=== PATIENT | male | born 1945 | race Caucasian/White ===

== ENCOUNTER 2016-11-26 08:48 | Emergency (ER) | payer MEDICARE ==
[2016-11-26 09:03] VITALS: RESP 18; TEMP 97
[2016-11-26] MEDS ORDERED: methylPREDNISolone SOD SUCCI 125 MG/2 ML VIAL IM STA (09:18)
[2016-11-26] MEDS ORDERED: HYDROmorphone 1 MG/ML 1 ML SYRINGE IM STA (09:18)
--- NOTE | 2016-11-26 09:22 | ED ---
Back Pain HPI - General Chief Complaint: Back Pain/Injury Stated Complaint: back pain, kidney pain Time Seen by Provider: 11/26/16 09:14 Source: patient, RN notes reviewed Limitations: no limitations - History of Present Illness Initial Comments: 71-year-old male presents to the emergency department with a chief complaint of back pain. Patient complains of back pain to the right side that radiates into the right leg. Patient states he has a long history of back pain and does suffer from chronic back pain. Patient states he sees Dr. Sandoval for this and is on narcotics. Patient states he was doing yard work over the weekend. Patient states around 3 AM he woke up due to his back pain. Patient states that he did not want it, but it just seems a little worse than normal wondering if maybe we should do a back injection. Patient states he talked to his daughter and he was informed by hospital had pain specialist to continue injections in the back to help with the discomfort. Patient denies any loss of bowel or bladder function. Patient denies any falls or traumas to the back. Patient states this is much like his normal chronic pain just flared up he thought that maybe we could help manage his pain better. Patient denies any recent fever, chills, shortness of breath, chest pain, abdominal pain, nausea vomiting, numbness or tingling, dysuria or hematuria, constipation or diarrhea, headaches or visual changes, or any other current symptoms. - Related Data Home Medications Medication Instructions Recorded Confirmed Aspirin 325 mg PO HS 12/23/13 06/18/15 Fish Oil/Dha/Epa [Fish Oil 1,200 4,800 mg PO DAILY 12/23/13 06/18/15 mg Fish Oil] Simvastatin 20 mg PO HS 12/23/13 06/18/15 metFORMIN HCL [Glucophage] 500 mg PO BID 12/23/13 06/18/15 Atenolol [Tenormin] 50 mg PO DAILY 11/26/16 11/26/16 Glimepiride [Amaryl] 1 mg PO BID 11/26/16 11/26/16 HYDROcodone/APAP 7.5-325MG [[place] 0.5 - 1 tab PO BID PRN 11/26/16 11/26/16 7.5-325] Ibuprofen [Motrin] 800 mg PO BID PRN 11/26/16 11/26/16 Losartan Potassium [Cozaar] 25 mg PO DAILY 11/26/16 11/26/16 Previous Rx's Medication Instructions Recorded predniSONE 50 mg PO DAILY #3 tab 11/26/16 Allergies Allergy/AdvReac Type Severity Reaction Status Date / Time No Known Allergies Allergy Verified 11/26/16 09:33 Review of Systems ROS Statement: Those systems with pertinent positive or pertinent negative responses have been documented in the HPI. ROS Other: All systems not noted in ROS Statement are negative. Past Medical History Past Medical History: Diabetes Mellitus, Hyperlipidemia, Myocardial Infarction ( non Q-wave), Osteoarthritis (OA) Additional Past Medical History / Comment(s): SEE DR FIELD'S H&P, KIDNEY STONES chronic back pain Last Myocardial Infarction Date:: 2006 History of Any Multi-Drug Resistant Organisms: None Reported Past Surgical History: Appendectomy, Cholecystectomy, Heart Catheterization With Stent Additional Past Surgical History / Comment(s): COLONOSCOPY, LEFT CATARACT. PACEMAKER 2006. Past Anesthesia/Blood Transfusion Reactions: No Reported Reaction Date of Last Stent Placement:: 2006 Type of Cardiac Device: AICD Device Placement Date:: 2006 [facility] LEFT CHEST Past Psychological History: No Psychological Hx Reported Smoking Status: Former smoker Past Alcohol Use History: Daily Past Drug Use History: None Reported General Exam Limitations: no limitations General appearance: alert, in no apparent distress Head exam: Present: atraumatic, normocephalic, normal inspection Neck exam: Present: normal inspection. Absent: tenderness, meningismus, lymphadenopathy Respiratory exam: Present: normal lung sounds bilaterally. Absent: respiratory distress, wheezes, rales, rhonchi, stridor Cardiovascular Exam: Present: regular rate, normal rhythm, normal heart sounds. Absent: systolic murmur, diastolic murmur, rubs, gallop, clicks Extremities exam: Present: normal inspection, full ROM, normal capillary refill. Absent: tenderness, pedal edema, joint swelling, calf tenderness Back exam: Present: normal inspection, full ROM, other (Positive straight leg raise to the right). Absent: tenderness, CVA tenderness (R), CVA tenderness (L) , muscle spasm, paraspinal tenderness, vertebral tenderness, rash noted Neurological exam: Present: alert, oriented X3 Psychiatric exam: Present: normal affect, normal mood Skin exam: Present: warm, dry, intact, normal color. Absent: rash Course Vital Signs 11/26/16 09:00 Temperature 97.0 F L Pulse Rate 52 L Respiratory 18 Rate Blood Pressure 135/67 O2 Sat by Pulse 99 Oximetry Medical Decision Making - Medical Decision Making 71-year-old male presents for follow-up of his chronic back pain. This time patient underwent an x-ray that does not show any new acute findings. This time we discussed continued follow-up with his doctor. We did give him a injection and he is feeling better. This time we discussed continuing his at home pain medicine medication. We did give him a short course of steroids for 3 days due to his diabetes who did discuss the importance of watching his glucose however this may help with his acute flare up. We did discuss return for hours and all his questions. He stated he understood a significant plan. This time will be discharged home. - Radiology Data Radiology results: report reviewed, image reviewed Disposition Clinical Impression: Chronic back pain Disposition: HOME SELF-CARE Condition: Stable Instructions: Chronic Back Pain (ED) Additional Instructions: Please use medication as discussed. Please follow up with family doctor if symptoms have not improved over the next two days. Please return to the emergency room if your symptoms increase or worsen or for any other concerns. Prescriptions: predniSONE 50 mg PO DAILY #3 tab Referrals: Keesha Miramontes MD [Primary Care Provider] - 1-2 days Time of Disposition: 10:01
--- NOTE | 2016-11-26 09:46 | XR ---
EXAMINATION TYPE: XR lumbar spine 2 or 3V, 3 VIEWS DATE OF EXAM ORDERED: 11/26/2016 HISTORY: Pain. COMPARISON: None. FINDINGS: There is a mild dextroscoliosis. Vertebral body height and alignment are maintained. There is no spondylolysis or spondylolisthesis. T here is chronic wedging of the T11 vertebral body. No fractures are seen. There is extensive facet ar thropathy. This hypertrophic spondylosis and spondylosis deformans throughout the spine. The pedicles appear intact. There is calcification of the [place] aorta. IMPRESSION: 1. NO ACUTE OSSEOUS LESION. 2. EXTENSIVE DEGENERATIVE CHANGE.
[2016-11-26 10:11] VITALS: BP 104/60; PULSE 61
== END 2016-11-26 10:05 | disposition home or self-care (01) ==
LOC: EC 08:48
DX: G89.29 Other chronic pain (principal); M54.9 Dorsalgia, unspecified; M79.604 Pain in right leg; E78.5 Hyperlipidemia, unspecified; E11.9 Type 2 diabetes mellitus without complications; M19.90 Unspecified osteoarthritis, unspecified site; I25.2 Old myocardial infarction; Z87.891 Personal history of nicotine dependence; Z79.82 Long term (current) use of aspirin; Z79.84 Long term (current) use of oral hypoglycemic drugs; Z79.899 Other long term (current) drug therapy
CPT/HCPCS: 72100; 99283; 96372 ×2; J2930; J1170

== ENCOUNTER 2016-12-08 09:44 | Emergency (ER) | payer MEDICARE ==
--- NOTE | 2016-12-08 10:48 | ED ---
Back Pain [facility] - General Chief Complaint: Back Pain/Injury Stated Complaint: back pain Time Seen by Provider: 12/08/16 10:22 Source: patient Limitations: no limitations - History of Present Illness Initial Comments: Patient is a 71-year-old male with extensive past medical history listed below, most significant for chronic low back pain secondary to arthritis. He presents to emergency department for evaluation of low back pain with radiating burning pain through his right buttock down his right leg. Patient reports he has a history of sciatica in the past, this was treated with steroids and resolved within 24-48 hours. Patient reports that he has been following with his primary care physician and has been seen in the ER in the past month due to his worsening low back pain. He has been treated with steroids and anti- inflammatories and has been referred to pain management, he plans to follow up with the pain management clinic next month. Patient reports that this weekend he was doing some landscaping and is home, this included carrying bags of 50 pound topsoil. He reports that his back pain waxed and waned throughout the day yesterday, however he was woken during the night with this burning pain radiating down his right leg. He reports that this pain is identical in character to previous episodes of sciatica. The patient denies any change in bowel or bladder habits, he denies any urinary retention or dysuria. He denies any bowel incontinence or constipation. He denies any weakness in the legs, numbness, tingling or paresthesias. He is walking with a cane due to the pain in his back. - Related Data Home Medications Medication Instructions Recorded Confirmed Aspirin 325 mg PO HS 12/23/13 11/26/16 Fish Oil/Dha/Epa [Fish Oil 1,200 4,800 mg PO DAILY 12/23/13 11/26/16 mg Fish Oil] Simvastatin 20 mg PO HS 12/23/13 11/26/16 metFORMIN HCL [Glucophage] 500 mg PO BID 12/23/13 11/26/16 Atenolol [Tenormin] 50 mg PO DAILY 11/26/16 11/26/16 Ibuprofen [Motrin] 800 mg PO BID PRN 11/26/16 11/26/16 Losartan Potassium [Cozaar] 25 mg PO DAILY 11/26/16 11/26/16 predniSONE See Taper PO DIRECTED 12/08/16 12/08/16 Previous Rx's Medication Instructions Recorded HYDROcodone/APAP 5-325MG [[place] 1 tab PO Q6HR PRN #12 tab 12/08/16 5-325] predniSONE 10 mg PO DAILY #18 tab 12/08/16 Allergies Allergy/AdvReac Type Severity Reaction Status Date / Time No Known Allergies Allergy Verified 12/08/16 10:37 Review of Systems ROS Statement: Those systems with pertinent positive or pertinent negative responses have been documented in the HPI. ROS Other: All systems not noted in ROS Statement are negative. Constitutional: Denies: fever, chills Respiratory: Denies: cough, dyspnea Cardiovascular: Denies: chest pain Endocrine: Denies: fatigue Gastrointestinal: Denies: nausea, vomiting Genitourinary: Denies: urgency, dysuria Musculoskeletal: Reports: back pain Skin: Denies: rash Neurological: Denies: weakness, numbness, paresthesias Psychiatric: Denies: anxiety, depression Hematological/Lymphatic: Denies: easy bleeding, easy bruising Past Medical History Past Medical History: Diabetes Mellitus, Hyperlipidemia, Myocardial Infarction ( non Q-wave), Osteoarthritis (OA) Additional Past Medical History / Comment(s): SEE DR FIELD'S H&P, KIDNEY STONES chronic back pain Last Myocardial Infarction Date:: 2006 History of Any Multi-Drug Resistant Organisms: None Reported Past Surgical History: Appendectomy, Cholecystectomy, Heart Catheterization With Stent Additional Past Surgical History / Comment(s): COLONOSCOPY, LEFT CATARACT. PACEMAKER 2006. Past Anesthesia/Blood Transfusion Reactions: No Reported Reaction Date of Last Stent Placement:: 2006 Type of Cardiac Device: AICD Device Placement Date:: 2006 [facility] LEFT CHEST Past Psychological History: No Psychological Hx Reported Smoking Status: Former smoker Past Alcohol Use History: Daily Past Drug Use History: None Reported General Exam Limitations: no limitations General appearance: alert, in no apparent distress Head exam: Present: atraumatic, normocephalic, normal inspection Eye exam: Present: normal appearance, PERRL, EOMI. Absent: scleral icterus, conjunctival injection, periorbital swelling ENT exam: Present: mucous membranes moist Neck exam: Present: full ROM Respiratory exam: Present: normal lung sounds bilaterally. Absent: respiratory distress, wheezes, rales, rhonchi, stridor Cardiovascular Exam: Present: regular rate, normal rhythm, normal heart sounds, other (Pacemaker palpable in left chest). Absent: systolic murmur, diastolic murmur, rubs, gallop, clicks GI/Abdominal exam: Present: soft, normal bowel sounds. Absent: distended, tenderness, guarding, rebound, rigid Rectal exam: Present: deferred Extremities exam: Present: normal inspection, full ROM, normal capillary refill. Absent: tenderness, pedal edema, joint swelling, calf tenderness Back exam: Absent: tenderness, CVA tenderness (R), CVA tenderness (L), muscle spasm, paraspinal tenderness, vertebral tenderness Neurological exam: Present: alert, oriented X3, CN II-XII intact, reflexes normal (Normal patellar reflexes, normal strength in bilateral lower extremities , positive straight leg raise) Course Vital Signs 12/08/16 10:11 Temperature 98.1 F Pulse Rate 66 Respiratory 18 Rate Blood Pressure 115/59 O2 Sat by Pulse 97 Oximetry Medical Decision Making - Medical Decision Making Patient was seen and examined, history is obtained from the patient. Physical exam normal strength, normal sensation in bilateral lower extremities. Physical exam with positive straight leg raise, consistent with sciatica There are no neurologic findings on physical exam, no trauma, therefore no indication for further imaging Plan to discharge patient home with by mouth steroids, narcotic analgesics and follow-up with PCP and pain management Plan was discussed with the patient was agreeable. Disposition Clinical Impression: Sciatica, Mechanical back pain Disposition: HOME SELF-CARE Instructions: Chronic Back Pain (ED) Referrals: Keesha Miramontes MD [Primary Care Provider] - 1-2 days
[2016-12-08 11:24] VITALS: BP 119/60; PULSE 65; RESP 16; TEMP 98.2
== END 2016-12-08 11:24 | disposition home or self-care (01) ==
LOC: EC 09:44
DX: M54.41 Lumbago with sciatica, right side (principal); E78.5 Hyperlipidemia, unspecified; E11.9 Type 2 diabetes mellitus without complications; M19.90 Unspecified osteoarthritis, unspecified site; I25.2 Old myocardial infarction; Z87.891 Personal history of nicotine dependence; Z79.52 Long term (current) use of systemic steroids; Z79.82 Long term (current) use of aspirin; Z79.84 Long term (current) use of oral hypoglycemic drugs; Z79.899 Other long term (current) drug therapy; Z95.0 Presence of cardiac pacemaker
CPT/HCPCS: 99283

== ENCOUNTER → 2017-01-27 | Outpatient (CLI) | payer MEDICARE ==
[2017-01-22 12:49] VITALS: BMI 29.1
[2017-01-27 09:18] VITALS: BP 120/61; PULSE 61; RESP 16; TEMP 98.1
--- NOTE | 2017-01-27 09:36 | P.HPIM ---
History of Present Illness H&P Date: 01/27/17 Chief Complaint: right hip pain This is a 72-year-old male patient referred by Dr. Miramontes for chronic pain in right hip and slight pain in right side of low back with numbness radiating to right lateral ankle. Patient has been taking medications from primary care physician including rare [place] medications with some relief. Patient is also being worked up by Dr. Betancourt for hip OA, including a steroid injection performed at the beginning of December that patient is now beginning to get relief from. Patient denies adverse drug effects from medications. Patient also denies new- onset weakness, bowel/bladder incontinence, or any other signs or symptoms of cauda equina syndrome. There are no signs of acute intoxication, and no indications of medication diversion or overuse. Patient notes that pain worsens significantly with standing and walking, and improves with rest and medication. Patient has used several types of medications for pain, including NSAIDS, OPIOIDS, TRAMADOL Patient HAS NOT had surgery. Patient HAS had injections previously (R hip by Dr. Betancourt). Patient is currently undergoing physical therapy. In addition to above, 13-point review of systems is also negative for chest pain , shortness of breath, changes in vision, changes in hearing, new onset weakness , abdominal pain, diarrhea, extreme fatigue, malaise, fever, skin changes, homicidal or suicidal ideation, or bowel or bladder incontinence. Vital Signs: Reviewed in EMR Gen: WDWN, AAOx3, NAD HEENT: NCAT, EOMI, hearing grossly normal Pulm: resp unlabored Abd: soft, NT, ND Neck: supple, trachea midline ROM in flexion lumbar spine: full ROM in extension lumbar spine: full Lumbar paravertebral tenderness: neg Facet loading: + R side SI joint tenderness: neg Jose Elias's test: neg bilateral Straight leg raise: neg bilateral Neuro: CN II-XII grossly intact, muscle strength lower extremities PRESERVED Past Medical History Past Medical History: Diabetes Mellitus, Hyperlipidemia, Myocardial Infarction ( non Q-wave), Osteoarthritis (OA) Additional Past Medical History / Comment(s): SEE DR FIELD'S H&P, KIDNEY STONES chronic back pain Last Myocardial Infarction Date:: 2006 History of Any Multi-Drug Resistant Organisms: None Reported Past Surgical History: AICD, Appendectomy, Cholecystectomy, Heart Catheterization With Stent Additional Past Surgical History / Comment(s): COLONOSCOPY, LEFT CATARACT. AICD 2006. Past Anesthesia/Blood Transfusion Reactions: No Reported Reaction Date of Last Stent Placement:: 2006 Type of Cardiac Device: AICD Device Placement Date:: 2006 [facility] LEFT CHEST Past Psychological History: No Psychological Hx Reported Smoking Status: Former smoker Past Alcohol Use History: Daily Additional Past Alcohol Use History / Comment(s): QUIT IN 2004, SMOKED 40 YRS. Past Drug Use History: None Reported - Past Family History Mother Family Medical History: No Reported History Medications and Allergies Home Medications Medication Instructions Recorded Confirmed Type Aspirin 325 mg PO HS 12/23/13 01/27/17 History Fish Oil/Dha/Epa [Fish Oil 1,200 2 cap PO BID 12/23/13 01/27/17 History mg Fish Oil] Simvastatin 20 mg PO HS 12/23/13 01/27/17 History metFORMIN HCL [Glucophage] 500 mg PO TID 12/23/13 01/27/17 History Baclofen 10 mg PO HS 01/27/17 01/27/17 History Metoprolol Succinate (ER) [Toprol 12.5 mg PO DAILY 01/27/17 01/27/17 History XL] Naproxen Sodium [Aleve] 440 mg PO BID 01/27/17 01/27/17 History Tamsulosin HCl [Flomax] 0.4 mg PO DAILY 01/27/17 01/27/17 History Allergies Allergy/AdvReac Type Severity Reaction Status Date / Time No Known Allergies Allergy Verified 01/27/17 09:00 Physical Exam Vitals: Vital Signs Temp Pulse Resp BP 01/27/17 09:07 98.1 F 61 16 120/61 Results Comments: X-ray lumbar spine dated 11/26/2016 demonstrates extensive facet arthropathy with hypertrophic spondylosis and deformans throughout the spine. X-ray hip is unavailable. Assessment and Plan (1) Hip osteoarthritis Status: Chronic (2) Lumbar spondylosis Status: Chronic Plan: 1. Explanation: Opioid and psychological risk scores were reviewed. Diagnoses , prognoses, and multiple treatment options including but not limited to physical therapy, interventional therapies, adjuvant medical therapies, narcotic medication therapies, and surgery were discussed with the patient and all questions were answered to the patient's satisfaction. 2. Opioid agreement: no opioids prescribed today 3. Counseling: The patient was counseled extensively on BODY MASS INDEX, EXERCISE. Specifically, the patient was instructed regarding the importance of weight control, and exercise in the context of both chronic pain and overall health. 4. Procedures: none for now 5. Consultations: none 6. Investigations: CT lumbar spine to go along with patient's current order for CT R hip per Serafin 7. Medications: none 8. Disposition: f/u for re-eval in 8 weeks if Serafin tells patient that hip pain is arising from lumbar facets PQRS measures: 1-Patient's medications are documented in the chart. 2-Tobacco use is negative 3-Patient has not had a pneumococcal vaccine. 4-Advanced care planning discussed, patient unable to give. 5-Opioid contract NOT signed with the patient. 6-Pain positive, follow-up visit or procedure scheduled 7-Patient's blood pressure measured and documented, and WNL. 8-Patient's weight was measured, and body mass index ABOVE the normal limits, and counseling was done. Patient instructed to follow up with PCP. 9-Patient WAS NOT identified as an unhealthy alcohol user. Time with Patient: Greater than 30
== END | disposition home or self-care (01) ==
LOC: PNWHC3 08:52
PROVIDERS: ATTEND Anesthesiology
DX: M16.11 Unilateral primary osteoarthritis, right hip (principal); M47.816 Spondylosis without myelopathy or radiculopathy, lumbar region; Z79.82 Long term (current) use of aspirin; Z79.1 Long term (current) use of non-steroidal anti-inflammatories (NSAID); Z79.899 Other long term (current) drug therapy
CPT/HCPCS: 99211

== ENCOUNTER → 2017-02-03 | Outpatient (CLI) | payer MEDICARE ==
[2017-02-03 17:21] LABS: Blood Urea Nitrogen 30 mg/dL (9-20); Non-African American GFR(MDRD) 54 (>60 ml/min/1.73 sqM)
--- NOTE | 2017-02-03 23:15 | CT ---
CT right hip with and without contrast HISTORY: Right hip pain Multiplanar multisequence and postcontrast images through the right hip following 80 cc Visipaque [id number] Correlation to lumbar spine MRI same date The degenerative disc changes are documented in the lumbar spine report of same date. Joint space loss present within the hips, subchondral geode formation present bilaterally. Alignment and bone mineralization are maintained. No abnormal enhancement following contrast administration. Ma rginal spurring present. Prostate gland shows associated calcifications. IMPRESSION: Degenerative disc disease, facet arthropathy, foraminal encroachment. Osteoarthritis righ t hip.
== END | disposition home or self-care (01) ==
LOC: RADCTMAIN 16:39
PROVIDERS: ATTEND Orthopaedic Surgery
DX: M16.11 Unilateral primary osteoarthritis, right hip (principal); E11.9 Type 2 diabetes mellitus without complications; M51.16 Intervertebral disc disorders with radiculopathy, lumbar region
CPT/HCPCS: 82565; 84520; 36415; 73702; Q9967

== ENCOUNTER → 2017-02-03 | Outpatient (CLI) | payer MEDICARE ==
--- NOTE | 2017-02-03 23:09 | CT ---
EXAMINATION TYPE: CT lumbar spine wo con DATE OF EXAM: 02/03/2017 COMPARISON: NONE HISTORY: Low back pain and Right hip pain. CT DLP: 1020.5 mGycm Automated exposure control for dose reduction was used. An unenhanced CT of the lumbar spine was performed. Bone and soft tissue window settings are submitt ed as well as coronal and sagittal reconstructions. FINDINGS: Lumbar vertebral bodies show preserved height and alignment. There is multilevel spondylosis. Loss of disc height present at the intervertebral levels. Vacuum phenomenon present at L3-4, L4-5 and L5-S1. Calcification noted incidentally in the left kidney is nonobstructive and measures only approximatel y 5 mm at the lower pole, upper pole calcification seen on coronal images of similar size.. Cystic fo cus also associated with the upper pole left kidney anteriorly measuring 2 cm. May be a spinal curvat ure. L1-L2: Bilateral foraminal encroachment present due to lateral extension of endplate disc complex. Fa cet arthropathy changes are present with hypertrophy of ligamentum flavum encroaching on the lateral recesses. No significant central stenosis. L2-L3: Posterior extension of endplate disc complex causes anterior mass effect on the thecal sac. Mi ld bilateral foraminal encroachment, facet arthropathy changes are also present causing moderate cent ral stenosis. L3-L4: Posterior extension of endplate disc complex causes anterior mass effect on the thecal sac, mi ld central stenosis. Circumferential extension of endplate disc complex results in bilateral foramina l encroachment. Facet arthropathy with hypertrophy ligamentum flavum encroaches on the lateral recess es. L4-L5: Facet arthropathy with hypertrophy ligamentum flavum encroaches on the lateral recesses. Poste rior extension of endplate disc complex results in moderate central canal stenosis. Circumferential e xtension of endplate disc complex causes bilateral foraminal encroachment. Gas attenuation extends to wards the right neural foramen suggesting possible lateral disc herniation. L5-S1: Posterior extension of endplate disc complex likely contacts the anterior thecal sac, possibly proximal S1 nerve roots. Circumferential extension of endplate disc complex encroaches on the neural foramina. No significant central stenosis. IMPRESSION: No paraspinal masses are identified. Lumbar segments are intact. Nonobstructive left-sided nephrolit hiasis. Degenerative disc disease, multilevel facet arthropathy, spinal stenosis or foraminal encroac hment.
== END | disposition home or self-care (01) ==
LOC: RADCTMAIN 16:47
PROVIDERS: ATTEND Anesthesiology
DX: M51.16 Intervertebral disc disorders with radiculopathy, lumbar region (principal); M53.80 Other specified dorsopathies, site unspecified
CPT/HCPCS: 72131

== ENCOUNTER → 2017-02-20 | Outpatient (CLI) | payer MEDICARE ==
[2017-02-20 08:53] LABS: CH 33.5; CHCM 34.3; HCT 35.9 % (39.0-53.0); HDW 3.22; HGB 12.2 gm/dL (13.0-17.5); MCH 33.5 pg (25.0-35.0); MCV 98.4 fL (80.0-100.0); Mean Platelet Volume 7.3; RBC 3.65 m/uL (4.30-5.90); RDW 14.2 % (11.5-15.5); WBC 4.2 k/uL (3.8-10.6)
[2017-02-20 09:05] LABS: ALT 45 U/L (21-72); AST 31 U/L (17-59); Alkaline Phosphatase 73 U/L (38-126); Anion Gap 11 mmol/L; Blood Urea Nitrogen 21 mg/dL (9-20); Calcium 9.2 mg/dL (8.4-10.2); Carbon Dioxide 22 mmol/L (22-30); Chloride 106 mmol/L (98-107); Cholesterol 113 mg/dL (<200); Glucose 150 mg/dL (74-99); HDL Cholesterol 35 mg/dL (40-60); Non-African American GFR(MDRD) 54 (>60 ml/min/1.73 sqM); Potassium 4.6 mmol/L (3.5-5.1); Sodium 139 mmol/L (137-145); Total Bilirubin 1.6 mg/dL (0.2-1.3); Total Protein 6.5 g/dL (6.3-8.2)
[2017-02-20 12:54] LABS: Hemoglobin A1C 6.5 % (4.2-6.1)
== END | disposition home or self-care (01) ==
LOC: LABWHC1 08:07
PROVIDERS: ATTEND Internal Medicine Clinical Cardiac Electrophysiology
DX: I42.9 Cardiomyopathy, unspecified (principal); I50.9 Heart failure, unspecified; E11.9 Type 2 diabetes mellitus without complications; I47.2 Ventricular tachycardia
CPT/HCPCS: 36415; 80053; 80061; 83036; 84443; 85027

== ENCOUNTER 2018-03-11 07:49 | Observation (INO) | payer MEDICARE ==
--- NOTE | 2018-03-11 08:22 | ED ---
General Adult HPI - General Chief complaint: Chest Pain Stated complaint: CHEST PAIN Time Seen by Provider: 03/11/18 07:57 Source: patient, RN notes reviewed, old records reviewed Mode of arrival: ambulatory Limitations: no limitations - History of Present Illness Initial comments: 73-year-old male history of CAD and diabetes presenting with 3 days of left- sided chest pain. Patient describes the pain as dull in nature. He did report some mild left arm pain associated with this however this has resolved. Pain is been intermittent over the past 3 days. He also reports dyspnea which is worse with lying flat. Denies lower extremity swelling. Denies known history of heart failure. He had multiple stents placed 2006. He has a pacemaker defibrillator. He is currently on 12.5 mg of Toprol-XL. He takes aspirin, no other antiplatelet or anticoagulant. - Related Data Home Medications Medication Instructions Recorded Confirmed Aspirin 325 mg PO HS 12/23/13 03/11/18 Simvastatin 20 mg PO HS 12/23/13 03/11/18 metFORMIN HCL [Glucophage] 500 mg PO TID 12/23/13 03/11/18 Metoprolol Succinate (ER) [Toprol 12.5 mg PO DAILY 01/27/17 03/11/18 XL] Allergies Allergy/AdvReac Type Severity Reaction Status Date / Time No Known Allergies Allergy Verified 03/11/18 08:39 Review of Systems ROS Statement: Those systems with pertinent positive or pertinent negative responses have been documented in the HPI. ROS Other: All systems not noted in ROS Statement are negative. Past Medical History Past Medical History: Diabetes Mellitus, Hyperlipidemia, Myocardial Infarction ( non Q-wave), Osteoarthritis (OA) Additional Past Medical History / Comment(s): SEE DR FIELD'S H&P, KIDNEY STONES chronic back pain Last Myocardial Infarction Date:: 2006 History of Any Multi-Drug Resistant Organisms: None Reported Past Surgical History: AICD, Appendectomy, Cholecystectomy, Heart Catheterization With Stent Additional Past Surgical History / Comment(s): COLONOSCOPY, LEFT CATARACT. AICD 2006. Past Anesthesia/Blood Transfusion Reactions: No Reported Reaction Date of Last Stent Placement:: 2006 Type of Cardiac Device: AICD Device Placement Date:: 2006 [facility] LEFT CHEST Past Psychological History: No Psychological Hx Reported Smoking Status: Former smoker Past Alcohol Use History: Daily Past Drug Use History: None Reported - Past Family History Mother Family Medical History: No Reported History General Exam Limitations: no limitations General appearance: alert, in no apparent distress Head exam: Present: atraumatic, normocephalic Eye exam: Present: normal appearance, PERRL, EOMI ENT exam: Present: normal exam Neck exam: Present: normal inspection. Absent: tenderness, meningismus Respiratory exam: Present: rales, decreased breath sounds. Absent: respiratory distress Cardiovascular Exam: Present: bradycardia, irregular rhythm. Absent: normal heart sounds Extremities exam: Present: normal inspection, normal capillary refill. Absent: pedal edema Neurological exam: Present: alert, oriented X3, CN II-XII intact. Absent: motor sensory deficit Skin exam: Present: warm, dry, intact. Absent: cyanosis, diaphoretic Course Vital Signs 03/11/18 07:52 Temperature 97.5 F L Pulse Rate 35 L Respiratory 18 Rate Blood Pressure 121/62 O2 Sat by Pulse 99 Oximetry EKG Findings - EKG Comments: EKG Findings:: EKG: Sinus rhythm with frequent PVC, better no bigeminy, right bundle-branch block, left anterior fascicular block, rate of 63, IA interval 160 , QRS duration 136, QTC 474, no ST segment elevation or depression. Previous EKG reviewed, patient does have history of right bundle-branch block. Medical Decision Making - Medical Decision Making 73-year-old male presenting with 3 days of intermittent chest pain and dyspnea. Patient has history of CAD status post CABG in 2017. Pain is associated with dyspnea and some intermittent left arm pain as well. Laboratory studies reveal normal CBC, negative initial troponin, BNP is mildly elevated at 1680, chest x- ray is showing some atelectasis in the lung bases, patient has had no significant cough, no fever, and has a normal white blood cell count, doubt pneumonia at this time. He does have rails on bilateral bases, is given a dose of Lasix in the emergency department. He will be admitted on IV heparin for cardiology evaluation. - Lab Data Result diagrams: 03/11/18 08:20 03/11/18 08:20 Lab Results 03/11/18 03/11/18 03/11/18 Range/Units 08:20 08:20 08:20 WBC 5.7 (3.8-10.6) k/uL RBC 4.50 (4.30-5.90) m/uL Hgb 14.9 (13.0-17.5) gm/dL Hct 42.4 (39.0-53.0) % MCV 94.4 (80.0-100.0) fL MCH 33.0 (25.0-35.0) pg MCHC 35.0 (31.0-37.0) g/dL RDW 13.4 (11.5-15.5) % Plt Count 172 (150-450) k/uL Neutrophils % 60 % Lymphocytes % 21 % Monocytes % 9 % Eosinophils % 6 % Basophils % 1 % Neutrophils # 3.4 (1.3-7.7) k/uL Lymphocytes # 1.2 (1.0-4.8) k/uL Monocytes # 0.5 (0-1.0) k/uL Eosinophils # 0.3 (0-0.7) k/uL Basophils # 0.0 (0-0.2) k/uL PT (9.0-12.0) sec INR (<1.2) APTT (22.0-30.0) sec Sodium 140 (137-145) mmol/L Potassium 4.8 (3.5-5.1) mmol/L Chloride 107 (98-107) mmol/L Carbon Dioxide 22 (22-30) mmol/L Anion Gap 11 mmol/L BUN 27 H (9-20) mg/dL Creatinine 1.43 H (0.66-1.25) mg/dL Est GFR (CKD-EPI)AfAm 56 (>60 ml/min/1.73 sqM) Est GFR (CKD-EPI)NonAf 49 (>60 ml/min/1.73 sqM) Glucose 212 H (74-99) mg/dL Calcium 9.5 (8.4-10.2) mg/dL Magnesium 1.7 (1.6-2.3) mg/dL Total Bilirubin 1.6 H (0.2-1.3) mg/dL AST 37 (17-59) U/L ALT 36 (21-72) U/L Alkaline Phosphatase 65 (38-126) U/L Total Creatine Kinase 36 L (55-170) U/L CK-MB (CK-2) 0.6 (0.0-2.4) ng/mL CK-MB (CK-2) Rel Index 1.7 Troponin I <0.012 (0.000-0.034) ng/mL NT-Pro-B Natriuret Pep pg/mL Total Protein 6.6 (6.3-8.2) g/dL Albumin 3.8 (3.5-5.0) g/dL 03/11/18 03/11/18 Range/Units 08:20 08:20 WBC (3.8-10.6) k/uL RBC (4.30-5.90) m/uL Hgb (13.0-17.5) gm/dL Hct (39.0-53.0) % MCV (80.0-100.0) fL MCH (25.0-35.0) pg MCHC (31.0-37.0) g/dL RDW (11.5-15.5) % Plt Count (150-450) k/uL Neutrophils % % Lymphocytes % % Monocytes % % Eosinophils % % Basophils % % Neutrophils # (1.3-7.7) k/uL Lymphocytes # (1.0-4.8) k/uL Monocytes # (0-1.0) k/uL Eosinophils # (0-0.7) k/uL Basophils # (0-0.2) k/uL PT 10.5 (9.0-12.0) sec INR 1.1 (<1.2) APTT 23.3 (22.0-30.0) sec Sodium (137-145) mmol/L Potassium (3.5-5.1) mmol/L Chloride (98-107) mmol/L Carbon Dioxide (22-30) mmol/L Anion Gap mmol/L BUN (9-20) mg/dL Creatinine (0.66-1.25) mg/dL Est GFR (CKD-EPI)AfAm (>60 ml/min/1.73 sqM) Est GFR (CKD-EPI)NonAf (>60 ml/min/1.73 sqM) Glucose (74-99) mg/dL Calcium (8.4-10.2) mg/dL Magnesium (1.6-2.3) mg/dL Total Bilirubin (0.2-1.3) mg/dL AST (17-59) U/L ALT (21-72) U/L Alkaline Phosphatase (38-126) U/L Total Creatine Kinase (55-170) U/L CK-MB (CK-2) (0.0-2.4) ng/mL CK-MB (CK-2) Rel Index Troponin I (0.000-0.034) ng/mL NT-Pro-B Natriuret Pep 1680 pg/mL Total Protein (6.3-8.2) g/dL Albumin (3.5-5.0) g/dL Disposition Clinical Impression: Unstable angina pectoris Disposition: ADMITTED IP TO THIS [facility] Condition: Stable Is patient prescribed a controlled substance at d/c from ED?: No Referrals: Keesha Miramontes MD [Primary Care Provider] - 1-2 days Decision to Admit Reason: Admit from EC Decision Date: 03/11/18 Decision Time: 09:26
[2018-03-11 08:27] LABS: Basophils % (A) 1 %; Eosinophils # (A) 0.3 k/uL (0-0.7); Eosinophils % (A) 6 %; HCT 42.4 % (39.0-53.0); HGB 14.9 gm/dL (13.0-17.5); Lymphocytes # (A) 1.2 k/uL (1.0-4.8); Lymphocytes % (A) 21 %; MCV 94.4 fL (80.0-100.0); Mean Platelet Volume 7.7; Monocytes # (A) 0.5 k/uL (0-1.0); Monocytes % (A) 9 %; Neutrophils # (A) 3.4 k/uL (1.3-7.7); Neutrophils % (A) 60 %; Platelet Count 172 k/uL (150-450); RDW 13.4 % (11.5-15.5); WBC 5.7 k/uL (3.8-10.6)
[2018-03-11 08:37] LABS: Albumin 3.8 g/dL (3.5-5.0); Calcium 9.5 mg/dL (8.4-10.2); INR 1.1 (<1.2); Magnesium 1.7 mg/dL (1.6-2.3); Partial Thromboplastin Time 23.3 sec (22.0-30.0); Potassium 4.8 mmol/L (3.5-5.1); Prothrombin Time 10.5 sec (9.0-12.0); Total Bilirubin 1.6 mg/dL (0.2-1.3); Total Protein 6.6 g/dL (6.3-8.2)
[2018-03-11 08:49] LABS: Creatine Kinase 36 U/L (55-170)
--- NOTE | 2018-03-11 08:58 | XR ---
EXAMINATION TYPE: XR chest 1V portable DATE OF EXAM: 03/11/2018 COMPARISON: Chest x-ray March 09, 2014 HISTORY: Chest pain began today. TECHNIQUE: Single AP portable frontal upright view of the chest is obtained. FINDINGS: There is some chronic parenchymal change with new left basilar opacity silhouetting portio n of left hemidiaphragm. There is chronic opacity right lung base adjacent to heart border may reflec t prominent pericardial fat pad. The cardiac silhouette size remains enlarged with stable appearing single lead pacemaker/AICD. The osseous structures are intact. IMPRESSION: Cardiomegaly with developing left basilar atelectasis and/or infiltrate identified.
[2018-03-11 09:01] LABS: Creatine Kinase MB 0.6 ng/mL (0.0-2.4); Troponin I <0.012 ng/mL (0.000-0.034)
[2018-03-11] MEDS ORDERED: ASPIRIN 325 MG TAB PO STA (09:19)
[2018-03-11] MEDS ORDERED: HEPARIN SODIUM,PORCINE 5,000 UNIT/ML 1 ML VIAL IV ONE (09:19)
[2018-03-11] MEDS ORDERED: HEPARIN SODIUM,PORCINE 5,000 UNIT/ML 1 ML VIAL IV PRN (09:19)
[2018-03-11] MEDS ORDERED: NITROGLYCERIN SL TABS 0.4 MG TAB SUBLINGUAL PRN (09:19)
[2018-03-11] MEDS ORDERED: FUROSEMIDE 10 MG/ML 2 ML VIAL IV STA (09:19)
[2018-03-11] MEDS ORDERED: NALOXONE 0.4 MG/ML 1 ML VIAL IV PRN (09:20)
[2018-03-11] MEDS ORDERED: MORPHINE SULFATE 4 MG/ML SYRINGE IV PRN (09:20)
[2018-03-11] MEDS ORDERED: ACETAMINOPHEN TAB 325 MG TAB PO PRN (09:20)
[2018-03-11] MEDS ORDERED: HEPARIN SOD,PORK IN 0.45% NACL 25,000 UNIT in 0.45% NACL 1 500ML.BAG IV SCH (09:30)
[2018-03-11] MEDS: FAMOTIDINE 20 MG/2 ML VIAL IV SCH ×2 (15:32→21:32)
--- NOTE | 2018-03-11 15:51 | P.HPIM ---
History of Present Illness 73-year-old male history of CAD and diabetes presenting with 3 days of left- sided chest pain. Patient describes the pain as dull in nature. He did report some mild left arm pain associated with this however this has resolved. Pain is been intermittent over the past 3 days. He also reports dyspnea which is worse with lying flat. Denies lower extremity swelling. Denies known history of heart failure. He had multiple stents placed 2006. He has a pacemaker defibrillator. He is currently on 12.5 mg of Toprol-XL. He takes aspirin, no other antiplatelet or anticoagulant. Patient's chest pain is a mild nonpleuritic although symptoms are associated with food nonreproducible. From the past [facility] appears like patient has a ischemic myopathy do not have any ejection fraction available no echocardiogram available in the system patient had an AICD in the past and patient's baseline creatinine is 1.3 in the past and his present creatinine is 1.4 Review of Systems REVIEW OF SYSTEMS: CONSTITUTIONAL: No fever, no malaise, no fatigue. HEENT: No recent visual problems or hearing problems. Denied any sore throat. CARDIOVASCULAR: No orthopnea, PND, no palpitations, no syncope. PULMONARY: No shortness of breath, no cough, no hemoptysis. GASTROINTESTINAL: No diarrhea, no nausea, no vomiting, no abdominal pain. Normoactive bowel sounds. NEUROLOGICAL: No headaches, no weakness, no numbness. HEMATOLOGICAL: Denies any bleeding or petechiae. GENITOURINARY: Denies any burning micturition, frequency, or urgency. MUSCULOSKELETAL/RHEUMATOLOGICAL: Denies any joint pain, swelling, or any muscle pain. ENDOCRINE: Denies any polyuria or polydipsia. The rest of the 14-point review of systems is negative. Past Medical History Past Medical History: Diabetes Mellitus, Hyperlipidemia, Hypertension, Myocardial Infarction (non Q-wave), Osteoarthritis (OA) Additional Past Medical History / Comment(s): SEE DR FIELD'S H&P, KIDNEY STONES chronic back pain , concussion 1968, sciatica Last Myocardial Infarction Date:: 2006 History of Any Multi-Drug Resistant Organisms: None Reported Past Surgical History: AICD, Appendectomy, Cholecystectomy, Heart Catheterization With Stent Additional Past Surgical History / Comment(s): COLONOSCOPY, roel CATARACT. AICD [address]. [address] saucedo h&p 2015 Past Anesthesia/Blood Transfusion Reactions: No Reported Reaction Date of Last Stent Placement:: 2006 Type of Cardiac Device: AICD Device Placement Date:: 2006 [facility] LEFT CHEST Smoking Status: Former smoker - Past Family History Mother Family Medical History: Coronary Artery Disease (CAD), Renal Disease Father Additional Family Medical History / Comment(s): during medical testing Medications and Allergies Home Medications Medication Instructions Recorded Confirmed Type Aspirin 325 mg PO HS 12/23/13 03/11/18 History Simvastatin 20 mg PO HS 12/23/13 03/11/18 History metFORMIN HCL [Glucophage] 500 mg PO TID 12/23/13 03/11/18 History Metoprolol Succinate (ER) [Toprol 12.5 mg PO DAILY 01/27/17 03/11/18 History XL] Allergies Allergy/AdvReac Type Severity Reaction Status Date / Time No Known Allergies Allergy Verified 03/11/18 08:39 Physical Exam Vitals: Vital Signs Temp Pulse Pulse Resp BP BP Pulse Ox 03/11/18 14:31 97.6 F 62 18 130/68 98 03/11/18 13:57 59 L 16 127/61 99 03/11/18 12:00 64 16 117/56 95 03/11/18 10:30 62 16 107/81 97 03/11/18 09:15 58 L 16 166/72 95 03/11/18 08:15 60 16 138/63 96 03/11/18 07:52 97.5 F L 35 L 18 121/62 99 Intake and Output 03/11/18 03/11/18 03/11/18 06:59 14:59 22:59 Other: Weight 86.183 kg PHYSICAL EXAMINATION: GENERAL: The patient is alert and oriented x3, not in any acute distress. Well developed, well nourished. HEENT: Pupils are round and equally reacting to light. EOMI. No scleral icterus. No conjunctival pallor. Normocephalic, atraumatic. No pharyngeal erythema. No thyromegaly. CARDIOVASCULAR: S1 and S2 present. No murmurs, rubs, or gallops. PULMONARY: Chest is clear to auscultation, no wheezing or crackles. ABDOMEN: Soft, nontender, nondistended, normoactive bowel sounds. No palpable organomegaly. MUSCULOSKELETAL: No joint swelling or deformity. EXTREMITIES: No cyanosis, clubbing, or pedal edema. NEUROLOGICAL: Gross neurological examination did not reveal any focal deficits. SKIN: No rashes. Results CBC & Chem 7: 03/11/18 08:20 03/11/18 08:20 Labs: Abnormal Lab Results - Last 24 Hours (Table) 03/11/18 03/11/18 Range/Units 08:20 08:20 BUN 27 H (9-20) mg/dL Creatinine 1.43 H (0.66-1.25) mg/dL Glucose 212 H (74-99) mg/dL Total Bilirubin 1.6 H (0.2-1.3) mg/dL Total Creatine Kinase 36 L (55-170) U/L Thrombosis Risk Factor Assmnt - Choose All That Apply Any of the Below Risk Factors Present?: Yes Each Factor Represents 1 point: Obesity (BMI >25) Other Risk Factors: Yes Each Risk Factor Represents 2 Points: Age 61-74 years Thrombosis Risk Factor Assessment Total Risk Factor Score: 3 Thrombosis Risk Factor Assessment Level: Moderate Risk Assessment and Plan Plan: Chest pain:: We'll rule out a concurrent syndromes unstable angina, cardiology will evaluate the patient patient may have peptic ulcer disease at discontinued in his symptoms patient will be started on Pepcid -History of ischemic cardiomyopathy not on any diuretic therapy at this time patient is not in heart failure exacerbation, patient has an AICD. Patient does have some bibasilar atelectasis. -Coronary artery disease with previous stents in the past -Type 2 diabetes mellitus: Metformin is not ideal for him because of his chronic kidney disease -Chronic kidney disease stage III probably diabetic nephropathy -Hypertension
[2018-03-11 16:44] LABS: Creatine Kinase 28 U/L (55-170)
[2018-03-11 16:56] LABS: Creatine Kinase MB 0.5 ng/mL (0.0-2.4); Troponin I <0.012 ng/mL (0.000-0.034)
[2018-03-11 17:14] LABS: Glucose,Whole Blood 126 mg/dL (75-99)
[2018-03-11 20:24] LABS: Glucose,Whole Blood 135 mg/dL (75-99)
[2018-03-11] MEDS ORDERED: ATORVASTATIN 10 MG TAB PO SCH (21:00)
[2018-03-11 21:11] LABS: Creatine Kinase 30 U/L (55-170)
[2018-03-11 21:23] LABS: Creatine Kinase MB 0.6 ng/mL (0.0-2.4); Troponin I <0.012 ng/mL (0.000-0.034)
[2018-03-11] MEDS: INSULIN ASPART 100 UNIT/ML 1 ML 10 ML VIAL SQ SCH (21:33)
[2018-03-12 03:54] LABS: Hemoglobin A1C 7.4 % (4.0-6.0)
[2018-03-12 04:31] LABS: Basophils # (A) 0.1 k/uL (0-0.2); Basophils % (A) 1 %; Eosinophils # (A) 0.4 k/uL (0-0.7); Eosinophils % (A) 6 %; HCT 41.7 % (39.0-53.0); HGB 13.8 gm/dL (13.0-17.5); Lymphocytes # (A) 1.9 k/uL (1.0-4.8); Lymphocytes % (A) 30 %; MCH 31.7 pg (25.0-35.0); MCHC 33.2 g/dL (31.0-37.0); MCV 95.5 fL (80.0-100.0); Mean Platelet Volume 7.6; Monocytes # (A) 0.5 k/uL (0-1.0); Monocytes % (A) 8 %; Neutrophils # (A) 3.1 k/uL (1.3-7.7); Neutrophils % (A) 51 %; Platelet Count 161 k/uL (150-450); RBC 4.37 m/uL (4.30-5.90); RDW 13.4 % (11.5-15.5); WBC 6.1 k/uL (3.8-10.6)
[2018-03-12 06:32] LABS: Glucose,Whole Blood 187 mg/dL (75-99)
[2018-03-12 07:39] VITALS: RESP 18
[2018-03-12] MEDS ORDERED: FUROSEMIDE 10 MG/ML 2 ML VIAL IV STA (08:24)
[2018-03-12] MEDS ORDERED: METOPROLOL SUCCINATE (ER) 25 MG TAB.ER.24H PO SCH (09:00)
[2018-03-12] MEDS ORDERED: FUROSEMIDE 10 MG/ML 4 ML VIAL IV SCH (09:00)
[2018-03-12 09:29] LABS: Calcium 9.2 mg/dL (8.4-10.2); Potassium 4.5 mmol/L (3.5-5.1)
[2018-03-12] MEDS: INSULIN ASPART 100 UNIT/ML 1 ML 10 ML VIAL SQ SCH ×2 (09:30→12:53)
[2018-03-12] MEDS: FAMOTIDINE 20 MG/2 ML VIAL IV SCH (09:30)
[2018-03-12 11:32] VITALS: BP 133/73; PULSE 62; TEMP 98
--- NOTE | 2018-03-12 11:46 | ECHOF ---
Referral Reason:sob MEASUREMENTS -------- HEIGHT: 170.2 cm WEIGHT: 86.2 kg BP: 131/69 RVIDd: 2.9 cm (< 3.3) IVSd: 1.5 cm (0.6 - 1.1) LVIDd: 4.1 cm (3.9 - 5.3) LVPWd: 1.5 cm (0.6 - 1.1) IVSs: 1.5 cm LVIDs: 4.3 cm LVPWs: 1.3 cm LA Diam: 4.2 cm (2.7 - 3.8) LAESV Index (A-L): 33.28 ml/m Ao Diam: 3.1 cm (2.0 - 3.7) AV Cusp: 2.2 cm (1.5 - 2.6) MV EXCURSION: 22.907 mm (> 18.000) MV EF SLOPE: 132 mm/s (70 - 150) EPSS: 1.2 cm RAP: 5.00 mmHg RVSP: 33.83 mmHg FINDINGS -------- A-V paced rhythm. This was a technically adequate study. The left ventricular size is normal. There is moderate concentric left ventricular hypertrophy. O verall left ventricular systolic function is mildly impaired with, an EF between 45 - 50 %. The right ventricle is normal in size. LA is midly dilated 29-33ml/m2. The right atrium is normal in size. There is mild aortic valve sclerosis. Mild mitral annular calcification present. [id number] mitral regurgitation is present. [id number] tricuspid regurgitation present. There is borderline pulmonary hypertension. The right ventricular systolic pressure, as measured by Doppler, is 33.83mmHg. The pulmonic valve was not well visualized. The aortic root size is normal. Normal inferior vena cava with normal inspiratory collapse consistent with estimated right atrial pre ssure of 5 mmHg. There is no pericardial effusion. CONCLUSIONS -------- 1. A-V paced rhythm. 2. This was a technically adequate study. 3. The left ventricular size is normal. 4. There is moderate concentric left ventricular hypertrophy. 5. The right ventricle is normal in size. 6. LA is midly dilated 29-33ml/m2. 7. The right atrium is normal in size. 8. There is mild aortic valve sclerosis. 9. Mild mitral annular calcification present. 10. Wolh-pr-[id number] mitral regurgitation is present. 11. Vmug-yl-ruyjzluo tricuspid regurgitation present. 12. There is borderline pulmonary hypertension. 13. The right ventricular systolic pressure, as measured by Doppler, is 33.83mmHg. 14. The pulmonic valve was not well visualized. 15. The aortic root size is normal. 16. Normal inferior vena cava with normal inspiratory collapse consistent with estimated right atrial pressure of 5 mmHg. 17. There is no pericardial effusion. FORK TRUCK DRIVER: Liz Hammond RDCS
--- NOTE | 2018-03-12 11:52 | P.CRDCN ---
History of Present Illness History of present illness: Mr. Dill is a pleasant 73-year-old male past medical history significant for coronary artery disease s/p stent placement to ostial circumflex 2006 and unsuccessful stent deployment to mid RCA in 2008, single chamber ICD implantation, ischemic cardiomyopathy, diabetes mellitus, hypertension and dyslipidemia. He also has a history of former nicotine dependence quit in 2004. He follows with Dr. Gallego in the office. We have been asked to see him in consultation for chest pain. He states he hasn't had any chest pain but has been feeling increasingly short of breath over the previous 3 days. He notices as well that he cannot lay flat in bed at night and has been sleeping very unsettled with increased shortness of breath at night. He denies chest pain, dizziness or palpitations. EKG sinus mechanism with ventricular bigeminy, right bundle branch block and left anterior fascicular block. Chest x-ray developing left basilar atelectasis and/or infiltrate is identified with cardiomegaly. Laboratory data reviewed, hemoglobin 13.8, platelets 161, sodium 139, potassium 4.5, creatinine 1.43, magnesium 1.7, cardiac enzymes negative 3, NT proBNP 1680. Current cardiac medications include aspirin 325 mg daily, Toprol 12.5 mg daily and simvastatin 20 mg daily. He also takes metformin. Most recent stress test was a Lexiscan performed in the office January 2016 was negative for reversible ischemia. Most recent echo performed in the office 2017 EF 45% with moderate MR. Review of Systems At the time of my exam: CONSTITUTIONAL: Denies fever. Denies chills. EYES: Denies blurred vision. Denies vision changes. Denies eye pain. EARS, NOSE, MOUTH & THROAT: Denies headache. Denies sore throat. Denies ear pain. CARDIOVASCULAR: Denies chest pain. Denies shortness of breath. Complains of orthopnea. Complains of PND. Denies palpitations. RESPIRATORY: Denies cough. GASTROINTESTINAL: Denies abdominal pain. Denies diarrhea. Denies constipation. Denies nausea. Denies vomiting. MUSCULOSKELETAL: Denies myalgias. INTEGUMENTARY: Denies pruitis. Denies rash. NEUROLOGIC: Denies numbness. Denies tingling. Denies weakness. PSYCHIATRIC: Denies anxiety. Denies depression. ENDOCRINE: Denies fatigue. Denies weight change. Denies polydipsia. Denies polyurina. GENITOURINARY: Denies burning, hematuria or urgency with micturation. HEMATOLOGIC: Denies history of anemia. Denies bleeding. Past Medical History Past Medical History: Diabetes Mellitus, Hyperlipidemia, Hypertension, Myocardial Infarction (non Q-wave), Osteoarthritis (OA) Additional Past Medical History / Comment(s): SEE DR GALLEGO'S H&P, KIDNEY STONES chronic back pain , concussion 1969, sciatica Last Myocardial Infarction Date:: 2006 History of Any Multi-Drug Resistant Organisms: None Reported Past Surgical History: AICD, Appendectomy, Cholecystectomy, Heart Catheterization With Stent Additional Past Surgical History / Comment(s): COLONOSCOPY, roel CATARACT. AICD 2006. see [address] saucedo h&p 2016 Past Anesthesia/Blood Transfusion Reactions: No Reported Reaction Date of Last Stent Placement:: 2006 Type of Cardiac Device: AICD Device Placement Date:: 2006 [facility] KODY LEFT CHEST Smoking Status: Former smoker - Past Family History Mother Family Medical History: Coronary Artery Disease (CAD), Renal Disease Father Additional Family Medical History / Comment(s): during medical testing Medications and Allergies Home Medications Medication Instructions Recorded Confirmed Type Aspirin 325 mg PO HS 12/23/13 03/11/18 History Simvastatin 20 mg PO HS 12/23/13 03/11/18 History metFORMIN HCL [Glucophage] 500 mg PO TID 12/23/13 03/11/18 History Metoprolol Succinate (ER) [Toprol 12.5 mg PO DAILY 01/27/17 03/11/18 History XL] Allergies Allergy/AdvReac Type Severity Reaction Status Date / Time No Known Allergies Allergy Verified 03/11/18 08:39 Physical Exam Vitals: Vital Signs Temp Pulse Pulse Resp BP BP Pulse Ox 03/12/18 07:10 97.8 F 56 L 18 131/69 95 03/12/18 04:00 16 03/12/18 03:39 97.7 F 52 L 16 125/72 98 03/12/18 00:00 97.9 F 51 L 16 100/63 96 03/11/18 20:02 97.6 F 52 L 16 107/66 98 03/11/18 20:00 16 03/11/18 14:31 97.6 F 62 18 130/68 98 03/11/18 13:57 59 L 16 127/61 99 10/11/18 12:00 64 16 117/56 95 03/11/18 10:30 62 16 107/81 97 03/11/18 09:15 58 L 16 166/72 95 Intake and Output 03/11/18 03/12/18 03/12/18 22:59 06:59 14:59 Intake Total 446 343.668 Balance 446 343.668 Intake: IV 160 0.9@20 80 Heparin Sod,Pork in 0.45% 80 NaCl 25,000 unit In 0.45 % NaCl 1 500ml.bag @ 11. 604 UNITS/KG/HR 20 mls/hr IV .Q24H RAMANDEEP Rx#: [id number] Intake, IV Titration 206 183.668 Amount Heparin Sod,Pork in 0.45% 206 183.668 NaCl 25,000 unit In 0.45 % NaCl 1 500ml.bag @ 11. 604 UNITS/KG/HR 20 mls/hr IV .Q24H RAMANDEEP Rx#: [id number] Oral 240 Other: Voiding Method Toilet Toilet # Voids 2 Blood pressure 133/73 heart rate 62 afebrile maintaining oxygen saturation on room air GENERAL: This is a 73-year-old male in no apparent distress at the time of my examination. HEENT: Head is atraumatic, normocephalic. Pupils are equal, round. Sclerae anicteric. Conjunctivae are clear. Mucous membranes of the mouth are moist. Neck is supple. There is no jugular venous distention. No carotid bruit is heard. LUNGS: Clear to auscultation no wheezes, rales or rhonchi. No chest wall tenderness is noted on palpation or with deep breathing. HEART: Regular rate and rhythm with systolic ejection murmur at the apex, no rubs or gallops. S1 and S2 heard. ABDOMEN: Soft, nontender. Bowel sounds are heard. No organomegaly noted. EXTREMITIES: No evidence of peripheral edema and no calf tenderness noted. VASCULAR: Radial and dorsalis pedis pulses palpated, no evidence of clubbing. NEUROLOGIC: Patient is awake, alert and oriented x3. Results 03/12/18 03:55 03/12/18 03:55 Cardiac Enzymes 03/11/18 03/11/18 03/11/18 Range/Units 08:20 08:20 15:58 AST 37 (17-59) U/L CK-MB (CK-2) 0.6 0.5 (0.0-2.4) ng/mL Troponin I <0.012 <0.012 (0.000-0.034) ng/mL 03/11/18 Range/Units 20:07 AST (17-59) U/L CK-MB (CK-2) 0.6 (0.0-2.4) ng/mL Troponin I <0.012 (0.000-0.034) ng/mL Coagulation 03/11/18 03/11/18 03/12/18 Range/Units 08:20 17:33 03:55 PT 10.5 (9.0-12.0) sec APTT 23.3 39.2 H 79.7 H (22.0-30.0) sec CBC 03/11/18 03/12/18 Range/Units 08:20 03:55 WBC 5.7 6.1 (3.8-10.6) k/uL RBC 4.50 4.37 (4.30-5.90) m/uL Hgb 14.9 13.8 (13.0-17.5) gm/dL Hct 42.4 41.7 (39.0-53.0) % Plt Count 172 161 (150-450) k/uL Comprehensive Metabolic Panel 03/11/18 Range/Units 08:20 Sodium 140 (137-145) mmol/L Potassium 4.8 (3.5-5.1) mmol/L Chloride 107 (98-107) mmol/L Carbon Dioxide 22 (22-30) mmol/L BUN 27 H (9-20) mg/dL Creatinine 1.43 H (0.66-1.25) mg/dL Glucose 212 H (74-99) mg/dL Calcium 9.5 (8.4-10.2) mg/dL AST 37 (17-59) U/L ALT 36 (21-72) U/L Alkaline Phosphatase 65 (38-126) U/L Total Protein 6.6 (6.3-8.2) g/dL Albumin 3.8 (3.5-5.0) g/dL Current Medications Generic Name Dose Route Start Last Admin Trade Name Freq PRN Reason Stop Dose Admin Acetaminophen 650 mg 03/11/18 09:20 03/11/18 15:32 Tylenol Tab PO 650 mg Q6HR PRN Administration Mild Pain or Fever > 100.5 Atorvastatin Calcium 10 mg 03/11/18 21:00 03/11/18 21:34 Lipitor PO 10 mg HS RAMANDEEP Administration Famotidine 20 mg 03/11/18 13:30 03/11/18 21:32 Pepcid IV 20 mg Q12HR RAMANDEEP Administration Furosemide 20 mg 03/13/18 09:00 Lasix PO BID@0900,1600 [facility] Heparin Sodium (Porcine) 0 unit 03/11/18 09:19 03/11/18 21:29 Heparin IV 4,000 unit PER PROTOCOL PRN Administration Low PTT Protocol Insulin Aspart 0 unit 03/11/18 21:00 03/11/18 21:33 Novolog SQ 1 unit ACHS RAMANDEEP Administration Protocol Metoprolol Succinate 12.5 mg 03/12/18 09:00 Toprol Xl PO DAILY [facility] Morphine Sulfate 4 mg 03/11/18 09:20 Morphine Sulfate (Inj) IV Q4HR PRN Severe Pain Naloxone HCl 0.2 mg 03/11/18 09:20 Narcan IV Q2M PRN Opioid Reversal Nitroglycerin 0.4 mg 03/11/18 09:19 Nitrostat SUBLINGUAL Q5M PRN Chest Pain Spironolactone 25 mg 03/13/18 09:00 Aldactone PO DAILY [facility] Intake and Output 03/11/18 03/12/18 03/12/18 22:59 06:59 14:59 Intake Total 446 343.668 Balance 446 343.668 Intake: IV 160 0.9@20 80 Heparin Sod,Pork in 0.45% 80 NaCl 25,000 unit In 0.45 % NaCl 1 500ml.bag @ 11. 604 UNITS/KG/HR 20 mls/hr IV .Q24H [facility] Rx#: [id number] Intake, IV Titration 206 183.668 Amount Heparin Sod,Pork in 0.45% 206 183.668 NaCl 25,000 unit In 0.45 % NaCl 1 500ml.bag @ 11. 604 UNITS/KG/HR 20 mls/hr IV .Q24H [facility] Rx#: [id number] Oral 240 Other: Voiding Method Toilet Toilet # Voids 2 03/12/18 03:55 03/11/18 08:20 Assessment and Plan Assessment: ASSESSMENT Acute on chronic systolic heart failure History of coronary artery disease Hypertension Ischemic cardiomyopathy s/p ICD placement, [facility] Dyslipidemia Diabetes mellitus PLAN An acute coronary event has been ruled out. Discontinue heparin infusion. Obtain 2D echocardiogram and doppler study to assess cardiac structure and function. He feels better at the time of my exam, however he says his symptoms are usually at night. Continue to observe for another 24 hours. Give dose of lasix 20 mg IV now. Start PO lasix tomorrow 20 mg BID and also a small dose of aldactone 12.5 mg daily starting tomorrow as well. Repeat BMP in the morning. Follow up with Dr. Gallego in 2-3 weeks. Thank you kindly for this consultation. Nurse Practitioner note has been reviewed, I agree with a documented findings and plan of care. Patient was seen and examined.
[2018-03-12 12:05] LABS: Glucose,Whole Blood 246 mg/dL (75-99)
--- NOTE | 2018-03-12 15:25 | P.DS ---
Providers Date of admission: 03/11/18 09:20 Attending physician: Renae Figueroa Consults: 03/11/18 09:23 Consult Physician Routine Consulting Provider: Wilder Menjivar Consult Reason/Comments: Unstable angina Do you want consulting provider notified?: Yes Primary care physician: Fe Duarte [facility] Course: 73-year-old admitted for left-sided chest pain patient was a valid by cardiology. Patient the had ischemic edema with a also has an AICD. Cardiology is recommending Aldactone and a small dose of Lasix and patient will be discharged today. PHYSICAL EXAMINATION: GENERAL: The patient is alert and oriented x3, not in any acute distress. Well developed, well nourished. HEENT: Pupils are round and equally reacting to light. EOMI. No scleral icterus. No conjunctival pallor. Normocephalic, atraumatic. No pharyngeal erythema. No thyromegaly. CARDIOVASCULAR: S1 and S2 present. No murmurs, rubs, or gallops. PULMONARY: Chest is clear to auscultation, no wheezing or crackles. ABDOMEN: Soft, nontender, nondistended, normoactive bowel sounds. No palpable organomegaly. MUSCULOSKELETAL: No joint swelling or deformity. EXTREMITIES: No cyanosis, clubbing, or pedal edema. NEUROLOGICAL: Gross neurological examination did not reveal any focal deficits. SKIN: No rashes. For other chronic medical problems and hostile his edition course please refer to my dictation of HPI Patient Condition at Discharge: Stable Plan - Discharge Summary Discharge Rx Participant: Yes New Discharge Prescriptions: New Furosemide [Lasix] 20 mg PO BID@0900,1600 #30 tab Spironolactone [Aldactone] 12.5 mg PO DAILY #30 tab Continue Aspirin 325 mg PO HS metFORMIN HCL [Glucophage] 500 mg PO TID Simvastatin 20 mg PO HS Metoprolol Succinate (ER) [Toprol XL] 12.5 mg PO DAILY Discharge Medication List Aspirin 325 mg PO HS 12/23/13 [History] Simvastatin 20 mg PO HS 12/23/13 [History] metFORMIN HCL [Glucophage] 500 mg PO TID 12/23/13 [History] Metoprolol Succinate (ER) [Toprol XL] 12.5 mg PO DAILY 01/27/17 [History] Furosemide [Lasix] 20 mg PO BID@0900,1600 #30 tab 03/12/18 [Rx] Spironolactone [Aldactone] 12.5 mg PO DAILY #30 tab 03/12/18 [Rx] Follow up Appointment(s)/Referral(s): Jayson Gallego MD [STAFF PHYSICIAN] - 03/31/18 4:00 pm Keesha Miramontes MD [Primary Care Provider] - 3 Days Patient Instructions/Handouts: Chest Pain (DC) Activity/Diet/Wound Care/Special Instructions: Requesting flu shot at time of discharge. Discharge Disposition: HOME SELF-CARE
[2018-03-13] MEDS ORDERED: SPIRONOLACTONE 25 MG TAB PO SCH ×2 (09:00)
[2018-03-13] MEDS ORDERED: FAMOTIDINE 20 MG TAB PO SCH (09:00)
[2018-03-13] MEDS ORDERED: FUROSEMIDE 20 MG TAB PO SCH (09:00)
== END 2018-03-12 13:40 | disposition home or self-care (01) ==
LOC: EC 07:49 → 3OBS 09:20
PROVIDERS: ADMIT Hospitalist; ATTEND Hospitalist
DX: I25.110 Atherosclerotic heart disease of native coronary artery with unstable angina pectoris (principal); E11.21 Type 2 diabetes mellitus with diabetic nephropathy; E11.22 Type 2 diabetes mellitus with diabetic chronic kidney disease; E78.5 Hyperlipidemia, unspecified; I13.0 Hypertensive heart and chronic kidney disease with heart failure and stage 1 through stage 4 chronic kidney disease, or unspecified chronic kidney disease; N18.3 Chronic kidney disease, stage 3 (moderate); I50.23 Acute on chronic systolic (congestive) heart failure; I25.2 Old myocardial infarction; I25.5 Ischemic cardiomyopathy; I45.2 Bifascicular block; Z79.82 Long term (current) use of aspirin; Z79.899 Other long term (current) drug therapy; Z82.49 Family history of ischemic heart disease and other diseases of the circulatory system; Z87.442 Personal history of urinary calculi; Z87.891 Personal history of nicotine dependence; Z95.1 Presence of aortocoronary bypass graft; Z95.5 Presence of coronary angioplasty implant and graft; Z95.810 Presence of automatic (implantable) cardiac defibrillator; Z79.84 Long term (current) use of oral hypoglycemic drugs
CPT/HCPCS: 96366 ×2; 96375 ×2; 96376 ×3; 96365; 99285; 36415; 93005; 93306; 83880; 80053; 80048; 82550; 82553; 83735; 84484; 85025 ×2; 85610; 85730 ×2; 83036; 71045; G0378 ×2; J1644 ×2; J1940 ×2

== ENCOUNTER → 2018-11-18 | Outpatient (CLI) | payer MEDICARE ==
[2018-11-18 16:02] LABS: African American GFR (CKD) 52.8 (60.0-200.0); Anion Gap 7.5 mmol/L (4.00-12.00); Carbon Dioxide 26.5 mmol/L (21.6-31.8); Potassium 4.9 mmol/L (3.5-5.5)
[2018-11-18 22:16] LABS: Hemoglobin A1C 8.1 % (4.0-6.0)
== END | disposition home or self-care (01) ==
LOC: LABWHC1 08:08
PROVIDERS: ATTEND Internal Medicine
DX: E11.9 Type 2 diabetes mellitus without complications (principal); N28.9 Disorder of kidney and ureter, unspecified
CPT/HCPCS: 36415; 80051; 82565; 83036; 84520; 84550; 85652

== ENCOUNTER → 2019-03-17 | Outpatient (CLI) | payer MEDICARE ==
[2019-03-17 10:27] LABS: Calcium 9.9 mg/dL (8.4-10.2); Potassium 5.1 mmol/L (3.5-5.1)
== END | disposition home or self-care (01) ==
LOC: LABPAT 09:33
PROVIDERS: ATTEND Internal Medicine Clinical Cardiac Electrophysiology
DX: Z01.812 Encounter for preprocedural laboratory examination (principal); I25.10 Atherosclerotic heart disease of native coronary artery without angina pectoris; I25.5 Ischemic cardiomyopathy
CPT/HCPCS: 36415; 80048

== ENCOUNTER 2019-03-31 10:55 | Day surgery (SDC) | payer MEDICARE ==
[2019-03-29 10:13] VITALS: BMI 29.0
[~2019-03-31 10:55] MED LIST: LACTATED RINGERS 1,000 ML IV SCH; SODIUM CHLORIDE 0.9% 1,000 ML IV SCH
[2019-03-31 11:29] LABS: Glucose,Whole Blood 244 mg/dL (75-99)
[2019-03-31 11:35] VITALS: TEMP 97.6
[2019-03-31] MEDS ORDERED: SODIUM CHLORIDE 0.9% 1,000 ML IV ONE (11:40)
[2019-03-31] MEDS ORDERED: INSULIN ASPART (NovoLOG) 100 UNIT/ML VIAL SQ ONE (11:45)
[2019-03-31] MEDS ORDERED: PROPOFOL 10 MG/ML 20 ML VIAL IV ONE (12:24)
--- NOTE | 2019-03-31 13:21 | P.PCN ---
Preoperative Diagnosis: Diagnosis: Ischemic cardiomyopathy, dual coil single-chamber ICD with Riata lead, [facility]. Kody on advisory Procedure: ICD testing under anesthesia The patient was brought to the lab in a fasting state, written informed consent was obtained prior to the procedure Single-chamber ICD was interrogated, pacing threshold 0.75 V at 0.8 ms, sensing 9.3 mV, pacing impedance 550 ohms, shock impedance 95 ohms Under conscious sedation, PA-C fibber shock was used, ventricular fibrillation was induced at It was adequately and appropriately sensed with no dropouts at least sensitivity A 10 J shock was unsuccessful, successful defibrillation with a 15 J shock to sinus rhythm, shock impedance 95 ohms, charge time was 3 seconds No post shock noise The device was reprogrammed according to the MAD[employer] programming with appropriate anti-tachycardia pacing, cardioversion and defibrillation Backup VVI pacing at 40 bpm Sensitivity reprogrammed to 0.5 mV Patient tolerated procedure well without any acute complications Impression Appropriate ICD lead and Riata lead function Next procedure Cine fluoroscopy of the lead Dual coil ICD lead stable in the RV apex, No breaks or fractures noted
[2019-03-31 14:14] VITALS: BP 111/66; PULSE 67; RESP 18
== END 2019-03-31 13:42 | disposition home or self-care (01) ==
LOC: CATHEP 10:55
PROVIDERS: ATTEND Internal Medicine Clinical Cardiac Electrophysiology
DX: I25.5 Ischemic cardiomyopathy (principal); Z45.02 Encounter for adjustment and management of automatic implantable cardiac defibrillator; I25.10 Atherosclerotic heart disease of native coronary artery without angina pectoris; I11.0 Hypertensive heart disease with heart failure; I50.22 Chronic systolic (congestive) heart failure; E78.5 Hyperlipidemia, unspecified; I45.10 Unspecified right bundle-branch block; I47.1 Supraventricular tachycardia; E78.00 Pure hypercholesterolemia, unspecified; E13.9 Other specified diabetes mellitus without complications; K75.9 Inflammatory liver disease, unspecified; K08.409 Partial loss of teeth, unspecified cause, unspecified class; F17.210 Nicotine dependence, cigarettes, uncomplicated; Z95.5 Presence of coronary angioplasty implant and graft; Z79.82 Long term (current) use of aspirin; Z79.899 Other long term (current) drug therapy; Z82.49 Family history of ischemic heart disease and other diseases of the circulatory system
CPT/HCPCS: 93642; 76000; J2704

== ENCOUNTER → 2019-04-05 | Outpatient (CLI) | payer MEDICARE ==
--- NOTE | 2019-04-05 15:30 | US ---
EXAMINATION TYPE: US kidneys/renal and bladder DATE OF EXAM: 04/05/2019 COMPARISON: CT lumbar spine February 03, 2017 CLINICAL HISTORY: N18.3 Chronic kidney disease stage 3. Chronic kidney disease EXAM MEASUREMENTS: Right Kidney: 11.2 x 5.2 x 5.2 cm Left Kidney: 11.6 x 5.2 x 4.2 cm Right Kidney: Appeared wnl Left Kidney: Simple appearing cyst upper pole medially = 2.9 x 2.8 x 2.6 cm Bladder: wnl Bilateral Jets seen: Only right jet visualized There is no evidence for hydronephrosis at this point in time. No nephrolithiasis is seen. No lesley s are identified. The urinary bladder is anechoic. Distal left ureter jet is not seen. Nonobstructing 4 mm calculus left kidney axial image 33 not clearly seen on today's ultrasound IMPRESSION: No hydronephrosis is noted bilaterally.
== END | disposition home or self-care (01) ==
LOC: RADUSWWP 14:44
PROVIDERS: ATTEND Internal Medicine
DX: N18.3 Chronic kidney disease, stage 3 (moderate) (principal)
CPT/HCPCS: 76770

== ENCOUNTER → 2019-10-25 | Outpatient (CLI) | payer MEDICARE ==
[2019-10-25 15:36] LABS: African American GFR (CKD) 52.4 (60.0-200.0); Anion Gap 7.9 mmol/L (4.00-12.00); Calcium 9.9 mg/dL (8.7-10.3); Carbon Dioxide 25.1 mmol/L (21.6-31.8); Chol/HDL Ratio 3.75; LDL Cholesterol,Calculated 68.4 mg/dL (0.0-131.0); Non-African American GFR(CKD) 45.2 (60.0-200.0); Potassium 5.8 mmol/L (3.5-5.5); VLDL Calculation 19.6 mg/dL (5.00-40.00)
== END | disposition home or self-care (01) ==
LOC: LABWHC1 09:01
PROVIDERS: ATTEND Physician Assistant
DX: I25.10 Atherosclerotic heart disease of native coronary artery without angina pectoris (principal); I42.9 Cardiomyopathy, unspecified
CPT/HCPCS: 36415; 80048; 80061

== ENCOUNTER → 2019-10-28 | Outpatient (CLI) | payer MEDICARE ==
[2019-10-28 16:20] LABS: Anion Gap 7.1 mmol/L (4.00-12.00); Calcium 9.4 mg/dL (8.7-10.3); Carbon Dioxide 22.9 mmol/L (21.6-31.8); Non-African American GFR(CKD) 49.1 (60.0-200.0); Potassium 4.7 mmol/L (3.5-5.5)
== END | disposition home or self-care (01) ==
LOC: LABWHC1 08:07
PROVIDERS: ATTEND Internal Medicine
DX: E87.5 Hyperkalemia (principal)
CPT/HCPCS: 36415; 80048

== ENCOUNTER → 2019-12-06 | Outpatient (CLI) | payer MEDICARE ==
[2019-12-06 13:02] LABS: Appearance,Urine Clear (Clear); Bilirubin,Urine Negative (Negative); Blood,Urine Negative (Negative); Color,Urine Yellow; Glucose,Urine (UA) 4+ (Negative); Ketones,Urine Negative (Negative); Leukocyte Esterase,Urine Negative (Negative); Nitrite,Urine Negative (Negative); PH, Urine 5.5 (5.0-8.0); Protein,Urine Negative (Negative); Specific Gravity,Urine 1.012 (1.001-1.035); Urobilinogen,Urine <2.0 mg/dL (<2.0)
[2019-12-06 16:56] LABS: BUN/Creat Ratio 16.43 Ratio (12.00-20.00); Calcium 9.4 mg/dL (8.7-10.3); Non-African American GFR(CKD) 49.1 (60.0-200.0); Potassium 4.8 mmol/L (3.5-5.5)
[2019-12-06 20:06] LABS: Urine Creatinine 66.8 mg/dL
== END | disposition home or self-care (01) ==
LOC: LABWHC1 08:06
PROVIDERS: ATTEND Internal Medicine
DX: N18.3 Chronic kidney disease, stage 3 (moderate) (principal)
CPT/HCPCS: 36415; 80048; 81003; 82043; 82570

== ENCOUNTER → 2020-01-05 | Outpatient (CLI) | payer MEDICARE ==
[2020-01-05 17:39] LABS: Hemoglobin A1C 9.4 % (4.0-6.0)
== END | disposition home or self-care (01) ==
LOC: LABWHC1 09:28
PROVIDERS: ATTEND Internal Medicine
DX: E11.9 Type 2 diabetes mellitus without complications (principal)
CPT/HCPCS: 36415; 83036

== ENCOUNTER → 2020-02-21 | Outpatient (CLI) | payer MEDICARE ==
[2020-02-21 09:15] LABS: HCT 44.3 % (39.0-53.0); HGB 14.6 gm/dL (13.0-17.5); MCH 31.9 pg (25.0-35.0); MCV 96.7 fL (80.0-100.0); Mean Platelet Volume 8.4; Platelet Count 172 k/uL (150-450); RBC 4.58 m/uL (4.30-5.90); RDW 13.4 % (11.5-15.5); WBC 7.7 k/uL (3.8-10.6)
[2020-02-21 13:07] LABS: Appearance,Urine Clear (Clear); Bilirubin,Urine Negative (Negative); Blood,Urine Negative (Negative); Color,Urine Light Yellow; Glucose,Urine (UA) Negative (Negative); Ketones,Urine Negative (Negative); Leukocyte Esterase,Urine Negative (Negative); Nitrite,Urine Negative (Negative); Protein,Urine Negative (Negative); Specific Gravity,Urine 1.011 (1.001-1.035); Urobilinogen,Urine <2.0 mg/dL (<2.0)
[2020-02-21 19:57] LABS: % Iron Saturation 23.81 (15.00-50.00); Albumin 4.3 g/dL (3.80-4.90); Albumin/Globulin Ratio 2.15 (1.60-3.17); Anion Gap 8.5 mmol/L (4.00-12.00); BUN/Creat Ratio 13.33 Ratio (12.00-20.00); Calcium 9.3 mg/dL (8.7-10.3); Carbon Dioxide 25.5 mmol/L (21.6-31.8); Magnesium 1.7 mg/dL (1.5-2.4); Non-African American GFR(CKD) 44.9 (60.0-200.0); Phosphorus 3.2 mg/dL (2.4-5.1); Potassium 4.7 mmol/L (3.5-5.5); Total Bilirubin 1.8 mg/dL (0.2-1.2); Total Protein 6.3 g/dL (6.2-8.2); Uric Acid 10.1 mg/dL (3.7-8.7)
[2020-02-21 20:04] LABS: Ferritin 216.2 ng/mL (22.0-322.0)
[2020-02-21 22:34] LABS: Urine Creatinine 63.8 mg/dL
== END | disposition home or self-care (01) ==
LOC: LABWHC1 08:07
PROVIDERS: ATTEND Internal Medicine
DX: N39.0 Urinary tract infection, site not specified (principal); N18.3 Chronic kidney disease, stage 3 (moderate); D63.1 Anemia in chronic kidney disease; N25.81 Secondary hyperparathyroidism of renal origin; E55.9 Vitamin D deficiency, unspecified; M10.9 Gout, unspecified
CPT/HCPCS: 36415; 80053; 81003; 82043; 82306; 82570; 82728; 83540; 83550; 83735; 83970; 84100; 84550; 85027

== ENCOUNTER → 2020-05-11 | Outpatient (CLI) | payer MEDICARE ==
[2020-05-11 16:05] LABS: Albumin 4.4 g/dL (3.80-4.90); Anion Gap 10.7 mmol/L (4.00-12.00); BUN/Creat Ratio 13.33 Ratio (12.00-20.00); Calcium 9.3 mg/dL (8.7-10.3); Carbon Dioxide 22.3 mmol/L (21.6-31.8); Globulin 2.2 g/dL (1.6-3.3); Magnesium 1.7 mg/dL (1.5-2.4); Non-African American GFR(CKD) 44.9 (60.0-200.0); Potassium 4.3 mmol/L (3.5-5.5); Total Bilirubin 1.6 mg/dL (0.2-1.2); Total Protein 6.6 g/dL (6.2-8.2)
== END | disposition home or self-care (01) ==
LOC: LABWHC1 09:17
PROVIDERS: ATTEND Nurse Practitioner Adult Health
DX: I48.0 Paroxysmal atrial fibrillation (principal)
CPT/HCPCS: 36415; 80053; 83735; 84443; 84481

== ENCOUNTER 2020-05-21 08:52 | Inpatient (IN) | payer MEDICARE ==
[2020-05-21] MEDS ORDERED: SODIUM CHLORIDE 0.9% 1,000 ML IV STA (08:59)
[2020-05-21 09:28] LABS: Basophils # (A) 0.1 k/uL (0-0.2); Basophils % (A) 1 %; Eosinophils # (A) 0.2 k/uL (0-0.7); Eosinophils % (A) 3 %; HCT 40.6 % (39.0-53.0); HGB 13.7 gm/dL (13.0-17.5); Lymphocytes # (A) 1.2 k/uL (1.0-4.8); Lymphocytes % (A) 20 %; MCH 32.7 pg (25.0-35.0); MCHC 33.8 g/dL (31.0-37.0); MCV 96.8 fL (80.0-100.0); Mean Platelet Volume 8.4; Monocytes # (A) 0.4 k/uL (0-1.0); Monocytes % (A) 8 %; Neutrophils # (A) 3.9 k/uL (1.3-7.7); Neutrophils % (A) 67 %; Platelet Count 166 k/uL (150-450); RBC 4.19 m/uL (4.30-5.90); RDW 12.9 % (11.5-15.5); WBC 5.9 k/uL (3.8-10.6)
--- NOTE | 2020-05-21 09:32 | ED ---
General Adult HPI - General Chief complaint: Arrhythmia/Palpitations Stated complaint: SOB,Afib Time Seen by Provider: 05/21/20 08:58 Source: patient Mode of arrival: ambulatory Limitations: no limitations - History of Present Illness Initial comments: Dictation was produced using uStudio dictation software. please excuse any grammatical, word or spelling errors. This patient was cared for during a federal and state declared state of emergency secondary to Covid 19 Chief Complaint: 75-year-old male presents with generalized weakness shortness of breath History of Present Illness: Is a 75-year-old male who was recently started on eliquis. Patient was found to have atrial fibrillation. His diagnosis 1 week ago. He was told that he may have a clot in his heart. Patient was also started on metoprolol. Patient states that over the last week or so he's been having worsening generalized weakness, palpitations and exertional dyspnea. He has no pain complaints. The ROS documented in this emergency department record has been reviewed and confirmed by me. Those systems with pertinent positive or negative responses have been documented in the HPI. All other systems are other negative and/or noncontributory. PHYSICAL EXAM: General Impression: Alert and oriented x3, not in acute distress HEENT: Normocephalic atraumatic, extra-ocular movements intact, pupils equal and reactive to light bilaterally, mucous membranes moist. Cardiovascular: Irregularly irregular Chest: Able to complete full sentences, no retractions, no tachypnea Abdomen: abdomen soft, non-tender, non-distended, no organomegaly Musculoskeletal: Pulses present and equal in all extremities, no peripheral edema Motor: no focal deficits noted Neurological: CN II-XII grossly intact, no focal motor or sensory deficits noted Skin: Intact with no visualized rashes Psych: Normal affect and mood ED course: 75-year-old male presents to the emergency department for exertional dyspnea, generalized weakness. He has recent diagnosis of A. fib and is on anticoagulation and beta flakito. Vital signs upon arrival are within acceptable limits. EKG shows A. fib with RVR Laboratory evaluation obtained. CBC unremarkable. Cardiac panel is negative. Metabolic panel is negative. Troponins normal. Chest x-ray is nonacute. Patient reevaluated bedside found to be persistently tachycardic. Patient started on Cardizem. Patient will be admitted with cardiology consultation. EKG interpretation: Ventricular rate 119, A. fib with RVR, QRS 134, QTC 472. No SD prolongation, no QTC prolongation, no ST or T-wave changes noted. - Related Data Home Medications Medication Instructions Recorded Confirmed Metoprolol Succinate (ER) [Toprol 12.5 mg PO DAILY 01/27/17 03/31/19 XL] Aspirin [Adult Low Dose Aspirin EC] 81 mg PO HS 03/29/19 03/31/19 Atorvastatin [Lipitor] 20 mg PO DAILY 03/29/19 03/31/19 Glimepiride [Amaryl] 1 mg PO BID 03/29/19 03/31/19 Allergies Allergy/AdvReac Type Severity Reaction Status Date / Time No Known Allergies Allergy Verified 05/21/20 08:53 Review of Systems ROS Statement: Those systems with pertinent positive or pertinent negative responses have been documented in the HPI. ROS Other: All systems not noted in ROS Statement are negative. Past Medical History Past Medical History: Atrial Fibrillation, Diabetes Mellitus, Hyperlipidemia, Hypertension, Myocardial Infarction (non Q-wave), Osteoarthritis (OA) Additional Past Medical History / Comment(s): SEE DR FIELD'S H&P, KIDNEY STONES chronic back pain , concussion 1968, sciatica Last Myocardial Infarction Date:: 2006 History of Any Multi-Drug Resistant Organisms: None Reported Past Surgical History: AICD, Appendectomy, Cholecystectomy, Heart Catheterizati on With Stent Additional Past Surgical History / Comment(s): COLONOSCOPY, roel CATARACT. AICD [address]. [address] saucedo h&p 2016 Past Anesthesia/Blood Transfusion Reactions: No Reported Reaction Date of Last Stent Placement:: 2006 Type of Cardiac Device: AICD Device Placement Date:: 2006 [facility] LEFT CHEST Past Psychological History: No Psychological Hx Reported Smoking Status: Former smoker Past Alcohol Use History: Daily Past Drug Use History: None Reported - Past Family History Mother Family Medical History: Coronary Artery Disease (CAD), Renal Disease Father Additional Family Medical History / Comment(s): during medical testing Sister(s) Family Medical History: Cancer Additional Family Medical History / Comment(s): pancreatic cancer General Exam Limitations: no limitations Course Vital Signs 05/21/20 08:53 Temperature 98 F Pulse Rate 99 Respiratory 18 Rate Blood Pressure 107/68 O2 Sat by Pulse 99 Oximetry Medical Decision Making - Lab Data Result diagrams: 05/21/20 09:13 05/21/20 09:13 Lab Results 05/21/20 05/21/20 05/21/20 Range/Units 09:13 09:13 09:13 WBC 5.9 (3.8-10.6) k/uL RBC 4.19 L (4.30-5.90) m/uL Hgb 13.7 (13.0-17.5) gm/dL Hct 40.6 (39.0-53.0) % MCV 96.8 (80.0-100.0) fL MCH 32.7 (25.0-35.0) pg MCHC 33.8 (31.0-37.0) g/dL RDW 12.9 (11.5-15.5) % Plt Count 166 (150-450) k/uL MPV 8.4 Neutrophils % 67 % Lymphocytes % 20 % Monocytes % 8 % Eosinophils % 3 % Basophils % 1 % Neutrophils # 3.9 (1.3-7.7) k/uL Lymphocytes # 1.2 (1.0-4.8) k/uL Monocytes # 0.4 (0-1.0) k/uL Eosinophils # 0.2 (0-0.7) k/uL Basophils # 0.1 (0-0.2) k/uL PT 11.5 (9.0-12.0) sec INR 1.1 (<1.2) APTT 26.7 (22.0-30.0) sec Sodium 139 (137-145) mmol/L Potassium 4.9 (3.5-5.1) mmol/L Chloride 106 (98-107) mmol/L Carbon Dioxide 25 (22-30) mmol/L Anion Gap 8 mmol/L BUN 26 H (9-20) mg/dL Creatinine 1.52 H (0.66-1.25) mg/dL Est GFR (CKD-EPI)AfAm 51 (>60 ml/min/1.73 sqM) Est GFR (CKD-EPI)NonAf 44 (>60 ml/min/1.73 sqM) Glucose 235 H (74-99) mg/dL Calcium 9.1 (8.4-10.2) mg/dL Magnesium 1.6 (1.6-2.3) mg/dL Total Bilirubin 1.7 H (0.2-1.3) mg/dL AST 29 (17-59) U/L ALT 42 (4-49) U/L Alkaline Phosphatase 106 (38-126) U/L Troponin I (0.000-0.034) ng/mL Total Protein 6.8 (6.3-8.2) g/dL Albumin 4.0 (3.5-5.0) g/dL TSH 3.210 (0.465-4.680) mIU/L 05/21/20 Range/Units 09:13 WBC (3.8-10.6) k/uL RBC (4.30-5.90) m/uL Hgb (13.0-17.5) gm/dL Hct (39.0-53.0) % MCV (80.0-100.0) fL MCH (25.0-35.0) pg MCHC (31.0-37.0) g/dL RDW (11.5-15.5) % Plt Count (150-450) k/uL MPV Neutrophils % % Lymphocytes % % Monocytes % % Eosinophils % % Basophils % % Neutrophils # (1.3-7.7) k/uL Lymphocytes # (1.0-4.8) k/uL Monocytes # (0-1.0) k/uL Eosinophils # (0-0.7) k/uL Basophils # (0-0.2) k/uL PT (9.0-12.0) sec INR (<1.2) APTT (22.0-30.0) sec Sodium (137-145) mmol/L Potassium (3.5-5.1) mmol/L Chloride (98-107) mmol/L Carbon Dioxide (22-30) mmol/L Anion Gap mmol/L BUN (9-20) mg/dL Creatinine (0.66-1.25) mg/dL Est GFR (CKD-EPI)AfAm (>60 ml/min/1.73 sqM) Est GFR (CKD-EPI)NonAf (>60 ml/min/1.73 sqM) Glucose (74-99) mg/dL Calcium (8.4-10.2) mg/dL Magnesium (1.6-2.3) mg/dL Total Bilirubin (0.2-1.3) mg/dL AST (17-59) U/L ALT (4-49) U/L Alkaline Phosphatase (38-126) U/L Troponin I <0.012 (0.000-0.034) ng/mL Total Protein (6.3-8.2) g/dL Albumin (3.5-5.0) g/dL TSH (0.465-4.680) mIU/L Disposition Clinical Impression: Atrial fibrillation with RVR Disposition: ADMITTED IP TO THIS HOSP Condition: Fair Referrals: Keesha Miramontes MD [Primary Care Provider] - 1-2 days Decision Time: 10:55
--- NOTE | 2020-05-21 09:45 | XR ---
EXAMINATION TYPE: XR chest 1V portable DATE OF EXAM: 05/21/2020 COMPARISON: Prior chest x-ray 03/11/2018, CT 09/05/2011 HISTORY: Dysrhythmia, shortness of breath TECHNIQUE: Single frontal view of the chest is obtained. FINDINGS: There is a generator in left pectoral region, lead in the right ventricle. No evident pneu mothorax. Retrocardiac density is again seen, there is prominence of interstitium, perihilar vascular indistinctness. The cardiac silhouette size is enlarged and stable. The osseous structures are int act. IMPRESSION: Correlate for possible pulmonary venous hypertension and interstitial edema. Cardiomegal y. Difficult to exclude basilar airspace disease, there are prominent epicardial fat pads
[2020-05-21 09:48] LABS: Calcium 9.1 mg/dL (8.4-10.2); Magnesium 1.6 mg/dL (1.6-2.3); Potassium 4.9 mmol/L (3.5-5.1); Total Bilirubin 1.7 mg/dL (0.2-1.3); Total Protein 6.8 g/dL (6.3-8.2)
[2020-05-21 09:51] LABS: INR 1.1 (<1.2); Partial Thromboplastin Time 26.7 sec (22.0-30.0); Prothrombin Time 11.5 sec (9.0-12.0)
[2020-05-21] MEDS ORDERED: NALOXONE 0.4 MG/ML 1 ML VIAL IV PRN (10:52)
[2020-05-21] MEDS ORDERED: SODIUM CHLORIDE 0.9% 1,000 ML IV SCH ×2 (11:00→12:15)
[2020-05-21] MEDS: DILTIAZEM 125 MG in SODIUM CHLORIDE 0.9% 100 ML IV SCH (11:16)
[2020-05-21] MEDS ORDERED: PSYLLIUM HUSK 100% 6 GM PACKET PO PRN (12:05)
[2020-05-21] MEDS ORDERED: METOPROLOL SUCCINATE (ER) 50 MG TAB.ER.24H PO STA (12:20)
--- NOTE | 2020-05-21 12:22 | P.NPCON ---
History of Present Illness - Reason for Consult chronic renal failure - History of Present Illness Reason for consultation: Chronic kidney disease History of present illness: Patient is a 75-year-old male seen in consultation for chronic kidney disease. Patient has chronic kidney disease stage IIIB with baseline creatinine near 1.5. Patient presented to the hospital due to generalized weakness and shortness of breath. Patient states he was diagnosed with A. fib about a week ago and was started on Lopressor as well as eliquis. He did start the medications but felt weak and also felt palpitations when laying down. In the ER he was noted to be in A. fib with RVR. He did receive 1 L bolus of normal saline and is now maintained on normal saline at 1 80 mL an hour. He is maintained on Cardizem drip. Denies chest pain. No edema. Good urine output. No hematuria or dysuria. No vomiting or diarrhea. He does admit to noticing bloods and blowing his nose. Hemoglobin 13.7. Does admit to taking Motrin once to twice weekly for arthritis. He is a diabetic and is maintained on metformin and glimepiride outpatient. Denies family history of renal disease. Oral intake has been fair. Vital signs are stable. General: The patient appeared well nourished and normally developed. HEENT: Head exam is unremarkable. Neck is without jugular venous distension. LUNGS: Breath sounds decreased. HEART: Irregular rate and rhythm. ABDOMEN: Soft, nontender. EXTREMITITES: No edema. Past Medical History Past Medical History: Atrial Fibrillation, Diabetes Mellitus, Hyperlipidemia, Hypertension, Myocardial Infarction (non Q-wave), Osteoarthritis (OA) Additional Past Medical History / Comment(s): SEE DR FIELD'S H&P, KIDNEY STONES chronic back pain , concussion 1968, sciatica Last Myocardial Infarction Date:: 2006 History of Any Multi-Drug Resistant Organisms: None Reported Past Surgical History: AICD, Appendectomy, Cholecystectomy, Heart Catheterizatio n With Stent Additional Past Surgical History / Comment(s): COLONOSCOPY, roel CATARACT. AICD 2006. see [address] saucedo h&p 2016 Past Anesthesia/Blood Transfusion Reactions: No Reported Reaction Date of Last Stent Placement:: 2006 Type of Cardiac Device: AICD Device Placement Date:: 2006 [facility] LEFT CHEST Past Psychological History: No Psychological Hx Reported Smoking Status: Former smoker Past Alcohol Use History: Daily Past Drug Use History: None Reported - Past Family History Mother Family Medical History: Coronary Artery Disease (CAD), Renal Disease Father Additional Family Medical History / Comment(s): during medical testing Sister(s) Family Medical History: Cancer Additional Family Medical History / Comment(s): pancreatic cancer Medications and Allergies Home Medications Medication Instructions Recorded Confirmed Type Metoprolol Succinate (ER) [Toprol 25 mg PO DAILY 01/27/17 05/21/20 History XL] Aspirin [Adult Low Dose Aspirin EC] 81 mg PO DAILY 03/29/19 05/21/20 History Glimepiride [Amaryl] 1 mg PO BID 03/29/19 05/21/20 History Apixaban [Eliquis] 5 mg PO BID #60 tab 05/21/20 Rx Atorvastatin [Lipitor] 40 mg PO DAILY 05/21/20 05/21/20 History Psyllium Husk/Aspartame [Metamucil 1 scoop PO DAILY PRN 05/21/20 05/21/20 History Sugar-Free Powder] Allergies Allergy/AdvReac Type Severity Reaction Status Date / Time No Known Allergies Allergy Verified 05/21/20 11:02 Physical Exam Vitals: Vital Signs Temp Pulse Resp BP Pulse Ox 05/21/20 11:55 102 H 16 108/91 99 05/21/20 11:28 108 H 18 113/81 99 05/21/20 11:20 120 H 16 113/81 98 05/21/20 08:53 98 F 99 18 107/68 99 Intake and Output 05/20/20 05/21/20 05/21/20 22:59 06:59 14:59 Intake Total 0 Balance 0 Intake: Intake, IV Titration 0 Amount Diltiazem 125 mg In 0 Sodium Chloride 0.9% 100 ml @ 10 MG/HR 10 mls/hr IV .[id number] [facility] Rx#: [id number] Other: Weight 86.183 kg Results - Lab Results Most recent lab results Calcium 9.1 mg/dL (8.4-10.2) 05/21/20 09:13 Magnesium 1.6 mg/dL (1.6-2.3) 05/21/20 09:13 05/21/20 09:13 05/21/20 09:13 Assessment and Plan Plan: Assessment: 1. Chronic kidney disease stage IIIB secondary to nephrosclerosis. Baseline creatinine near 1.5. Ultrasound from April 2019 revealed no evidence of hydronephrosis. UA from January 2029. 2. A. fib with RVR maintained on Cardizem drip. 3. Hypotension due to A. fib. 4. Diabetes mellitus. Plan: Decrease rate of normal saline to 50 mL an hour. Encouraged oral intake. Cardiology recommendations pending. Continue to monitor renal function and urine output. Thank you for the consultation. I will continue to follow the patient with you during his hospital stay.
[2020-05-21] MEDS: APIXABAN 5 MG TAB PO SCH ×2 (12:23→21:07)
--- NOTE | 2020-05-21 12:40 | P.DS ---
Providers Date of admission: 05/21/20 10:52 Attending physician: Blake Dodd Consults: 05/21/20 10:53 Consult Physician Routine Consulting Provider: Jayson Gallego Consult Reason/Comments: afib rvr Do you want consulting provider notified?: Yes 05/21/20 12:33 Consult Physician Routine Consulting Provider: True Post Consult Reason/Comments: cleve Do you want consulting provider notified?: Yes Primary care physician: Fe Thao [facility] Course: Please of dementia for further details patient will be discharged today if cleared by cardiology. Patient Condition at Discharge: Fair Plan - Discharge Summary New Discharge Prescriptions: New Apixaban [Eliquis] 5 mg PO BID #60 tab Metoprolol Tartrate [Lopressor] 50 mg PO BID #60 tab Discontinued Metoprolol Succinate (ER) [Toprol XL] 25 mg PO DAILY No Action Glimepiride [Amaryl] 1 mg PO BID Aspirin [Adult Low Dose Aspirin EC] 81 mg PO DAILY Atorvastatin [Lipitor] 40 mg PO DAILY Psyllium Husk/Aspartame [Metamucil Sugar-Free Powder] 1 scoop PO DAILY PRN PRN Reason: Constipation Discharge Medication List Aspirin [Adult Low Dose Aspirin EC] 81 mg PO DAILY 03/29/19 [History] Glimepiride [Amaryl] 1 mg PO BID 03/29/19 [History] Apixaban [Eliquis] 5 mg PO BID #60 tab 05/21/20 [Rx] Atorvastatin [Lipitor] 40 mg PO DAILY 05/21/20 [History] Metoprolol Tartrate [Lopressor] 50 mg PO BID #60 tab 05/21/20 [Rx] Psyllium Husk/Aspartame [Metamucil Sugar-Free Powder] 1 scoop PO DAILY PRN 05/21/20 [History] Follow up Appointment(s)/Referral(s): Jayson Gallego MD [Family Provider] - 1 Week Keesha Miramontes MD [Primary Care Provider] - 3 Days
--- NOTE | 2020-05-21 12:40 | P.HPIM ---
History of Present Illness Patient is a pleasant 73-year-old male came in with comments of shortness of breath excessive tiredness. Patient is found to be in atrial fibrillation with rapid and regular rate. Patient heart rate has significantly come down now patient was started on 5 mg of Cardizem which will be discontinued and patient the usual uses 25 mg sustained-release of metoprolol patient will be started on 50 mg twice a day of metoprolol was dose will be given now. Patient was recently diagnosed with atrial fibrillation by his engraver machine Dr. Dorado about a week ago. Patient has a in AICD and pacemaker patient had ischemic myopathy with EF of around 40-45% from 2018. Patient denied any short of breath fever chills. Patient is feeling much better patient is not in heart failure patient appears to be euvolemic ration today his serum creatinine is 1.5 patient baseline appears to be around that. Patient is not on any diuretic he either at home. Patient is presently not in heart failure. Patient will be a valid by cardiology if cleared by coronary artery patient will be discharged today and if his heart rate is fairly well controlled he'll be discharged today. Patient was recently started on Eliquis by cardiology which she will continue. Denied any chest pain at this time. Review of Systems REVIEW OF SYSTEMS: CONSTITUTIONAL: No fever. HEENT: No recent visual problems or hearing problems. Denied any sore throat. CARDIOVASCULAR: No orthopnea, PND, no palpitations, no syncope. PULMONARY: no cough, no hemoptysis. GASTROINTESTINAL: No diarrhea, no nausea, no vomiting, no abdominal pain. NEUROLOGICAL: No headaches, no weakness, no numbness. HEMATOLOGICAL: Denies any bleeding or petechiae. GENITOURINARY: Denies any burning micturition, frequency, or urgency. MUSCULOSKELETAL/RHEUMATOLOGICAL: Denies any joint pain, swelling, or any muscle pain. ENDOCRINE: Denies any polyuria or polydipsia. The rest of the 14-point review of systems is negative. Past Medical History Past Medical History: Atrial Fibrillation, Diabetes Mellitus, Hyperlipidemia, Hypertension, Myocardial Infarction (non Q-wave), Osteoarthritis (OA) Additional Past Medical History / Comment(s): SEE DR FIELD'S H&P, KIDNEY STONES chronic back pain , concussion 1968, sciatica Last Myocardial Infarction Date:: 2006 History of Any Multi-Drug Resistant Organisms: None Reported Past Surgical History: AICD, Appendectomy, Cholecystectomy, Heart Catheterization With Stent Additional Past Surgical History / Comment(s): COLONOSCOPY, roel CATARACT. AICD [address]. see [address] saucedo h&p 2015 Past Anesthesia/Blood Transfusion Reactions: No Reported Reaction Date of Last Stent Placement:: 2006 Type of Cardiac Device: AICD Device Placement Date:: 2006 [facility] LEFT CHEST Past Psychological History: No Psychological Hx Reported Smoking Status: Former smoker Past Alcohol Use History: Daily Past Drug Use History: None Reported - Past Family History Mother Family Medical History: Coronary Artery Disease (CAD), Renal Disease Father Additional Family Medical History / Comment(s): during medical testing Sister(s) Family Medical History: Cancer Additional Family Medical History / Comment(s): pancreatic cancer Medications and Allergies Home Medications Medication Instructions Recorded Confirmed Type Aspirin [Adult Low Dose Aspirin EC] 81 mg PO DAILY 03/29/19 05/21/20 History Glimepiride [Amaryl] 1 mg PO BID 03/29/19 05/21/20 History Apixaban [Eliquis] 5 mg PO BID #60 tab 05/21/20 Rx Atorvastatin [Lipitor] 40 mg PO DAILY 05/21/20 05/21/20 History Metoprolol Tartrate [Lopressor] 50 mg PO BID #60 tab 05/21/20 Rx Psyllium Husk/Aspartame [Metamucil 1 scoop PO DAILY PRN 05/21/20 05/21/20 History Sugar-Free Powder] Allergies Allergy/AdvReac Type Severity Reaction Status Date / Time No Known Allergies Allergy Verified 05/21/20 11:02 Physical Exam Vitals: Vital Signs Temp Pulse Resp BP Pulse Ox 05/21/20 11:55 102 H 16 108/91 99 05/21/20 11:28 108 H 18 113/81 99 05/21/20 11:20 120 H 16 113/81 98 05/21/20 08:53 98 F 99 18 107/68 99 Intake and Output 05/20/20 05/21/20 05/21/20 22:59 06:59 14:59 Intake Total 5.5 Balance 5.5 Intake: Intake, IV Titration 5.5 Amount Diltiazem 125 mg In 5.5 Sodium Chloride 0.9% 100 ml @ 10 MG/HR 10 mls/hr IV .[id number] [facility] Rx#: [id number] Other: Weight 86.183 kg PHYSICAL EXAMINATION: GENERAL: The patient is alert and oriented x3, not in any acute distress. Well developed, well nourished. HEENT: Pupils are round and equally reacting to light. EOMI. No scleral icterus. No conjunctival pallor. Normocephalic, atraumatic. No pharyngeal erythema. No thyromegaly. CARDIOVASCULAR: S1 and S2 present. No murmurs, rubs, or gallops. PULMONARY: Chest is clear to auscultation, no wheezing or crackles. ABDOMEN: Soft, nontender, nondistended, normoactive bowel sounds. No palpable organomegaly. MUSCULOSKELETAL: No joint swelling or deformity. EXTREMITIES: No cyanosis, clubbing, or pedal edema. NEUROLOGICAL: Gross neurological examination did not reveal any focal deficits. SKIN: No rashes. Results CBC & Chem 7: 05/21/20 09:13 05/21/20 09:13 Labs: Abnormal Lab Results - Last 24 Hours (Table) 05/21/20 05/21/20 Range/Units 09:13 09:13 RBC 4.19 L (4.30-5.90) m/uL BUN 26 H (9-20) mg/dL Creatinine 1.52 H (0.66-1.25) mg/dL Glucose 235 H (74-99) mg/dL Total Bilirubin 1.7 H (0.2-1.3) mg/dL Assessment and Plan Plan: -Atrial fibrillation with rapid unclear rate his heart rate is already come down we'll increase the dose of beta flakito will monitor him for couple more hours, cardiology will evaluate the patient patient will be resumed on Eliquis possibly of discharge tomorrow if his heart rate comes down and if cleared by cardiology. -Congestive heart failure, chronic systolic dysfunction, ischemic cardiomy opathy: Patient has an AICD patient is not requiring diuretics patient is presently euvolemic may need to repeat echocardiogram this can be done as an outpatient. -Coronary artery disease -hypertension
[2020-05-21] MEDS: FUROSEMIDE 10 MG/ML 4 ML VIAL IV SCH ×2 (14:34→21:06)
[2020-05-21] MEDS: METOPROLOL TARTRATE 50 MG TAB PO SCH (21:06)
[2020-05-21] MEDS: GLIMEPIRIDE 1 MG TAB PO SCH (21:23)
[2020-05-22] MEDS: DILTIAZEM 125 MG in SODIUM CHLORIDE 0.9% 100 ML IV SCH (00:49)
[2020-05-22] MEDS: LACTATED RINGERS 1,000 ML IV SCH (06:01)
[2020-05-22 06:16] LABS: Glucose,Whole Blood 180 mg/dL (75-99)
--- NOTE | 2020-05-22 07:15 | P.CRDCN ---
History of Present Illness History of present illness: HISTORY OF PRESENTING ILLNESS This is a pleasant 75-year-old male past medical history significant for chronic systolic heart failure with recent worsening LV function, new onset atrial fibrillation, coronary artery disease s/p PCI ostial circumflex, diabetes mellitus, hypertension, dyslipidemia and former nicotine dependence. He follows in the office with Dr. Gallego. We have been asked to see in consultation for atrial fibrillation. He was recently diagnosed with afib on 05/04 in the office. He was there with complaints of shortness of breath, weakness and generalized fatigue. He had a pacemaker interrogation revealing he was having paroxysmal atrial fibrillation. Also recent echocardiogram revealed worsening LV function with EF 37%, compared to previously 45%. He was started on eliquis and advised ROSI/cardioversion after 3 weeks. He unfortunately has been getting increasingly short of breath and cannot sleep at night due to shortness of breath. He denies chest pain, dizziness or palpitations. He has been initiated on IV cardizem and beta blockers increased. DIAGNOSTICS EKG reveals atrial fibrillation with rapid ventricular response, heart rate 119 with left anterior fasicular block and right bundle branch block. Telemetry tracings indicate atrial fibrillation with rapid ventricular rate. Chest xray interstitial edema and cardiomegaly. Laboratory reviewed, WBC 5.9, hemoglobin 13.7, platelets 166, sodium 139, potassium 4.9, creatinine 1.52, magnesium 1.6, troponin negative 1, proBNP 3110 and TSH 3.21. Current cardiac medications include toprol 25 mg daily, eliquis 5 mg BID, aspirin 81 mg daily and atorvastatin 40 mg daily. REVIEW OF SYSTEMS At the time of my exam: CONSTITUTIONAL: Denies fever or chills. CARDIOVASCULAR: Complains of shortness of breath, orthpnea and PND. Denies chest pain or palpitations. RESPIRATORY: Denies cough. GASTROINTESTINAL: Denies abdominal pain, diarrhea, constipation, nausea or vomiting. MUSCULOSKELETAL: Denies myalgias. NEUROLOGIC: Denies numbness, tingling or weakness. ENDOCRINE: Denies fatigue, weight change, polydipsia or polyurina. GENITOURINARY: Denies burning, hematuria or urgency with micturation. HEMATOLOGIC: Denies history of anemia or bleeding. PHYSICAL EXAMINATION Blood pressure 95/74 heart rate 110 afebrile and maintaining oxygen saturation on room air. CONSTITUTIONAL: No apparent distress. HEENT: Head is normocephalic. Pupils are equal, round. Sclerae anicteric. Mucous membranes of the mouth are moist. No JVD. No carotid bruit. CHEST EXAMINATION: Bibasilar rales, faint expiratory wheeze, no rhonchi. No chest wall tenderness is noted on palpation or with deep breathing. HEART EXAMINATION: Irregular rate and rhythm. S1, S2 heard. No murmurs, gallops or rub. ABDOMEN: Soft, nontender. Positive bowel sounds. EXTREMITIES: 2+ peripheral pulses, no lower extremity edema and no calf t enderness. NEUROLOGIC EXAMINATION: Patient is awake, alert and oriented x3. ASSESSMENT Acute on chronic systolic heart failure Acute kidney injury Paroxysmal atrial fibrillation with rapid ventricular rate, symptomatic Coronary artery disease s/p PCI ostial circumflex 2006 and disease of RCA 2008 not amendable to PCI Hypertension Dyslipidemia Diabetes mellitus Former nicotine dependence PLAN Initiate IV lasix 40 mg BID. Document accurate intake and output along with daily weights. Follow renal function in the morning. Plan for ROSI/CV tomorrow. Further recommendations to follow based on clinical course. Thank you kindly for this consultation. Nurse Practitioner note has been reviewed, I agree with a documented findings and plan of care. Patient was seen and examined. Past Medical History Past Medical History: Atrial Fibrillation, Diabetes Mellitus, Hyperlipidemia, Hypertension, Myocardial Infarction (non Q-wave), Osteoarthritis (OA) Additional Past Medical History / Comment(s): SEE DR GALLEGO'S H&P, KIDNEY S TONES chronic back pain , concussion 1968, sciatica Last Myocardial Infarction Date:: 2006 History of Any Multi-Drug Resistant Organisms: None Reported Past Surgical History: AICD, Appendectomy, Cholecystectomy, Heart Cathet erization With Stent Additional Past Surgical History / Comment(s): COLONOSCOPY, roel CATARACT. AICD [address]. [address] saucedo h&p 2016 Past Anesthesia/Blood Transfusion Reactions: No Reported Reaction Date of Last Stent Placement:: 2006 Type of Cardiac Device: AICD Device Placement Date:: 2006 [facility] LEFT CHEST Past Psychological History: No Psychological Hx Reported Smoking Status: Former smoker Past Alcohol Use History: Daily Past Drug Use History: None Reported - Past Family History Mother Family Medical History: Coronary Artery Disease (CAD), Renal Disease Father Additional Family Medical History / Comment(s): during medical testing Sister(s) Family Medical History: Cancer Additional Family Medical History / Comment(s): pancreatic cancer Medications and Allergies Home Medications Medication Instructions Recorded Confirmed Type Aspirin [Adult Low Dose Aspirin EC] 81 mg PO DAILY 03/29/19 05/21/20 History Glimepiride [Amaryl] 1 mg PO BID 03/29/19 05/21/20 History Apixaban [Eliquis] 5 mg PO BID #60 tab 05/21/20 Rx Atorvastatin [Lipitor] 40 mg PO DAILY 05/21/20 05/21/20 History Metoprolol Tartrate [Lopressor] 50 mg PO BID #60 tab 05/21/20 Rx Psyllium Husk/Aspartame [Metamucil 1 scoop PO DAILY PRN 05/21/20 05/21/20 History Sugar-Free Powder] Allergies Allergy/AdvReac Type Severity Reaction Status Date / Time No Known Allergies Allergy Verified 05/21/20 11:02 Physical Exam Vitals: Vital Signs Temp Pulse Resp BP Pulse Ox 05/21/20 13:19 98.0 F 110 H 18 95/74 98 05/21/20 12:47 86 18 109/86 97 05/21/20 11:55 102 H 16 108/91 99 05/21/20 11:28 108 H 18 113/81 99 05/21/20 11:20 120 H 16 113/81 98 05/21/20 08:53 98 F 99 18 107/68 99 Intake and Output 05/20/20 05/21/20 05/21/20 22:59 06:59 14:59 Intake Total 5.5 Balance 5.5 Intake: Intake, IV Titration 5.5 Amount Diltiazem 125 mg In 5.5 Sodium Chloride 0.9% 100 ml @ 10 MG/HR 10 mls/hr IV .[id number] [facility] Rx#: [id number] Other: Weight 86.183 kg Results 05/21/20 09:13 05/21/20 09:13 Cardiac Enzymes 05/21/20 05/21/20 Range/Units 09:13 09:13 AST 29 (17-59) U/L Troponin I <0.012 (0.000-0.034) ng/mL Coagulation 05/21/20 Range/Units 09:13 PT 11.5 (9.0-12.0) sec APTT 26.7 (22.0-30.0) sec CBC 05/21/20 Range/Units 09:13 WBC 5.9 (3.8-10.6) k/uL RBC 4.19 L (4.30-5.90) m/uL Hgb 13.7 (13.0-17.5) gm/dL Hct 40.6 (39.0-53.0) % Plt Count 166 (150-450) k/uL Comprehensive Metabolic Panel 05/21/20 Range/Units 09:13 Sodium 139 (137-145) mmol/L Potassium 4.9 (3.5-5.1) mmol/L Chloride 106 (98-107) mmol/L Carbon Dioxide 25 (22-30) mmol/L BUN 26 H (9-20) mg/dL Creatinine 1.52 H (0.66-1.25) mg/dL Glucose 235 H (74-99) mg/dL Calcium 9.1 (8.4-10.2) mg/dL AST 29 (17-59) U/L ALT 42 (4-49) U/L Alkaline Phosphatase 106 (38-126) U/L Total Protein 6.8 (6.3-8.2) g/dL Albumin 4.0 (3.5-5.0) g/dL Current Medications Generic Name Dose Route Start Last Admin Trade Name Freq PRN Reason Stop Dose Admin Apixaban 5 mg 05/21/20 12:15 05/21/20 12:23 Apixaban 5 Mg Tab PO 5 mg BID RAMANDEEP Administration Aspirin 81 mg 05/22/20 09:00 Aspirin 81 Mg PO DAILY [facility] Atorvastatin Calcium 40 mg 05/22/20 09:00 Atorvastatin 40 Mg Tab PO DAILY [facility] Furosemide 40 mg 05/21/20 14:15 Furosemide 10 Mg/Ml 4 Ml Vial IV Q12HR RAMANDEEP Glimepiride 1 mg 05/21/20 21:00 Glimepiride 1 Mg Tab PO BID [facility] Diltiazem HCl 125 mg/ Sodium 125 mls @ 10 mls/hr 05/21/20 11:00 05/21/20 12:22 Chloride IV 0 mg/hr .[id number] RAMANDEEP 0 mls/hr Infusion 10 MG/HR Metoprolol Tartrate 50 mg 05/21/20 21:00 Metoprolol Tartrate 50 Mg Tab PO BID [facility] Naloxone HCl 0.2 mg 05/21/20 10:52 Naloxone 0.4 Mg/Ml 1 Ml Vial IV Q2M PRN Opioid Reversal Psyllium Hydrophilic Mucilloid 6 gm 05/21/20 12:05 Psyllium Husk 100% 6 Gm Packet PO DAILY PRN Constipation Intake and Output 05/20/20 05/21/20 05/21/20 22:59 06:59 14:59 Intake Total 5.5 Balance 5.5 Intake: Intake, IV Titration 5.5 Amount Diltiazem 125 mg In 5.5 Sodium Chloride 0.9% 100 ml @ 10 MG/HR 10 mls/hr IV .[id number] [facility] Rx#: [id number] Other: Weight 86.183 kg Patient Weight 05/22/20 06:59 Weight 86.183 kg 05/21/20 09:13 05/21/20 09:13
[2020-05-22] MEDS: APIXABAN 5 MG TAB PO SCH ×2 (08:28→20:43)
[2020-05-22] MEDS: ATORVASTATIN 40 MG TAB PO SCH (08:28)
[2020-05-22] MEDS: FUROSEMIDE 10 MG/ML 4 ML VIAL IV SCH ×3 (08:28→20:43)
[2020-05-22] MEDS: METOPROLOL TARTRATE 50 MG TAB PO SCH ×3 (08:28→20:43)
[2020-05-22] MEDS: GLIMEPIRIDE 1 MG TAB PO SCH ×2 (08:28→20:43)
[2020-05-22] MEDS: ASPIRIN 81 MG PO SCH (08:28)
[2020-05-22 10:17] LABS: Calcium 9.1 mg/dL (8.4-10.2); Magnesium 1.4 mg/dL (1.6-2.3); Potassium 4.5 mmol/L (3.5-5.1)
--- NOTE | 2020-05-22 10:28 | P.PN ---
Subjective 75-year-old pleasant male is admitted for congestive heart failure chronic systolic dysfunction with acute exacerbation patient is presently on IV Lasix and patient is also being treated for atrial fibrillation with rapid ventricular rate patient will undergo electrical cardioversion today with the ROSI. Patient heart rate still remains in the low 100s. Patient remains on metoprolol Lasix. Constitutional: Denied any fatigue denied any fever. Cardio vascular: denied any chest pain, palpitations Gastrointestinal denied any nausea vomiting Pulmonary: Denied any shortness of breath cough Neurologic denied any new focal deficits All inpatient medications were reviewed and appropriate changes in these medications as dictated in the interval history and assessment and plan. Objective - Vital Signs Vital signs: Vital Signs Temp 97.5 F L 05/22/20 03:00 Pulse 76 05/22/20 03:00 Resp 17 05/22/20 03:00 BP 99/66 05/22/20 03:00 Pulse Ox 95 05/22/20 03:00 Intake & Output 05/21/20 05/22/20 05/22/20 18:59 06:59 18:59 Intake Total 5.5 Output Total 700 100 Balance 5.5 -700 -100 Weight 86 kg 85.8 kg Intake: Intake, IV Titration 5.5 Amount Diltiazem 125 mg In 5.5 Sodium Chloride 0.9% 100 ml @ 10 MG/HR 10 mls/hr IV .[id number] [facility] Rx#: [id number] Output: Urine 700 100 Other: # Voids 1 - Exam PHYSICAL EXAMINATION: GENERAL: The patient is alert and oriented x3, not in any acute distress. Well developed, well nourished. HEENT: Pupils are round and equally reacting to light. EOMI. No scleral icterus. No conjunctival pallor. Normocephalic, atraumatic. No pharyngeal erythema. No thyromegaly. CARDIOVASCULAR: S1 and S2 present. No murmurs, rubs, or gallops. PULMONARY: Chest is clear to auscultation, no wheezing or crackles. ABDOMEN: Soft, nontender, nondistended, normoactive bowel sounds. No palpable organomegaly. MUSCULOSKELETAL: No joint swelling or deformity. EXTREMITIES: No cyanosis, clubbing, or pedal edema. NEUROLOGICAL: Gross neurological examination did not reveal any focal deficits. SKIN: No rashes. - Labs CBC & Chem 7: 05/21/20 09:13 05/22/20 09:22 Labs: Abnormal Lab Results - Last 24 Hours (Table) 05/22/20 05/22/20 Range/Units 06:14 09:22 BUN 25 H (9-20) mg/dL Creatinine 1.36 H (0.66-1.25) mg/dL Glucose 177 H (74-99) mg/dL POC Glucose (mg/dL) 180 H (75-99) mg/dL Magnesium 1.4 L (1.6-2.3) mg/dL Assessment and Plan Plan: -Congestive heart failure chronic systolic dysfunction with acute exacerbation patient has ischemic cardiomyopathy, patient has an AICD patient is presently in acute exacerbation patient is on 40 mg twice a day of Lasix. -Atrial fibrillation with rapid ventricular rate: Patient is on metoprolol patient will undergo ROSI guided cardioversion continue with Eliquis -Congestive heart failure, chronic systolic dysfunction, ischemic cardiomyopathy: Patient has an AICD patient is not requiring diuretics patient is presently euvolemic may need to repeat echocardiogram this can be done as an outpatient. -Coronary artery disease -hypertension
[2020-05-22] MEDS ORDERED: IV FLUID CONTINUATION 1,000 ML IV ONE (10:40)
[2020-05-22] MEDS ORDERED: LIDOCAINE 1% INJ 10MG/ML (20 ML MDV) ONE (11:23)
[2020-05-22] MEDS ORDERED: MIDAZOLAM 2 MG/2 ML VIAL ONE (11:23)
[2020-05-22] MEDS ORDERED: PROPOFOL 10 MG/ML 20 ML VIAL IV ONE (11:23)
--- NOTE | 2020-05-22 12:16 | P.EPPROC ---
- EP Procedure Note Electrophysiology Procedure Note: Procedure Electrical cardioversion Indication for the procedure Persistent symptomatically atrial fibrillation with worsening heart failure Patient underwent a ROSI by Dr. Bowles. No intracardiac thrombus or mass Electrical cardioversion under conscious sedation 360 J shock in AP configuration, successfully converted the patient to sinus rhythm He had a brief burst of atrial tachycardia before he converted to sinus rhythm Plan Start sotalol 40 mg twice daily Stop Cardizem Continue ELIQUIS Continue metoprolol Continue monitoring for now Consideration for A. fib ablation Date [] from the office
--- NOTE | 2020-05-22 12:26 | P.PN ---
Subjective Patient is seen in follow-up for chronic kidney disease. Patient has chronic kidney disease stage III Baseline creatinine near 1.5. GFR at baseline. Currently resting in bed. Feels tired after the procedure. No chest pain or shortness of breath. Vital signs are stable. General: The patient appeared well nourished and normally developed. HEENT: Head exam is unremarkable. Neck is without jugular venous distension. LUNGS: Breath sounds decreased. HEART: Rate and Rhythm are regular. ABDOMEN: Soft, nontender. EXTREMITITES: No edema. Objective - Vital Signs Vital signs: Vital Signs Temp 97.5 F L 05/22/20 03:00 Pulse 76 05/22/20 03:00 Resp 17 05/22/20 03:00 BP 99/66 05/22/20 03:00 Pulse Ox 95 05/22/20 03:00 Intake & Output 05/21/20 05/22/20 05/22/20 18:59 06:59 18:59 Intake Total 5.5 200 Output Total 700 100 Balance 5.5 -700 100 Weight 86 kg 85.8 kg Intake: IV 200 Intake, IV Titration 5.5 Amount Diltiazem 125 mg In 5.5 Sodium Chloride 0.9% 100 ml @ 10 MG/HR 10 mls/hr IV .[id number] RAMANDEEP Rx#: [id number] Output: Urine 700 100 Other: # Voids 1 - Labs CBC & Chem 7: 05/21/20 09:13 05/22/20 09:22 Labs: Abnormal Lab Results - Last 24 Hours (Table) 05/22/20 05/22/20 Range/Units 06:14 09:22 BUN 25 H (9-20) mg/dL Creatinine 1.36 H (0.66-1.25) mg/dL Glucose 177 H (74-99) mg/dL POC Glucose (mg/dL) 180 H (75-99) mg/dL Magnesium 1.4 L (1.6-2.3) mg/dL Assessment and Plan Plan: Assessment: 1. Chronic kidney disease stage IIIA secondary to nephrosclerosis. Baseline creatinine near 1.5. Ultrasound from April 2019 revealed no evidence of hydronephrosis. UA from January 2029. 2. A. fib with RVR status post cardioversion this morning. On Lopressor and sotalol. 3. Hypotension due to A. fib. Stable. 4. Diabetes mellitus. 5. Hypomagnesemia from diuresis. 6. Volume overload. Plan: Maintain IV Lasix. Can likely transition to oral diuretics tomorrow. Magnesium being replaced. Avoid nephrotoxins. Repeat electrolytes in the morning. Follow-up ROSI.
--- NOTE | 2020-05-22 13:55 | ECHOT ---
TRANSESOPHAGEAL ECHOCARDIOGRAM INDICATION: Persistent atrial fibrillation. PROCEDURE NOTE: After obtaining informed consent, transesophageal echocardiogram was performed in left lateral position using an Omni plane probe. Local and IV sedation were obtained by the field supervisor seed production. FINDINGS: 1. There is no intracardiac thrombus within the left atrial appendage, left atrium, right atrium, left ventricle, or right ventricle. 2. There is spontaneous echo contrast noted within the left ventricle. 3. Left ventricle appears dilated shows severe LV dysfunction with an ejection fraction of 35%. 4. Mitral valve shows severe mitral regurgitation secondary to dilated mitral anulus. 5. Tricuspid valve shows moderate tricuspid regurgitation. 6. Aortic valve shows mild aortic regurgitation. 7. Aortic root appears within normal limits. 8. There is no evidence of [id number] shunt by color-flow Doppler or bbufc-wd-[id number] shunt by agitated saline contrast study. CONCLUSIONS: 1. No intracardiac thrombus. 2. Severe mitral regurgitation. 3. Severe left ventricular dysfunction. PLAN: Patient will undergo cardioversion for the atrial fibrillation. MMODL / IJN: [id number] /
[2020-05-22] MEDS: MAGNESIUM SULFATE-D5W PMX 1 GM in DEXTROSE/WATER 1 100ML.BAG IVPB SCH ×4 (15:56→20:22)
[2020-05-22] MEDS: SOTALOL 80 MG TAB PO SCH ×2 (15:57→20:43)
[2020-05-22] MEDS: SPIRONOLACTONE 25 MG TAB PO SCH (16:11)
[2020-05-22 17:17] LABS: Glucose,Whole Blood 277 mg/dL (75-99)
[2020-05-22 20:42] LABS: Glucose,Whole Blood 281 mg/dL (75-99)
[2020-05-22] MEDS: INSULIN ASPART (NovoLOG) 100 UNIT/ML VIAL SQ SCH (22:03)
[2020-05-23] MEDS: LACTATED RINGERS 1,000 ML IV SCH (06:12)
[2020-05-23] MEDS: INSULIN ASPART (NovoLOG) 100 UNIT/ML VIAL SQ SCH ×4 (06:13→22:34)
[2020-05-23 06:14] LABS: Glucose,Whole Blood 255 mg/dL (75-99)
[2020-05-23] MEDS: FUROSEMIDE 10 MG/ML 4 ML VIAL IV SCH (08:13)
[2020-05-23] MEDS: METOPROLOL TARTRATE 50 MG TAB PO SCH ×2 (08:13→22:34)
[2020-05-23] MEDS: SPIRONOLACTONE 25 MG TAB PO SCH (08:13)
[2020-05-23] MEDS: SOTALOL 80 MG TAB PO SCH ×2 (08:14→22:34)
[2020-05-23] MEDS: GLIMEPIRIDE 1 MG TAB PO SCH ×2 (08:14→22:34)
[2020-05-23] MEDS: ASPIRIN 81 MG PO SCH (08:14)
[2020-05-23] MEDS: APIXABAN 5 MG TAB PO SCH ×3 (08:14→23:28)
[2020-05-23] MEDS: ATORVASTATIN 40 MG TAB PO SCH (08:14)
[2020-05-23 08:27] LABS: Calcium 9.1 mg/dL (8.4-10.2); Magnesium 2.4 mg/dL (1.6-2.3); Potassium 5.3 mmol/L (3.5-5.1)
--- NOTE | 2020-05-23 09:13 | P.PN ---
Subjective 75-year-old pleasant male is admitted for congestive heart failure chronic systolic dysfunction with acute exacerbation patient is presently on IV Lasix and patient is also being treated for atrial fibrillation with rapid ventricular rate patient will undergo electrical cardioversion today with the ROSI. Patient heart rate still remains in the low 100s. Patient remains on metoprolol Lasix. 05/23/2020 Patient clinically not he heart failure exacerbation patient underwent cardioversion, ROSI guided presently sinus rhythm. Patient is still complaining of shortness of breath and orthopnea. We will obtain a chest x-ray. Patient the potassium went up a bit patient is to be on low potassium diet patient was also started on a very low dose of Aldactone today. Constitutional: Denied any fatigue denied any fever. Cardio vascular: denied any chest pain, palpitations Gastrointestinal denied any nausea vomiting Pulmonary: Complaining Of shortness of breath Neurologic denied any new focal deficits All inpatient medications were reviewed and appropriate changes in these medications as dictated in the interval history and assessment and plan. Objective - Vital Signs Vital signs: Vital Signs Temp 97.3 F L 05/23/20 04:00 Pulse 68 05/23/20 04:00 Resp 18 05/23/20 04:00 BP 102/61 05/23/20 04:00 Pulse Ox 98 05/23/20 04:00 Intake & Output 05/22/20 05/23/20 05/23/20 18:59 06:59 18:59 Intake Total 200 180 Output Total 100 1600 Balance 100 -1600 180 Weight 85 kg Intake: IV 200 Oral 180 Output: Urine 100 1600 Other: Voiding Method Urinal # Voids 1 1 - Exam PHYSICAL EXAMINATION: GENERAL: The patient is alert and oriented x3, not in any acute distress. Well developed, well nourished. HEENT: Pupils are round and equally reacting to light. EOMI. No scleral icterus. No conjunctival pallor. Normocephalic, atraumatic. No pharyngeal erythema. No thyromegaly. CARDIOVASCULAR: S1 and S2 present. No murmurs, rubs, or gallops. PULMONARY: Chest is clear to auscultation, no wheezing or crackles. ABDOMEN: Soft, nontender, nondistended, normoactive bowel sounds. No palpable organomegaly. MUSCULOSKELETAL: No joint swelling or deformity. EXTREMITIES: No cyanosis, clubbing, or pedal edema. NEUROLOGICAL: Gross neurological examination did not reveal any focal deficits. SKIN: No rashes. - Labs CBC & Chem 7: 05/21/20 09:13 05/23/20 07:29 Labs: Abnormal Lab Results - Last 24 Hours (Table) 05/22/20 05/22/20 05/22/20 Range/Units 09:22 17:10 20:25 Sodium (137-145) mmol/L Potassium (3.5-5.1) mmol/L BUN 25 H (9-20) mg/dL Creatinine 1.36 H (0.66-1.25) mg/dL Glucose 177 H (74-99) mg/dL POC Glucose (mg/dL) 277 H 281 H (75-99) mg/dL Magnesium 1.4 L (1.6-2.3) mg/dL 05/23/20 05/23/20 Range/Units 05:54 07:29 Sodium 135 L (137-145) mmol/L Potassium 5.3 H (3.5-5.1) mmol/L BUN 35 H (9-20) mg/dL Creatinine 1.76 H (0.66-1.25) mg/dL Glucose 234 H (74-99) mg/dL POC Glucose (mg/dL) 255 H (75-99) mg/dL Magnesium 2.4 H (1.6-2.3) mg/dL Assessment and Plan Plan: -Congestive heart failure chronic systolic dysfunction with acute exacerbation patient has ischemic cardiomyopathy, patient has an AICD patient is presently in acute exacerbation patient is on 40 mg twice a day of Lasix. Status post cardioversion and patient is presently sinus rhythm patient appears to be euvolemic clinically will obtain a chest x-ray as mentioned above -Atrial fibrillation with rapid ventricular rate: Patient is presently in the sinus rhythm status post repeat guided cardioversion, continue with Eliquis 10 hyperkalemia probably secondary to renal dysfunction and Aldactone. Nephrology is following the patient. -Acute renal failure most probably secondary to excessive diuresis patient may need to be switched back to oral Lasix which we'll do after the chest x-ray. -Coronary artery disease -hypertension
--- NOTE | 2020-05-23 09:43 | XR ---
EXAMINATION TYPE: XR chest 1V DATE OF EXAM: 05/23/2020 COMPARISON: 05/21/2020 HISTORY: Shortness of breath TECHNIQUE: Single frontal view of the chest is obtained. FINDINGS: Heart is enlarged and there is a coarsened interstitium with basilar consolidation and tin y effusions. No pneumothorax. Cardiac device seen. Arthropathy of the shoulders. IMPRESSION: 1. Stable x-ray correlate for mild venous congestion or interstitial pneumonia. Basilar infiltrate an d tiny effusions noted.
--- NOTE | 2020-05-23 12:54 | P.PN ---
Subjective Patient is seen in follow-up for chronic kidney disease. Patient has chronic kidney disease stage III Baseline creatinine near 1.5. Renal function worse today. Creatinine 1.76. He is having urinary retention. Required straight catheterization last night with near 1.5 L of urine drained. He is also maintained on IV Lasix. States he hasn't voided up until now. Vital signs are stable. General: The patient appeared well nourished and normally developed. HEENT: Head exam is unremarkable. Neck is without jugular venous distension. LUNGS: Breath sounds decreased. HEART: Rate and Rhythm are regular. ABDOMEN: Soft, nontender. EXTREMITITES: No edema. Objective - Vital Signs Vital signs: Vital Signs Temp 97.3 F L 05/23/20 04:00 Pulse 68 05/23/20 08:00 Resp 18 05/23/20 08:00 BP 83/64 05/23/20 08:00 Pulse Ox 97 05/23/20 08:00 Intake & Output 05/22/20 05/23/20 05/23/20 18:59 06:59 18:59 Intake Total 200 180 Output Total 100 1600 Balance 100 -1600 180 Weight 85 kg Intake: IV 200 Oral 180 Output: Urine 100 1600 Other: Voiding Method Urinal # Voids 1 1 - Labs CBC & Chem 7: 05/21/20 09:13 05/23/20 07:29 Labs: Abnormal Lab Results - Last 24 Hours (Table) 05/22/20 05/22/20 05/23/20 Range/Units 17:10 20:25 05:54 Sodium (137-145) mmol/L Potassium (3.5-5.1) mmol/L BUN (9-20) mg/dL Creatinine (0.66-1.25) mg/dL Glucose (74-99) mg/dL POC Glucose (mg/dL) 277 H 281 H 255 H (75-99) mg/dL Magnesium (1.6-2.3) mg/dL 05/23/20 Range/Units 07:29 Sodium 135 L (137-145) mmol/L Potassium 5.3 H (3.5-5.1) mmol/L BUN 35 H (9-20) mg/dL Creatinine 1.76 H (0.66-1.25) mg/dL Glucose 234 H (74-99) mg/dL POC Glucose (mg/dL) (75-99) mg/dL Magnesium 2.4 H (1.6-2.3) mg/dL Assessment and Plan Plan: Assessment: 1. Chronic kidney disease stage IIIA secondary to nephrosclerosis. Baseline creatinine near 1.5. Ultrasound from April 2019 revealed no evidence of hydronephrosis. UA from January 2020 benign. 2. A. fib with RVR status post cardioversion this admission. On Lopressor and sotalol. 3. Hypotension due to A. fib. 4. Diabetes mellitus. 5. Hypomagnesemia from diuresis. Improved post replacement. 6. Volume overload. Improved with diuresis. 7. Urinary retention status post straight catheterization last night. 8. Mild hyperkalemia secondary to urinary retention. Now also on aldactone. Plan: Lasix changed from IV to oral. Check bladder scan now. If has over 300 mL of urine, insert Paredes catheter. Hold spironolactone for systolic blood pressure less than 110. Check morning cortisol level. Continue to monitor renal function and urine output.
[2020-05-23 13:13] LABS: Glucose,Whole Blood 175 mg/dL (75-99)
--- NOTE | 2020-05-23 13:53 | P.PN ---
Subjective Progress Note Date: 05/23/20 HISTORY OF PRESENT ILLNESS: Patient is s/p ROSI and cardioversion. He is maintaining sinus mechanism. He denies chest pain or pressure. Reports mild shortness of breath this morning. Potassium 3.3. Creatinine 1.76. Blood pressure 93/59. Patient is having some issues with urinary retention overnight. PHYSICAL EXAM: VITAL SIGNS: Reviewed. GENERAL: Well-developed in no acute distress. NECK: Supple. No JVD or thyromegaly LUNGS: Respirations even and unlabored. Lungs essentially clear to auscultation bilaterally. HEART: Regular rate and rhythm. S1 and S2 heard. EXTREMITIES: Normal range of motion. No clubbing or cyanosis. Peripheral pulses intact. No lower extremity edema ASSESSMENT: Paroxysmal atrial fibrillation with rapid ventricular rate, symptomatic, s/p ROSI and cardioversion Acute on chronic systolic heart failure Acute kidney injury Coronary artery disease s/p PCI ostial circumflex 2006 and disease of RCA 2008 not amendable to PCI Hypertension Dyslipidemia Diabetes mellitus Former nicotine dependence PLAN: Continue current cardiac medications Lasix transitioned to oral Patient is stable from a cardiac perspective. Patient to follow up with Dr. Gallego. Nurse practitioner note has been reviewed by physician. Signing provider agrees with the documented findings, assessment, and plan of care. Objective - Vital Signs Vital signs: Vital Signs Temp 97.3 F L 05/23/20 04:00 Pulse 67 05/23/20 12:00 Resp 18 05/23/20 12:00 BP 93/59 05/23/20 12:00 Pulse Ox 98 05/23/20 12:00 Intake & Output 05/22/20 05/23/20 05/23/20 18:59 06:59 18:59 Intake Total 200 180 Output Total 100 1600 Balance 100 -1600 180 Weight 85 kg Intake: IV 200 Oral 180 Output: Urine 100 1600 Other: Voiding Method Urinal # Voids 1 1 - Labs CBC & Chem 7: 05/21/20 09:13 05/23/20 07:29 Labs: Abnormal Lab Results - Last 24 Hours (Table) 05/22/20 05/22/20 05/23/20 Range/Units 17:10 20:25 05:54 Sodium (137-145) mmol/L Potassium (3.5-5.1) mmol/L BUN (9-20) mg/dL Creatinine (0.66-1.25) mg/dL Glucose (74-99) mg/dL POC Glucose (mg/dL) 277 H 281 H 255 H (75-99) mg/dL Magnesium (1.6-2.3) mg/dL 05/23/20 05/23/20 Range/Units 07:29 13:12 Sodium 135 L (137-145) mmol/L Potassium 5.3 H (3.5-5.1) mmol/L BUN 35 H (9-20) mg/dL Creatinine 1.76 H (0.66-1.25) mg/dL Glucose 234 H (74-99) mg/dL POC Glucose (mg/dL) 175 H (75-99) mg/dL Magnesium 2.4 H (1.6-2.3) mg/dL
[2020-05-23] MEDS: FUROSEMIDE 40 MG TAB PO SCH (16:46)
[2020-05-23 17:18] LABS: Glucose,Whole Blood 174 mg/dL (75-99)
[2020-05-23 20:11] LABS: Glucose,Whole Blood 277 mg/dL (75-99)
[2020-05-24] MEDS: INSULIN ASPART (NovoLOG) 100 UNIT/ML VIAL SQ SCH (06:34)
[2020-05-24 07:16] LABS: Basophils # (A) 0.1 k/uL (0-0.2); Basophils % (A) 1 %; Eosinophils # (A) 0.1 k/uL (0-0.7); Eosinophils % (A) 1 %; HCT 37.8 % (39.0-53.0); HGB 12.9 gm/dL (13.0-17.5); Lymphocytes % (A) 11 %; MCH 32.9 pg (25.0-35.0); MCHC 34.1 g/dL (31.0-37.0); MCV 96.3 fL (80.0-100.0); Mean Platelet Volume 8.8; Monocytes # (A) 0.6 k/uL (0-1.0); Monocytes % (A) 7 %; Neutrophils # (A) 6.5 k/uL (1.3-7.7); Neutrophils % (A) 77 %; Platelet Count 159 k/uL (150-450); RBC 3.92 m/uL (4.30-5.90); RDW 13.1 % (11.5-15.5); WBC 8.4 k/uL (3.8-10.6)
[2020-05-24 07:27] LABS: Calcium 9.1 mg/dL (8.4-10.2); Magnesium 1.9 mg/dL (1.6-2.3); Potassium 4.2 mmol/L (3.5-5.1)
[2020-05-24] MEDS: LACTATED RINGERS 1,000 ML IV SCH (08:03)
[2020-05-24] MEDS: SPIRONOLACTONE 25 MG TAB PO SCH (08:10)
[2020-05-24] MEDS: ASPIRIN 81 MG PO SCH (08:10)
[2020-05-24] MEDS: SOTALOL 80 MG TAB PO SCH (08:10)
[2020-05-24] MEDS: GLIMEPIRIDE 1 MG TAB PO SCH (08:10)
[2020-05-24] MEDS: ATORVASTATIN 40 MG TAB PO SCH (08:10)
[2020-05-24] MEDS: METOPROLOL TARTRATE 50 MG TAB PO SCH (08:10)
[2020-05-24] MEDS: FUROSEMIDE 40 MG TAB PO SCH (08:11)
[2020-05-24] MEDS: APIXABAN 5 MG TAB PO SCH (08:11)
[2020-05-24 08:19] VITALS: BP 94/84; PULSE 62; RESP 20; TEMP 97
--- NOTE | 2020-05-24 10:18 | P.DS ---
Providers Date of admission: 05/23/20 08:01 Attending physician: Blake Dodd Consults: 05/21/20 10:53 Consult Physician Routine Consulting Provider: Jayson Gallego Consult Reason/Comments: afib rvr Do you want consulting provider notified?: Yes 05/21/20 12:33 Consult Physician Routine Consulting Provider: True Post Consult Reason/Comments: cleve Do you want consulting provider notified?: Yes 05/23/20 23:21 Consult Physician Routine Consulting Provider: Curtis Bey Consult Reason/Comments: hematuria Do you want consulting provider notified?: Yes, Notify in am Primary care physician: Fe Duarte [facility] Course: 75-year-old pleasant male is admitted for congestive heart failure chronic systolic dysfunction with acute exacerbation patient is presently on IV Lasix and patient is also being treated for atrial fibrillation with rapid ventricular rate patient will undergo electrical cardioversion today with the ROSI. Patient heart rate still remains in the low 100s. Patient remains on metoprolol Lasix. 05/23/2020 Patient clinically not he heart failure exacerbation patient underwent cardioversion, ROSI guided presently sinus rhythm. Patient is still complaining of shortness of breath and orthopnea. We will obtain a chest x-ray. Patient the potassium went up a bit patient is to be on low potassium diet patient was also started on a very low dose of Aldactone today. 05/24/2020 Patient had urinary retention which led to hyperkalemia and acute renal failure patient had a Paredes catheter in 2 mild hematuria because of Eliquis. Patient is being evaluated by urology. Depending on the recommendations we'll either discontinue or patient will go home with the Paredes catheter. Patient is presently fairly euvolemic patient will be discharged on 40 mg oral twice a day of Lasix and the patient will be continued on 12.5 Aldactone cannot use TIMOTHY inhibitor at this time because of hyperkalemia and hypotension probably will benefit from starting on TIMOTHY inhibitor/ARB as an outpatient patient is presently sinus rhythm PHYSICAL EXAMINATION: GENERAL: The patient is alert and oriented x3, not in any acute distress. Well developed, well nourished. HEENT: Pupils are round and equally reacting to light. EOMI. No scleral icterus. No conjunctival pallor. Normocephalic, atraumatic. No pharyngeal erythema. No thyromegaly. CARDIOVASCULAR: S1 and S2 present. No murmurs, rubs, or gallops. PULMONARY: Chest is clear to auscultation, no wheezing or crackles. ABDOMEN: Soft, nontender, nondistended, normoactive bowel sounds. No palpable organomegaly. MUSCULOSKELETAL: No joint swelling or deformity. EXTREMITIES: No cyanosis, clubbing, or pedal edema. NEUROLOGICAL: Gross neurological examination did not reveal any focal deficits. SKIN: No rashes. Assessment and Plan Plan: -Congestive heart failure chronic systolic dysfunction with acute exacerbation patient has ischemic cardiomyopathy, patient has an AICD patient is presently in acute exacerbation patient is on 40 mg twice a day of Lasix. Status post cardioversion and patient is presently sinus rhythm patient appears to be euvolemic clinically will obtain a chest x-ray as mentioned above -Atrial fibrillation with rapid ventricular rate: Patient is presently in the sinus rhythm status post repeat guided cardioversion, continue with Eliquis 10 hyperkalemia probably secondary to urinary retention improved now resumed on Aldactone patient has a Paredes catheter presently being evaluated by urology as mentioned above -Urinary retention -Acute renal failure most probably secondary to urinary retention Possible chronic kidney disease stage III -Coronary artery disease -hypertension Patient Condition at Discharge: Fair Plan - Discharge Summary Discharge Rx Participant: Yes New Discharge Prescriptions: New Apixaban [Eliquis] 5 mg PO BID #60 tab Metoprolol Tartrate [Lopressor] 50 mg PO BID #60 tab Spironolactone [Aldactone] 12.5 mg PO DAILY #30 tab Sotalol [Betapace] 40 mg PO BID #60 tab Furosemide [Lasix] 40 mg PO BID@0900,1600 #60 tab Continue Aspirin [Adult Low Dose Aspirin EC] 81 mg PO DAILY Atorvastatin [Lipitor] 40 mg PO DAILY Psyllium Husk/Aspartame [Metamucil Sugar-Free Powder] 1 scoop PO DAILY PRN PRN Reason: Constipation Changed Glimepiride [Amaryl] 1.5 mg PO BID #0 Discontinued Metoprolol Succinate (ER) [Toprol XL] 25 mg PO DAILY Discharge Medication List Aspirin [Adult Low Dose Aspirin EC] 81 mg PO DAILY 03/29/19 [History] Apixaban [Eliquis] 5 mg PO BID #60 tab 05/21/20 [Rx] Atorvastatin [Lipitor] 40 mg PO DAILY 05/21/20 [History] Metoprolol Tartrate [Lopressor] 50 mg PO BID #60 tab 05/21/20 [Rx] Psyllium Husk/Aspartame [Metamucil Sugar-Free Powder] 1 scoop PO DAILY PRN 05/21/20 [History] Furosemide [Lasix] 40 mg PO BID@0900,1600 #60 tab 05/24/20 [Rx] Glimepiride [Amaryl] 1.5 mg PO BID #0 05/24/20 [Rx] Sotalol [Betapace] 40 mg PO BID #60 tab 05/24/20 [Rx] Spironolactone [Aldactone] 12.5 mg PO DAILY #30 tab 05/24/20 [Rx] Follow up Appointment(s)/Referral(s): Jayson Gallego MD [Family Provider] - 1 Week (Office is closed, please call thursday for an appt f/u) Keesha Miramontes MD [Primary Care Provider] - 3 Days (call office thursday to make appointment) True Post DO [STAFF PHYSICIAN] - 1 Week (call office thursday to make appointment) Ambulatory/Diagnostic Orders: Basic Metabolic Panel [LAB.AMB] Time Frame: 3 Days, Location: None Selected Patient Instructions/Handouts: A-fib (Atrial Fibrillation) (DC), Paredes Catheter Placement and Care (DC) Discharge Disposition: HOME WITH HOME HEALTH SERVICES
--- NOTE | 2020-05-24 12:17 | P.GSCN ---
History of Present Illness Consult date: 05/24/20 Reason for Consult: Gross Hematuria, urinary retention History of present illness: Mr Dill is a 75-year-old male with multiple comorbidities. He is admitted to the hospital for worsening shortness of breath. Urology is consulted for gross hematuria and urinary retention. He is on Eliquis for Afib. He was found in urinary retention, fuentes was placed. Denies any voiding issues at baseline. No previous hx of gross hematuria, urine is light pink this morning. No previous surgeries. He had a RBUS done in 04/2019 that showed no hydro or any renal masses Review of Systems - Constitutional Denies fever, Denies weight loss - Respiratory Reports dyspnea - Gastrointestinal Denies abdominal pain, Denies nausea, Denies vomiting - Genitourinary Reports hematuria, Reports urinary retention, Denies dysuria, Denies flank pain, Denies kidney stones Past Medical History Past Medical History: Atrial Fibrillation, Diabetes Mellitus, Hyperlipidemia, Hypertension, Myocardial Infarction (non Q-wave), Osteoarthritis (OA) Additional Past Medical History / Comment(s): SEE DR FIELD'S H&P, KIDNEY STONES chronic back pain , concussion 1969, sciatica Last Myocardial Infarction Date:: 2006 History of Any Multi-Drug Resistant Organisms: None Reported Past Surgical History: AICD, Appendectomy, Cholecystectomy, Heart Catheterization With Stent Additional Past Surgical History / Comment(s): COLONOSCOPY, roel CATARACT. AICD 2006. see dr saucedo h&p 2016 Past Anesthesia/Blood Transfusion Reactions: No Reported Reaction Date of Last Stent Placement:: 2006 Type of Cardiac Device: AICD Device Placement Date:: 2006 [facility] LEFT CHEST Past Psychological History: No Psychological Hx Reported Smoking Status: Former smoker Past Alcohol Use History: Daily Past Drug Use History: None Reported - Past Family History Mother Family Medical History: Coronary Artery Disease (CAD), Renal Disease Father Additional Family Medical History / Comment(s): during medical testing Sister(s) Family Medical History: Cancer Additional Family Medical History / Comment(s): pancreatic cancer Medications and Allergies Home Medications Medication Instructions Recorded Confirmed Type Aspirin [Adult Low Dose Aspirin EC] 81 mg PO DAILY 03/29/19 05/21/20 History Apixaban [Eliquis] 5 mg PO BID #60 tab 05/21/20 Rx Atorvastatin [Lipitor] 40 mg PO DAILY 05/21/20 05/21/20 History Metoprolol Tartrate [Lopressor] 50 mg PO BID #60 tab 05/21/20 Rx Psyllium Husk/Aspartame [Metamucil 1 scoop PO DAILY PRN 05/21/20 05/21/20 History Sugar-Free Powder] Furosemide [Lasix] 40 mg PO BID@0900,1600 #60 tab 05/24/20 Rx Glimepiride [Amaryl] 1.5 mg PO BID #0 05/24/20 05/21/20 Rx Sotalol [Betapace] 40 mg PO BID #60 tab 05/24/20 Rx Spironolactone [Aldactone] 12.5 mg PO DAILY #30 tab 05/24/20 Rx Tamsulosin HCl [Flomax] 0.4 mg PO DAILY #30 capsule 05/24/20 Rx Tamsulosin [Flomax] 0.4 mg PO DAILY #30 cap 05/24/20 Rx Allergies Allergy/AdvReac Type Severity Reaction Status Date / Time No Known Allergies Allergy Verified 05/21/20 11:02 Surgical - Exam Vital Signs Temp Pulse Resp BP Pulse Ox 98 F 99 18 107/68 99 05/21/20 08:53 05/21/20 08:53 05/21/20 08:53 05/21/20 08:53 05/21/20 08:53 - General well developed, well nourished, no distress, no pain - Eyes PERRL, normal ocular movement - ENT normal pinna, normal nares - Respiratory normal expansion, normal respiratory effort - Abdomen Abdomen: soft, non tender - Genitourinary fuentes in place draining clear yellow urine Results - Labs 05/24/20 06:30 05/24/20 06:30 Abnormal Lab Results - Last 24 Hours (Table) 05/23/20 05/23/20 05/23/20 Range/Units 13:12 17:17 20:09 RBC (4.30-5.90) m/uL Hgb (13.0-17.5) gm/dL Hct (39.0-53.0) % Sodium (137-145) mmol/L BUN (9-20) mg/dL Creatinine (0.66-1.25) mg/dL Glucose (74-99) mg/dL POC Glucose (mg/dL) 175 H 174 H 277 H (75-99) mg/dL 05/24/20 05/24/20 Range/Units 06:30 06:30 RBC 3.92 L (4.30-5.90) m/uL Hgb 12.9 L (13.0-17.5) gm/dL Hct 37.8 L (39.0-53.0) % Sodium 135 L (137-145) mmol/L BUN 41 H (9-20) mg/dL Creatinine 1.57 H (0.66-1.25) mg/dL Glucose 185 H (74-99) mg/dL POC Glucose (mg/dL) (75-99) mg/dL Diabetes panel 05/23/20 05/24/20 Range/Units 17:37 06:30 Sodium 135 L (137-145) mmol/L Potassium 4.2 4.2 (3.5-5.1) mmol/L Chloride 103 (98-107) mmol/L Carbon Dioxide 24 (22-30) mmol/L BUN 41 H (9-20) mg/dL Creatinine 1.57 H (0.66-1.25) mg/dL Glucose 185 H (74-99) mg/dL Calcium 9.1 (8.4-10.2) mg/dL Calcium panel 05/24/20 Range/Units 06:30 Calcium 9.1 (8.4-10.2) mg/dL Pituitary panel 05/23/20 05/24/20 Range/Units 17:37 06:30 Sodium 135 L (137-145) mmol/L Potassium 4.2 4.2 (3.5-5.1) mmol/L Chloride 103 (98-107) mmol/L Carbon Dioxide 24 (22-30) mmol/L BUN 41 H (9-20) mg/dL Creatinine 1.57 H (0.66-1.25) mg/dL Glucose 185 H (74-99) mg/dL Calcium 9.1 (8.4-10.2) mg/dL Adrenal panel 05/23/20 05/24/20 Range/Units 17:37 06:30 Sodium 135 L (137-145) mmol/L Potassium 4.2 4.2 (3.5-5.1) mmol/L Chloride 103 (98-107) mmol/L Carbon Dioxide 24 (22-30) mmol/L BUN 41 H (9-20) mg/dL Creatinine 1.57 H (0.66-1.25) mg/dL Glucose 185 H (74-99) mg/dL Calcium 9.1 (8.4-10.2) mg/dL Assessment and Plan Assessment: 75 yo male with urinary retention and gross hematuria, no voiding issues at baseline. No previous hx of gross hematuria. -Can be discharge home with fuentes, F/U in one week with TOV. Will discharge home on flomax -Will need cystoscopy as an outpatient to complete his hematuria workup
--- NOTE | 2020-05-24 12:21 | P.PN ---
Subjective Progress Note Date: 05/24/20 HISTORY OF PRESENT ILLNESS: 05/23/2020 Patient is s/p ROSI and cardioversion. He is maintaining sinus mechanism. He denies chest pain or pressure. Reports mild shortness of breath this morning. Potassium 3.3. Creatinine 1.76. Blood pressure 93/59. Patient is having some issues with urinary retention overnight. 05/24/2020 Patient examined this morning at the bedside. He denies chest pain or pressure. He states his shortness of breath has resolved. He remains on oral Lasix. He is maintaining sinus mechanism. Patient is eager to be discharged home today. PHYSICAL EXAM: VITAL SIGNS: Reviewed. GENERAL: Well-developed in no acute distress. NECK: Supple. No JVD or thyromegaly LUNGS: Respirations even and unlabored. Lungs essentially clear to auscultation bilaterally. HEART: Regular rate and rhythm. S1 and S2 heard. EXTREMITIES: Normal range of motion. No clubbing or cyanosis. Peripheral pulses intact. No lower extremity edema ASSESSMENT: Paroxysmal atrial fibrillation with rapid ventricular rate, symptomatic, s/p ROSI and cardioversion Acute on chronic systolic heart failure Acute kidney injury Coronary artery disease s/p PCI ostial circumflex 2006 and disease of RCA 2008 not amendable to PCI Hypertension Dyslipidemia Diabetes mellitus Former nicotine dependence PLAN: Continue current cardiac medications Patient is stable for discharge from a cardiac perspective. Patient to follow up with Dr. Gallego. Nurse practitioner note has been reviewed by physician. Signing provider agrees with the documented findings, assessment, and plan of care. Objective - Vital Signs Vital signs: Vital Signs Temp 97 F L 05/24/20 08:00 Pulse 62 05/24/20 08:00 Resp 20 05/24/20 08:00 BP 94/84 05/24/20 08:00 Pulse Ox 98 05/24/20 08:00 Intake & Output 05/23/20 05/24/20 05/24/20 18:59 06:59 18:59 Intake Total 820 480 Output Total 650 1075 Balance 170 -1075 480 Weight 85.1 kg Intake: Oral 820 480 Output: Urine 650 1075 Other: Voiding Method Indwelling Catheter Indwelling Catheter - Labs CBC & Chem 7: 05/24/20 06:30 05/24/20 06:30 Labs: Abnormal Lab Results - Last 24 Hours (Table) 05/23/20 05/23/20 05/23/20 Range/Units 13:12 17:17 20:09 RBC (4.30-5.90) m/uL Hgb (13.0-17.5) gm/dL Hct (39.0-53.0) % Sodium (137-145) mmol/L BUN (9-20) mg/dL Creatinine (0.66-1.25) mg/dL Glucose (74-99) mg/dL POC Glucose (mg/dL) 175 H 174 H 277 H (75-99) mg/dL 05/24/20 05/24/20 Range/Units 06:30 06:30 RBC 3.92 L (4.30-5.90) m/uL Hgb 12.9 L (13.0-17.5) gm/dL Hct 37.8 L (39.0-53.0) % Sodium 135 L (137-145) mmol/L BUN 41 H (9-20) mg/dL Creatinine 1.57 H (0.66-1.25) mg/dL Glucose 185 H (74-99) mg/dL POC Glucose (mg/dL) (75-99) mg/dL
[2020-05-27 09:37] LABS: Glucose,Whole Blood 199 mg/dL (75-99)
[2020-05-27 09:37] LABS: Glucose,Whole Blood 193 mg/dL (75-99)
== END 2020-05-24 12:12 | disposition home or self-care (01) | DRG 291 ==
LOC: EC 08:52 → 1SOBS 10:52 → 3SCARD 05-22 00:14 → OBSVTOIN 05-23 08:01
PROVIDERS: ADMIT Internal Medicine; ATTEND Internal Medicine
PROC: 5A2204Z Restoration of Cardiac Rhythm, Single (ICD-10-PCS; principal; 2020-05-22 07:30)
PROC: B24BZZ4 Ultrasonography of Heart with Aorta, Transesophageal (ICD-10-PCS; 2020-05-22 07:30)
DX: I13.0 Hypertensive heart and chronic kidney disease with heart failure and stage 1 through stage 4 chronic kidney disease, or unspecified chronic kidney disease (principal); I50.23 Acute on chronic systolic (congestive) heart failure; N17.9 Acute kidney failure, unspecified; I45.2 Bifascicular block; I95.9 Hypotension, unspecified; N18.32 Chronic kidney disease, stage 3b; E11.22 Type 2 diabetes mellitus with diabetic chronic kidney disease; F03.90 Unspecified dementia, unspecified severity, without behavioral disturbance, psychotic disturbance, mood disturbance, and anxiety; I48.0 Paroxysmal atrial fibrillation; Z20.828 Contact with and (suspected) exposure to other viral communicable diseases; I25.5 Ischemic cardiomyopathy; I34.0 Nonrheumatic mitral (valve) insufficiency; I25.10 Atherosclerotic heart disease of native coronary artery without angina pectoris; E83.42 Hypomagnesemia; E87.5 Hyperkalemia; R33.9 Retention of urine, unspecified; R31.0 Gross hematuria; E78.5 Hyperlipidemia, unspecified; I25.2 Old myocardial infarction; G89.29 Other chronic pain; M54.9 Dorsalgia, unspecified; M54.30 Sciatica, unspecified side; M19.90 Unspecified osteoarthritis, unspecified site; Z79.82 Long term (current) use of aspirin; Z79.84 Long term (current) use of oral hypoglycemic drugs; Z79.899 Other long term (current) drug therapy; Z87.891 Personal history of nicotine dependence; Z95.810 Presence of automatic (implantable) cardiac defibrillator; Z95.5 Presence of coronary angioplasty implant and graft; Z90.49 Acquired absence of other specified parts of digestive tract; Z98.42 Cataract extraction status, left eye; Z87.442 Personal history of urinary calculi; Z98.41 Cataract extraction status, right eye; Z87.19 Personal history of other diseases of the digestive system; Z87.820 Personal history of traumatic brain injury; Z98.890 Other specified postprocedural states; Z82.49 Family history of ischemic heart disease and other diseases of the circulatory system; Z80.0 Family history of malignant neoplasm of digestive organs; Z84.1 Family history of disorders of kidney and ureter
CPT/HCPCS: 36415; 71045; 80048; 80053; 82533; 83735; 83880; 84132; 84443; 84484; 85025; 85610; 85730; 87635; 92960; 93005; 93312; 93320; 93325; 96361; 96365; 96366; 96375; 96376; 99285

== ENCOUNTER 2020-06-08 09:53 | Inpatient (IN) | payer MEDICARE ==
[2020-06-08 10:27] LABS: Basophils # (A) 0.1 k/uL (0-0.2); Basophils % (A) 1 %; Eosinophils % (A) 0 %; HCT 43.7 % (39.0-53.0); HGB 15.8 gm/dL (13.0-17.5); Lymphocytes # (A) 0.6 k/uL (1.0-4.8); Lymphocytes % (A) 9 %; MCH 32.6 pg (25.0-35.0); Mean Platelet Volume 8.8; Monocytes # (A) 0.3 k/uL (0-1.0); Monocytes % (A) 4 %; Neutrophils # (A) 6.4 k/uL (1.3-7.7); Neutrophils % (A) 85 %; Platelet Count 150 k/uL (150-450); RBC 4.84 m/uL (4.30-5.90); RDW 12.1 % (11.5-15.5); WBC 7.5 k/uL (3.8-10.6)
[2020-06-08 10:34] LABS: MCV 90.4 fL (80.0-100.0)
--- NOTE | 2020-06-08 10:35 | XR ---
EXAMINATION TYPE: XR chest 1V portable DATE OF EXAM: 06/08/2020 COMPARISON: Chest x-ray May 23, 2020 HISTORY: Shortness of breath, possible covid 19 pneumonia. TECHNIQUE: Single AP portable frontal upright view of the chest is obtained. FINDINGS: There is persistent cardiomegaly with single lead pacemaker/defibrillator and atherosclero tic thoracic aorta. Persistent chronic parenchymal changes with left greater than right bibasilar o pacities. Upper lungs remain clear. Osseous structures remain intact. IMPRESSION: Cardiomegaly with left greater than right bibasilar opacities remaining present. No sign ificant change from most recent x-ray. Areas of underlying acute infiltrate cannot be excluded.
[2020-06-08 10:42] LABS: Albumin 3.8 g/dL (3.5-5.0); Calcium 8.6 mg/dL (8.4-10.2); Magnesium 1.9 mg/dL (1.6-2.3); Potassium 4.6 mmol/L (3.5-5.1); Total Bilirubin 2.7 mg/dL (0.2-1.3); Total Protein 7.1 g/dL (6.3-8.2)
[2020-06-08 10:44] LABS: D-Dimer 0.22 mg/L FEU (<0.60); Partial Thromboplastin Time 25.4 sec (22.0-30.0)
[2020-06-08 10:49] LABS: C Reactive Protein 63.9 mg/L (<10.0)
[2020-06-08] MEDS ORDERED: DEXAMETHASONE SOD PHOSPHATE 4 MG/ML 1 ML VIAL IV STA (11:31)
[2020-06-08] MEDS ORDERED: NALOXONE 0.4 MG/ML 1 ML VIAL IV PRN (11:33)
--- NOTE | 2020-06-08 11:33 | ED ---
General Adult HPI - General Chief complaint: Shortness of Breath Stated complaint: SOB Time Seen by Provider: 06/08/20 09:57 Source: patient Mode of arrival: EMS Limitations: no limitations - History of Present Illness Initial comments: 75-year-old male with history of CAD, HTN, presenting today for chief complaint of generalized weakness shortness of breath. Patient states that he recently has been feeling weak all over he states is not difficult to ambulate he denies localized weakness. Patient states he feels short of breath especially when ambulating. He denies any chest pressure. Deep inspiration hemoptysis leg swelling. He denies any jaw arm pain new back pain nausea vomiting or diarrhea. Patient states his at home has had fevers. He states he is not sure if she has cold bed but she is being treated for an ear infection. Patient denies black stools or dark tarry stools. Patient states he is compliant with his eliquis. Patient denies any syncopal episodes. Patient states he does have occasional cough denies fevers. He has no additional complaints upon arrival patient. Pt appears nontoxic. No hx of home oxygen - Related Data Home Medications Medication Instructions Recorded Confirmed Aspirin [Adult Low Dose Aspirin EC] 81 mg PO DAILY 03/29/19 06/08/20 Atorvastatin [Lipitor] 40 mg PO DAILY 05/21/20 06/08/20 Psyllium Husk/Aspartame [Metamucil 1 scoop PO DAILY PRN 05/21/20 06/08/20 Sugar-Free Powder] Previous Rx's Medication Instructions Recorded Apixaban [Eliquis] 5 mg PO BID #60 tab 05/21/20 Metoprolol Tartrate [Lopressor] 50 mg PO BID #60 tab 05/21/20 Furosemide [Lasix] 40 mg PO BID@0900,1600 #60 tab 05/24/20 Glimepiride [Amaryl] 1.5 mg PO BID #0 05/24/20 Sotalol [Betapace] 40 mg PO BID #60 tab 05/24/20 Spironolactone [Aldactone] 12.5 mg PO DAILY #30 tab 05/24/20 Tamsulosin HCl [Flomax] 0.4 mg PO DAILY #30 capsule 05/24/20 Allergies Allergy/AdvReac Type Severity Reaction Status Date / Time No Known Allergies Allergy Verified 06/08/20 11:08 Review of Systems ROS Statement: Those systems with pertinent positive or pertinent negative responses have been documented in the HPI. ROS Other: All systems not noted in ROS Statement are negative. Past Medical History Past Medical History: Atrial Fibrillation, Diabetes Mellitus, Hyperlipidemia, Hypertension, Myocardial Infarction (non Q-wave), Osteoarthritis (OA) Additional Past Medical History / Comment(s): SEE DR FIELD'S H&P, KIDNEY STONES chronic back pain , concussion 1969, sciatica Last Myocardial Infarction Date:: 2006 History of Any Multi-Drug Resistant Organisms: None Reported Past Surgical History: AICD, Appendectomy, Cholecystectomy, Heart Catheterization With Stent Additional Past Surgical History / Comment(s): COLONOSCOPY, roel CATARACT. AICD 2006. see dr saucedo h&p 2016 Past Anesthesia/Blood Transfusion Reactions: No Reported Reaction Date of Last Stent Placement:: 2006 Type of Cardiac Device: AICD Device Placement Date:: 2006 [facility] LEFT CHEST Past Psychological History: No Psychological Hx Reported Smoking Status: Former smoker Past Alcohol Use History: Daily Past Drug Use History: None Reported - Past Family History Mother Family Medical History: Coronary Artery Disease (CAD), Renal Disease Father Additional Family Medical History / Comment(s): during medical testing Sister(s) Family Medical History: Cancer Additional Family Medical History / Comment(s): pancreatic cancer General Exam - General Exam Comments Initial Comments: General: The patient is awake and alert, in no distress Eye: +3 mm pupils are equal, round and reactive to light, extra-ocular movements are intact. No nystagmus. There is normal conjunctiva bilaterally. No signs of icterus. Ears, nose, mouth and throat: There are moist mucous membranes and no oral lesions. Neck: The neck is supple, there is no tenderness or JVD. Cardiovascular: There is a regular rate and rhythm. No murmur, rub or gallop is appreciated. Respiratory: Respirations are non-labored, breath sounds are equal. No wheezes, stridor. Some rales at the bases. otherwise clear. Gastrointestinal: Soft, distended, non-tender abdomen without masses or organomegaly noted. There is no rebound or guarding present. Musculoskeletal: Normal ROM, no tenderness. Strength 5/5. Sensation intact. Radial and DP pulses equal bilaterally 2+. Neurological: A&O x 3. CN II-XII intact grossly, There are no obvious motor or sensory deficits. Coordination appears grossly intact. Speech is normal. Skin: Skin is warm and dry and no rashes or lesions are noted. No calf pain no LE edema. Psychiatric: Cooperative, appropriate mood & affect, normal judgment. Limitations: no limitations Course Vital Signs 06/08/20 06/08/20 09:58 11:38 Temperature 97.9 F Pulse Rate 93 99 Respiratory 18 20 Rate Blood Pressure 125/80 125/80 O2 Sat by Pulse 97 96 Oximetry Medical Decision Making - Medical Decision Making Labs reveal mild hyponatremia. As well as patient's redemonstrated renal disease. No signs of acute kidney injury. Patient is covid +. developing infiltrates noted on CXR. Troponin (-). No acute ischemic EKG changes. Patient oxygenating well but nervous to go home due to significant weakness. pt glucose elevated, treated wtih SQ insulin will recheck. pt UA pending. Marisabel davis eable to admission. Dr. Madrigal agreeable to care plan. - Lab Data Result diagrams: 06/08/20 10:10 06/08/20 10:10 Lab Results 06/08/20 06/08/20 06/08/20 Range/Units 10:10 10:10 10:10 WBC 7.5 (3.8-10.6) k/uL RBC 4.84 (4.30-5.90) m/uL Hgb 15.8 (13.0-17.5) gm/dL Hct 43.7 (39.0-53.0) % MCV 90.4 D (80.0-100.0) fL MCH 32.6 (25.0-35.0) pg MCHC 36.0 (31.0-37.0) g/dL RDW 12.1 (11.5-15.5) % Plt Count 150 (150-450) k/uL MPV 8.8 Neutrophils % 85 % Lymphocytes % 9 % Monocytes % 4 % Eosinophils % 0 % Basophils % 1 % Neutrophils # 6.4 (1.3-7.7) k/uL Lymphocytes # 0.6 L (1.0-4.8) k/uL Monocytes # 0.3 (0-1.0) k/uL Eosinophils # 0.0 (0-0.7) k/uL Basophils # 0.1 (0-0.2) k/uL PT 11.0 (9.0-12.0) sec INR 1.0 (<1.2) APTT 25.4 (22.0-30.0) sec D-Dimer 0.22 (<0.60) mg/L FEU Sodium 128 L (137-145) mmol/L Potassium 4.6 (3.5-5.1) mmol/L Chloride 92 L (98-107) mmol/L Carbon Dioxide 23 (22-30) mmol/L Anion Gap 13 mmol/L BUN 51 H (9-20) mg/dL Creatinine 1.64 H (0.66-1.25) mg/dL Est GFR (CKD-EPI)AfAm 47 (>60 ml/min/1.73 sqM) Est GFR (CKD-EPI)NonAf 40 (>60 ml/min/1.73 sqM) Glucose 338 H (74-99) mg/dL Calcium 8.6 (8.4-10.2) mg/dL Magnesium 1.9 (1.6-2.3) mg/dL Total Bilirubin 2.7 H (0.2-1.3) mg/dL AST 38 (17-59) U/L ALT 32 (4-49) U/L Alkaline Phosphatase 116 (38-126) U/L Lactate Dehydrogenase 879 H (313-618) U/L Troponin I (0.000-0.034) ng/mL C-Reactive Protein 63.9 H (<10.0) mg/L Total Protein 7.1 (6.3-8.2) g/dL Albumin 3.8 (3.5-5.0) g/dL Coronavirus (PCR) (Not Detectd) 06/08/20 06/08/20 Range/Units 10:10 10:10 WBC (3.8-10.6) k/uL RBC (4.30-5.90) m/uL Hgb (13.0-17.5) gm/dL Hct (39.0-53.0) % MCV (80.0-100.0) fL MCH (25.0-35.0) pg MCHC (31.0-37.0) g/dL RDW (11.5-15.5) % Plt Count (150-450) k/uL MPV Neutrophils % % Lymphocytes % % Monocytes % % Eosinophils % % Basophils % % Neutrophils # (1.3-7.7) k/uL Lymphocytes # (1.0-4.8) k/uL Monocytes # (0-1.0) k/uL Eosinophils # (0-0.7) k/uL Basophils # (0-0.2) k/uL PT (9.0-12.0) sec INR (<1.2) APTT (22.0-30.0) sec D-Dimer (<0.60) mg/L FEU Sodium (137-145) mmol/L Potassium (3.5-5.1) mmol/L Chloride (98-107) mmol/L Carbon Dioxide (22-30) mmol/L Anion Gap mmol/L BUN (9-20) mg/dL Creatinine (0.66-1.25) mg/dL Est GFR (CKD-EPI)AfAm (>60 ml/min/1.73 sqM) Est GFR (CKD-EPI)NonAf (>60 ml/min/1.73 sqM) Glucose (74-99) mg/dL Calcium (8.4-10.2) mg/dL Magnesium (1.6-2.3) mg/dL Total Bilirubin (0.2-1.3) mg/dL AST (17-59) U/L ALT (4-49) U/L Alkaline Phosphatase (38-126) U/L Lactate Dehydrogenase (313-618) U/L Troponin I 0.013 (0.000-0.034) ng/mL C-Reactive Protein (<10.0) mg/L Total Protein (6.3-8.2) g/dL Albumin (3.5-5.0) g/dL Coronavirus (PCR) Detected A (Not Detectd) Disposition Clinical Impression: Dyspnea, Chronic kidney disease, Weakness, Hyponatremia Disposition: ADMITTED IP TO THIS [facility] Condition: Stable Is patient prescribed a controlled substance at d/c from ED?: No Referrals: Keesha Miramontes MD [Primary Care Provider] - 1-2 days Time of Disposition: 11:32 Decision to Admit Reason: Admit from EC Decision Date: 06/08/20 Decision Time: 11:32
[2020-06-08] MEDS ORDERED: INSULIN REGULAR 100 UNIT/ML VIAL SQ ONE (11:58)
[2020-06-08] MEDS ORDERED: AZITHROMYCIN 500 MG in SODIUM CHLORIDE 0.9% 250 ML IVPB STA (12:01)
[2020-06-08] MEDS ORDERED: PSYLLIUM HUSK 100% 6 GM PACKET PO PRN (13:54)
[2020-06-08] MEDS ORDERED: INSULIN DETEMIR (LEVEMIR) 100 UNIT/ML SYR SQ STA (14:19)
--- NOTE | 2020-06-08 14:47 | CT ---
EXAMINATION TYPE: CT chest wo con DATE OF EXAM: 06/08/2020 COMPARISON: Chest x-ray earlier today HISTORY: Shortness of breath CT DLP: 422.9 mGycm. Automated Exposure Control for Dose Reduction was Utilized. TECHNIQUE: CT scan of the thorax is performed without IV contrast. FINDINGS: LUNGS: Patchy multifocal groundglass opacities seen better on CT versus plain films throughout the mi d to lower lungs. No pleural effusion or pneumothorax. No suspicious nodules or masses noted MEDIASTINUM: Lack of IV contrast is noted to limit evaluation for mediastinal and especially hilar ad enopathy. There are no definitive greater than 1 cm hilar or mediastinal lymph nodes. No pericardia l effusion is seen. Cardiomegaly with single lead pacemaker/defibrillator terminating in right ventri alva redemonstrated. Moderate to severe three-vessel coronary artery calcification is present. OTHER: Fairly severe multilevel spurring in the thoracolumbar spine. Cholecystectomy clips. Exophytic thin-walled 2.9 cm cyst medially left kidney. IMPRESSION: Multifocal areas of groundglass opacity in the bilateral mid to lower lungs seen better o n CT versus x-ray consistent with known covid 19 infection.
--- NOTE | 2020-06-08 14:49 | P.CRDCN ---
History of Present Illness Consult date: 06/08/20 History of present illness: CHIEF COMPLAINT: Covid HISTORY OF PRESENT ILLNESS: This is a 75-year-old male with a past medical history significant for atrial fibrillation, congestive heart failure, coronary artery disease with PCI to circumflex, hypertension, hyperlipidemia, pacemaker insertion, and former nicotine dependence. Patient follows in the office with Dr. Gallego. Patient was recently admitted to the hospital in May 2020 secondary to symptomatic atrial fibrillation with RVR and congestive heart failure. Patient underwent ROSI and cardioversion on 05/22/2020. Patient is currently admitted to the hospital secondary to weakness and Covid 19. Patient is on 2L NC with oxygen saturations greater than 92%. Blood pressure 112/72 Heart rate in the 60-70s. Afebrile. DIAGNOSTICS: EKG pending at time of dictation Chest xray cardiomegaly with left greater than right bibasilar opacities. No significant change from most recent x-ray. Areas of underlying acute infiltrate cannot be excluded. Laboratory data: WBC 7.5. Hemoglobin 15.8. Platelet count 150. D-dimer 0.22. Sodium 128. Potassium 4.6. BUN 51. Creatinine 1.64. Lactic acid 1.8. Troponin negative 1. Current home cardiac medications include Aldactone 12.5 mg daily, sotalol 40 mg twice a day, metoprolol 50 mg twice a day, Lasix 40 mg twice a day, Lipitor 40 mg daily, aspirin 81 mg daily, and Eliquis 5 mg twice a day REVIEW OF SYSTEMS: Thorough review of systems not completed secondary to limited evaluation/examination and due to Covid19 PHYSICAL EXAM: Thorough physical exam not completed secondary to limited evaluation/examination and due to Covid19 ASSESSMENT: Acute covid 19 Paroxysmal atrial fibrillation, status post ROSI and cardioversion, May 2020 Chronic systolic congestive heart failure, EF 35% on recent ROSI History of pacemaker implantation Coronary artery disease with previous PCI to circumflex 2006 and disease of RCA not amenable to PCI, 2008 Hypertension Hyperlipidemia Diabetes mellitus Chronic kidney disease Former nicotine dependence PLAN: Resume home cardiac medications No need to repeat echocardiogram Continue supportive care Pulmonary and infectious disease consulted We will follow on an as needed basis. Please call with questions or concerns. Nurse practitioner note has been reviewed by physician. Signing provider agrees with the documented findings, assessment, and plan of care. Past Medical History Past Medical History: Atrial Fibrillation, Diabetes Mellitus, Hyperlipidemia, Hypertension, Myocardial Infarction (non Q-wave), Osteoarthritis (OA) Additional Past Medical History / Comment(s): SEE DR GALLEGO'S H&P, KIDNEY STONES chronic back pain , concussion 1969, sciatica Last Myocardial Infarction Date:: 2006 History of Any Multi-Drug Resistant Organisms: None Reported Past Surgical History: AICD, Appendectomy, Cholecystectomy, Heart Catheterization With Stent Additional Past Surgical History / Comment(s): COLONOSCOPY, roel CATARACT. AICD [address]. [address] saucedo h&p 2016 Past Anesthesia/Blood Transfusion Reactions: No Reported Reaction Date of Last Stent Placement:: 2006 Type of Cardiac Device: AICD Device Placement Date:: 2006 [facility] LEFT CHEST Past Psychological History: No Psychological Hx Reported Smoking Status: Former smoker Past Alcohol Use History: Daily Past Drug Use History: None Reported - Past Family History Mother Family Medical History: Coronary Artery Disease (CAD), Renal Disease Father Additional Family Medical History / Comment(s): during medical testing Sister(s) Family Medical History: Cancer Additional Family Medical History / Comment(s): pancreatic cancer Medications and Allergies Home Medications Medication Instructions Recorded Confirmed Type Aspirin [Adult Low Dose Aspirin EC] 81 mg PO DAILY 03/29/19 06/08/20 History Apixaban [Eliquis] 5 mg PO BID #60 tab 05/21/20 06/08/20 Rx Atorvastatin [Lipitor] 40 mg PO DAILY 05/21/20 06/08/20 History Metoprolol Tartrate [Lopressor] 50 mg PO BID #60 tab 05/21/20 06/08/20 Rx Psyllium Husk/Aspartame [Metamucil 1 scoop PO DAILY PRN 05/21/20 06/08/20 History Sugar-Free Powder] Furosemide [Lasix] 40 mg PO BID@0900,1600 #60 tab 05/24/20 06/08/20 Rx Glimepiride [Amaryl] 1.5 mg PO BID #0 05/24/20 06/08/20 Rx Sotalol [Betapace] 40 mg PO BID #60 tab 05/24/20 06/08/20 Rx Spironolactone [Aldactone] 12.5 mg PO DAILY #30 tab 05/24/20 06/08/20 Rx Tamsulosin HCl [Flomax] 0.4 mg PO DAILY #30 capsule 12/24/20 01/08/21 Rx Allergies Allergy/AdvReac Type Severity Reaction Status Date / Time No Known Allergies Allergy Verified 06/08/20 11:08 Physical Exam Vitals: Vital Signs Temp Pulse Pulse Resp BP BP Pulse Ox 06/08/20 13:34 98.4 F 60 18 112/72 93 L 06/08/20 13:15 97.9 F 97 20 116/64 98 06/08/20 11:38 99 20 125/80 96 06/08/20 09:58 97.9 F 93 18 125/80 97 Intake and Output 06/07/20 06/08/20 06/08/20 22:59 06:59 14:59 Other: Weight 78.925 kg Results 06/09/20 06:43 06/08/20 10:10 Cardiac Enzymes 06/08/20 06/08/20 Range/Units 10:10 10:10 AST 38 (17-59) U/L Lactate Dehydrogenase 879 H (313-618) U/L Troponin I 0.013 (0.000-0.034) ng/mL Coagulation 06/08/20 Range/Units 10:10 PT 11.0 (9.0-12.0) sec APTT 25.4 (22.0-30.0) sec CBC 06/08/20 Range/Units 10:10 WBC 7.5 (3.8-10.6) k/uL RBC 4.84 (4.30-5.90) m/uL Hgb 15.8 (13.0-17.5) gm/dL Hct 43.7 (39.0-53.0) % Plt Count 150 (150-450) k/uL Comprehensive Metabolic Panel 06/08/20 Range/Units 10:10 Sodium 128 L (137-145) mmol/L Potassium 4.6 (3.5-5.1) mmol/L Chloride 92 L (98-107) mmol/L Carbon Dioxide 23 (22-30) mmol/L BUN 51 H (9-20) mg/dL Creatinine 1.64 H (0.66-1.25) mg/dL Glucose 338 H (74-99) mg/dL Calcium 8.6 (8.4-10.2) mg/dL AST 38 (17-59) U/L ALT 32 (4-49) U/L Alkaline Phosphatase 116 (38-126) U/L Total Protein 7.1 (6.3-8.2) g/dL Albumin 3.8 (3.5-5.0) g/dL Current Medications Generic Name Dose Route Start Last Admin Trade Name Freq PRN Reason Stop Dose Admin Apixaban 5 mg 06/08/20 21:00 Apixaban 5 Mg Tab PO BID [facility] Ascorbic Acid 500 mg 06/08/20 21:00 Ascorbic Acid 500 Mg Tab PO BID [facility] Aspirin 81 mg 06/09/20 09:00 Aspirin 81 Mg PO DAILY [facility] Atorvastatin Calcium 40 mg 06/09/20 09:00 Atorvastatin 40 Mg Tab PO DAILY [facility] Cholecalciferol 1,000 unit 06/08/20 14:00 Cholecalciferol 1,000 Unit Tab PO DAILY [facility] Dexamethasone 6 mg 06/09/20 09:00 Dexamethasone 2 Mg Tab PO DAILY [facility] Furosemide 40 mg 06/08/20 16:00 Furosemide 40 Mg Tab PO BID@0900,1600 [facility] Glimepiride 1.5 mg 06/08/20 21:00 Glimepiride 1 Mg Tab PO BID [facility] Insulin Aspart 0 unit 06/08/20 17:30 Insulin Aspart (Novolog) 100 Unit/Ml Vial SQ ACHS [facility] Protocol Insulin Detemir 30 unit 06/08/20 21:00 Insulin Detemir (Levemir) 100 Unit/Ml Syr SQ HS [facility] Insulin Detemir 25 unit 06/08/20 14:05 Insulin Detemir (Levemir) 100 Unit/Ml Syr SQ 06/08/20 14:06 ONCE STA Metoprolol Tartrate 50 mg 06/08/20 21:00 Metoprolol Tartrate 50 Mg Tab PO BID [facility] Naloxone HCl 0.2 mg 06/08/20 11:33 Naloxone 0.4 Mg/Ml 1 Ml Vial IV Q2M PRN Opioid Reversal Psyllium Hydrophilic Mucilloid 6 gm 06/08/20 13:54 Psyllium Husk 100% 6 Gm Packet PO DAILY PRN Constipation Sotalol HCl 40 mg 06/08/20 21:00 Sotalol 80 Mg Tab PO BID [facility] Spironolactone 12.5 mg 06/09/20 09:00 Spironolactone 25 Mg Tab PO DAILY [facility] Tamsulosin HCl 0.4 mg 06/09/20 09:00 Tamsulosin 0.4 Mg Cap.Er.24h PO DAILY [facility] Zinc Sulfate 220 mg 06/08/20 14:00 Zinc Sulfate 220 Mg Cap PO DAILY [facility] Intake and Output 06/07/20 06/08/20 06/08/20 22:59 06:59 14:59 Other: Weight 78.925 kg Patient Weight 06/09/20 06:59 Weight 78.925 kg 06/08/20 10:10 06/08/20 10:10
--- NOTE | 2020-06-08 15:09 | HP ---
HISTORY AND PHYSICAL CHIEF COMPLAINT: Shortness of breath. HISTORY OF PRESENT ILLNESS: This 75-year-old gentleman with a past medical history of multiple medical problems including atrial fibrillation, diabetes mellitus, hypertension, hyperlipidemia, myocardial infarction being followed by Dr. Miramontes in the outpatient setting not feeling well over the past several days. Patient has increased shortness of breath. The patient is feeling weak and the patient also has some cough and sputum. The patient apparently had contact with COVID-19 and his is also sick with COVID-19 apparently. The patient came to [facility] and was admitted for further evaluation and treatment and COVID-19 is positive. Chest x-ray showed bilateral pneumonia, left more than the right, and the patient also had some mild hypoxia with pulse ox 93% on 2 L. The patient admitted for further evaluation and treatment. There is no history of any rigors, chills, headache, loss of consciousness or seizures at this time. PAST MEDICAL HISTORY: History of atrial fibrillation, diabetes mellitus, hypertension, hyperlipidemia, history of DJD. MEDICATIONS: Medications prior to admission home medications are: 1. Flomax 0.4 mg p.o. daily. 2. Aldactone 12.5 mg p.o. daily. 3. Betapace 40 mg b.i.d. 4. Metamucil. 5. Lopressor. 6. Amaryl. 7. Lasix. 8. Lipitor. 9. Ecotrin. 10.Eliquis. ALLERGIES: None. FAMILY HISTORY: History of CAD, renal disease. SOCIAL HISTORY: Previous history of smoking. Occasional alcohol intake. REVIEW OF SYSTEMS: ENT: Diminished hearing and diminished vision. CARDIOVASCULAR SYSTEM: As mentioned earlier. RESPIRATORY SYSTEM: As mentioned earlier. GI: No nausea. : No dysuria NERVOUS SYSTEM: As mentioned earlier. ALLERGY/IMMUNOLOGY: No asthma or hayfever. MUSCULOSKELETAL: As mentioned earlier. HEMATOLOGY: No history of anemia. ENDOCRINE: Diabetes. CONSTITUTIONAL: As mentioned earlier. DERMATOLOGY: Negative. RHEUMATOLOGY: Negative. PSYCHIATRY: As mentioned earlier. PHYSICAL EXAMINATION: The patient is alert and oriented x3. Pulse is 97, blood pressure 116/64, respiration 20, temperature 97.9, pulse ox 98% on room air. HEENT: Conjunctivae normal. NECK: No jugular venous distention. CARDIOVASCULAR: S1, S2 muffled. RESPIRATORY: Breath sounds diminished at the bases. A few scattered rhonchi and crackles. ABDOMEN: Soft, nontender. LEGS: No edema, no swelling. NERVOUS SYSTEM: Higher functions as mentioned earlier. Moves all 4 limbs. No focal motor or sensory deficits. LYMPHATICS: No lymphadenopathy of the neck, axillae or groin. SKIN: No ulcer, rash or bleeding. JOINTS: No active deforming arthropathy. LABS: CBC within normal limits. Sodium 128, creatinine 1.64. Glucose 338. LDH 879. CRP 63.9. ASSESSMENT: 1. Acute COVID-19 infection and bilateral pneumonia, left more than the right, interstitial viral pneumonia with acute hypoxic respiratory failure, present on admission. 2. Hyponatremia. 3. Increased creatinine with chronic kidney disease stage 3. 4. Diabetes mellitus type 2 with hyperglycemia. 5. Hyperbilirubinemia. 6. Increased LDH, increased CRP with elevated inflammatory markers of COVID-19. 7. History atrial fibrillation, chronic. 8. Diabetes mellitus type 2. 9. Hypertension. 10.Hyperlipidemia. 11.History of myocardial infarction. 12.History of degenerative joint disease. 13.History of nephrolithiasis. 14.History of automated implantable cardioverter-defibrillator. 15.History of coronary artery disease, stent. 16.History of congestive heart failure with chronic systolic dysfunction. 17.History of nicotine dependence. 18.FULL CODE. RECOMMENDATIONS AND DISCUSSION: This 75-year-old gentleman who presented with multiple complex medical issues, we will monitor the patient closely, continue the current medications, continue symptomatic treatment. Will initiate the home medications. D-dimer is negative. I would recommend a CT scan of the chest and obtain Cardiology, Pulmonology, Infectious Disease evaluation. Patient might be a candidate for remdesivir. We will continue to monitor. Otherwise resume the rest of medications. Avoid nephrotoxic medications. Resume the home medications. The patient is currently on Lasix 40 mg p.o. b.i.d. continue fluid electrolyte balance to avoid the possibility of any fluid overload. Otherwise home medications reviewed and reordered. Would also recommend zinc and dexamethasone. Monitor blood sugars closely. Prognosis guarded because of multiple complex medical issues. If the sugars are still elevated, the patient might need insulin drip, but we will initiate Lantus also at night. Continue to monitor. Prognosis guarded. A copy of dictation forwarded to Dr. Miramontes who is the primary physician. See orders for details. MMODL / IJN: [id number] /
[2020-06-08] MEDS: FUROSEMIDE 40 MG TAB PO SCH (15:27)
[2020-06-08] MEDS: ZINC SULFATE 220 MG CAP PO SCH (15:27)
[2020-06-08] MEDS: CHOLECALCIFEROL 1,000 UNIT TAB PO SCH (15:27)
[2020-06-08 15:31] LABS: Glucose,Whole Blood 398 mg/dL (75-99)
--- NOTE | 2020-06-08 15:31 | P.CNPUL ---
History of Present Illness Consult date: 06/08/20 Requesting physician: Renae Figueroa Reason for consult: dyspnea, abnormal CXR/CT Chief complaint: Shortness of breath History of present illness: This is a 75-year-old, white male patient with past medical history of chronic congestive heart failure with systolic dysfunction, status post AICD placement, A. adriana, chronic kidney disease stage III, hypertension, coronary artery disease with stenting of the circumflex, former smoker. Patient had a recent admission to the hospital in May 2020 for A. fib with RVR and acute exacerbation of systolic CHF. Patient underwent transesophageal echocardiogram and cardioversion on 05/22/2020. Patient is on Eliquis for chronic anticoagulation. He was discharged home on 05/24/2020. He states at home he was increasingly short of breath, weak, having difficulty with ambulation, he states he can't catch his breath, but he denied any fever, no significant cough, no body aches, no chest pain, no nausea vomiting or diarrhea. The patient reportedly his at home having fevers. Patient also reports some dark stools, has been compliant with his Eliquis, denied any syncopal episodes. Chest x-ray in emergency department showed cardiomegaly with left greater than right bibasilar opacities not significant change from most recent chest x-ray. Room air pulse ox was 97% on admission, patient was afebrile, blood pressure stable, EKG showed sinus rhythm with frequent PACs. Lab data showed positive COVID 19 test. Lymphopenia with a lymphocytic, 0.6, d-dimer was negative at 0.22, sodium was 128, potassium is 4.6, chloride is 92, BUN is 51, creatinine 1.6, plasma lactic acid was 1.8, LDH was 879, CRP was 63.9. CT chest without contrast showed multifocal areas of groundglass opacity in the bilateral mid to lower lungs. Physical exam reveals a 75-year-old white male, breathing comfortably, does not appear to be in any acute distress, he is currently on room air, and a pulse ox of 96%. No significant coughing, no chest pain, no rhonchi or wheezes. She has been started on oral Decadron, he is out of the window for Remdesivir treatment, he has been started on vitamins. Review of Systems All systems: negative Constitutional: Reports malaise, Denies chills, Denies fever Eyes: denies blurred vision, denies pain Ears, nose, mouth and throat: Denies headache, Denies sore throat Cardiovascular: Denies chest pain, Denies shortness of breath Respiratory: Reports dyspnea, Denies cough Gastrointestinal: Denies abdominal pain, Denies diarrhea, Denies nausea, Denies vomiting Musculoskeletal: Denies myalgias Integumentary: Denies pruritus, Denies rash Neurological: Denies numbness, Denies weakness Psychiatric: Denies anxiety, Denies depression Endocrine: Denies fatigue, Denies weight change Past Medical History Past Medical History: Atrial Fibrillation, Diabetes Mellitus, Hyperlipidemia, Hypertension, Myocardial Infarction (non Q-wave), Osteoarthritis (OA) Additional Past Medical History / Comment(s): SEE DR AVILA H&P, KIDNEY STONES chronic back pain , concussion 1968, sciatica Last Myocardial Infarction Date:: 2006 History of Any Multi-Drug Resistant Organisms: None Reported Past Surgical History: AICD, Appendectomy, Cholecystectomy, Heart Catheterization With Stent Additional Past Surgical History / Comment(s): COLONOSCOPY, roel CATARACT. AICD [address]. [address] saucedo h&p 2016 Past Anesthesia/Blood Transfusion Reactions: No Reported Reaction Date of Last Stent Placement:: 2006 Type of Cardiac Device: AICD Device Placement Date:: 2006 [facility] LEFT CHEST Past Psychological History: No Psychological Hx Reported Smoking Status: Former smoker Past Alcohol Use History: Daily Past Drug Use History: None Reported - Past Family History Mother Family Medical History: Coronary Artery Disease (CAD), Renal Disease Father Additional Family Medical History / Comment(s): during medical testing Sister(s) Family Medical History: Cancer Additional Family Medical History / Comment(s): pancreatic cancer Medications and Allergies Home Medications Medication Instructions Recorded Confirmed Type Aspirin [Adult Low Dose Aspirin EC] 81 mg PO DAILY 03/29/19 06/08/20 History Apixaban [Eliquis] 5 mg PO BID #60 tab 05/21/20 06/08/20 Rx Atorvastatin [Lipitor] 40 mg PO DAILY 05/21/20 06/08/20 History Metoprolol Tartrate [Lopressor] 50 mg PO BID #60 tab 05/21/20 06/08/20 Rx Psyllium Husk/Aspartame [Metamucil 1 scoop PO DAILY PRN 05/21/20 06/08/20 History Sugar-Free Powder] Furosemide [Lasix] 40 mg PO BID@0900,1600 #60 tab 05/24/20 06/08/20 Rx Glimepiride [Amaryl] 1.5 mg PO BID #0 05/24/20 06/08/20 Rx Sotalol [Betapace] 40 mg PO BID #60 tab 05/24/20 06/08/20 Rx Spironolactone [Aldactone] 12.5 mg PO DAILY #30 tab 05/24/20 06/08/20 Rx Tamsulosin HCl [Flomax] 0.4 mg PO DAILY #30 capsule 05/24/20 06/08/20 Rx Allergies Allergy/AdvReac Type Severity Reaction Status Date / Time No Known Allergies Allergy Verified 06/08/20 11:08 Physical Exam Vitals: Vital Signs Temp Pulse Pulse Resp BP BP Pulse Ox 06/08/20 13:34 98.4 F 60 18 112/72 93 L 06/08/20 13:15 97.9 F 97 20 116/64 98 06/08/20 11:38 99 20 125/80 96 06/08/20 09:58 97.9 F 93 18 125/80 97 Intake and Output 06/08/20 06/08/20 06/08/20 06:59 14:59 22:59 Other: Weight 78.925 kg GENERAL EXAM: Alert, very pleasant, 75-year-old white male, resting and then, on room air, pulse ox of 96%, comfortable in no apparent distress. HEAD: Normocephalic/atraumatic. EYES: Normal reaction of pupils, equal size. Conjunctiva pink, sclera white. NOSE: Clear with pink turbinates. THROAT: No erythema or exudates. NECK: No masses, no JVD, no thyroid enlargement, no adenopathy. CHEST: No chest wall deformity. Symmetrical expansion. LUNGS: Equal air entry with no crackles, wheeze, rhonchi or dullness. CVS: Irregular rate and rhythm, normal S1 and S2, no gallops, no murmurs, no rubs ABDOMEN: Soft, nontender. No hepatosplenomegaly, normal bowel sounds, no guarding or rigidity. EXTREMITIES: No clubbing, no edema, no cyanosis, 2+ pulses and upper and lower extremities. MUSCULOSKELETAL: Muscle strength and tone normal. SPINE: No scoliosis or deformity SKIN: No rashes CENTRAL NERVOUS SYSTEM: Alert and oriented -3. No focal deficits, tone is normal in all 4 extremities. PSYCHIATRIC: Alert and oriented -3. Appropriate affect. Intact judgment and insight. Results - Laboratory Findings CBC and BMP: 06/08/20 10:10 06/08/20 10:10 PT/INR, D-dimer PT 11.0 sec (9.0-12.0) 06/08/20 10:10 INR 1.0 (<1.2) 06/08/20 10:10 D-Dimer 0.22 mg/L FEU (<0.60) 06/08/20 10:10 Abnormal lab findings: Abnormal Labs 06/08/20 06/08/20 06/08/20 10:10 10:10 10:10 Lymphocytes # 0.6 L Sodium 128 L Chloride 92 L BUN 51 H Creatinine 1.64 H Glucose 338 H Total Bilirubin 2.7 H Lactate Dehydrogenase 879 H C-Reactive Protein 63.9 H Coronavirus (PCR) Detected A - Diagnostic Findings Chest x-ray: report reviewed, image reviewed CT scan - chest: report reviewed, image reviewed Assessment and Plan Plan: Assessment: #1. Shortness of breath, multifactorial related to chronic systolic CHF, and acute COVID 19 related pneumonitis. Patient reports symptoms since before , he is out of the therapeutic window for Remdesivir, will be treated conservatively #2. Recent admission for A. fib with RVR, he underwent transesophageal echocardiogram and cardioversion on 05/22/2020, discharged home on 05/24/2020 #3. Ischemic cardiomyopathy, with EF of 35%, severely mitral valve regurgitation, status post AICD placement #4. Paroxysmal atrial fibrillation, on Eliquis for chronic anticoagulation, currently in sinus rhythm with frequent PACs #5. History of coronary artery disease with previous stenting of the circumflex #6. Hypertension #7. Hyperlipidemia #8. Diabetes mellitus type 2 #9. Former smoker Plan: Patient is on room air, appears to be in no acute distress, we'll continue conservatively treating the patient, his out of the therapeutic window for Remdesivir, we will continue with Decadron, vitamin C, vitamin D, and zinc supplement, he is on oral anticoagulation with the Eliquis. We'll continue to follow I performed a history & physical examination of the patient and discussed their management with my nurse practitioner, Jackelyn Dodson. I reviewed the nurse practitioner's note and agree with the documented findings and plan of care. Lung sounds are positive for diminished breath sounds.. The findings and the impression was discussed with the patient. I attest to the documentation by the nurse practitioner. Time with Patient: Greater than 30
[2020-06-08 18:03] LABS: Glucose,Whole Blood 418 mg/dL (75-99)
[2020-06-08] MEDS: INSULIN ASPART (NovoLOG) 100 UNIT/ML VIAL SQ SCH ×2 (18:12→22:33)
[2020-06-08 20:49] LABS: Ferritin 2037.2 ng/mL (22.0-322.0)
[2020-06-08 21:34] LABS: Glucose,Whole Blood 431 mg/dL (75-99)
[2020-06-08] MEDS: GLIMEPIRIDE 1 MG TAB PO SCH (21:48)
[2020-06-08] MEDS: METOPROLOL TARTRATE 50 MG TAB PO SCH (21:49)
[2020-06-08] MEDS: SOTALOL 80 MG TAB PO SCH (21:49)
[2020-06-08] MEDS: ASCORBIC ACID 500 MG TAB PO SCH (21:49)
[2020-06-08] MEDS: APIXABAN 5 MG TAB PO SCH (21:49)
--- NOTE | 2020-06-09 00:03 | CONS ---
CONSULTATION DATE OF SERVICE: 06/08/2020 REASON FOR CONSULTATION: Pneumonia. HISTORY OF PRESENT ILLNESS: The patient is a 75 -year-old male with a past medical history significant for congestive heart failure, arrhythmia, status post AICD placement in this patient who was recently admitted to this facility and treated for atrial fibrillation with RVR and was discharged on May 24, 2020. The patient complaining of not feeling well since then, has been complaining of feeling weak and tired. No energy. Has been complaining of shortness of breath on minimal exertion. The patient denies having any chest pain. Very minimal cough. No sputum production. No nausea, no vomiting. No abdominal pain or any diarrhea. With these symptoms, the patient presented back to the hospital. On arrival to the ER, the patient was afebrile and no fever has been recorded since then. The patient did have a normal white count with evidence of lymphopenia. D-dimer was normal. Creatinine was 1.64. Mildly elevated. Liver enzymes are normal. Ferritin, LDH and CRP have been elevated. Covid 19 PCR came back positive. The patient did have a chest x-ray which shows cardiomegaly left greater than right. Bibasilar opacity may be present. No change from a recent x-ray. CT of the chest did show some bilateral multifocal infiltrate. The patient has been diagnosed with acute COVID-19 pneumonia. The patient was started on vitamin C, Dexamethasone, continue on Eliquis and zinc sulfate. Infectious disease was consulted for further management. REVIEW OF SYSTEMS: Positive points have been mentioned in HPI. Rest of the systems are negative. PAST MEDICAL HISTORY: His past medical history atrial fibrillation, diabetes mellitus, hypertension, hyperlipidemia, PA, congestive heart failure. PAST SURGICAL HISTORY: ICD placement, appendectomy, cholecystectomy, PTCA with stent, colonoscopy, bilateral cataract surgery. SOCIAL HISTORY: Former smoker. Rarely drinks. No drug use. FAMILY HISTORY: Mother history of coronary disease. Sister with history of pancreatic cancer. ALLERGIES: No known drug allergies. MEDICATIONS: The patient is currently on Eliquis, ascorbic acid, aspirin, Lipitor, vitamin D3, dexamethasone, Lovenox, Lasix, NovoLog, Lopressor, Narcan, Metamucil, Betapace, Aldactone, Flomax and zinc. PHYSICAL EXAMINATION: Blood pressure 125/73 with a pulse of 73, temperature 98.4. He is 95% on 2 L nasal cannula. General description is an elderly male lying in bed in no distress. No tachypnea or accessory muscle of respiration use. HEENT: Examination shows no pallor or scleral icterus. Oral mucous membranes dry. No pharyngeal erythema or thrush. Neck: Trachea central. No thyromegaly. Lungs unlabored breathing, decreased intense breath sounds. No wheeze or crackles. Heart S1, S2. Regular rate and rhythm. ABDOMEN: Soft. No tenderness. No guarding. No rigidity. Extremities: No edema of the feet. Skin examination: No rash or mass palpable. Neurological: The patient is awake, alert, oriented times three. Mood and affect normal. LABS: Hemoglobin is 15.8, white count 7.5, BUN of 51, creatinine is 1.64. Elevated ferritin and LDH, CRP, procalcitonin Hassan PCR was positive. Chest x-ray and CT report as mentioned above. DIAGNOSTIC IMPRESSION/PLAN: The patient admitted to the hospital with increasing shortness of breath, feeling weak and tired, which is likely multifactorial in this patient who did have a component of COVID-19 infection. Unfortunately, the patient had been presented hospital 2 weeks after his symptoms started and is out of the therapeutic window for the Remdesivir and currently no clinical suspicious for secondary bacterial pneumonia. PLAN: 1. The patient to continue with dexamethasone ascorbic acid, along with Levaquin. 2. Droplet isolation, respiratory support. 3. We will follow his clinical condition and further adjust medication if needed. Thank you for this consultation. Will follow this patient along with you. MMODL / IJN: [id number] /
[2020-06-09 01:02] LABS: Glucose,Whole Blood 376 mg/dL (75-99)
[2020-06-09] MEDS: INSULIN DETEMIR (LEVEMIR) 100 UNIT/ML SYR SQ SCH ×2 (01:02→21:18)
[2020-06-09 01:26] LABS: Appearance,Urine Clear (Clear); Bilirubin,Urine Negative (Negative); Blood,Urine Negative (Negative); Color,Urine Yellow; Glucose,Urine (UA) 1+ (Negative); Ketones,Urine Negative (Negative); Leukocyte Esterase,Urine Negative (Negative); Nitrite,Urine Negative (Negative); PH, Urine 5.5 (5.0-8.0); Protein,Urine Trace (Negative); Specific Gravity,Urine 1.016 (1.001-1.035); Urobilinogen,Urine <2.0 mg/dL (<2.0)
[2020-06-09 07:17] LABS: Basophils % (A) 0 %; Eosinophils % (A) 0 %; HGB 13.9 gm/dL (13.0-17.5); Lymphocytes # (A) 0.6 k/uL (1.0-4.8); Lymphocytes % (A) 8 %; MCH 31.1 pg (25.0-35.0); MCHC 33.1 g/dL (31.0-37.0); MCV 93.8 fL (80.0-100.0); Mean Platelet Volume 8.8; Monocytes # (A) 0.3 k/uL (0-1.0); Monocytes % (A) 4 %; Neutrophils # (A) 6.7 k/uL (1.3-7.7); Neutrophils % (A) 88 %; Platelet Count 151 k/uL (150-450); RBC 4.47 m/uL (4.30-5.90); RDW 12.8 % (11.5-15.5); WBC 7.6 k/uL (3.8-10.6)
[2020-06-09 07:25] LABS: Glucose,Whole Blood 235 mg/dL (75-99)
[2020-06-09] MEDS: INSULIN ASPART (NovoLOG) 100 UNIT/ML VIAL SQ SCH ×6 (08:57→21:17)
[2020-06-09] MEDS: ASPIRIN 81 MG PO SCH (08:58)
[2020-06-09] MEDS: APIXABAN 5 MG TAB PO SCH ×2 (08:58→21:19)
[2020-06-09] MEDS: ASCORBIC ACID 500 MG TAB PO SCH ×2 (08:58→21:19)
[2020-06-09] MEDS: dexAMETHasone 2 MG TAB PO SCH (08:59)
[2020-06-09] MEDS: ATORVASTATIN 40 MG TAB PO SCH (08:59)
[2020-06-09] MEDS: CHOLECALCIFEROL 1,000 UNIT TAB PO SCH (08:59)
[2020-06-09] MEDS: FUROSEMIDE 40 MG TAB PO SCH ×2 (09:00→18:07)
[2020-06-09] MEDS: METOPROLOL TARTRATE 50 MG TAB PO SCH ×2 (09:00→21:36)
[2020-06-09] MEDS: GLIMEPIRIDE 1 MG TAB PO SCH ×2 (09:00→21:19)
[2020-06-09] MEDS: TAMSULOSIN 0.4 MG CAP.ER.24H PO SCH (09:01)
[2020-06-09] MEDS: ZINC SULFATE 220 MG CAP PO SCH (09:01)
[2020-06-09] MEDS: SOTALOL 80 MG TAB PO SCH ×2 (09:01→21:41)
[2020-06-09] MEDS: SPIRONOLACTONE 25 MG TAB PO SCH (09:01)
--- NOTE | 2020-06-09 09:35 | P.PN ---
Subjective Progress Note Date: 06/09/20 This is a 75-year-old male who was recently admitted for increasing shortness of breath and feeling weak along with cough and congestion and apparently had recent exposure to Covid 19 with family members and is being closely monitored. Patient is found to be Covid 19 positive although outside of the window of Remdesivir and currently being managed with dexamethasone along with Lovenox, vitamin C and D, and zinc supplements and will continue at this time. Infectious disease along with pulmonary are following closely. Patient continues to be weak and will be evaluated by PT/OT therapy. Blood sugars continue to be elevated and will continue with long-acting along with sliding scale and will add pre-meal insulin. Review of systems: Constitutional: Reports fatigue Cardiovascular: No reports of chest pain or palpitations Respiratory: Reports intermittent shortness of breath with exertion and c ontinued cough GI: No reports of nausea, vomiting, or diarrhea : No reports of dysuria or retention Neurovascular: Reports generalized weakness All medications have been reviewed Active Medications Apixaban (Apixaban 5 Mg Tab) 5 mg PO BID [facility] Last Admin: 06/09/20 08:58 Dose: 5 mg Documented by: Ascorbic Acid (Ascorbic Acid 500 Mg Tab) 500 mg PO BID [facility] Last Admin: 06/09/20 08:58 Dose: 500 mg Documented by: Aspirin (Aspirin 81 Mg) 81 mg PO DAILY [facility] Last Admin: 06/09/20 08:58 Dose: 81 mg Documented by: Atorvastatin Calcium (Atorvastatin 40 Mg Tab) 40 mg PO DAILY [facility] Last Admin: 06/09/20 08:59 Dose: 40 mg Documented by: Cholecalciferol (Cholecalciferol 1,000 Unit Tab) 1,000 unit PO DAILY [facility] Last Admin: 06/09/20 08:59 Dose: 1,000 unit Documented by: Dexamethasone (Dexamethasone 2 Mg Tab) 6 mg PO DAILY [facility] Last Admin: 06/09/20 08:59 Dose: 6 mg Documented by: Furosemide (Furosemide 40 Mg Tab) 40 mg PO BID@0900,1600 [facility] Last Admin: 06/09/20 09:00 Dose: 40 mg Documented by: Glimepiride (Glimepiride 1 Mg Tab) 1.5 mg PO BID [facility] Last Admin: 06/09/20 09:00 Dose: 1.5 mg Documented by: Insulin Aspart (Insulin Aspart (Novolog) 100 Unit/Ml Vial) 0 unit SQ ACHS [facility]; Protocol Last Admin: 06/09/20 08:57 Dose: 3 unit Documented by: Insulin Aspart (Insulin Aspart (Novolog) 100 Unit/Ml Vial) 5 unit SQ AC-TID [facility] Insulin Detemir (Insulin Detemir (Levemir) 100 Unit/Ml Syr) 30 unit SQ HS [facility] Last Admin: 06/09/20 01:02 Dose: 30 unit Documented by: Metoprolol Tartrate (Metoprolol Tartrate 50 Mg Tab) 50 mg PO BID [facility] Last Admin: 06/09/20 09:00 Dose: 50 mg Documented by: Naloxone HCl (Naloxone 0.4 Mg/Ml 1 Ml Vial) 0.2 mg IV Q2M PRN PRN Reason: Opioid Reversal Psyllium Hydrophilic Mucilloid (Psyllium Husk 100% 6 Gm Packet) 6 gm PO DAILY PRN PRN Reason: Constipation Sotalol HCl (Sotalol 80 Mg Tab) 40 mg PO BID [facility] Last Admin: 06/09/20 09:01 Dose: 40 mg Documented by: Spironolactone (Spironolactone 25 Mg Tab) 12.5 mg PO DAILY [facility] Last Admin: 06/09/20 09:01 Dose: 12.5 mg Documented by: Tamsulosin HCl (Tamsulosin 0.4 Mg Cap.Er.24h) 0.4 mg PO DAILY [facility] Last Admin: 06/09/20 09:01 Dose: 0.4 mg Documented by: Zinc Sulfate (Zinc Sulfate 220 Mg Cap) 220 mg PO DAILY [facility] Last Admin: 06/09/20 09:01 Dose: 220 mg Documented by: Objective - Vital Signs Vital signs: Vital Signs Temp 97.5 F L 06/09/20 05:00 Pulse 60 06/09/20 05:00 Resp 16 06/09/20 05:00 BP 115/65 06/09/20 05:00 Pulse Ox 95 06/09/20 05:00 Intake & Output 06/08/20 06/09/20 06/09/20 18:59 06:59 18:59 Intake Total 1230 Output Total 3000 Balance 1230 -3000 Weight 78.925 kg Intake: Intake, IV Titration 250 Amount Azithromycin 500 mg In 250 Sodium Chloride 0.9% 250 ml @ 250 mls/hr IVPB ONCE STA Rx#:[id number] Oral 980 Output: Urine 3000 Uretheral (Paredes) 1500 Other: # Voids 2 - Exam Gen: This is a 75-year-old male awake, alert and oriented 3, well-developed, well-nourished. HEENT: Head is atraumatic, normocephalic. Pupils equal, round. Sclerae is anicteric. NECK: Supple. No JVD. No lymphadenopathy. No thyromegaly. LUNGS: Breath sounds diminished at the bases with a few scattered rhonchi and crackles noted. No intercostal retractions. HEART: S1, S2 are muffled ABDOMEN: Soft. Bowel sounds are present. No masses. No tenderness. EXTREMITIES: No pedal edema. No calf tenderness. NEUROLOGICAL: Patient is awake, alert and oriented x3. Cranial nerves 2 through 12 are grossly intact. Mild weakness - Labs CBC & Chem 7: 06/09/20 06:43 06/08/20 10:10 Labs: Abnormal Lab Results - Last 24 Hours (Table) 06/08/20 06/08/20 06/08/20 Range/Units 10:10 10:10 10:10 Lymphocytes # 0.6 L (1.0-4.8) k/uL Sodium 128 L (137-145) mmol/L Chloride 92 L (98-107) mmol/L BUN 51 H (9-20) mg/dL Creatinine 1.64 H (0.66-1.25) mg/dL Glucose 338 H (74-99) mg/dL POC Glucose (mg/dL) (75-99) mg/dL Ferritin 2037.2 H (22.0-322.0) ng/mL Total Bilirubin 2.7 H (0.2-1.3) mg/dL Lactate Dehydrogenase 879 H (313-618) U/L C-Reactive Protein 63.9 H (<10.0) mg/L Procalcitonin 0.14 H (0.02-0.09) ng/mL Urine Protein (Negative) Urine Glucose (UA) (Negative) Coronavirus (PCR) (Not Detectd) 06/08/20 06/08/20 06/08/20 Range/Units 10:10 15:29 17:56 Lymphocytes # (1.0-4.8) k/uL Sodium (137-145) mmol/L Chloride (98-107) mmol/L BUN (9-20) mg/dL Creatinine (0.66-1.25) mg/dL Glucose (74-99) mg/dL POC Glucose (mg/dL) 398 H 418 H (75-99) mg/dL Ferritin (22.0-322.0) ng/mL Total Bilirubin (0.2-1.3) mg/dL Lactate Dehydrogenase (313-618) U/L C-Reactive Protein (<10.0) mg/L Procalcitonin (0.02-0.09) ng/mL Urine Protein (Negative) Urine Glucose (UA) (Negative) Coronavirus (PCR) Detected A (Not Detectd) 06/08/20 06/09/20 06/09/20 Range/Units 21:32 00:48 01:00 Lymphocytes # (1.0-4.8) k/uL Sodium (137-145) mmol/L Chloride (98-107) mmol/L BUN (9-20) mg/dL Creatinine (0.66-1.25) mg/dL Glucose (74-99) mg/dL POC Glucose (mg/dL) 431 H 376 H (75-99) mg/dL Ferritin (22.0-322.0) ng/mL Total Bilirubin (0.2-1.3) mg/dL Lactate Dehydrogenase (313-618) U/L C-Reactive Protein (<10.0) mg/L Procalcitonin (0.02-0.09) ng/mL Urine Protein Trace H (Negative) Urine Glucose (UA) 1+ H (Negative) Coronavirus (PCR) (Not Detectd) 06/09/20 06/09/20 Range/Units 06:43 07:22 Lymphocytes # 0.6 L (1.0-4.8) k/uL Sodium (137-145) mmol/L Chloride (98-107) mmol/L BUN (9-20) mg/dL Creatinine (0.66-1.25) mg/dL Glucose (74-99) mg/dL POC Glucose (mg/dL) 235 H (75-99) mg/dL Ferritin (22.0-322.0) ng/mL Total Bilirubin (0.2-1.3) mg/dL Lactate Dehydrogenase (313-618) U/L C-Reactive Protein (<10.0) mg/L Procalcitonin (0.02-0.09) ng/mL Urine Protein (Negative) Urine Glucose (UA) (Negative) Coronavirus (PCR) (Not Detectd) Assessment and Plan Assessment: Acute Covid 19 infection with bilateral pneumonia, left more than right, interstitial viral pneumonia with acute hypoxic respiratory failure, present on admission Hyponatremia Increased creatinine with chronic kidney disease stage III Diabetes mellitus type 2 with hyperglycemia hyperbilirubinemia Increased LDH, increased CRP with elevated inflammatory markers of Covid 19 History of atrial fibrillation, chronic Diabetes mellitus type 2 Hypertension Hyperlipidemia history of myocardial infarction history of degenerative joint disease History of nephrolithiasis History of automated implantable cardioverter defibrillator History of coronary artery disease, stent history of congestive heart failure with chronic systolic dysfunction History of nicotine dependence Full code Plan: Continue current medications, management, and symptomatic treatment. Pulmonary infectious disease following closely and will continue at this time. Patient is maintained on dexamethasone, vitamin supplements, and has already been on eliquis and will continue. Will continue to monitor vital signs and labs closely. Continue to monitor blood sugars and continue with long-acting along with sliding scale and Accu-Cheks before meals and at bedtime. Will repeat a.m. labs. PT/OT to evaluate the patient. Further recommendations to follow based on mechanical course the patient. Guarded prognosis.
[2020-06-09 11:38] LABS: Glucose,Whole Blood 284 mg/dL (75-99)
[2020-06-09 11:57] LABS: African American GFR (CKD) 48.1 (60.0-200.0); Albumin 3.8 g/dL (3.80-4.90); Albumin/Globulin Ratio 1.58 (1.60-3.17); Anion Gap 8.4 mmol/L (4.00-12.00); BUN/Creat Ratio 33.75 Ratio (12.00-20.00); Calcium 8.4 mg/dL (8.7-10.3); Carbon Dioxide 26.6 mmol/L (21.6-31.8); Globulin 2.4 g/dL (1.6-3.3); Non-African American GFR(CKD) 41.5 (60.0-200.0); Potassium 4.4 mmol/L (3.5-5.5); Total Bilirubin 1.6 mg/dL (0.3-1.2); Total Protein 6.2 g/dL (6.2-8.2)
--- NOTE | 2020-06-09 13:04 | P.PN ---
Subjective Progress Note Date: 06/09/20 Principal diagnosis: Acute hypoxic respiratory failure secondary to an acute exacerbation of chronic systolic congestive heart failure and acute CoVID 19 pneumonitis This is a 75-year-old, white male patient with past medical history of chronic congestive heart failure with systolic dysfunction, status post AICD placement, A. adriana, chronic kidney disease stage III, hypertension, coronary artery disease with stenting of the circumflex, former smoker. Patient had a recent admission to the hospital in May 2020 for A. fib with RVR and acute exacerbation of systolic CHF. Patient underwent transesophageal echocardiogram and cardioversion on 05/22/2020. Patient is on Eliquis for chronic anticoagulation. He was discharged home on 05/24/2020. He states at home he was increasingly short of breath, weak, having difficulty with ambulation, he states he can't catch his breath, but he denied any fever, no significant cough, no body aches, no chest pain, no nausea vomiting or diarrhea. The patient reportedly his at home having fevers. Patient also reports some dark stools, has been compliant with his Eliquis, denied any syncopal episodes. [facility] cardiomegaly with left greater than right bibasilar opacities not significant change from most recent chest x-ray. Room air pulse ox was 97% on admission, patient was afebrile, blood pressure stable, EKG showed sinus rhythm with frequent PACs. Lab data showed positive COVID 19 test. Lymphopenia with a lymphocytic, 0.6, d-dimer was negative at 0.22, sodium was 128, potassium is 4.6, chloride is 92, BUN is 51, creatinine 1.6, plasma lactic acid was 1.8, LDH was 879, CRP was 63.9. CT chest without contrast showed multifocal areas of groundglass opacity in the bilateral mid to lower lungs. Physical exam reveals a 75-year-old white male, breathing comfortably, does not appear to be in any acute distress, he is currently on room air, and a pulse ox of 96%. No significant coughing, no chest pain, no rhonchi or wheezes. She has been started on oral Decadron, he is out of the window for Remdesivir treatment, he has been started on vitamins. The patient is seen today 06/09/2020 in follow-up on the regular medical floor. He is awake and alert in no acute distress. Resting quite comfortably in bed. Breathing easier today compared to yesterday. He is maintaining O2 saturations in the mid 90s on room air. White count 7.6. Hemoglobin 13.9. Leukocytes are 0.6. Sodium 133. Potassium 4.4. Creatinine 1.6. Glucose 211. He is anticoagulated with Eliquis. Remains on vitamin supplements, dexamethasone, oral diuretics. Objective - Vital Signs Vital signs: Vital Signs Temp 98.7 F 06/09/20 11:00 Pulse 72 06/09/20 11:00 Resp 16 06/09/20 11:00 BP 109/59 06/09/20 11:00 Pulse Ox 95 06/09/20 11:00 Intake & Output 06/08/20 06/09/20 06/09/20 18:59 06:59 18:59 Intake Total 1230 Output Total 3000 Balance 1230 -3000 Weight 78.925 kg Intake: Intake, IV Titration 250 Amount Azithromycin 500 mg In 250 Sodium Chloride 0.9% 250 ml @ 250 mls/hr IVPB ONCE STA Rx#:[id number] Oral 980 Output: Urine 3000 Uretheral (Paredes) 1500 Other: # Voids 2 - Exam GENERAL EXAM: Alert, active, pleasant 75-year-old gentleman, on room air, comfortable in no apparent distress. HEAD: Normocephalic. EYES: Normal reaction of pupils, equal size. NOSE: Clear with pink turbinates. THROAT: No erythema or exudates. NECK: No masses, no JVD. CHEST: No chest wall deformity. LUNGS: Equal air entry with coarse crackles in the bilateral posterior bases CVS: S1 and S2 normal with no audible murmur, regular rhythm. ABDOMEN: No hepatosplenomegaly, normal bowel sounds, no guarding or rigidity. SPINE: No scoliosis or deformity SKIN: No rashes CENTRAL NERVOUS SYSTEM: No focal deficits, tone is normal in all 4 extremities. EXTREMITIES: There is no peripheral edema. No clubbing, no cyanosis. Peripheral pulses are intact. - Labs CBC & Chem 7: 06/09/20 06:43 06/09/20 06:43 Labs: Abnormal Lab Results - Last 24 Hours (Table) 06/08/20 06/08/20 06/08/20 Range/Units 10:10 10:10 15:29 Lymphocytes # (1.0-4.8) k/uL Sodium (135-145) mmol/L BUN (9.0-27.0) mg/dL Creatinine (0.6-1.5) mg/dL Est GFR (CKD-EPI)AfAm (60.0-200.0) Est GFR (CKD-EPI)NonAf (60.0-200.0) BUN/Creatinine Ratio (12.00-20.00) Ratio Glucose (70-110) mg/dL POC Glucose (mg/dL) 398 H (75-99) mg/dL Calcium (8.7-10.3) mg/dL Ferritin 2037.2 H (22.0-322.0) ng/mL Total Bilirubin (0.3-1.2) mg/dL Albumin/Globulin Ratio (1.60-3.17) g/dL Procalcitonin 0.14 H (0.02-0.09) ng/mL Urine Protein (Negative) Urine Glucose (UA) (Negative) 06/08/20 06/08/20 06/09/20 Range/Units 17:56 21:32 00:48 Lymphocytes # (1.0-4.8) k/uL Sodium (135-145) mmol/L BUN (9.0-27.0) mg/dL Creatinine (0.6-1.5) mg/dL Est GFR (CKD-EPI)AfAm (60.0-200.0) Est GFR (CKD-EPI)NonAf (60.0-200.0) BUN/Creatinine Ratio (12.00-20.00) Ratio Glucose (70-110) mg/dL POC Glucose (mg/dL) 418 H 431 H (75-99) mg/dL Calcium (8.7-10.3) mg/dL Ferritin (22.0-322.0) ng/mL Total Bilirubin (0.3-1.2) mg/dL Albumin/Globulin Ratio (1.60-3.17) g/dL Procalcitonin (0.02-0.09) ng/mL Urine Protein Trace H (Negative) Urine Glucose (UA) 1+ H (Negative) 06/09/20 06/09/20 06/09/20 Range/Units 01:00 06:43 06:43 Lymphocytes # 0.6 L (1.0-4.8) k/uL Sodium 133 L (135-145) mmol/L BUN 54.0 H (9.0-27.0) mg/dL Creatinine 1.6 H (0.6-1.5) mg/dL Est GFR (CKD-EPI)AfAm 48.1 L (60.0-200.0) Est GFR (CKD-EPI)NonAf 41.5 L (60.0-200.0) BUN/Creatinine Ratio 33.75 H (12.00-20.00) Ratio Glucose 211 H (70-110) mg/dL POC Glucose (mg/dL) 376 H (75-99) mg/dL Calcium 8.4 L (8.7-10.3) mg/dL Ferritin (22.0-322.0) ng/mL Total Bilirubin 1.6 H (0.3-1.2) mg/dL Albumin/Globulin Ratio 1.58 L (1.60-3.17) g/dL Procalcitonin (0.02-0.09) ng/mL Urine Protein (Negative) Urine Glucose (UA) (Negative) 06/09/20 06/09/20 Range/Units 07:22 11:37 Lymphocytes # (1.0-4.8) k/uL Sodium (135-145) mmol/L BUN (9.0-27.0) mg/dL Creatinine (0.6-1.5) mg/dL Est GFR (CKD-EPI)AfAm (60.0-200.0) Est GFR (CKD-EPI)NonAf (60.0-200.0) BUN/Creatinine Ratio (12.00-20.00) Ratio Glucose (70-110) mg/dL POC Glucose (mg/dL) 235 H 284 H (75-99) mg/dL Calcium (8.7-10.3) mg/dL Ferritin (22.0-322.0) ng/mL Total Bilirubin (0.3-1.2) mg/dL Albumin/Globulin Ratio (1.60-3.17) g/dL Procalcitonin (0.02-0.09) ng/mL Urine Protein (Negative) Urine Glucose (UA) (Negative) Assessment and Plan Assessment: 1 Acute hypoxic history failure secondary to an acute exacerbation of chronic systolic CHF, and acute COVID 19 related pneumonitis. Patient reports symptoms since before [place], he is out of the therapeutic window for Remdesivir, will be treated conservatively 2 Recent admission for A. fib with RVR, he underwent transesophageal echocardiogram and cardioversion on 05/22/2020, discharged home on 05/24/2020 3 Ischemic cardiomyopathy, with EF of 35%, severely mitral valve regurgitation, status post AICD placement 4 Paroxysmal atrial fibrillation, on Eliquis for chronic anticoagulation, currently in sinus rhythm with frequent PACs 5 History of coronary artery disease with previous stenting of the circumflex 6 Hypertension 7 Hyperlipidemia 8 Diabetes mellitus type 2 9 Former smoker Plan: The patient was seen and evaluated by Dr. Davidson He is currently stable from the pulmonary standpoint, on room air Continue the current treatment plan Repeat inflammatory markers, d-dimer, chest x-ray in a.m. Possible discharge in the a.m. We will continue to follow I, the cosigning physician, performed a history & physical examination of the patient. Lungs sounds with coarse crackles in the bilateral posterior bases. Maintaining good O2 saturations in the 90s on room air. I discussed the assessment and plan of care with my nurse practitioner, Jil Zafar. I attest to the above note as dictated by her.
[2020-06-09 17:12] LABS: Glucose,Whole Blood 435 mg/dL (75-99)
--- NOTE | 2020-06-09 18:37 | PN ---
PROGRESS NOTE DATE OF SERVICE: 06/09/2020 REASON FOR FOLLOWUP: COVID-19 pneumonia. INTERVAL HISTORY: The patient is currently afebrile. The patient is breathing comfortably. Denies having any chest pain or shortness of breath. Occasional cough. No abdominal pain or diarrhea. PHYSICAL EXAMINATION: Blood pressure 109/59 with a pulse of 72, temperature 98.7. He is 95% on room air. General description is an elderly male lying in bed in no distress. RESPIRATORY SYSTEM: Unlabored breathing with decreased intensity of breath sounds. No wheeze. HEART: S1, S2. Regular rate and rhythm. ABDOMEN: Soft. No tenderness. LABS: Hemoglobin 13.8, white count 7.6, BUN of 54, creatinine 1.6. Blood culture has been negative. DIAGNOSTIC IMPRESSION AND PLAN: Patient admitted to hospital with shortness of breath, multifactorial, in this patient who did have positive COVID-19 testing. The patient seems to have shown clinical response to current supportive treatment of dexamethasone, Eliquis, ascorbic acid, zinc; to continue along with respiratory support. We will monitor his clinical course closely. MMODL / IJN: [id number] /
[2020-06-09 20:43] LABS: Glucose,Whole Blood 495 mg/dL (75-99)
[2020-06-10 06:12] LABS: Basophils % (A) 0 %; Eosinophils % (A) 0 %; HCT 39.6 % (39.0-53.0); HGB 13.9 gm/dL (13.0-17.5); Lymphocytes # (A) 0.5 k/uL (1.0-4.8); Lymphocytes % (A) 5 %; MCH 31.9 pg (25.0-35.0); MCHC 35.2 g/dL (31.0-37.0); MCV 90.7 fL (80.0-100.0); Mean Platelet Volume 8.8; Monocytes # (A) 0.3 k/uL (0-1.0); Monocytes % (A) 3 %; Neutrophils # (A) 9.8 k/uL (1.3-7.7); Neutrophils % (A) 92 %; Platelet Count 153 k/uL (150-450); RBC 4.36 m/uL (4.30-5.90); RDW 12.1 % (11.5-15.5); WBC 10.7 k/uL (3.8-10.6)
--- NOTE | 2020-06-10 07:11 | XR ---
EXAMINATION TYPE: XR chest 1V DATE OF EXAM: 06/10/2020 COMPARISON: 06/08/2020 HISTORY: Cough TECHNIQUE: Single frontal view of the chest is obtained. FINDINGS: There is increasing right lower lobe area of consolidation stable patchy left-sided infilt rate. Cardiomegaly, cardiac device and underlying COPD arthropathy of the shoulders. No pneumothorax. IMPRESSION: 1. Bilateral infiltrate with interval increase in the right.
[2020-06-10 07:32] LABS: Glucose,Whole Blood 136 mg/dL (75-99)
[2020-06-10] MEDS: INSULIN ASPART (NovoLOG) 100 UNIT/ML VIAL SQ SCH ×8 (07:58→21:17)
--- NOTE | 2020-06-10 09:23 | P.GSCN ---
History of Present Illness Consult date: 06/10/20 History of present illness: The patient is a 75-year-old gentleman whom we've been asked to see for urinary retention. The patient's in the hospital shortness of breath and renal insufficiency. Apparently was in the hospital recently for Covid pneumonitis. He is having some mild shortness of breath. He was catheterized for over 1500 mL of urine retention. Apparently he was in urine retention his last visit. He has not been on Flomax upon discharge. He denies urinary tract problems. He denies difficulty voiding prior to admission. He states that he get up once per night and his flow is adequate. According to the emergency room note he was on tamsulosin but he is not aware of that. He is not had infections or incontinence. There is no family history of urine retention. There is no family history of prostate problems. His urine was clear upon admission. His creatinine was 1.6. Review of Systems All systems: negative Past Medical History Past Medical History: Atrial Fibrillation, Diabetes Mellitus, Hyperlipidemia, Hypertension, Myocardial Infarction (non Q-wave), Osteoarthritis (OA) Additional Past Medical History / Comment(s): SEE DR FIELD'S H&P, KIDNEY STONES chronic back pain , concussion 1969, sciatica Last Myocardial Infarction Date:: 2006 History of Any Multi-Drug Resistant Organisms: None Reported Past Surgical History: AICD, Appendectomy, Cholecystectomy, Heart Catheterization With Stent Additional Past Surgical History / Comment(s): COLONOSCOPY, roel CATARACT. AICD [address]. [address] saucedo h&p 2016 Past Anesthesia/Blood Transfusion Reactions: No Reported Reaction Date of Last Stent Placement:: 2006 Type of Cardiac Device: AICD Device Placement Date:: 2006 [facility] LEFT CHEST Past Psychological History: No Psychological Hx Reported Smoking Status: Former smoker Past Alcohol Use History: Daily Past Drug Use History: None Reported - Past Family History Mother Family Medical History: Coronary Artery Disease (CAD), Renal Disease Father Additional Family Medical History / Comment(s): during medical testing Sister(s) Family Medical History: Cancer Additional Family Medical History / Comment(s): pancreatic cancer Medications and Allergies Home Medications Medication Instructions Recorded Confirmed Type Aspirin [Adult Low Dose Aspirin EC] 81 mg PO DAILY 03/29/19 06/08/20 History Apixaban [Eliquis] 5 mg PO BID #60 tab 05/21/20 06/08/20 Rx Atorvastatin [Lipitor] 40 mg PO DAILY 05/21/20 06/08/20 History Metoprolol Tartrate [Lopressor] 50 mg PO BID #60 tab 05/21/20 06/08/20 Rx Psyllium Husk/Aspartame [Metamucil 1 scoop PO DAILY PRN 05/21/20 06/08/20 History Sugar-Free Powder] Furosemide [Lasix] 40 mg PO BID@0900,1600 #60 tab 05/24/20 06/08/20 Rx Glimepiride [Amaryl] 1.5 mg PO BID #0 05/24/20 06/08/20 Rx Sotalol [Betapace] 40 mg PO BID #60 tab 05/24/20 06/08/20 Rx Spironolactone [Aldactone] 12.5 mg PO DAILY #30 tab 05/24/20 06/08/20 Rx Tamsulosin HCl [Flomax] 0.4 mg PO DAILY #30 capsule 05/24/20 06/08/20 Rx Allergies Allergy/AdvReac Type Severity Reaction Status Date / Time No Known Allergies Allergy Verified 06/08/20 11:08 Surgical - Exam Vital Signs Temp Pulse Resp BP Pulse Ox 97.9 F 93 18 125/80 97 06/08/20 09:58 06/08/20 09:58 06/08/20 09:58 06/08/20 09:58 06/08/20 09:58 - General well developed, well nourished, no distress - Eyes PERRL - ENT no hearing loss - Neck trachea midline - Respiratory Ventimask normal expansion, normal respiratory effort - Cardiovascular Rhythm: regular - Abdomen Abdomen: soft, non tender - Genitourinary Indwelling catheter, 30 g soft benign prostate normal penis with no external lesions, testicles present - Integumentary no rash, no growths - Neurologic normal coordination, normal sensation - Musculoskeletal normal posture - Psychiatric oriented to time, oriented to person, oriented to place, speech is normal, memory intact Results - Labs 06/10/20 04:58 06/09/20 06:43 Abnormal Lab Results - Last 24 Hours (Table) 06/09/20 06/09/20 06/09/20 Range/Units 06:43 11:37 17:10 WBC (3.8-10.6) k/uL Neutrophils # (1.3-7.7) k/uL Lymphocytes # (1.0-4.8) k/uL Sodium 133 L (135-145) mmol/L BUN 54.0 H (9.0-27.0) mg/dL Creatinine 1.6 H (0.6-1.5) mg/dL Est GFR (CKD-EPI)AfAm 48.1 L (60.0-200.0) Est GFR (CKD-EPI)NonAf 41.5 L (60.0-200.0) BUN/Creatinine Ratio 33.75 H (12.00-20.00) Ratio Glucose 211 H (70-110) mg/dL POC Glucose (mg/dL) 284 H 435 H (75-99) mg/dL Calcium 8.4 L (8.7-10.3) mg/dL Total Bilirubin 1.6 H (0.3-1.2) mg/dL Albumin/Globulin Ratio 1.58 L (1.60-3.17) g/dL 06/09/20 06/10/20 06/10/20 Range/Units 20:40 04:58 07:31 WBC 10.7 H (3.8-10.6) k/uL Neutrophils # 9.8 H (1.3-7.7) k/uL Lymphocytes # 0.5 L (1.0-4.8) k/uL Sodium (135-145) mmol/L BUN (9.0-27.0) mg/dL Creatinine (0.6-1.5) mg/dL Est GFR (CKD-EPI)AfAm (60.0-200.0) Est GFR (CKD-EPI)NonAf (60.0-200.0) BUN/Creatinine Ratio (12.00-20.00) Ratio Glucose (70-110) mg/dL POC Glucose (mg/dL) 495 H 136 H (75-99) mg/dL Calcium (8.7-10.3) mg/dL Total Bilirubin (0.3-1.2) mg/dL Albumin/Globulin Ratio (1.60-3.17) g/dL Microbiology - Last 24 Hours (Table) 06/08/20 10:05 Blood Culture - Preliminary Blood No Growth after 24 hours 06/08/20 11:00 Blood Culture - Preliminary Blood No Growth after 24 hours Diabetes panel 06/09/20 Range/Units 06:43 Sodium 133 L (135-145) mmol/L Potassium 4.4 (3.5-5.5) mmol/L Chloride 98 (96-109) mmol/L Carbon Dioxide 26.6 (21.6-31.8) mmol/L BUN 54.0 H (9.0-27.0) mg/dL Creatinine 1.6 H (0.6-1.5) mg/dL Glucose 211 H (70-110) mg/dL Calcium 8.4 L (8.7-10.3) mg/dL AST 32 (14-35) U/L ALT 31 (10-49) U/L Alkaline Phosphatase 102 (41-126) U/L Total Protein 6.2 (6.2-8.2) g/dL Albumin 3.80 (3.80-4.90) g/dL Calcium panel 06/09/20 Range/Units 06:43 Calcium 8.4 L (8.7-10.3) mg/dL Albumin 3.80 (3.80-4.90) g/dL Pituitary panel 06/09/20 Range/Units 06:43 Sodium 133 L (135-145) mmol/L Potassium 4.4 (3.5-5.5) mmol/L Chloride 98 (96-109) mmol/L Carbon Dioxide 26.6 (21.6-31.8) mmol/L BUN 54.0 H (9.0-27.0) mg/dL Creatinine 1.6 H (0.6-1.5) mg/dL Glucose 211 H (70-110) mg/dL Calcium 8.4 L (8.7-10.3) mg/dL Adrenal panel 06/09/20 Range/Units 06:43 Sodium 133 L (135-145) mmol/L Potassium 4.4 (3.5-5.5) mmol/L Chloride 98 (96-109) mmol/L Carbon Dioxide 26.6 (21.6-31.8) mmol/L BUN 54.0 H (9.0-27.0) mg/dL Creatinine 1.6 H (0.6-1.5) mg/dL Glucose 211 H (70-110) mg/dL Calcium 8.4 L (8.7-10.3) mg/dL Total Bilirubin 1.6 H (0.3-1.2) mg/dL AST 32 (14-35) U/L ALT 31 (10-49) U/L Alkaline Phosphatase 102 (41-126) U/L Total Protein 6.2 (6.2-8.2) g/dL Albumin 3.80 (3.80-4.90) g/dL Assessment and Plan Assessment: Impression: Urinary retention and acute versus chronic. BPH. Multiple medical illnesses including recent Covid pneumonitis Plan: I would leave indwelling catheter for now. He is on Flomax. Prior to his discharge she should be given a voiding trial including postvoid residuals with bladder scan to make sure he is emptying adequately before discharge. He would need to be seen as an outpatient if he has not.
[2020-06-10] MEDS: ASPIRIN 81 MG PO SCH (09:38)
[2020-06-10] MEDS: GLIMEPIRIDE 1 MG TAB PO SCH ×2 (09:39→21:17)
[2020-06-10] MEDS: ASCORBIC ACID 500 MG TAB PO SCH ×2 (09:39→21:17)
[2020-06-10] MEDS: CHOLECALCIFEROL 1,000 UNIT TAB PO SCH (09:39)
[2020-06-10] MEDS: APIXABAN 5 MG TAB PO SCH ×2 (09:39→21:17)
[2020-06-10] MEDS: dexAMETHasone 2 MG TAB PO SCH (09:39)
[2020-06-10] MEDS: ATORVASTATIN 40 MG TAB PO SCH (09:39)
[2020-06-10] MEDS: FUROSEMIDE 40 MG TAB PO SCH ×2 (09:39→16:56)
[2020-06-10] MEDS: SPIRONOLACTONE 25 MG TAB PO SCH ×2 (09:40→09:41)
[2020-06-10] MEDS: SOTALOL 80 MG TAB PO SCH ×2 (09:40→21:17)
[2020-06-10] MEDS: ZINC SULFATE 220 MG CAP PO SCH (09:40)
[2020-06-10] MEDS: TAMSULOSIN 0.4 MG CAP.ER.24H PO SCH (09:40)
[2020-06-10] MEDS: METOPROLOL TARTRATE 50 MG TAB PO SCH ×2 (09:41→21:17)
--- NOTE | 2020-06-10 10:28 | P.PN ---
Subjective Progress Note Date: 06/10/20 This is a 75-year-old male who was recently admitted for increasing shortness of breath and feeling weak along with cough and congestion and apparently had recent exposure to Covid 19 with family members and is being closely monitored. Patient is found to be Covid 19 positive although outside of the window of Remdesivir and currently being managed with dexamethasone along with Lovenox, vitamin C and D, and zinc supplements and will continue at this time. Infectious disease along with pulmonary are following closely. Patient continues to be weak and will be evaluated by PT/OT therapy. Blood sugars continue to be elevated and will continue with long-acting along with sliding scale and will add pre-meal insulin. 06/10/2020 Patient is seen and evaluated in follow-up as morning with no acute overnight issues. Patient is resting comfortably on room air and discussed with nursing staff about maintaining off room air and monitoring closely. Patient was noted to be using 2 L at night. Patient does not normally require any oxygen in the outpatient setting. Patient had been having some urinary retention and was started on Flomax an indwelling Paredes catheter was placed. Urology consulted a nd pending at this time. Blood sugars have been elevated although slightly more controlled and will continue sliding scale, pre-meal, and long-acting with the possibility of going home with insulin as he is only on glyburide and metformin in the outpatient setting. Patient follows with Dr. Miramontes in the outpatient setting. Patient is also maintained on dexamethasone and vitamin C and D supplements along with zinc. PT/OT to evaluate the patient. Review of systems: Constitutional: No reports of fatigue, fever, or chills Cardiovascular: No reports of chest pain or palpitations Respiratory: Reports mild intermittent shortness of breath with exertion and continued cough has improved GI: No reports of nausea, vomiting, or diarrhea : No reports of dysuria or retention home indwelling Paredes catheter Neurovascular: Reports generalized weakness All medications have been reviewed Active Medications Apixaban (Apixaban 5 Mg Tab) 5 mg PO BID [facility] Last Admin: 06/10/20 09:39 Dose: 5 mg Documented by: Ascorbic Acid (Ascorbic Acid 500 Mg Tab) 500 mg PO BID [facility] Last Admin: 06/10/20 09:39 Dose: 500 mg Documented by: Aspirin (Aspirin 81 Mg) 81 mg PO DAILY [facility] Last Admin: 06/10/20 09:38 Dose: 81 mg Documented by: Atorvastatin Calcium (Atorvastatin 40 Mg Tab) 40 mg PO DAILY [facility] Last Admin: 06/10/20 09:39 Dose: 40 mg Documented by: Cholecalciferol (Cholecalciferol 1,000 Unit Tab) 1,000 unit PO DAILY [facility] Last Admin: 06/10/20 09:39 Dose: 1,000 unit Documented by: Dexamethasone (Dexamethasone 2 Mg Tab) 6 mg PO DAILY [facility] Last Admin: 06/10/20 09:39 Dose: 6 mg Documented by: Furosemide (Furosemide 40 Mg Tab) 40 mg PO BID@0900,1600 [facility] Last Admin: 06/10/20 09:39 Dose: 40 mg Documented by: Glimepiride (Glimepiride 1 Mg Tab) 1.5 mg PO BID [facility] Last Admin: 06/10/20 09:39 Dose: 1.5 mg Documented by: Insulin Aspart (Insulin Aspart (Novolog) 100 Unit/Ml Vial) 0 unit SQ ACHS [facility]; Protocol Last Admin: 06/10/20 07:58 Dose: Not Given Documented by: Insulin Aspart (Insulin Aspart (Novolog) 100 Unit/Ml Vial) 5 unit SQ AC-TID [facility] Last Admin: 06/10/20 09:01 Dose: 5 unit Documented by: Insulin Detemir (Insulin Detemir (Levemir) 100 Unit/Ml Syr) 30 unit SQ HS [facility] Last Admin: 06/09/20 21:18 Dose: 30 unit Documented by: Metoprolol Tartrate (Metoprolol Tartrate 50 Mg Tab) 50 mg PO BID [facility] Last Admin: 06/10/20 09:41 Dose: 50 mg Documented by: Naloxone HCl (Naloxone 0.4 Mg/Ml 1 Ml Vial) 0.2 mg IV Q2M PRN PRN Reason: Opioid Reversal Psyllium Hydrophilic Mucilloid (Psyllium Husk 100% 6 Gm Packet) 6 gm PO DAILY PRN PRN Reason: Constipation Sotalol HCl (Sotalol 80 Mg Tab) 40 mg PO BID [facility] Last Admin: 06/10/20 09:40 Dose: 40 mg Documented by: Spironolactone (Spironolactone 25 Mg Tab) 12.5 mg PO DAILY [facility] Last Admin: 06/10/20 09:41 Dose: 12.5 mg Documented by: Tamsulosin HCl (Tamsulosin 0.4 Mg Cap.Er.24h) 0.4 mg PO DAILY [facility] Last Admin: 06/10/20 09:40 Dose: 0.4 mg Documented by: Zinc Sulfate (Zinc Sulfate 220 Mg Cap) 220 mg PO DAILY [facility] Last Admin: 06/10/20 09:40 Dose: 220 mg Documented by: Objective - Vital Signs Vital signs: Vital Signs Temp 97.4 F L 06/10/20 04:43 Pulse 62 06/10/20 04:43 Resp 18 06/10/20 04:43 BP 107/63 06/10/20 04:43 Pulse Ox 92 L 06/10/20 04:43 Intake & Output 06/09/20 06/10/20 06/10/20 18:59 06:59 18:59 Intake Total 240 Output Total 1800 900 Balance -1560 -900 Intake: Oral 240 Output: Urine 1800 900 Uretheral (Paredes) 900 Other: Voiding Method Indwelling Catheter - Exam Gen: This is a 75-year-old male awake, alert and oriented 3, well-developed, well-nourished. HEENT: Head is atraumatic, normocephalic. Pupils equal, round. Sclerae is anicteric. NECK: Supple. No JVD. No lymphadenopathy. No thyromegaly. LUNGS: Breath sounds diminished at the bases with a few scattered rhonchi noted. No intercostal retractions. HEART: S1, S2 are muffled ABDOMEN: Soft. Bowel sounds are present. No masses. No tenderness. EXTREMITIES: No pedal edema. No calf tenderness. NEUROLOGICAL: Patient is awake, alert and oriented x3. Cranial nerves 2 through 12 are grossly intact. Mild weakness - Labs CBC & Chem 7: 06/10/20 04:58 06/09/20 06:43 Labs: Abnormal Lab Results - Last 24 Hours (Table) 06/09/20 06/09/20 06/09/20 Range/Units 06:43 11:37 17:10 WBC (3.8-10.6) k/uL Neutrophils # (1.3-7.7) k/uL Lymphocytes # (1.0-4.8) k/uL Sodium 133 L (135-145) mmol/L BUN 54.0 H (9.0-27.0) mg/dL Creatinine 1.6 H (0.6-1.5) mg/dL Est GFR (CKD-EPI)AfAm 48.1 L (60.0-200.0) Est GFR (CKD-EPI)NonAf 41.5 L (60.0-200.0) BUN/Creatinine Ratio 33.75 H (12.00-20.00) Ratio Glucose 211 H (70-110) mg/dL POC Glucose (mg/dL) 284 H 435 H (75-99) mg/dL Calcium 8.4 L (8.7-10.3) mg/dL Total Bilirubin 1.6 H (0.3-1.2) mg/dL Albumin/Globulin Ratio 1.58 L (1.60-3.17) g/dL 06/09/20 06/10/20 06/10/20 Range/Units 20:40 04:58 07:31 WBC 10.7 H (3.8-10.6) k/uL Neutrophils # 9.8 H (1.3-7.7) k/uL Lymphocytes # 0.5 L (1.0-4.8) k/uL Sodium (135-145) mmol/L BUN (9.0-27.0) mg/dL Creatinine (0.6-1.5) mg/dL Est GFR (CKD-EPI)AfAm (60.0-200.0) Est GFR (CKD-EPI)NonAf (60.0-200.0) BUN/Creatinine Ratio (12.00-20.00) Ratio Glucose (70-110) mg/dL POC Glucose (mg/dL) 495 H 136 H (75-99) mg/dL Calcium (8.7-10.3) mg/dL Total Bilirubin (0.3-1.2) mg/dL Albumin/Globulin Ratio (1.60-3.17) g/dL Microbiology - Last 24 Hours (Table) 06/08/20 10:05 Blood Culture - Preliminary Blood No Growth after 24 hours 06/08/20 11:00 Blood Culture - Preliminary Blood No Growth after 24 hours Assessment and Plan Assessment: Acute Covid 19 infection with bilateral pneumonia, left more than right, interstitial viral pneumonia with acute hypoxic respiratory failure, present on admission Hyponatremia Increased creatinine with chronic kidney disease stage III Diabetes mellitus type 2 with hyperglycemia hyperbilirubinemia Increased LDH, increased CRP with elevated inflammatory markers of Covid 19 History of atrial fibrillation, chronic Diabetes mellitus type 2 Hypertension Hyperlipidemia history of myocardial infarction history of degenerative joint disease History of nephrolithiasis History of automated implantable cardioverter defibrillator History of coronary artery disease, stent history of congestive heart failure with chronic systolic dysfunction History of nicotine dependence Full code Plan: Continue current medications, management, and symptomatic treatment. Pulmonary infectious disease following closely and will continue at this time. Patient is maintained on dexamethasone, vitamin supplements, and has already been on eliquis and will continue. Will continue to monitor vital signs and labs closely. Discussed with nursing staff about monitoring vital signs off of oxygen as he was presently on room air upon exam with no reports of shortness of breath. Continue to monitor blood sugars and continue with long-acting along with sliding scale and Accu-Cheks before meals and at bedtime. Repeat labs pending at this time. D-dimer continues to be negative at 0.24. PT/OT to evaluate the patient. Urology consulted for urinary retention as patient has indwelling Paredes catheter after continued retention was noted by nursing staff. Further recommendations to follow based on clinical course the patient. Guarded prognosis. Possible discharge in 24 hours.
[2020-06-10 10:50] LABS: Albumin 3.8 g/dL (3.80-4.90); Albumin/Globulin Ratio 1.58 (1.60-3.17); Anion Gap 10.3 mmol/L (4.00-12.00); BUN/Creat Ratio 34.67 Ratio (12.00-20.00); Calcium 8.6 mg/dL (8.7-10.3); Carbon Dioxide 26.7 mmol/L (21.6-31.8); Globulin 2.4 g/dL (1.6-3.3); Non-African American GFR(CKD) 44.9 (60.0-200.0); Potassium 4.1 mmol/L (3.5-5.5); Total Bilirubin 1.4 mg/dL (0.3-1.2); Total Protein 6.2 g/dL (6.2-8.2)
[2020-06-10 11:26] LABS: Glucose,Whole Blood 197 mg/dL (75-99)
--- NOTE | 2020-06-10 12:20 | P.PN ---
Subjective Progress Note Date: 06/10/20 Principal diagnosis: Acute hypoxic respiratory failure secondary to an acute exacerbation of chronic systolic congestive heart failure and acute CoVID 19 pneumonitis This is a 75-year-old, white male patient with past medical history of chronic congestive heart failure with systolic dysfunction, status post AICD placement, A. adriana, chronic kidney disease stage III, hypertension, coronary artery disease with stenting of the circumflex, former smoker. Patient had a recent admission to the hospital in May 2020 for A. fib with RVR and acute exacerbation of systolic CHF. Patient underwent transesophageal echocardiogram and cardioversion on 05/22/2020. Patient is on Eliquis for chronic anticoagulation. He was discharged home on 05/24/2020. He states at home he was increasingly short of breath, weak, having difficulty with ambulation, he states he can't catch his breath, but he denied any fever, no significant cough, no body aches, no chest pain, no nausea vomiting or diarrhea. The patient reportedly his at home having fevers. Patient also reports some dark stools, has been compliant with his Eliquis, denied any syncopal episodes. [facility] showed cardiomegaly with left greater than right bibasilar opacities not significant change from most recent chest x-ray. Room air pulse ox was 97% on admission, patient was afebrile, blood pressure stable, EKG showed sinus rhythm with frequent PACs. Lab data showed positive COVID 19 test. Lymphopenia with a lymphocytic, 0.6, d-dimer was negative at 0.22, sodium was 128, potassium is 4.6, chloride is 92, BUN is 51, creatinine 1.6, plasma lactic acid was 1.8, LDH was 879, CRP was 63.9. CT chest without contrast showed multifocal areas of groundglass opacity in the bilateral mid to lower lungs. Physical exam reveals a 75-year-old white male, breathing comfortably, does not appear to be in any acute distress, he is currently on room air, and a pulse ox of 96%. No significant coughing, no chest pain, no rhonchi or wheezes. She has been started on oral Decadron, he is out of the window for Remdesivir treatment, he has been started on vitamins. The patient is seen today 06/09/2020 in follow-up on the regular medical floor. He is awake and alert in no acute distress. Resting quite comfortably in bed. Breathing easier today compared to yesterday. He is maintaining O2 saturations in the mid 90s on room air. White count 7.6. Hemoglobin 13.9. Leukocytes are 0.6. Sodium 133. Potassium 4.4. Creatinine 1.6. Glucose 211. He is anticoagulated with Eliquis. Remains on vitamin supplements, dexamethasone, oral diuretics. The patient is seen today 06/10/2020 follow-up on the regular medical floor. He is currently up in his room walking with a walker. Awake and alert in no acute distress. Maintaining O2 saturations in the mid 90s on room air. Afebrile. Chest x-ray with basilar infiltrates. Blood cultures reveal no growth. White count 10.7. Hemoglobin 13.9. D-dimer 0.24. Sodium 135. Potassium 4.1. Creatinine 1.5. LDH 304. C-reactive protein 5.0. Anticoagulated with Eliquis. Remains on dexamethasone. Oral Lasix. Vitamin supplements. Objective - Vital Signs Vital signs: Vital Signs Temp 98.2 F 06/10/20 11:00 Pulse 63 06/10/20 11:00 Resp 16 06/10/20 11:00 BP 93/50 06/10/20 11:00 Pulse Ox 90 L 06/10/20 11:25 Intake & Output 06/09/20 06/10/20 06/10/20 18:59 06:59 18:59 Intake Total 240 Output Total 1800 900 Balance -1560 -900 Intake: Oral 240 Output: Urine 1800 900 Uretheral (Paredes) 900 Other: Voiding Method Indwelling Catheter Indwelling Catheter - Exam GENERAL EXAM: Alert, active, pleasant 75-year-old gentleman, on room air, comfortable in no apparent distress. HEAD: Normocephalic. EYES: Normal reaction of pupils, equal size. NOSE: Clear with pink turbinates. THROAT: No erythema or exudates. NECK: No masses, no JVD. CHEST: No chest wall deformity. LUNGS: Equal air entry with coarse crackles in the bilateral posterior bases CVS: S1 and S2 normal with no audible murmur, regular rhythm. ABDOMEN: No hepatosplenomegaly, normal bowel sounds, no guarding or rigidity. SPINE: No scoliosis or deformity SKIN: No rashes CENTRAL NERVOUS SYSTEM: No focal deficits, tone is normal in all 4 extremities. EXTREMITIES: There is no peripheral edema. No clubbing, no cyanosis. Peripheral pulses are intact. - Labs CBC & Chem 7: 06/10/20 04:58 06/10/20 04:58 Labs: Abnormal Lab Results - Last 24 Hours (Table) 06/09/20 06/09/20 06/10/20 Range/Units 17:10 20:40 04:58 WBC 10.7 H (3.8-10.6) k/uL Neutrophils # 9.8 H (1.3-7.7) k/uL Lymphocytes # 0.5 L (1.0-4.8) k/uL BUN (9.0-27.0) mg/dL Est GFR (CKD-EPI)AfAm (60.0-200.0) Est GFR (CKD-EPI)NonAf (60.0-200.0) BUN/Creatinine Ratio (12.00-20.00) Ratio Glucose (70-110) mg/dL POC Glucose (mg/dL) 435 H 495 H (75-99) mg/dL Calcium (8.7-10.3) mg/dL Total Bilirubin (0.3-1.2) mg/dL AST (14-35) U/L ALT (10-49) U/L Lactate Dehydrogenase (120-246) U/L C-Reactive Protein (0.0-0.8) mg/dL Albumin/Globulin Ratio (1.60-3.17) g/dL 06/10/20 06/10/20 06/10/20 Range/Units 04:58 07:31 11:25 WBC (3.8-10.6) k/uL Neutrophils # (1.3-7.7) k/uL Lymphocytes # (1.0-4.8) k/uL BUN 52.0 H (9.0-27.0) mg/dL Est GFR (CKD-EPI)AfAm 52.0 L (60.0-200.0) Est GFR (CKD-EPI)NonAf 44.9 L (60.0-200.0) BUN/Creatinine Ratio 34.67 H (12.00-20.00) Ratio Glucose 144 H (70-110) mg/dL POC Glucose (mg/dL) 136 H 197 H (75-99) mg/dL Calcium 8.6 L (8.7-10.3) mg/dL Total Bilirubin 1.4 H (0.3-1.2) mg/dL AST 53 H (14-35) U/L ALT 61 H (10-49) U/L Lactate Dehydrogenase 304 H (120-246) U/L C-Reactive Protein 5.0 H (0.0-0.8) mg/dL Albumin/Globulin Ratio 1.58 L (1.60-3.17) g/dL Microbiology - Last 24 Hours (Table) 06/08/20 10:05 Blood Culture - Preliminary Blood No Growth after 24 hours 06/08/20 11:00 Blood Culture - Preliminary Blood No Growth after 24 hours Assessment and Plan Assessment: 1 Acute hypoxic history failure secondary to an acute exacerbation of chronic systolic CHF, and acute COVID 19 related pneumonitis. Patient reports symptoms since before [place], he is out of the therapeutic window for Remdesivir, will be treated conservatively 2 Recent admission for A. fib with RVR, he underwent transesophageal echoca rdiogram and cardioversion on 05/22/2020, discharged home on 05/24/2020 3 Ischemic cardiomyopathy, with EF of 35%, severely mitral valve regurgitation, status post AICD placement 4 Paroxysmal atrial fibrillation, on Eliquis for chronic anticoagulation, currently in sinus rhythm with frequent PACs 5 History of coronary artery disease with previous stenting of the circumflex 6 Hypertension 7 Hyperlipidemia 8 Diabetes mellitus type 2 9 Former smoker Plan: The patient was seen and evaluated by Dr. Davidson Chest x-ray and labs reviewed He is currently stable from the pulmonary standpoint, on room air Continue the current treatment plan Home once cleared medically I, the cosigning physician, performed a history & physical examination of the patient. Lungs sounds with coarse crackles in the bilateral posterior bases. Maintaining good O2 saturations in the 90s on room air. I discussed the assessment and plan of care with my nurse practitioner, Jil Zafar. I attest to the above note as dictated by her.
[2020-06-10 18:09] LABS: Glucose,Whole Blood 355 mg/dL (75-99)
[2020-06-10 20:44] LABS: Glucose,Whole Blood 472 mg/dL (75-99)
[2020-06-10] MEDS: INSULIN DETEMIR (LEVEMIR) 100 UNIT/ML SYR SQ SCH (21:18)
--- NOTE | 2020-06-10 22:31 | PN ---
PROGRESS NOTE DATE OF SERVICE: 06/10/2020 REASON FOR FOLLOWUP: COVID-19 infection. INTERVAL HISTORY: The patient is currently afebrile. The patient is currently breathing comfortably on room air. The patient denies having any chest pain. He did have minimal shortness of breath on exertion. Did have a cough, not bringing up any sputum. No nausea, no vomiting, no abdominal pain or diarrhea. PHYSICAL EXAMINATION: Blood pressure 128/66, pulse of 59, temperature 97.4. He is 94% on room air. General description is an elderly male lying in bed in no distress. RESPIRATORY SYSTEM: Unlabored breathing with decreased intensity of breath sounds. No wheeze. HEART: S1, S2. Regular rate and rhythm. ABDOMEN: Soft. No tenderness. LABS: Hemoglobin 13.1, white count 10.7, BUN of 22, creatinine 1.5. DIAGNOSTIC IMPRESSION AND PLAN: Patient with acute COVID-19 infection in this patient with overall clinical response to the current treatment protocol with vitamin C, zinc, dexamethasone, Lovenox; to continue and monitor his clinical course closely. Continue with supportive care. MMODL / IJN: [id number] /
[2020-06-11 06:18] LABS: Basophils # (A) 0.1 k/uL (0-0.2); Basophils % (A) 1 %; Eosinophils % (A) 0 %; HCT 38.7 % (39.0-53.0); HGB 13.7 gm/dL (13.0-17.5); Lymphocytes # (A) 0.7 k/uL (1.0-4.8); Lymphocytes % (A) 8 %; MCH 32.3 pg (25.0-35.0); MCHC 35.5 g/dL (31.0-37.0); MCV 90.9 fL (80.0-100.0); Mean Platelet Volume 8.5; Monocytes # (A) 0.5 k/uL (0-1.0); Monocytes % (A) 5 %; Neutrophils # (A) 7.3 k/uL (1.3-7.7); Neutrophils % (A) 85 %; Platelet Count 171 k/uL (150-450); RBC 4.26 m/uL (4.30-5.90); WBC 8.6 k/uL (3.8-10.6)
[2020-06-11 07:02] LABS: Glucose,Whole Blood 242 mg/dL (75-99)
[2020-06-11] MEDS: ATORVASTATIN 40 MG TAB PO SCH (08:03)
[2020-06-11] MEDS: INSULIN ASPART (NovoLOG) 100 UNIT/ML VIAL SQ SCH ×8 (08:03→21:37)
[2020-06-11] MEDS: APIXABAN 5 MG TAB PO SCH ×2 (08:03→21:25)
[2020-06-11] MEDS: METOPROLOL TARTRATE 50 MG TAB PO SCH ×2 (08:04→21:26)
[2020-06-11] MEDS: TAMSULOSIN 0.4 MG CAP.ER.24H PO SCH (08:04)
[2020-06-11] MEDS: CHOLECALCIFEROL 1,000 UNIT TAB PO SCH (08:04)
[2020-06-11] MEDS: GLIMEPIRIDE 1 MG TAB PO SCH ×2 (08:04→21:25)
[2020-06-11] MEDS: ASPIRIN 81 MG PO SCH (08:04)
[2020-06-11] MEDS: SPIRONOLACTONE 25 MG TAB PO SCH (08:04)
[2020-06-11] MEDS: FUROSEMIDE 40 MG TAB PO SCH ×2 (08:05→16:47)
[2020-06-11] MEDS: ASCORBIC ACID 500 MG TAB PO SCH ×2 (08:05→21:26)
[2020-06-11] MEDS: ZINC SULFATE 220 MG CAP PO SCH (08:05)
[2020-06-11] MEDS: SOTALOL 80 MG TAB PO SCH ×2 (08:05→21:25)
[2020-06-11] MEDS: dexAMETHasone 2 MG TAB PO SCH (08:24)
[2020-06-11 09:23] LABS: Albumin 3.7 g/dL (3.80-4.90); Albumin/Globulin Ratio 1.48 (1.60-3.17); Anion Gap 9.7 mmol/L (4.00-12.00); BUN/Creat Ratio 35.33 Ratio (12.00-20.00); Calcium 8.6 mg/dL (8.7-10.3); Carbon Dioxide 24.3 mmol/L (21.6-31.8); Globulin 2.5 g/dL (1.6-3.3); Non-African American GFR(CKD) 44.9 (60.0-200.0); Potassium 4.3 mmol/L (3.5-5.5); Total Protein 6.2 g/dL (6.2-8.2)
[2020-06-11 11:24] LABS: Glucose,Whole Blood 306 mg/dL (75-99)
--- NOTE | 2020-06-11 14:12 | P.PN ---
Subjective Progress Note Date: 06/11/20 HISTORY OF PRESENT ILLNESS This is a 75-year-old male patient admitted to the hospital for occult blood 19 pneumonia. Patient states he is feeling okay today. Shortness of breath when he is up. He denies any chest pain, no cough, no abdominal pain. No nausea, vomiting or diarrhea. Patient has been afebrile, heart rate 63, blood pressure 83/54, pulse ox 91% on 2 L nasal cannula. CBC 8.6, hemoglobin 13.7, neutrophils 0.7. Creatinine 1.5. PHYSICAL EXAMINATION Gen: This is a 75-year-old male. He is resting bed and appears to be in no acute distress. No respiratory distress noted. HEENT: Head is atraumatic, normocephalic. Pupils equal, round. Sclerae is anicteric. NECK: Supple. No JVD. No lymphadenopathy. LUNGS: Decreased breath sounds bilaterally. No wheezing. No intercostal retractions. HEART: Regular rate and rhythm. No murmur. ABDOMEN: Soft. Bowel sounds are present. No masses. No tenderness. EXTREMITIES: No pedal edema. No calf tenderness. NEUROLOGICAL: Patient is awake, alert and oriented x3. ASSESSMENT Acute hypoxic respiratory failure Acute COVID-19 pneumonitis PLAN Continue vitamin C, vitamin D, zinc Continue dexamethasone 6 mg daily Continue eliquis The above dictated assessment and findings were discussed with Dr. Rand. The impression and plan of care have been directed as dictated. Tayla Blunt nurse practitioner acting as scribe for Dr. Rand. Objective - Vital Signs Vital signs: Vital Signs Temp 97.7 F 06/11/20 10:28 Pulse 63 06/11/20 10:28 Resp 18 06/11/20 10:28 BP 83/54 06/11/20 10:28 Pulse Ox 91 L 06/11/20 10:28 Intake & Output 06/10/20 06/11/20 06/11/20 18:59 06:59 18:59 Intake Total 240 Output Total 1800 1300 300 Balance -1560 -1300 -300 Intake: Oral 240 Output: Urine 1800 1300 300 Uretheral (Paredes) 900 Other: Voiding Method Indwelling Catheter Indwelling Catheter Indwelling Catheter # Bowel Movements 1 0 - Labs CBC & Chem 7: 06/11/20 05:40 06/11/20 05:40 Labs: Abnormal Lab Results - Last 24 Hours (Table) 06/10/20 06/10/20 06/11/20 Range/Units 18:08 20:28 05:40 RBC 4.26 L (4.30-5.90) m/uL Hct 38.7 L (39.0-53.0) % Lymphocytes # 0.7 L (1.0-4.8) k/uL Sodium (135-145) mmol/L BUN (9.0-27.0) mg/dL Est GFR (CKD-EPI)AfAm (60.0-200.0) Est GFR (CKD-EPI)NonAf (60.0-200.0) BUN/Creatinine Ratio (12.00-20.00) Ratio Glucose (70-110) mg/dL POC Glucose (mg/dL) 355 H 472 H (75-99) mg/dL Calcium (8.7-10.3) mg/dL AST (14-35) U/L ALT (10-49) U/L Albumin (3.80-4.90) g/dL Albumin/Globulin Ratio (1.60-3.17) g/dL 06/11/20 06/11/20 06/11/20 Range/Units 05:40 06:55 11:20 RBC (4.30-5.90) m/uL Hct (39.0-53.0) % Lymphocytes # (1.0-4.8) k/uL Sodium 133 L (135-145) mmol/L BUN 53.0 H (9.0-27.0) mg/dL Est GFR (CKD-EPI)AfAm 52.0 L (60.0-200.0) Est GFR (CKD-EPI)NonAf 44.9 L (60.0-200.0) BUN/Creatinine Ratio 35.33 H (12.00-20.00) Ratio Glucose 273 H (70-110) mg/dL POC Glucose (mg/dL) 242 H 306 H (75-99) mg/dL Calcium 8.6 L (8.7-10.3) mg/dL AST 44 H (14-35) U/L ALT 63 H (10-49) U/L Albumin 3.70 L (3.80-4.90) g/dL Albumin/Globulin Ratio 1.48 L (1.60-3.17) g/dL Microbiology - Last 24 Hours (Table) 06/08/20 10:05 Blood Culture - Preliminary Blood No Growth after 48 hours 06/08/20 11:00 Blood Culture - Preliminary Blood No Growth after 48 hours
--- NOTE | 2020-06-11 14:59 | P.PN ---
Subjective Progress Note Date: 06/11/20 This is a 75-year-old male who was recently admitted for increasing shortness of breath and feeling weak along with cough and congestion and apparently had recent exposure to Covid 19 with family members and is being closely monitored. Patient is found to be Covid 19 positive although outside of the window of Remdesivir and currently being managed with dexamethasone along with Lovenox, vitamin C and D, and zinc supplements and will continue at this time. Infectious disease along with pulmonary are following closely. Patient continues to be weak and will be evaluated by PT/OT therapy. Blood sugars continue to be elevated and will continue with long-acting along with sliding scale and will add pre-meal insulin. 06/10/2020 Patient is seen and evaluated in follow-up as morning with no acute overnight issues. Patient is resting comfortably on room air and discussed with nursing staff about maintaining off room air and monitoring closely. Patient was noted to be using 2 L at night. Patient does not normally require any oxygen in the outpatient setting. Patient had been having some urinary retention and was started on Flomax an indwelling Paredes catheter was placed. Urology consulted a nd pending at this time. Blood sugars have been elevated although slightly more controlled and will continue sliding scale, pre-meal, and long-acting with the possibility of going home with insulin as he is only on glyburide and metformin in the outpatient setting. Patient follows with Dr. Miramontes in the outpatient setting. Patient is also maintained on dexamethasone and vitamin C and D supplements along with zinc. PT/OT to evaluate the patient. 06/11/2020 Patient is seen and evaluated today and was seen and evaluated by physical therapy and became dyspneic with minimal exertion and required 2 L of oxygen via nasal cannula. Discussed with case management as patient will likely require oxygen therapy due to Covid 19 pneumonia once discharged. He was seen and evaluated by urology recommending a trial of voiding prior to discharge and Paredes catheter was removed and Bladder Scan for over 400 and patient is likely continuing to retain. Will reorder indwelling Paredes catheter and have patient follow-up with urology outpatient. Sugars continue to be monitored before meals and at bedtime and continues to require pre-meal, sliding scale, and long-acting and will require this upon discharge. Prescriptions provided for glucometer as patient will require before meals and at bedtime testing close monitoring. Patient was on oral antidiabetic medications for diabetes mellitus type 2 and will continue although due to multiple episodes of elevated blood sugars patient will discharge home on long-acting along with sliding scale insulin. Will add albuterol inhaler. 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 Patient would benefit from nebulized treatments although due to recent Covid respiratory is not providing aerosol treatments for Covid 19. Review of systems: Constitutional: No reports of fatigue, fever, or chills Cardiovascular: No reports of chest pain or palpitations Respiratory: Reports mild intermittent shortness of breath with exertion and continued cough GI: No reports of nausea, vomiting, or diarrhea : No reports of dysuria, has some retention Neurovascular: Reports generalized weakness All medications have been reviewed Active Medications Apixaban (Apixaban 5 Mg Tab) 5 mg PO BID [facility] Last Admin: 06/11/20 08:03 Dose: 5 mg Documented by: Ascorbic Acid (Ascorbic Acid 500 Mg Tab) 500 mg PO BID [facility] Last Admin: 06/11/20 08:05 Dose: 500 mg Documented by: Aspirin (Aspirin 81 Mg) 81 mg PO DAILY [facility] Last Admin: 06/11/20 08:04 Dose: 81 mg Documented by: Atorvastatin Calcium (Atorvastatin 40 Mg Tab) 40 mg PO DAILY [facility] Last Admin: 06/11/20 08:03 Dose: 40 mg Documented by: Cholecalciferol (Cholecalciferol 1,000 Unit Tab) 1,000 unit PO DAILY [facility] Last Admin: 06/11/20 08:04 Dose: 1,000 unit Documented by: Dexamethasone (Dexamethasone 2 Mg Tab) 6 mg PO DAILY [facility] Last Admin: 06/11/20 08:24 Dose: 6 mg Documented by: Furosemide (Furosemide 40 Mg Tab) 40 mg PO BID@0900,1600 [facility] Last Admin: 06/11/20 08:05 Dose: 40 mg Documented by: Glimepiride (Glimepiride 1 Mg Tab) 1.5 mg PO BID [facility] Last Admin: 06/11/20 08:04 Dose: 1.5 mg Documented by: Insulin Aspart (Insulin Aspart (Novolog) 100 Unit/Ml Vial) 0 unit SQ ACHS [facility]; Protocol Last Admin: 06/11/20 12:08 Dose: 5 unit Documented by: Insulin Aspart (Insulin Aspart (Novolog) 100 Unit/Ml Vial) 5 unit SQ AC-TID [facility] Last Admin: 06/11/20 12:09 Dose: 5 unit Documented by: Insulin Detemir (Insulin Detemir (Levemir) 100 Unit/Ml Syr) 30 unit SQ HS [facility] Last Admin: 06/10/20 21:18 Dose: 30 unit Documented by: Metoprolol Tartrate (Metoprolol Tartrate 50 Mg Tab) 50 mg PO BID [facility] Last Admin: 06/11/20 08:04 Dose: 50 mg Documented by: Naloxone HCl (Naloxone 0.4 Mg/Ml 1 Ml Vial) 0.2 mg IV Q2M PRN PRN Reason: Opioid Reversal Psyllium Hydrophilic Mucilloid (Psyllium Husk 100% 6 Gm Packet) 6 gm PO DAILY PRN PRN Reason: Constipation Sotalol HCl (Sotalol 80 Mg Tab) 40 mg PO BID [facility] Last Admin: 06/11/20 08:05 Dose: 40 mg Documented by: Spironolactone (Spironolactone 25 Mg Tab) 12.5 mg PO DAILY [facility] Last Admin: 06/11/20 08:04 Dose: 12.5 mg Documented by: Tamsulosin HCl (Tamsulosin 0.4 Mg Cap.Er.24h) 0.4 mg PO DAILY [facility] Last Admin: 06/11/20 08:04 Dose: 0.4 mg Documented by: Zinc Sulfate (Zinc Sulfate 220 Mg Cap) 220 mg PO DAILY [facility] Last Admin: 06/11/20 08:05 Dose: 220 mg Documented by: Objective - Vital Signs Vital signs: Vital Signs Temp 97.7 F 06/11/20 10:28 Pulse 63 06/11/20 10:28 Resp 18 06/11/20 10:28 BP 83/54 06/11/20 10:28 Pulse Ox 91 L 06/11/20 10:28 Intake & Output 06/10/20 06/11/20 06/11/20 18:59 06:59 18:59 Intake Total 240 Output Total 1800 1300 300 Balance -1560 -1300 -300 Intake: Oral 240 Output: Urine 1800 1300 300 Uretheral (Paredes) 900 Other: Voiding Method Indwelling Catheter Indwelling Catheter Indwelling Catheter # Bowel Movements 1 0 - Exam Gen: This is a 75-year-old male awake, alert and oriented 3, well-developed, well-nourished. HEENT: Head is atraumatic, normocephalic. Pupils equal, round. Sclerae is anicteric. NECK: Supple. No JVD. No lymphadenopathy. No thyromegaly. LUNGS: Breath sounds diminished at the bases with a few scattered rhonchi noted. No intercostal retractions. HEART: S1, S2 are muffled ABDOMEN: Soft. Bowel sounds are present. No masses. No tenderness. EXTREMITIES: No pedal edema. No calf tenderness. NEUROLOGICAL: Patient is awake, alert and oriented x3. Cranial nerves 2 through 12 are grossly intact. Mild weakness - Labs CBC & Chem 7: 06/11/20 05:40 06/11/20 05:40 Labs: Abnormal Lab Results - Last 24 Hours (Table) 06/10/20 06/10/20 06/11/20 Range/Units 18:08 20:28 05:40 RBC 4.26 L (4.30-5.90) m/uL Hct 38.7 L (39.0-53.0) % Lymphocytes # 0.7 L (1.0-4.8) k/uL Sodium (135-145) mmol/L BUN (9.0-27.0) mg/dL Est GFR (CKD-EPI)AfAm (60.0-200.0) Est GFR (CKD-EPI)NonAf (60.0-200.0) BUN/Creatinine Ratio (12.00-20.00) Ratio Glucose (70-110) mg/dL POC Glucose (mg/dL) 355 H 472 H (75-99) mg/dL Calcium (8.7-10.3) mg/dL AST (14-35) U/L ALT (10-49) U/L Albumin (3.80-4.90) g/dL Albumin/Globulin Ratio (1.60-3.17) g/dL 06/11/20 06/11/20 06/11/20 Range/Units 05:40 06:55 11:20 RBC (4.30-5.90) m/uL Hct (39.0-53.0) % Lymphocytes # (1.0-4.8) k/uL Sodium 133 L (135-145) mmol/L BUN 53.0 H (9.0-27.0) mg/dL Est GFR (CKD-EPI)AfAm 52.0 L (60.0-200.0) Est GFR (CKD-EPI)NonAf 44.9 L (60.0-200.0) BUN/Creatinine Ratio 35.33 H (12.00-20.00) Ratio Glucose 273 H (70-110) mg/dL POC Glucose (mg/dL) 242 H 306 H (75-99) mg/dL Calcium 8.6 L (8.7-10.3) mg/dL AST 44 H (14-35) U/L ALT 63 H (10-49) U/L Albumin 3.70 L (3.80-4.90) g/dL Albumin/Globulin Ratio 1.48 L (1.60-3.17) g/dL Microbiology - Last 24 Hours (Table) 06/08/20 10:05 Blood Culture - Preliminary Blood No Growth after 72 hours 06/08/20 11:00 Blood Culture - Preliminary Blood No Growth after 72 hours Assessment and Plan Assessment: Acute Covid 19 infection with bilateral pneumonia, left more than right, interstitial viral pneumonia with acute hypoxic respiratory failure, present on admission Hyponatremia, improved Urinary retention Increased creatinine with chronic kidney disease stage III Diabetes mellitus type 2 with hyperglycemia hyperbilirubinemia Increased LDH, increased CRP with elevated inflammatory markers of Covid 19 History of atrial fibrillation, chronic Diabetes mellitus type 2 Hypertension Hyperlipidemia history of myocardial infarction history of degenerative joint disease History of nephrolithiasis History of automated implantable cardioverter defibrillator History of coronary artery disease, stent history of congestive heart failure with chronic systolic dysfunction History of nicotine dependence Full code Plan: Continue current medications, management, and symptomatic treatment. Pulmonary and infectious disease following closely and will continue at this time. Patient is maintained on dexamethasone, vitamin supplements, and has already been on eliquis and will continue. Patient will likely require 2 L of oxygen via nasal cannula upon discharge as patient continues to become dyspneic with exertion. Will order incentive spirometer along with albuterol inhaler. Will continue to monitor vital signs and labs closely. Patient continues to retain urine and will replace indwelling Paredes catheter and have patient follow-up outpatient. Continue to monitor blood sugars and continue with long-acting along with sliding scale and Accu-Cheks before meals and at bedtime. Case management consulted and prescriptions provided for nebulizer, glucometer, and home oxygen once patient is stabilized and discharged. Further recommendations to follow based on clinical course the patient. Guarded prognosis. Possible discharge in 24 hours.
[2020-06-11] MEDS: ALBUTEROL HFA INHALER INHALATION SCH ×2 (16:19→20:58)
[2020-06-11] MEDS ORDERED: SENNOSIDES 8.6 MG TAB PO PRN (16:43)
--- NOTE | 2020-06-11 16:50 | PN ---
PROGRESS NOTE This is a 75-year-old gentleman who was admitted back on June 08. The patient came into the hospital with acute hypoxemic respiratory failure secondary to acute COVID-19 pneumonitis as well as acute exacerbation of chronic systolic heart failure. Currently the patient is doing reasonably well. Because his symptoms began before , he was not a candidate for remdesivir. He does have a history of atrial fibrillation with RVR and had a recent transesophageal echocardiogram and cardioversion. He was discharged the day before . His other medical issues include ischemic cardiomyopathy with an ejection fraction of 35%, status post AICD placement, paroxysmal atrial fibrillation, history of CAD with previous stenting, hypertension, hyperlipidemia, type 2 diabetes and previous tobacco use. Currently, from the pulmonary standpoint, the patient is doing much better. The patient is not receiving any supplemental oxygen at this time. PHYSICAL EXAMINATION: VITAL SIGNS: Current vital signs include a temperature of 97.7, heart rate 63, respiratory rate 18, blood pressure 83/54, and a saturation on room air of 91%. GENERAL APPEARANCE: He appears in no acute distress. HEENT: Examination is grossly unremarkable. NECK: Supple. Full range of motion. No adenopathy. Neck veins are flat. CARDIOVASCULAR: Examination reveals regular rhythm and rate. Heart rate 63. S1, S2 normal. Heart sounds are distant. A soft systolic murmur is noted. LUNGS: Lungs reveal a few scattered rhonchi. No wheezes. A few scattered crackles. Breath sounds equal. ABDOMEN: Soft. Bowel sounds are heard. EXTREMITIES: Intact. No cyanosis, clubbing or edema. SKIN: Without rash. NEUROLOGIC: Neurologic examination is brief but nonfocal. LABS/IMAGING: White count 8.6, hemoglobin 13.7, hematocrit 38.7, platelet count 171,000. Sodium 133, potassium 4.3, chloride 99, CO2 24. BUN and creatinine were 53 and 1.5. The rest of his labs look pretty good. Glucose 273, calcium 8.6, AST 44, ALT 63. Microbiology is currently all negative. The most recent chest x-ray was done on 06/10. It shows slight bilateral basilar infiltrates. CURRENT MEDICATIONS: Reviewed. The patient is currently on albuterol inhaler, Eliquis, vitamin C, aspirin, Lipitor, vitamin D3, Decadron, Lasix, Amaryl, insulin, metoprolol, Narcan, Metamucil, Betapace, Aldactone, Flomax and zinc. ASSESSMENT: 1. Acute hypoxemic respiratory failure, multifactorial, in part related to underlying acute exacerbation of chronic systolic heart failure as well as acute COVID-19- related pneumonitis. On both fronts, the patient is doing much better. He was not a candidate for remdesivir, as his symptoms began before . 2. Recent admission to the hospital for atrial fibrillation with rapid ventricular response, status post transesophageal echocardiogram and cardioversion on 05/22/2020 and discharged home on the day before . 3. Ischemic cardiomyopathy with an ejection fraction of 35%, valvular heart disease in the form of severe mitral valve regurgitation, status post AICD placement. 4. Paroxysmal atrial fibrillation. 5. History of coronary artery disease with previous stenting of the circumflex coronary artery. 6. Hypertension. 7. Hyperlipidemia. 8. Type 2 diabetes mellitus. 9. Previous tobacco use. PLAN: Currently the patient is doing reasonably well. He was on room air; now he is back to one liter. He does not appear to be in any distress. Will continue to follow. Medications are reviewed. Prognosis is guarded. MMODL / IJN: [id number] /
[2020-06-11 17:26] LABS: Glucose,Whole Blood 469 mg/dL (75-99)
[2020-06-11] MEDS: SENNOSIDES 8.6 MG TAB PO SCH (21:26)
[2020-06-11 21:30] LABS: Glucose,Whole Blood 553 mg/dL (75-99)
[2020-06-11] MEDS ORDERED: INSULIN ASPART (NovoLOG) 100 UNIT/ML VIAL SQ ONE (21:33)
[2020-06-11] MEDS: INSULIN DETEMIR (LEVEMIR) 100 UNIT/ML SYR SQ SCH (21:37)
[2020-06-12 06:58] LABS: Glucose,Whole Blood 311 mg/dL (75-99)
[2020-06-12] MEDS: INSULIN ASPART (NovoLOG) 100 UNIT/ML VIAL SQ SCH ×7 (07:27→21:20)
[2020-06-12] MEDS: ASPIRIN 81 MG PO SCH (07:28)
[2020-06-12] MEDS: ZINC SULFATE 220 MG CAP PO SCH (07:28)
[2020-06-12] MEDS: METOPROLOL TARTRATE 50 MG TAB PO SCH ×2 (07:28→21:04)
[2020-06-12] MEDS: SPIRONOLACTONE 25 MG TAB PO SCH (07:28)
[2020-06-12] MEDS: CHOLECALCIFEROL 1,000 UNIT TAB PO SCH (07:28)
[2020-06-12] MEDS: ATORVASTATIN 40 MG TAB PO SCH (07:29)
[2020-06-12] MEDS: FUROSEMIDE 40 MG TAB PO SCH ×2 (07:29→17:21)
[2020-06-12] MEDS: ASCORBIC ACID 500 MG TAB PO SCH ×2 (07:29→21:04)
[2020-06-12] MEDS: SENNOSIDES 8.6 MG TAB PO SCH ×2 (07:29→21:04)
[2020-06-12] MEDS: TAMSULOSIN 0.4 MG CAP.ER.24H PO SCH (07:30)
[2020-06-12] MEDS: APIXABAN 5 MG TAB PO SCH ×2 (07:30→21:04)
[2020-06-12] MEDS: SOTALOL 80 MG TAB PO SCH ×2 (07:30→21:04)
[2020-06-12] MEDS: GLIMEPIRIDE 1 MG TAB PO SCH ×2 (07:31→21:03)
[2020-06-12] MEDS: ALBUTEROL HFA INHALER INHALATION SCH ×4 (08:19→20:02)
[2020-06-12] MEDS ORDERED: dexAMETHasone 2 MG TAB PO SCH (09:00)
[2020-06-12 11:23] LABS: Glucose,Whole Blood 295 mg/dL (75-99)
--- NOTE | 2020-06-12 12:18 | P.PN ---
Subjective Progress Note Date: 06/12/20 Principal diagnosis: Shortness of breath 75-year-old male admitted back on June 08. He came into the hospital for acute hypoxemic respiratory failure, secondary to COVID 19 pneumonia. Currently, the patient's doing much better. In addition, the patient's shortness of breath was in part related to chronic systolic heart failure. He was not a candidate for remdesivir, as his symptoms began before [place]. He does have a history of chronic atrial fibrillation with RVR, and a recent transesophageal echocardiogram, with cardioversion. His other medical issues include ischemic cardiomyopathy, AICD placement, CAD with previous stents, essential hypertension, hyperlipidemia, type 2 diabetes mellitus, and prior tobacco use. Currently, the patient is not requiring any supplemental oxygen. He is hoping to be discharged soon. He denies any shortness of breath, cough, phlegm production, chest tightness, wheezing, chest pain, nausea, vomiting, diarrhea, or abdominal pain. Objective - Vital Signs Vital signs: Vital Signs Temp 97.4 F L 06/12/20 05:00 Pulse 61 06/12/20 10:18 Resp 18 06/12/20 10:18 BP 118/65 06/12/20 10:18 Pulse Ox 93 L 06/12/20 10:18 Intake & Output 06/11/20 06/12/20 06/12/20 18:59 06:59 18:59 Output Total 750 1000 500 Balance -750 -1000 -500 Output: Urine 750 1000 500 Other: Voiding Method Indwelling Catheter Indwelling Catheter Indwelling Catheter # Bowel Movements 0 1 - Exam No acute distress, oriented 3. No supplemental oxygen noted. HEENT examination is grossly unremarkable. Mucous membranes are moist. No oral lesions. Neck supple. Full range of motion. No adenopathy thyromegaly or neck vein distention. Cardiovascular examination reveals regular rhythm rate. S1-S2 normal. No S3 or S4. Heart sounds are distant. Heart rate is 79 bpm. A soft systolic murmur is noted. Lungs reveal a few scattered rhonchi. No wheezes. A few scattered crackles are also appreciated. Breath sounds are equal bilaterally. Abdomen soft bowel sounds are heard. No masses or tenderness. Extremities are intact. No cyanosis clubbing or edema. Skin is without rash or lesion. Neurologic examination is brief but nonfocal. - Labs CBC & Chem 7: 06/11/20 05:40 06/11/20 05:40 Labs: Abnormal Lab Results - Last 24 Hours (Table) 06/11/20 06/11/20 06/12/20 Range/Units 17:18 21:28 06:48 POC Glucose (mg/dL) 469 H 553 H 311 H (75-99) mg/dL 06/12/20 Range/Units 11:05 POC Glucose (mg/dL) 295 H (75-99) mg/dL Microbiology - Last 24 Hours (Table) 06/08/20 10:05 Blood Culture - Preliminary Blood No Growth after 72 hours 06/08/20 11:00 Blood Culture - Preliminary Blood No Growth after 72 hours Assessment and Plan Assessment: Acute hypoxemic respiratory failure, multifactorial, in part related to underlying acute exacerbation of the patient's chronic systolic heart failure, as well as acute COVID19 pneumonia. Recent admission to the hospital for atrial fibrillation with rapid ventricular response, status post transesophageal echocardiogram and cardioversion on 05/22/2020, with discharged home on 05/24/2020. Ischemic cardiomyopathy with an ejection fraction of 35%, valvular heart disease in the form of severe mitral valve regurgitation, status post AICD placement. Paroxysmal atrial fibrillation. History of coronary artery disease, with previous stenting of the circumflex coronary artery. History of essential hypertension. Hyperlipidemia. Type 2 diabetes mellitus. Previous tobacco use. Plan: Plan dated 06/12/2020. The patient's currently doing much better. He's been weaned to room air. He is hoping to be discharged soon. The patient denies any chest pain or chest discomfort. He denies any cough, shortness breath, wheezing, chest congestion, or phlegm production. The patient will follow-up in our office. Additional recommendations and suggestions are forthcoming. Prognosis is guarded given his extensive cardiac history. No additional recommendations are made at this time. Time with Patient: Less than 30
[2020-06-12] MEDS: metFORMIN 500 MG TAB PO SCH ×2 (12:48→17:21)
--- NOTE | 2020-06-12 13:33 | P.PN ---
Subjective Progress Note Date: 06/12/20 This is a 75-year-old male who was recently admitted for increasing shortness of breath and feeling weak along with cough and congestion and apparently had recent exposure to Covid 19 with family members and is being closely monitored. Patient is found to be Covid 19 positive although outside of the window of Remdesivir and currently being managed with dexamethasone along with Lovenox, vitamin C and D, and zinc supplements and will continue at this time. Infectious disease along with pulmonary are following closely. Patient continues to be weak and will be evaluated by PT/OT therapy. Blood sugars continue to be elevated and will continue with long-acting along with sliding scale and will add pre-meal insulin. 06/10/2020 Patient is seen and evaluated in follow-up as morning with no acute overnight issues. Patient is resting comfortably on room air and discussed with nursing staff about maintaining off room air and monitoring closely. Patient was noted to be using 2 L at night. Patient does not normally require any oxygen in the outpatient setting. Patient had been having some urinary retention and was started on Flomax an indwelling Paredes catheter was placed. Urology consulted a nd pending at this time. Blood sugars have been elevated although slightly more controlled and will continue sliding scale, pre-meal, and long-acting with the possibility of going home with insulin as he is only on glyburide and metformin in the outpatient setting. Patient follows with Dr. Miramontes in the outpatient setting. Patient is also maintained on dexamethasone and vitamin C and D supplements along with zinc. PT/OT to evaluate the patient. 06/11/2020 Patient is seen and evaluated today and was seen and evaluated by physical therapy and became dyspneic with minimal exertion and required 2 L of oxygen via nasal cannula. Discussed with case management as patient will likely require oxygen therapy due to Covid 19 pneumonia once discharged. He was seen and evaluated by urology recommending a trial of voiding prior to discharge and Paredes catheter was removed and Bladder Scan for over 400 and patient is likely continuing to retain. Will reorder indwelling Paredes catheter and have patient follow-up with urology outpatient. Sugars continue to be monitored before meals and at bedtime and continues to require pre-meal, sliding scale, and long-acting and will require this upon discharge. Prescriptions provided for glucometer as patient will require before meals and at bedtime testing close monitoring. Patient was on oral antidiabetic medications for diabetes mellitus type 2 and will continue although due to multiple episodes of elevated blood sugars patient will discharge home on long-acting along with sliding scale insulin. Will add albuterol inhaler. 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 Patient would benefit from nebulized treatments although due to recent Covid respiratory is not providing aerosol treatments for Covid 19. 06/12/2020 Patient is seen in follow-up this morning currently on room air although continues to have some dyspnea with exertion. Patient's blood sugars continue to be elevated and will resume metformin and continue with Amaryl along with sliding scale, pre-meal insulin, and long-acting. Patient may likely be going home on insulin as blood sugars have been in the 400 and 500s. Patient will continue with indwelling Paredes catheter as he continued to retain and was seen and evaluated by urology and will follow-up outpatient with Dr. Franco. Patient to continue with Flomax as well. Will continue to monitor blood sugars before meals and at bedtime. Currently no reports of chest pain, worsening shortness of breath, or palpitations. Patient is afebrile. No reports of nausea or vomiting noted and patient is tolerating diet. Review of systems: Constitutional: No reports of fatigue, fever, or chills Cardiovascular: No reports of chest pain or palpitations Respiratory: Reports mild intermittent shortness of breath with exertion and continued cough GI: No reports of nausea, vomiting, or diarrhea : No reports of dysuria, has some retention Neurovascular: No reports of weakness or numbness All medications have been reviewed Active Medications Albuterol Sulfate (Albuterol Hfa Inhaler) 1 puff INHALATION RT-QID [facility] Last Admin: 06/12/20 11:47 Dose: 1 puff Documented by: Apixaban (Apixaban 5 Mg Tab) 5 mg PO BID [facility] Last Admin: 06/12/20 07:30 Dose: 5 mg Documented by: Ascorbic Acid (Ascorbic Acid 500 Mg Tab) 500 mg PO BID [facility] Last Admin: 06/12/20 07:29 Dose: 500 mg Documented by: Aspirin (Aspirin 81 Mg) 81 mg PO DAILY [facility] Last Admin: 06/12/20 07:28 Dose: 81 mg Documented by: Atorvastatin Calcium (Atorvastatin 40 Mg Tab) 40 mg PO DAILY [facility] Last Admin: 06/12/20 07:29 Dose: 40 mg Documented by: Cholecalciferol (Cholecalciferol 1,000 Unit Tab) 1,000 unit PO DAILY [facility] Last Admin: 06/12/20 07:28 Dose: 1,000 unit Documented by: Furosemide (Furosemide 40 Mg Tab) 40 mg PO BID@0900,1600 [facility] Last Admin: 06/12/20 07:29 Dose: 40 mg Documented by: Glimepiride (Glimepiride 1 Mg Tab) 1.5 mg PO BID [facility] Last Admin: 06/12/20 07:31 Dose: 1.5 mg Documented by: Insulin Aspart (Insulin Aspart (Novolog) 100 Unit/Ml Vial) 0 unit SQ ACHS [facility]; Protocol Last Admin: 06/12/20 07:27 Dose: 5 unit Documented by: Insulin Aspart (Insulin Aspart (Novolog) 100 Unit/Ml Vial) 7 unit SQ AC-TID [facility] Last Admin: 06/12/20 07:27 Dose: 7 unit Documented by: Insulin Detemir (Insulin Detemir (Levemir) 100 Unit/Ml Syr) 40 unit SQ HS [facility] Last Admin: 06/11/20 21:37 Dose: 40 unit Documented by: Metformin HCl (Metformin 500 Mg Tab) 500 mg PO BID-W/MEALS [facility] Metoprolol Tartrate (Metoprolol Tartrate 50 Mg Tab) 50 mg PO BID [facility] Last Admin: 06/12/20 07:28 Dose: 50 mg Documented by: Naloxone HCl (Naloxone 0.4 Mg/Ml 1 Ml Vial) 0.2 mg IV Q2M PRN PRN Reason: Opioid Reversal Psyllium Hydrophilic Mucilloid (Psyllium Husk 100% 6 Gm Packet) 6 gm PO DAILY PRN PRN Reason: Constipation Senna (Sennosides 8.6 Mg Tab) 8.6 mg PO BID [facility] Last Admin: 06/12/20 07:29 Dose: 8.6 mg Documented by: Sotalol HCl (Sotalol 80 Mg Tab) 40 mg PO BID [facility] Last Admin: 06/12/20 07:30 Dose: 40 mg Documented by: Spironolactone (Spironolactone 25 Mg Tab) 12.5 mg PO DAILY [facility] Last Admin: 06/12/20 07:28 Dose: 12.5 mg Documented by: Tamsulosin HCl (Tamsulosin 0.4 Mg Cap.Er.24h) 0.4 mg PO DAILY [facility] Last Admin: 06/12/20 07:30 Dose: 0.4 mg Documented by: Zinc Sulfate (Zinc Sulfate 220 Mg Cap) 220 mg PO DAILY [facility] Last Admin: 06/12/20 07:28 Dose: 220 mg Documented by: Objective - Vital Signs Vital signs: Vital Signs Temp 97.4 F L 06/12/20 05:00 Pulse 61 06/12/20 10:18 Resp 18 06/12/20 10:18 BP 118/65 06/12/20 10:18 Pulse Ox 93 L 06/12/20 10:18 Intake & Output 06/11/20 06/12/20 06/12/20 18:59 06:59 18:59 Output Total 750 1000 500 Balance -750 -1000 -500 Output: Urine 750 1000 500 Other: Voiding Method Indwelling Catheter Indwelling Catheter Indwelling Catheter # Bowel Movements 0 1 - Exam Gen: This is a 75-year-old male awake, alert and oriented 3, well-developed, well-nourished. HEENT: Head is atraumatic, normocephalic. Pupils equal, round. Sclerae is anicteric. NECK: Supple. No JVD. No lymphadenopathy. No thyromegaly. LUNGS: Breath sounds diminished at the bases with a few scattered rhonchi noted. No intercostal retractions. HEART: S1, S2 are muffled ABDOMEN: Soft. Bowel sounds are present. No masses. No tenderness. EXTREMITIES: No pedal edema. No calf tenderness. NEUROLOGICAL: Patient is awake, alert and oriented x3. Cranial nerves 2 through 12 are grossly intact. - Labs CBC & Chem 7: 06/11/20 05:40 06/11/20 05:40 Labs: Abnormal Lab Results - Last 24 Hours (Table) 06/11/20 06/11/20 06/11/20 Range/Units 11:20 17:18 21:28 POC Glucose (mg/dL) 306 H 469 H 553 H (75-99) mg/dL 06/12/20 Range/Units 06:48 POC Glucose (mg/dL) 311 H (75-99) mg/dL Microbiology - Last 24 Hours (Table) 06/08/20 10:05 Blood Culture - Preliminary Blood No Growth after 72 hours 06/08/20 11:00 Blood Culture - Preliminary Blood No Growth after 72 hours Assessment and Plan Assessment: Acute Covid 19 infection with bilateral pneumonia, left more than right, interstitial viral pneumonia with acute hypoxic respiratory failure, present on admission Hyponatremia, improved Urinary retention Increased creatinine with chronic kidney disease stage III Diabetes mellitus type 2 with hyperglycemia hyperbilirubinemia Increased LDH, increased CRP with elevated inflammatory markers of Covid 19 History of atrial fibrillation, chronic Diabetes mellitus type 2 Hypertension Hyperlipidemia history of myocardial infarction history of degenerative joint disease History of nephrolithiasis History of automated implantable cardioverter defibrillator History of coronary artery disease, stent history of congestive heart failure with chronic systolic dysfunction History of nicotine dependence Full code Plan: Continue current medications, management, and symptomatic treatment. Pulmonary and infectious disease following closely and will continue at this time. Patient is maintained on vitamin supplements, and has already been on eliquis and will continue. Patient has completed the course of dexamethasone. Patient continues to be slightly dyspneic with exertion and will continue to monitor vital signs closely with the possibility of home oxygen upon discharge. Patient is currently 93-94% on room air and will continue to monitor. Continue to encourage incentive spirometer use at least 10 times every hour while awake. Continue with albuterol inhaler. Patient continues to retain urine and will replace indwelling Paredes catheter and have patient follow-up outpatient. Continue to monitor blood sugars and continue with long-acting along with sliding scale and Accu-Cheks before meals and at bedtime. Metformin has been resumed. Case management consulted and prescriptions provided for glucometer, and home oxygen once patient is stabilized and discharged. Further recommendations to follow based on clinical course the patient. Guarded prognosis. Possible discharge in 24 hours.
--- NOTE | 2020-06-12 15:16 | P.PN ---
Subjective Progress Note Date: 06/12/20 HISTORY OF PRESENT ILLNESS This is a 75-year-old male patient admitted to the hospital for COVID-19 pneum onia. Patient states he is feeling better today. Shortness of breath when he is active. He denies any chest pain, no cough, no abdominal pain. No nausea, vomiting or diarrhea. Patient has been afebrile, heart rate 62, blood pressure 115/67, pulse ox 94% on room air. PHYSICAL EXAMINATION Gen: This is a 75-year-old male. He is resting bed and appears to be in no acute distress. No respiratory distress noted. HEENT: Head is atraumatic, normocephalic. Pupils equal, round. Sclerae is anicteric. NECK: Supple. No JVD. No lymphadenopathy. LUNGS: Decreased breath sounds bilaterally. No wheezing. No intercostal retractions. HEART: Regular rate and rhythm. No murmur. ABDOMEN: Soft. Bowel sounds are present. No masses. No tenderness. EXTREMITIES: No pedal edema. No calf tenderness. NEUROLOGICAL: Patient is awake, alert and oriented x3. ASSESSMENT Acute hypoxic respiratory failure Acute COVID-19 pneumonitis PLAN Continue vitamin C, vitamin D, zinc Continue dexamethasone 6 mg daily Continue eliquis The above dictated assessment and findings were discussed with Dr. Rand. The impression and plan of care have been directed as dictated. Tayla Blunt nurse practitioner acting as scribe for Dr. Rand. Objective - Vital Signs Vital signs: Vital Signs Temp 97.4 F L 06/12/20 05:00 Pulse 61 06/12/20 10:18 Resp 18 06/12/20 10:18 BP 118/65 06/12/20 10:18 Pulse Ox 93 L 06/12/20 10:18 Intake & Output 06/11/20 06/12/20 06/12/20 18:59 06:59 18:59 Output Total 750 1000 500 Balance -750 -1000 -500 Output: Urine 750 1000 500 Other: Voiding Method Indwelling Catheter Indwelling Catheter Indwelling Catheter # Bowel Movements 0 1 - Labs CBC & Chem 7: 06/11/20 05:40 06/11/20 05:40 Labs: Abnormal Lab Results - Last 24 Hours (Table) 06/11/20 06/11/20 06/12/20 Range/Units 17:18 21:28 06:48 POC Glucose (mg/dL) 469 H 553 H 311 H (75-99) mg/dL 06/12/20 Range/Units 11:05 POC Glucose (mg/dL) 295 H (75-99) mg/dL Microbiology - Last 24 Hours (Table) 06/08/20 10:05 Blood Culture - Preliminary Blood No Growth after 72 hours 06/08/20 11:00 Blood Culture - Preliminary Blood No Growth after 72 hours
[2020-06-12 17:09] LABS: Glucose,Whole Blood 451 mg/dL (75-99)
[2020-06-12 18:15] LABS: Hemoglobin A1C 9.6 % (4.0-6.0)
[2020-06-12] MEDS: INSULIN DETEMIR (LEVEMIR) 100 UNIT/ML SYR SQ SCH (21:04)
[2020-06-12 21:16] LABS: Glucose,Whole Blood 384 mg/dL (75-99)
[2020-06-13 07:20] LABS: Glucose,Whole Blood 171 mg/dL (75-99)
[2020-06-13] MEDS: ALBUTEROL HFA INHALER INHALATION SCH ×3 (07:59→16:08)
[2020-06-13] MEDS: ASPIRIN 81 MG PO SCH (08:10)
[2020-06-13] MEDS: ATORVASTATIN 40 MG TAB PO SCH (08:10)
[2020-06-13] MEDS: ASCORBIC ACID 500 MG TAB PO SCH (08:10)
[2020-06-13] MEDS: ZINC SULFATE 220 MG CAP PO SCH (08:10)
[2020-06-13] MEDS: CHOLECALCIFEROL 1,000 UNIT TAB PO SCH (08:10)
[2020-06-13] MEDS: METOPROLOL TARTRATE 50 MG TAB PO SCH (08:10)
[2020-06-13] MEDS: FUROSEMIDE 40 MG TAB PO SCH ×2 (08:10→15:06)
[2020-06-13] MEDS: SOTALOL 80 MG TAB PO SCH (08:10)
[2020-06-13] MEDS: SPIRONOLACTONE 25 MG TAB PO SCH (08:11)
[2020-06-13] MEDS: APIXABAN 5 MG TAB PO SCH (08:11)
[2020-06-13] MEDS: TAMSULOSIN 0.4 MG CAP.ER.24H PO SCH (08:11)
[2020-06-13] MEDS: SENNOSIDES 8.6 MG TAB PO SCH (08:11)
[2020-06-13] MEDS: metFORMIN 500 MG TAB PO SCH ×2 (08:11→17:30)
[2020-06-13] MEDS: INSULIN ASPART (NovoLOG) 100 UNIT/ML VIAL SQ SCH ×6 (08:12→17:31)
--- NOTE | 2020-06-13 10:45 | P.PN ---
Subjective Progress Note Date: 06/13/20 HISTORY OF PRESENT ILLNESS This is a 75-year-old male patient admitted to the hospital for COVID-19 pneum onia. Patient states he continued to feel improvement in his breathing is stable. He is off oxygen. He denies having shortness of breath, cough or chest pain. No abdominal pain. No nausea, vomiting or diarrhea. Patient has been afebrile, heart rate 50, blood pressure 115/67, pulse ox 98% on room air. She states that he is planning to go home today. We'll plan for Paredes to be discontinued. PHYSICAL EXAMINATION Gen: This is a 75-year-old male. He is resting bed and appears to be in no acute distress. No respiratory distress noted. HEENT: Head is atraumatic, normocephalic. Pupils equal, round. Sclerae is anicteric. NECK: Supple. No JVD. No lymphadenopathy. LUNGS: Decreased breath sounds bilaterally. No wheezing. No intercostal retractions. HEART: Regular rate and rhythm. No murmur. ABDOMEN: Soft. Bowel sounds are present. No masses. No tenderness. EXTREMITIES: No pedal edema. No calf tenderness. NEUROLOGICAL: Patient is awake, alert and oriented x3. ASSESSMENT Acute hypoxic respiratory failure Acute COVID-19 pneumonitis PLAN Continue vitamin C, vitamin D, zinc Continue dexamethasone 6 mg daily for 3 day course outpatient Discontinue Paredes Continue eliquis The above dictated assessment and findings were discussed with Dr. Rand. The impression and plan of care have been directed as dictated. Tayla Blutn nurse practitioner acting as scribe for Dr. Rand. Objective - Vital Signs Vital signs: Vital Signs Temp 97.6 F 06/13/20 04:44 Pulse 50 L 06/13/20 04:44 Resp 16 06/13/20 04:44 BP 115/67 06/13/20 04:44 Pulse Ox 98 06/13/20 04:44 Intake & Output 06/12/20 06/13/20 06/13/20 18:59 06:59 18:59 Intake Total 240 Output Total 1200 1300 Balance -1200 -1060 Intake: Oral 240 Output: Urine 1200 1300 Other: Voiding Method Indwelling Catheter Indwelling Catheter Indwelling Catheter # Bowel Movements 1 - Labs CBC & Chem 7: 06/11/20 05:40 06/11/20 05:40 Labs: Abnormal Lab Results - Last 24 Hours (Table) 06/11/20 06/12/20 06/12/20 Range/Units 05:40 11:05 16:59 POC Glucose (mg/dL) 295 H 451 H (75-99) mg/dL Hemoglobin A1c 9.6 H (4.0-6.0) % 06/12/20 06/13/20 Range/Units 21:14 07:18 POC Glucose (mg/dL) 384 H 171 H (75-99) mg/dL Hemoglobin A1c (4.0-6.0) % Microbiology - Last 24 Hours (Table) 06/08/20 10:05 Blood Culture - Preliminary Blood No Growth after 96 hours 06/08/20 11:00 Blood Culture - Preliminary Blood No Growth after 96 hours
[2020-06-13 11:26] LABS: Glucose,Whole Blood 283 mg/dL (75-99)
[2020-06-13 11:45] VITALS: RESP 17
[2020-06-13] MEDS ORDERED: TAMSULOSIN 0.4 MG CAP.ER.24H PO STA (13:47)
--- NOTE | 2020-06-13 13:59 | P.DS ---
<Jenny Moody - Last Filed: 06/13/20 13:48> Providers Expected date of discharge: 06/13/20 Hospital Course: Final diagnosis Acute Covid 19 infection with bilateral pneumonia, left more than right, interstitial viral pneumonia with acute hypoxic respiratory failure, present on admission Hyponatremia, improved Urinary retention Increased creatinine with chronic kidney disease stage III Diabetes mellitus type 2 with hyperglycemia hyperbilirubinemia Increased LDH, increased CRP with elevated inflammatory markers of Covid 19 History of atrial fibrillation, chronic Diabetes mellitus type 2 Hypertension Hyperlipidemia history of myocardial infarction history of degenerative joint disease History of nephrolithiasis History of automated implantable cardioverter defibrillator History of coronary artery disease, stent history of congestive heart failure with chronic systolic dysfunction History of nicotine dependence Full code Discharge disposition Patient is being discharged in a stable condition with guarded prognosis to home. Patient will follow-up with Dr. Miramontes upon discharge. Patient also instructed to follow-up with Dr. Franco urology along with pulmonary in the outpatient setting. Patient will continue on insulin with sliding scale, pre- meal insulin, and long acting insulin and follow-up with primary care provider this week. Total time taken is 35 minutes. Hospital course This is a 75-year-old male who was recently admitted with increasing shortness of breath with weakness and cough along with congestion and was being closely monitored. Patient had a recent exposure to Covid 19 and was found to be Covid 19 positive. Patient was placed on dexamethasone along with Lovenox, vitamin C and D, and zinc supplements and will continue in the outpatient setting. Asians blood sugars also found to be elevated and uncontrolled and patient was placed on insulin and will continue with oral metformin, glyburide has been discontinued, and insulin with pre-meal, sliding scale, and long acting insulin. Patient has been educated and instructed on how to self inject and states he feels comfortable doing so. Patient also had multiple episodes of retention and was seen and evaluated by urology recommending continuing with indwelling Paredes catheter and outpatient urology follow-up. Patient persistent on having Paredes catheter removed and trial void prior to discharge and instructed the patient if he continues to retain will need indwelling Paredes catheter for discharge and follow-up with urology. Appointment has been arranged and scheduled. Patient also instructed to follow-up with primary care provider Dr. Miramontes in the outpatient setting which has been scheduled. Patient instructed to keep a diary of blood sugar readings and monitor blood sugars before meals and at bedtime for primary care follow-up. Patient instructed to hold insulin if blood sugar is less than 120. She verbalized understanding. Infectious disease and pulmonary were following and patient will follow up with pulmonary in the outpatient setting. Patient states he would really like to go home today. Currently no reports of chest pain, shortness of breath, or palpitations. Patient is afebrile. No reports of nausea or vomiting and patient is tolerating diet. Guarded prognosis. On exam vital signs are stable. Temp is 97.8F, pulse is 79, respirations are 17, blood pressure is 123/73, oxygen saturation is 97% on room air. Cardio S1, S2 are muffled. Respiratory shows diminished breath sounds at the bases with a few scattered rhonchi noted. Abdomen is soft and nontender. Nervous system shows no focal deficits. Please refer to medication reconciliation sheet for a list of medications. Patient Condition at Discharge: Stable Plan - Discharge Summary Discharge Rx Participant: Yes New Discharge Prescriptions: New metFORMIN HCL [Glucophage] 500 mg PO BID-W/MEALS tab Zinc Sulfate [Orazinc] 220 mg PO DAILY 30 Days #30 cap Albuterol Inhaler [Ventolin Hfa Inhaler] 1 puff INHALATION RT-QID 30 Days #1 puff Ascorbic Acid [Vitamin C] 500 mg PO BID 30 Days #30 tab Cholecalciferol [Vitamin D3 (25 Mcg = 1000 Iu)] 1,000 unit PO DAILY 30 Days #30 tab Insulin Detemir (Levemir) [Levemir] 40 unit SQ HS 30 Days #4 syr INSULIN ASPART (NovoLOG) [NovoLOG (formulary)] 7 unit SQ AC-TID 30 Days #4 vial INSULIN ASPART (NovoLOG) [NovoLOG (formulary)] 0 unit SQ ACHS 30 Days #5 vial Continue Aspirin [Adult Low Dose Aspirin EC] 81 mg PO DAILY Atorvastatin [Lipitor] 40 mg PO DAILY Psyllium Husk/Aspartame [Metamucil Sugar-Free Powder] 1 scoop PO DAILY PRN PRN Reason: Constipation Apixaban [Eliquis] 5 mg PO BID #60 tab Metoprolol Tartrate [Lopressor] 50 mg PO BID #60 tab Spironolactone [Aldactone] 12.5 mg PO DAILY #30 tab Sotalol [Betapace] 40 mg PO BID #60 tab Furosemide [Lasix] 40 mg PO BID@0900,1600 #60 tab Tamsulosin HCl [Flomax] 0.4 mg PO DAILY #30 capsule Discontinued Glimepiride [Amaryl] 1.5 mg PO BID #0 Discharge Medication List Aspirin [Adult Low Dose Aspirin EC] 81 mg PO DAILY 03/29/19 [History] Apixaban [Eliquis] 5 mg PO BID #60 tab 05/21/20 [Rx] Atorvastatin [Lipitor] 40 mg PO DAILY 05/21/20 [History] Metoprolol Tartrate [Lopressor] 50 mg PO BID #60 tab 05/21/20 [Rx] Psyllium Husk/Aspartame [Metamucil Sugar-Free Powder] 1 scoop PO DAILY PRN 05/21/20 [History] Furosemide [Lasix] 40 mg PO BID@0900,1600 #60 tab 05/24/20 [Rx] Sotalol [Betapace] 40 mg PO BID #60 tab 05/24/20 [Rx] Spironolactone [Aldactone] 12.5 mg PO DAILY #30 tab 05/24/20 [Rx] Tamsulosin HCl [Flomax] 0.4 mg PO DAILY #30 capsule 05/24/20 [Rx] Albuterol Inhaler [Ventolin Hfa Inhaler] 1 puff INHALATION RT-QID 30 Days #1 puff 06/13/20 [Rx] Ascorbic Acid [Vitamin C] 500 mg PO BID 30 Days #30 tab 06/13/20 [Rx] Cholecalciferol [Vitamin D3 (25 Mcg = 1000 Iu)] 1,000 unit PO DAILY 30 Days #30 tab 06/13/20 [Rx] INSULIN ASPART (NovoLOG) [NovoLOG (formulary)] 0 unit SQ ACHS 30 Days #5 vial 06/13/20 [Rx] INSULIN ASPART (NovoLOG) [NovoLOG (formulary)] 7 unit SQ AC-TID 30 Days #4 vial 06/13/20 [Rx] Insulin Detemir (Levemir) [Levemir] 40 unit SQ HS 30 Days #4 syr 06/13/20 [Rx] Zinc Sulfate [Orazinc] 220 mg PO DAILY 30 Days #30 cap 06/13/20 [Rx] metFORMIN HCL [Glucophage] 500 mg PO BID-W/MEALS tab 06/13/20 [Rx] Follow up Appointment(s)/Referral(s): Keesha Miramontes MD [Primary Care Provider] - 06/19/20 9:00 am [facility],Equipment [NON-STAFF] - Boy Nielsen DO [Doctor of Osteopathic Medicine] - 2 Weeks Alex Franco MD [STAFF PHYSICIAN] - 06/29/20 10:40 am (You will keep your appointment with Dr. Mann that was previously made.) [facility] Nurse, [NON-STAFF] - Patient Instructions/Handouts: Albuterol (By breathing), Zinc Sulfate (By mouth), Ascorbic Acid (By mouth), Insulin Aspart, Recombinant (By injection), Vitamin D (By mouth), Insulin Detemir (By injection), Viral Pneumonia (DC), Urinary Retention in Men (GEN), How to Give an Insulin Injection (DC), How to Check your Blood Sugar (DC) Activity/Diet/Wound Care/Special Instructions: Activity Limited until follow-up Follow-up with primary care provider upon discharge Paredes catheter dc'd, continue to monitor output and follow-up with urology in the outpatient setting Continue to monitor blood sugars before meals and at bedtime and treat accordingly with sliding scale Keep a diary of all blood sugar readings in amount of insulin administered and bring to primary care follow-up appointment NovoLog sliding scale 0-150 equals 0 units 151-200 equals 2 units 201-250 equals 4 units 251-300 equals 6 units 301-350 equals 8 units 351-400 equals 10 units Please notify provider if blood sugar is 400 or above Hold insulin if less than 120 blood sugar Continue heart healthy diabetic diet Discharge Disposition: HOME WITH HOME HEALTH SERVICES <PepperPepito E - Last Filed: 06/14/20 00:14> Providers Date of admission: 06/08/20 12:09 Attending physician: Renae Figueroa Consults: 06/08/20 11:59 Consult Physician Routine Consulting Provider: Manpreet Davidson Consult Reason/Comments: covid, weakness Do you want consulting provider notified?: Yes, Notify in am 06/08/20 13:55 Consult Physician Routine Consulting Provider: Brendan Rand Consult Reason/Comments: covid Do you want consulting provider notified?: Yes 06/10/20 08:46 Consult Physician Urgent Consulting Provider: Alex Franco Consult Reason/Comments: urinary retention Do you want consulting provider notified?: Yes Primary care physician: Fe Thao Hospital Course: Patient was recommended to go to subacute rehab however he refused and he wants to go home instead
--- NOTE | 2020-06-13 15:34 | P.PN ---
Subjective Progress Note Date: 06/13/20 Principal diagnosis: Acute hypoxic respiratory failure secondary to an acute exacerbation of chronic systolic congestive heart failure and acute CoVID 19 pneumonitis This is a 75-year-old, white male patient with past medical history of chronic congestive heart failure with systolic dysfunction, status post AICD placement, A. adriana, chronic kidney disease stage III, hypertension, coronary artery disease with stenting of the circumflex, former smoker. Patient had a recent admission to the hospital in May 2020 for A. fib with RVR and acute exacerbation of systolic CHF. Patient underwent transesophageal echocardiogram and cardioversion on 05/22/2020. Patient is on Eliquis for chronic anticoagulation. He was discharged home on 05/24/2020. He states at home he was increasingly short of breath, weak, having difficulty with ambulation, he states he can't catch his breath, but he denied any fever, no significant cough, no body aches, no chest pain, no nausea vomiting or diarrhea. The patient reportedly his at home having fevers. Patient also reports some dark stools, has been compliant with his Eliquis, denied any syncopal episodes. [facility] showed cardiomegaly with left greater than right bibasilar opacities not significant change from most recent chest x-ray. Room air pulse ox was 97% on admission, patient was afebrile, blood pressure stable, EKG showed sinus rhythm with frequent PACs. Lab data showed positive COVID 19 test. Lymphopenia with a lymphocytic, 0.6, d-dimer was negative at 0.22, sodium was 128, potassium is 4.6, chloride is 92, BUN is 51, creatinine 1.6, plasma lactic acid was 1.8, LDH was 879, CRP was 63.9. CT chest without contrast showed multifocal areas of groundglass opacity in the bilateral mid to lower lungs. Physical exam reveals a 75-year-old white male, breathing comfortably, does not appear to be in any acute distress, he is currently on room air, and a pulse ox of 96%. No significant coughing, no chest pain, no rhonchi or wheezes. She has been started on oral Decadron, he is out of the window for Remdesivir treatment, he has been started on vitamins. The patient is seen today 06/09/2020 in follow-up on the regular medical floor. He is awake and alert in no acute distress. Resting quite comfortably in bed. Breathing easier today compared to yesterday. He is maintaining O2 saturations in the mid 90s on room air. White count 7.6. Hemoglobin 13.9. Leukocytes are 0.6. Sodium 133. Potassium 4.4. Creatinine 1.6. Glucose 211. He is anticoagulated with Eliquis. Remains on vitamin supplements, dexamethasone, oral diuretics. The patient is seen today 06/10/2020 follow-up on the regular medical floor. He is currently up in his room walking with a walker. Awake and alert in no acute distress. Maintaining O2 saturations in the mid 90s on room air. Afebrile. Chest x-ray with basilar infiltrates. Blood cultures reveal no growth. White count 10.7. Hemoglobin 13.9. D-dimer 0.24. Sodium 135. Potassium 4.1. Creatinine 1.5. LDH 304. C-reactive protein 5.0. Anticoagulated with Eliquis. Remains on dexamethasone. Oral Lasix. Vitamin supplements. Patient is seen today 06/13/2020 follow-up on the regular medical floor. He is awake and alert in no acute distress. Continue good O2 saturations in the mid 90s on room air. No worsening shortness of breath, cough or congestion. No fever. Hemodynamically stable. He remains on vitamin supplements, anticoagulated with Eliquis. Oral diuretics. Objective - Vital Signs Vital signs: Vital Signs Temp 97.8 F 06/13/20 11:00 Pulse 79 06/13/20 11:00 Resp 17 06/13/20 11:00 BP 123/73 06/13/20 11:00 Pulse Ox 97 06/13/20 11:00 Intake & Output 06/12/20 06/13/20 06/13/20 18:59 06:59 18:59 Intake Total 240 Output Total 1200 1300 Balance -1200 -1060 Intake: Oral 240 Output: Urine 1200 1300 Other: Voiding Method Indwelling Catheter Indwelling Catheter Indwelling Catheter # Bowel Movements 1 - Exam GENERAL EXAM: Alert, active, pleasant 75-year-old gentleman, on room air, comfortable in no apparent distress. HEAD: Normocephalic. EYES: Normal reaction of pupils, equal size. NOSE: Clear with pink turbinates. THROAT: No erythema or exudates. NECK: No masses, no JVD. CHEST: No chest wall deformity. LUNGS: Equal air entry with coarse crackles in the bilateral posterior bases CVS: S1 and S2 normal with no audible murmur, regular rhythm. ABDOMEN: No hepatosplenomegaly, normal bowel sounds, no guarding or rigidity. SPINE: No scoliosis or deformity SKIN: No rashes CENTRAL NERVOUS SYSTEM: No focal deficits, tone is normal in all 4 extremities. EXTREMITIES: There is no peripheral edema. No clubbing, no cyanosis. Pe ripheral pulses are intact. - Labs CBC & Chem 7: 06/11/20 05:40 06/11/20 05:40 Labs: Abnormal Lab Results - Last 24 Hours (Table) 06/11/20 06/12/20 06/12/20 Range/Units 05:40 16:59 21:14 POC Glucose (mg/dL) 451 H 384 H (75-99) mg/dL Hemoglobin A1c 9.6 H (4.0-6.0) % 06/13/20 06/13/20 Range/Units 07:18 11:25 POC Glucose (mg/dL) 171 H 283 H (75-99) mg/dL Hemoglobin A1c (4.0-6.0) % Microbiology - Last 24 Hours (Table) 06/08/20 10:05 Blood Culture - Preliminary Blood No Growth after 120 hours 06/08/20 11:00 Blood Culture - Preliminary Blood No Growth after 120 hours Assessment and Plan Assessment: 1 Acute hypoxic history failure secondary to an acute exacerbation of chronic systolic CHF, and acute COVID 19 related pneumonitis. Patient reports symptoms since before [place], he is out of the therapeutic window for Remdesivir, will be treated conservatively 2 Recent admission for A. fib with RVR, he underwent transesophageal echocardiogram and cardioversion on 05/22/2020, discharged home on 05/24/2020 3 Ischemic cardiomyopathy, with EF of 35%, severely mitral valve regurgitation, status post AICD placement 4 Paroxysmal atrial fibrillation, on Eliquis for chronic anticoagulation, currently in sinus rhythm with frequent PACs 5 History of coronary artery disease with previous stenting of the circumflex 6 Hypertension 7 Hyperlipidemia 8 Diabetes mellitus type 2 9 Former smoker Plan: The patient was seen and evaluated by Dr. Nielsen He is cleared for discharge from the pulmonary standpoint, on room air I, the cosigning physician, performed a history & physical examination of the patient. Lungs sounds with coarse crackles in the bilateral posterior bases. Maintaining good O2 saturations in the 90s on room air. I discussed the assessment and plan of care with my nurse practitioner, Jil Zafar. I attest to the above note as dictated by her.
[2020-06-13 15:54] VITALS: BMI 27.2
[2020-06-13 16:50] LABS: Glucose,Whole Blood 193 mg/dL (75-99)
[2020-06-13 16:56] VITALS: BP 115/71; PULSE 72; TEMP 97.9
== END 2020-06-13 19:22 | disposition home health service (06) | DRG 177 ==
LOC: EC 09:53 → 6NMEDSUR 12:09
PROVIDERS: ADMIT Hospitalist; ATTEND Hospitalist
DX: U07.1 COVID-19 (principal); I50.23 Acute on chronic systolic (congestive) heart failure; J96.01 Acute respiratory failure with hypoxia; J12.82 Pneumonia due to coronavirus disease 2019; E87.1 Hypo-osmolality and hyponatremia; I13.0 Hypertensive heart and chronic kidney disease with heart failure and stage 1 through stage 4 chronic kidney disease, or unspecified chronic kidney disease; I48.0 Paroxysmal atrial fibrillation; E11.65 Type 2 diabetes mellitus with hyperglycemia; E11.22 Type 2 diabetes mellitus with diabetic chronic kidney disease; N18.30 Chronic kidney disease, stage 3 unspecified; E80.6 Other disorders of bilirubin metabolism; I25.10 Atherosclerotic heart disease of native coronary artery without angina pectoris; D72.810 Lymphocytopenia; R33.8 Other retention of urine; I34.0 Nonrheumatic mitral (valve) insufficiency; I25.5 Ischemic cardiomyopathy; J45.20 Mild intermittent asthma, uncomplicated; E78.5 Hyperlipidemia, unspecified; G89.29 Other chronic pain; M54.30 Sciatica, unspecified side; M19.90 Unspecified osteoarthritis, unspecified site; I25.2 Old myocardial infarction; Z95.810 Presence of automatic (implantable) cardiac defibrillator; Z90.49 Acquired absence of other specified parts of digestive tract; Z95.5 Presence of coronary angioplasty implant and graft; Z79.82 Long term (current) use of aspirin; Z79.899 Other long term (current) drug therapy; Z79.01 Long term (current) use of anticoagulants; Z87.442 Personal history of urinary calculi; Z87.891 Personal history of nicotine dependence; Z82.49 Family history of ischemic heart disease and other diseases of the circulatory system; Z80.0 Family history of malignant neoplasm of digestive organs; Z84.1 Family history of disorders of kidney and ureter; Z98.41 Cataract extraction status, right eye; Z98.42 Cataract extraction status, left eye; Z98.890 Other specified postprocedural states
CPT/HCPCS: 36415; 71045; 71250; 80053; 81003; 82728; 83036; 83605; 83615; 83735; 84145; 84484; 85025; 85379; 85610; 85730; 86140; 87040; 87635; 93005; 94640; 94760; 96365; 96375; 99285

== ENCOUNTER 2020-06-14 13:30 | Inpatient (IN) | payer MEDICARE ==
[2020-06-14 13:47] LABS: Glucose,Whole Blood 254 mg/dL (75-99)
[2020-06-14] MEDS ORDERED: SODIUM CHLORIDE 0.9% 1,000 ML IV STA (13:52)
--- NOTE | 2020-06-14 13:55 | ED ---
SOB HPI - General Chief Complaint: Shortness of Breath Stated Complaint: SOB/Trouble urinating Time Seen by Provider: 06/14/20 13:44 Source: patient, family, RN notes reviewed, old records reviewed Mode of arrival: wheelchair Limitations: no limitations - History of Present Illness Initial Comments: This is a 75-year-old male with a recent history of being hospitalized with Covid 19 who was just discharged yesterday who states he is here today because he is not been able urinate since he left also is short of breath has exertional dyspnea he also did have some heartburn today. No nausea no vomiting MD Complaint: shortness of breath - Related Data Home Medications Medication Instructions Recorded Confirmed Aspirin [Adult Low Dose Aspirin EC] 81 mg PO DAILY 03/29/19 06/14/20 Atorvastatin [Lipitor] 40 mg PO DAILY 05/21/20 06/14/20 Psyllium Husk/Aspartame [Metamucil 1 scoop PO DAILY PRN 05/21/20 06/14/20 Sugar-Free Powder] Previous Rx's Medication Instructions Recorded Apixaban [Eliquis] 5 mg PO BID #60 tab 05/21/20 Metoprolol Tartrate [Lopressor] 50 mg PO BID #60 tab 05/21/20 Furosemide [Lasix] 40 mg PO BID@0900,1600 #60 tab 05/24/20 Sotalol [Betapace] 40 mg PO BID #60 tab 05/24/20 Spironolactone [Aldactone] 12.5 mg PO DAILY #30 tab 05/24/20 Tamsulosin HCl [Flomax] 0.4 mg PO DAILY #30 capsule 05/24/20 Albuterol Inhaler [Ventolin Hfa 1 puff INHALATION RT-QID 30 Days 06/13/20 Inhaler] #1 puff Ascorbic Acid [Vitamin C] 500 mg PO BID 30 Days #30 tab 06/13/20 Cholecalciferol [Vitamin D3 (25 1,000 unit PO DAILY 30 Days #30 tab 06/13/20 Mcg = 1000 Iu)] INSULIN ASPART (NovoLOG) [NovoLOG 0 unit SQ ACHS 30 Days #5 vial 06/13/20 (formulary)] INSULIN ASPART (NovoLOG) [NovoLOG 7 unit SQ AC-TID 30 Days #4 vial 06/13/20 (formulary)] Insulin Detemir (Levemir) [Levemir] 40 unit SQ HS 30 Days #4 syr 06/13/20 Zinc Sulfate [Orazinc] 220 mg PO DAILY 30 Days #30 cap 06/13/20 metFORMIN HCL [Glucophage] 500 mg PO BID-W/MEALS tab 06/13/20 Allergies Allergy/AdvReac Type Severity Reaction Status Date / Time No Known Allergies Allergy Verified 06/14/20 15:38 Review of Systems ROS Statement: Those systems with pertinent positive or pertinent negative responses have been documented in the HPI. ROS Other: All systems not noted in ROS Statement are negative. Past Medical History Past Medical History: Atrial Fibrillation, Diabetes Mellitus, Hyperlipidemia, Hy pertension, Myocardial Infarction (non Q-wave), Osteoarthritis (OA) Additional Past Medical History / Comment(s): SEE DR AVILA H&P, KIDNEY STONES chronic back pain , concussion 1968, sciatica Last Myocardial Infarction Date:: 2006 History of Any Multi-Drug Resistant Organisms: None Reported Past Surgical History: AICD, Appendectomy, Cholecystectomy, Heart Catheterization With Stent Additional Past Surgical History / Comment(s): COLONOSCOPY, roel CATARACT. AICD [address]. [address] saucedo h&p 2016 Past Anesthesia/Blood Transfusion Reactions: No Reported Reaction Date of Last Stent Placement:: 2006 Type of Cardiac Device: AICD Device Placement Date:: 2006 [facility] LEFT CHEST Past Psychological History: No Psychological Hx Reported Smoking Status: Former smoker Past Alcohol Use History: Daily Past Drug Use History: None Reported - Past Family History Mother Family Medical History: Coronary Artery Disease (CAD), Renal Disease Father Additional Family Medical History / Comment(s): during medical testing Sister(s) Family Medical History: Cancer Additional Family Medical History / Comment(s): pancreatic cancer General Exam - General Exam Comments Initial Comments: This is a well-developed well-nourished awake alert oriented times 3 male Limitations: no limitations General appearance: alert, in no apparent distress Head exam: Present: atraumatic, normocephalic, normal inspection Eye exam: Present: normal appearance, PERRL, EOMI. Absent: scleral icterus, conjunctival injection, periorbital swelling ENT exam: Present: normal exam, mucous membranes moist Neck exam: Present: normal inspection. Absent: tenderness, meningismus, lymphadenopathy Respiratory exam: Present: decreased breath sounds. Absent: respiratory distress, wheezes, rales, rhonchi, stridor Cardiovascular Exam: Present: regular rate, normal rhythm, normal heart sounds. Absent: systolic murmur, diastolic murmur, rubs, gallop, clicks GI/Abdominal exam: Present: soft, normal bowel sounds, other (Evidence of bladder distention no tenderness palpation). Absent: distended, tenderness, guarding, rebound, rigid Extremities exam: Present: normal inspection, full ROM, normal capillary refill. Absent: tenderness, pedal edema, joint swelling, calf tenderness Back exam: Present: normal inspection Neurological exam: Present: alert, oriented X3, CN II-XII intact Psychiatric exam: Present: normal affect, normal mood Skin exam: Present: warm, dry, intact, normal color. Absent: rash Course Vital Signs 06/14/20 06/14/20 13:32 14:07 Temperature 97.6 F Pulse Rate 75 Respiratory 18 18 Rate Blood Pressure 111/67 O2 Sat by Pulse 95 Oximetry - Reevaluation(s) Reevaluation #1: 06/14/20 15:50 The catheter was placed with 930 mL plus of urine obtained. Patient is feeling improved Medical Decision Making - Medical Decision Making I did discuss findings with the patient doesn't definite evidence of dehydration as well as urinary retention he will be at admitted for observation and IV hydration I did discuss case with Dr. Joe who did come the emergency depar tment and see the patient - Lab Data Result diagrams: 06/14/20 14:01 06/14/20 14:35 Lab Results 06/14/20 06/14/20 06/14/20 Range/Units 13:38 14:01 14:01 WBC 13.4 H (3.8-10.6) k/uL RBC 4.96 (4.30-5.90) m/uL Hgb 16.0 (13.0-17.5) gm/dL Hct 45.0 (39.0-53.0) % MCV 90.7 (80.0-100.0) fL MCH 32.2 (25.0-35.0) pg MCHC 35.5 (31.0-37.0) g/dL RDW 12.2 (11.5-15.5) % Plt Count 279 (150-450) k/uL MPV 8.3 Neutrophils % 73 % Lymphocytes % 15 % Monocytes % 7 % Eosinophils % 2 % Basophils % 1 % Neutrophils # 9.8 H (1.3-7.7) k/uL Lymphocytes # 2.0 (1.0-4.8) k/uL Monocytes # 0.9 (0-1.0) k/uL Eosinophils # 0.3 (0-0.7) k/uL Basophils # 0.2 (0-0.2) k/uL PT 10.8 (9.0-12.0) sec INR 1.0 (<1.2) APTT 23.0 (22.0-30.0) sec Sodium (137-145) mmol/L Potassium (3.5-5.1) mmol/L Chloride (98-107) mmol/L Carbon Dioxide (22-30) mmol/L Anion Gap mmol/L BUN (9-20) mg/dL Creatinine (0.66-1.25) mg/dL Est GFR (CKD-EPI)AfAm (>60 ml/min/1.73 sqM) Est GFR (CKD-EPI)NonAf (>60 ml/min/1.73 sqM) Glucose (74-99) mg/dL POC Glucose (mg/dL) 254 H (75-99) mg/dL POC Glu Quarter Inspector ID Angella Griffith Plasma Lactic Acid Archie (0.7-2.0) mmol/L Calcium (8.4-10.2) mg/dL Magnesium (1.6-2.3) mg/dL Total Bilirubin (0.2-1.3) mg/dL AST (17-59) U/L ALT (4-49) U/L Alkaline Phosphatase (38-126) U/L Creatine Kinase (55-170) U/L Troponin I (0.000-0.034) ng/mL NT-Pro-B Natriuret Pep pg/mL Total Protein (6.3-8.2) g/dL Albumin (3.5-5.0) g/dL 06/14/20 06/14/20 06/14/20 Range/Units 14:01 14:35 14:35 WBC (3.8-10.6) k/uL RBC (4.30-5.90) m/uL Hgb (13.0-17.5) gm/dL Hct (39.0-53.0) % MCV (80.0-100.0) fL MCH (25.0-35.0) pg MCHC (31.0-37.0) g/dL RDW (11.5-15.5) % Plt Count (150-450) k/uL MPV Neutrophils % % Lymphocytes % % Monocytes % % Eosinophils % % Basophils % % Neutrophils # (1.3-7.7) k/uL Lymphocytes # (1.0-4.8) k/uL Monocytes # (0-1.0) k/uL Eosinophils # (0-0.7) k/uL Basophils # (0-0.2) k/uL PT (9.0-12.0) sec INR (<1.2) APTT (22.0-30.0) sec Sodium (137-145) mmol/L Potassium (3.5-5.1) mmol/L Chloride (98-107) mmol/L Carbon Dioxide (22-30) mmol/L Anion Gap mmol/L BUN (9-20) mg/dL Creatinine (0.66-1.25) mg/dL Est GFR (CKD-EPI)AfAm (>60 ml/min/1.73 sqM) Est GFR (CKD-EPI)NonAf (>60 ml/min/1.73 sqM) Glucose (74-99) mg/dL POC Glucose (mg/dL) (75-99) mg/dL POC Glu Quarter Inspector ID Plasma Lactic Acid Archie 2.1 H* (0.7-2.0) mmol/L Calcium (8.4-10.2) mg/dL Magnesium (1.6-2.3) mg/dL Total Bilirubin (0.2-1.3) mg/dL AST (17-59) U/L ALT (4-49) U/L Alkaline Phosphatase (38-126) U/L Creatine Kinase (55-170) U/L Troponin I <0.012 (0.000-0.034) ng/mL NT-Pro-B Natriuret Pep 1110 pg/mL Total Protein (6.3-8.2) g/dL Albumin (3.5-5.0) g/dL 06/14/20 Range/Units 14:35 WBC (3.8-10.6) k/uL RBC (4.30-5.90) m/uL Hgb (13.0-17.5) gm/dL Hct (39.0-53.0) % MCV (80.0-100.0) fL MCH (25.0-35.0) pg MCHC (31.0-37.0) g/dL RDW (11.5-15.5) % Plt Count (150-450) k/uL MPV Neutrophils % % Lymphocytes % % Monocytes % % Eosinophils % % Basophils % % Neutrophils # (1.3-7.7) k/uL Lymphocytes # (1.0-4.8) k/uL Monocytes # (0-1.0) k/uL Eosinophils # (0-0.7) k/uL Basophils # (0-0.2) k/uL PT (9.0-12.0) sec INR (<1.2) APTT (22.0-30.0) sec Sodium 129 L (137-145) mmol/L Potassium 5.7 H (3.5-5.1) mmol/L Chloride 94 L (98-107) mmol/L Carbon Dioxide 24 (22-30) mmol/L Anion Gap 11 mmol/L BUN 78 H (9-20) mg/dL Creatinine 1.95 H (0.66-1.25) mg/dL Est GFR (CKD-EPI)AfAm 38 (>60 ml/min/1.73 sqM) Est GFR (CKD-EPI)NonAf 33 (>60 ml/min/1.73 sqM) Glucose 255 H (74-99) mg/dL POC Glucose (mg/dL) (75-99) mg/dL POC Glu Quarter Inspector ID Plasma Lactic Acid Archie (0.7-2.0) mmol/L Calcium 9.1 (8.4-10.2) mg/dL Magnesium 1.6 (1.6-2.3) mg/dL Total Bilirubin 1.8 H (0.2-1.3) mg/dL AST 37 (17-59) U/L ALT 55 H (4-49) U/L Alkaline Phosphatase 112 (38-126) U/L Creatine Kinase 33 L (55-170) U/L Troponin I (0.000-0.034) ng/mL NT-Pro-B Natriuret Pep pg/mL Total Protein 7.0 (6.3-8.2) g/dL Albumin 3.5 (3.5-5.0) g/dL - EKG Data -: EKG Interpreted by Me EKG Comments: Sinus rhythm with PACs noted rate 67. 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
[2020-06-14 14:12] LABS: Basophils # (A) 0.2 k/uL (0-0.2); Basophils % (A) 1 %; Eosinophils # (A) 0.3 k/uL (0-0.7); Eosinophils % (A) 2 %; Lymphocytes % (A) 15 %; MCH 32.2 pg (25.0-35.0); MCHC 35.5 g/dL (31.0-37.0); MCV 90.7 fL (80.0-100.0); Mean Platelet Volume 8.3; Monocytes # (A) 0.9 k/uL (0-1.0); Monocytes % (A) 7 %; Neutrophils # (A) 9.8 k/uL (1.3-7.7); Neutrophils % (A) 73 %; Platelet Count 279 k/uL (150-450); RBC 4.96 m/uL (4.30-5.90); RDW 12.2 % (11.5-15.5); WBC 13.4 k/uL (3.8-10.6)
[2020-06-14 14:27] LABS: Prothrombin Time 10.8 sec (9.0-12.0)
[2020-06-14 14:57] LABS: Albumin 3.5 g/dL (3.5-5.0); Calcium 9.1 mg/dL (8.4-10.2); Magnesium 1.6 mg/dL (1.6-2.3); Potassium 5.7 mmol/L (3.5-5.1); Total Bilirubin 1.8 mg/dL (0.2-1.3)
[2020-06-14] MEDS ORDERED: NALOXONE 0.4 MG/ML 1 ML VIAL IV PRN (15:53)
--- NOTE | 2020-06-14 15:56 | XR ---
EXAMINATION TYPE: XR chest 2V DATE OF EXAM: 06/14/2020 COMPARISON: 06/10/2020 TECHNIQUE: PA and lateral views submitted. HISTORY: Shortness of breath FINDINGS: Heart is enlarged and there is diffuse hyperinflation. Cardiac device noted. Arthropathy shoulders. N o pneumothorax or pleural effusion. Hypertrophic and degenerative change of the spine. Coarsened inte rstitium noted. IMPRESSION: 1. COPD with perihilar predominantly interstitial infiltrates.
[2020-06-14] MEDS ORDERED: PSYLLIUM HUSK 100% 6 GM PACKET PO PRN (16:00)
[2020-06-14] MEDS: FUROSEMIDE 40 MG TAB PO SCH (16:45)
[2020-06-14] MEDS: metFORMIN 500 MG TAB PO SCH (18:10)
[2020-06-14] MEDS: INSULIN ASPART (NovoLOG) 100 UNIT/ML VIAL SQ SCH ×2 (18:10→21:00)
[2020-06-14] MEDS: SODIUM CHLORIDE 0.9% 1,000 ML IV SCH (18:12)
[2020-06-14] MEDS: ALBUTEROL HFA INHALER INHALATION SCH ×2 (20:09→20:43)
[2020-06-14] MEDS: ASCORBIC ACID 500 MG TAB PO SCH (21:00)
[2020-06-14] MEDS: APIXABAN 5 MG TAB PO SCH (21:00)
[2020-06-14] MEDS ORDERED: INSULIN DETEMIR (LEVEMIR) 100 UNIT/ML SYR SQ SCH (21:00)
[2020-06-14] MEDS: METOPROLOL TARTRATE 50 MG TAB PO SCH (21:00)
[2020-06-14] MEDS: SOTALOL 80 MG TAB PO SCH (21:01)
[2020-06-14 22:49] VITALS: RESP 16
[2020-06-15] MEDS ORDERED: MELATONIN 3 MG TABLET PO PRN (02:02)
[2020-06-15] MEDS: SODIUM CHLORIDE 0.9% 1,000 ML IV SCH ×2 (02:13→09:32)
[2020-06-15 06:58] LABS: Basophils # (A) 0.1 k/uL (0-0.2); Basophils % (A) 1 %; Eosinophils # (A) 0.3 k/uL (0-0.7); Eosinophils % (A) 2 %; HCT 40.6 % (39.0-53.0); HGB 14.5 gm/dL (13.0-17.5); Lymphocytes # (A) 1.8 k/uL (1.0-4.8); Lymphocytes % (A) 15 %; MCH 32.2 pg (25.0-35.0); MCHC 35.8 g/dL (31.0-37.0); MCV 89.8 fL (80.0-100.0); Mean Platelet Volume 8.3; Monocytes # (A) 0.8 k/uL (0-1.0); Monocytes % (A) 7 %; Neutrophils # (A) 8.7 k/uL (1.3-7.7); Neutrophils % (A) 73 %; Platelet Count 223 k/uL (150-450); RBC 4.52 m/uL (4.30-5.90); RDW 12.2 % (11.5-15.5); WBC 11.8 k/uL (3.8-10.6)
[2020-06-15 07:24] LABS: Glucose,Whole Blood 84 mg/dL (75-99)
[2020-06-15] MEDS: INSULIN ASPART (NovoLOG) 100 UNIT/ML VIAL SQ SCH ×4 (07:24→11:46)
[2020-06-15] MEDS: METOPROLOL TARTRATE 50 MG TAB PO SCH (07:39)
[2020-06-15] MEDS: metFORMIN 500 MG TAB PO SCH (07:42)
[2020-06-15] MEDS: APIXABAN 5 MG TAB PO SCH (07:43)
[2020-06-15] MEDS: ASCORBIC ACID 500 MG TAB PO SCH (07:45)
[2020-06-15] MEDS: SOTALOL 80 MG TAB PO SCH (07:45)
[2020-06-15] MEDS: FUROSEMIDE 40 MG TAB PO SCH ×2 (07:46→16:17)
[2020-06-15] MEDS: ALBUTEROL HFA INHALER INHALATION SCH ×3 (08:20→15:56)
[2020-06-15] MEDS ORDERED: ATORVASTATIN 40 MG TAB PO SCH (09:00)
[2020-06-15] MEDS ORDERED: ASPIRIN 81 MG PO SCH (09:00)
[2020-06-15] MEDS ORDERED: CHOLECALCIFEROL 1,000 UNIT TAB PO SCH (09:00)
[2020-06-15] MEDS ORDERED: SPIRONOLACTONE 25 MG TAB PO SCH (09:00)
[2020-06-15] MEDS ORDERED: TAMSULOSIN 0.4 MG CAP.ER.24H PO SCH (09:00)
[2020-06-15] MEDS ORDERED: ZINC SULFATE 220 MG CAP PO SCH (09:00)
[2020-06-15 09:51] LABS: African American GFR (CKD) 48.1 (60.0-200.0); Anion Gap 8.1 mmol/L (4.00-12.00); BUN/Creat Ratio 46.25 Ratio (12.00-20.00); Calcium 8.8 mg/dL (8.7-10.3); Carbon Dioxide 24.9 mmol/L (21.6-31.8); Non-African American GFR(CKD) 41.5 (60.0-200.0); Potassium 4.7 mmol/L (3.5-5.5)
[2020-06-15 11:24] LABS: Glucose,Whole Blood 84 mg/dL (75-99)
[2020-06-15 13:27] LABS: Glucose,Whole Blood 67 mg/dL (75-99)
[2020-06-15] MEDS ORDERED: SODIUM CHLORIDE 0.9% 250 ML IV ONE (14:14)
[2020-06-15] MEDS ORDERED: DEXTROSE 5%-0.9% NACL 1,000 ML IV SCH (14:15)
--- NOTE | 2020-06-15 15:57 | P.HPIM ---
History of Present Illness Please consider this note as combined H&P and discharge summary Diagnoses: Acute urinary retention due to noncompliance to medical advice. Paredes catheter replaced Noncompliance Recently discharged from the hospital for Acute Covid 19 infection with bilateral pneumonia, left more than right, interstitial viral pneumonia with acute hypoxic respiratory failure, clinically stable Hyponatremia, improved Increased creatinine with chronic kidney disease stage III, improved Diabetes mellitus type 2 with hypoglycemia. Improved Dehydration and low blood pressure on admission, improved hyperbilirubinemia, improved Increased LDH, increased CRP with elevated inflammatory markers of Covid 19 History of atrial fibrillation, chronic Diabetes mellitus type 2 Hypertension Hyperlipidemia history of myocardial infarction history of degenerative joint disease History of nephrolithiasis History of automated implantable cardioverter defibrillator History of coronary artery disease, stent history of congestive heart failure with chronic systolic dysfunction History of nicotine dependence Full code Hospital course: This is a 75-year-old, white male patient with past medical history of chronic congestive heart failure with systolic dysfunction, status post AICD placement, A. fib, chronic kidney disease stage III, hypertension, coronary artery disease with stenting of the circumflex, former smoker. He was recently discharged from the hospital 06/08-06/13 for acute Covid pneumonia and acute systolic CHF, h epatitis therapy and he gets cleared for discharge, and also he had urinary retention with Paredes catheter placed for him however he wanted Paredes catheter to be removed upon discharge against recommendation of the medical team. Also he refused to go to rehab recommendation of physical therapy. After discharge within 24 hours he came back to the hospital complaining of from acute urinary retention, Paredes catheter was replaced back Also he was dehydrated, hypoglycemic hypotensive, he was treated with IV fluids and he feels better and back to his baseline. Also his insulin was lowered from Levemir 40 units down to 30 units daily, also lowered NovoLog from 7 units down to 5 units with meals. Currently patient denies chest pain or dyspnea. No change in urine or bowel habits. No fever Problems and management plan were discussed with the patient and he verbalized understanding and acceptance Patient was found stable and can be discharged home however he needs follow-up as an outpatient. Patient was instructed to follow up with PCP Dr. Miramontes within one week and patient agrees. Also patient was instructed to follow-up with Dr. Nielsen field party manager in 2 weeks with the appointments made for him or he will make his own appointment Gen: patient is a AAOx3, no distress CVS: S1-S2, RRR, no murmur Lungs: B/L CTA, no wheezing Abdomen: soft, no distention, no tenderness, positive bowel sounds. Paredes catheter is in place Extremity: no leg edema or induration Time spent more than 35 minutes Past Medical History Past Medical History: Atrial Fibrillation, Diabetes Mellitus, Hyperlipidemia, Hypertension, Myocardial Infarction (non Q-wave), Osteoarthritis (OA) Additional Past Medical History / Comment(s): SEE DR FIELD'S H&P, KIDNEY STONES chronic back pain , concussion 1968, sciatica Last Myocardial Infarction Date:: 2006 History of Any Multi-Drug Resistant Organisms: None Reported Past Surgical History: AICD, Appendectomy, Cholecystectomy, Heart Catheterization With Stent Additional Past Surgical History / Comment(s): COLONOSCOPY, roel CATARACT. AICD [address]. [address] saucedo h&p 2016 Past Anesthesia/Blood Transfusion Reactions: No Reported Reaction Date of Last Stent Placement:: 2006 Type of Cardiac Device: AICD Device Placement Date:: 2006 [facility] LEFT CHEST Smoking Status: Former smoker - Past Family History Mother Family Medical History: Coronary Artery Disease (CAD), Renal Disease Father Additional Family Medical History / Comment(s): during medical testing Sister(s) Family Medical History: Cancer Additional Family Medical History / Comment(s): pancreatic cancer Medications and Allergies Home Medications Medication Instructions Recorded Confirmed Type RX: Aspirin [Adult Low Dose 81 mg PO DAILY 03/29/19 06/14/20 History Aspirin EC] RX: Apixaban [Eliquis] 5 mg PO BID #60 tab 05/21/20 06/14/20 Rx RX: Atorvastatin [Lipitor] 40 mg PO DAILY 05/21/20 06/14/20 History RX: Metoprolol Tartrate [Lopressor] 50 mg PO BID #60 tab 05/21/20 06/14/20 Rx RX: Psyllium Husk/Aspartame 1 scoop PO DAILY PRN 05/21/20 06/14/20 History [Metamucil Sugar-Free Powder] RX: Furosemide [Lasix] 40 mg PO BID@0900,1600 #60 tab 05/24/20 06/14/20 Rx RX: Sotalol [Betapace] 40 mg PO BID #60 tab 05/24/20 06/14/20 Rx RX: Spironolactone [Aldactone] 12.5 mg PO DAILY #30 tab 05/24/20 06/14/20 Rx RX: Tamsulosin HCl [Flomax] 0.4 mg PO DAILY #30 capsule 05/24/20 06/14/20 Rx RX: Albuterol Inhaler [Ventolin 1 puff INHALATION RT-QID 30 Days 06/13/20 06/14/20 Rx Hfa Inhaler] #1 puff RX: Ascorbic Acid [Vitamin C] 500 mg PO BID 30 Days #30 tab 06/13/20 06/14/20 Rx RX: Cholecalciferol [Vitamin D3 1,000 unit PO DAILY 30 Days #30 tab 06/13/20 06/14/20 Rx (25 Mcg = 1000 Iu)] RX: INSULIN ASPART (NovoLOG) 0 unit SQ ACHS 30 Days #5 vial 06/13/20 06/14/20 Rx [NovoLOG (formulary)] RX: INSULIN ASPART (NovoLOG) 7 unit SQ AC-TID 30 Days #4 vial 06/13/20 06/14/20 Rx [NovoLOG (formulary)] RX: Insulin Detemir (Levemir) 40 unit SQ HS 30 Days #4 syr 06/13/20 06/14/20 Rx [Levemir] RX: Zinc Sulfate [Orazinc] 220 mg PO DAILY 30 Days #30 cap 06/13/20 06/14/20 Rx RX: metFORMIN HCL [Glucophage] 500 mg PO BID-W/MEALS tab 06/13/20 06/14/20 Rx Allergies Allergy/AdvReac Type Severity Reaction Status Date / Time No Known Allergies Allergy Verified 06/14/20 15:38 Physical Exam Vitals: Vital Signs Temp Pulse Resp BP Pulse Ox 06/15/20 11:39 97.8 F 67 16 96/58 99 06/15/20 09:52 98 06/15/20 05:00 98.0 F 56 L 16 98/55 96 06/15/20 02:45 88 16 104/64 95 06/14/20 22:48 97.4 F L 64 16 105/66 96 06/14/20 20:50 66 108/64 94 L 06/14/20 17:49 98.0 F 64 18 98/61 96 Intake and Output 06/15/20 06/15/20 06/15/20 06:59 14:59 22:59 Intake Total 1170 Output Total 700 1000 Balance 470 -1000 Intake: Intake, IV Titration 1170 Amount Sodium Chloride 0.9% 1, 1170 000 ml @ 130 mls/hr IV . [id number] [facility] Rx#:[id number] Output: Urine 700 1000 Uretheral (Paredes) 700 1000 Other: Voiding Method Indwelling Catheter # Bowel Movements 1 Results CBC & Chem 7: 06/15/20 06:31 06/15/20 06:31 Labs: Abnormal Lab Results - Last 24 Hours (Table) 06/15/20 06/15/20 06/15/20 Range/Units 06:31 06:31 13:26 WBC 11.8 H (3.8-10.6) k/uL Neutrophils # 8.7 H (1.3-7.7) k/uL Sodium 134 L (135-145) mmol/L BUN 74.0 H (9.0-27.0) mg/dL Creatinine 1.6 H (0.6-1.5) mg/dL Est GFR (CKD-EPI)AfAm 48.1 L (60.0-200.0) Est GFR (CKD-EPI)NonAf 41.5 L (60.0-200.0) BUN/Creatinine Ratio 46.25 H (12.00-20.00) Ratio Glucose 61 L (70-110) mg/dL POC Glucose (mg/dL) 67 L (75-99) mg/dL Thrombosis Risk Factor Assmnt - Choose All That Apply Any of the Below Risk Factors Present?: Yes Each Factor Represents 1 point: Obesity (BMI >25), Serious lung disease incl. pneumonia (< 1month) Other Risk Factors: Yes Each Risk Factor Represents 3 Points: Age 75 years or older Other congenital or acquired thrombophilia - If yes, enter type in comment: No Thrombosis Risk Factor Assessment Total Risk Factor Score: 5 Thrombosis Risk Factor Assessment Level: High Risk
[2020-06-15 16:41] VITALS: BP 94/54; PULSE 68; TEMP 97.5
[2020-06-15] MEDS ORDERED: INSULIN ASPART (NovoLOG) 100 UNIT/ML VIAL SQ SCH ×2 (17:30)
[2020-06-15] MEDS ORDERED: INSULIN DETEMIR (LEVEMIR) 100 UNIT/ML SYR SQ SCH (21:00)
[2020-06-18 08:10] LABS: Glucose,Whole Blood 258 mg/dL (75-99)
[2020-06-18 08:10] LABS: Glucose,Whole Blood 74 mg/dL (75-99)
[2020-06-18 08:10] LABS: Glucose,Whole Blood 80 mg/dL (75-99)
[2020-06-18 08:10] LABS: Glucose,Whole Blood 107 mg/dL (75-99)
[2020-06-18 08:10] LABS: Glucose,Whole Blood 261 mg/dL (75-99)
== END 2020-06-15 16:53 | DRG 695 ==
LOC: EC 13:30 → 6NMEDSUR 15:58
PROVIDERS: ADMIT Internal Medicine; ATTEND Internal Medicine
DX: R33.8 Other retention of urine (principal); U07.1 COVID-19; J12.82 Pneumonia due to coronavirus disease 2019; I13.0 Hypertensive heart and chronic kidney disease with heart failure and stage 1 through stage 4 chronic kidney disease, or unspecified chronic kidney disease; I48.20 Chronic atrial fibrillation, unspecified; R17 Unspecified jaundice; I50.22 Chronic systolic (congestive) heart failure; E87.1 Hypo-osmolality and hyponatremia; E11.649 Type 2 diabetes mellitus with hypoglycemia without coma; E11.22 Type 2 diabetes mellitus with diabetic chronic kidney disease; I95.9 Hypotension, unspecified; Z79.4 Long term (current) use of insulin; N18.30 Chronic kidney disease, stage 3 unspecified; E78.5 Hyperlipidemia, unspecified; I25.2 Old myocardial infarction; M19.90 Unspecified osteoarthritis, unspecified site; G89.29 Other chronic pain; E86.0 Dehydration; E66.9 Obesity, unspecified; I25.10 Atherosclerotic heart disease of native coronary artery without angina pectoris; Z68.27 Body mass index [BMI] 27.0-27.9, adult; Z79.899 Other long term (current) drug therapy; Z79.82 Long term (current) use of aspirin; Z79.01 Long term (current) use of anticoagulants; Z87.442 Personal history of urinary calculi; Z95.810 Presence of automatic (implantable) cardiac defibrillator; Z90.49 Acquired absence of other specified parts of digestive tract; Z95.5 Presence of coronary angioplasty implant and graft; Z98.42 Cataract extraction status, left eye; Z98.41 Cataract extraction status, right eye; Z87.891 Personal history of nicotine dependence; Z91.19 Patient's noncompliance with other medical treatment and regimen; Z87.01 Personal history of pneumonia (recurrent); Z87.820 Personal history of traumatic brain injury; Z84.1 Family history of disorders of kidney and ureter; Z80.0 Family history of malignant neoplasm of digestive organs; Z82.49 Family history of ischemic heart disease and other diseases of the circulatory system
CPT/HCPCS: 36415; 71046; 80048; 80053; 82550; 83036; 83605; 83735; 83880; 84484; 85025; 85610; 85730; 93005; 94640; 96360; 96361; 99285

== ENCOUNTER 2020-08-01 02:03 | Emergency (ER) | payer MEDICARE ==
[2020-08-01 02:11] LABS: Glucose,Whole Blood 191 mg/dL (75-99)
[2020-08-01 02:12] VITALS: RESP 16; TEMP 97.8
[2020-08-01 03:26] LABS: Calcium 8.8 mg/dL (8.4-10.2); Potassium 4.7 mmol/L (3.5-5.1)
[2020-08-01 03:39] LABS: Anisocytosis Slight; Basophils # (A) 0.1 k/uL (0-0.2); Basophils % (A) 1 %; Eosinophils # (A) 0.2 k/uL (0-0.7); Eosinophils % (A) 3 %; HCT 26.7 % (39.0-53.0); Lymphocytes # (A) 1.2 k/uL (1.0-4.8); Lymphocytes % (A) 19 %; MCH 33.7 pg (25.0-35.0); MCHC 34.9 g/dL (31.0-37.0); Macrocytosis Slight; Mean Platelet Volume 7.3; Monocytes # (A) 0.4 k/uL (0-1.0); Monocytes % (A) 7 %; Neutrophils # (A) 4.6 k/uL (1.3-7.7); Neutrophils % (A) 70 %; Platelet Count 235 k/uL (150-450); RBC 2.76 m/uL (4.30-5.90); RDW 16.1 % (11.5-15.5); WBC 6.6 k/uL (3.8-10.6)
[2020-08-01 03:41] LABS: HGB 9.3 gm/dL (13.0-17.5); MCV 96.7 fL (80.0-100.0)
[2020-08-01 04:11] LABS: Glucose,Whole Blood 131 mg/dL (75-99)
[2020-08-01 05:40] LABS: Glucose,Whole Blood 172 mg/dL (75-99)
--- NOTE | 2020-08-01 05:41 | ED ---
General Adult HPI - General Chief complaint: Recheck/Abnormal Lab/Rx Stated complaint: diabetic issue Time Seen by Provider: 08/01/20 02:08 Source: patient, EMS Mode of arrival: EMS Limitations: no limitations - History of Present Illness Initial comments: This patient is a 75-year-old man, with history of diabetes, who presents for an accidental insulin overdose. The patient states that his insulin dosing regimen is new to him, and that by mistake he had taken 40 units of insulin instead of the prescribed 30 units. He states that he began feeling funny and he took 1 glucose tablet when he did not feel better he took a second and called EMS. The patient did receive an amp of dextrose during transportation here and states that he is feeling much better. Onset/Timin -: hour(s) Severity scale (1-10): 0 Consistency: constant Improves with: none Worsens with: none Associated Symptoms: confusion, diaphoresis Treatments Prior to Arrival: other (Dextrose) - Related Data Home Medications Medication Instructions Recorded Confirmed Aspirin [Adult Low Dose Aspirin EC] 81 mg PO DAILY 03/29/19 06/14/20 Atorvastatin [Lipitor] 40 mg PO DAILY 05/21/20 06/14/20 Psyllium Husk/Aspartame [Metamucil 1 scoop PO DAILY PRN 05/21/20 06/14/20 Sugar-Free Powder] Previous Rx's Medication Instructions Recorded Apixaban [Eliquis] 5 mg PO BID #60 tab 05/21/20 Metoprolol Tartrate [Lopressor] 50 mg PO BID #60 tab 05/21/20 Furosemide [Lasix] 40 mg PO BID@0900,1600 #60 tab 05/24/20 Sotalol [Betapace] 40 mg PO BID #60 tab 05/24/20 Spironolactone [Aldactone] 12.5 mg PO DAILY #30 tab 05/24/20 Tamsulosin HCl [Flomax] 0.4 mg PO DAILY #30 capsule 05/24/20 Albuterol Inhaler [Ventolin Hfa 1 puff INHALATION RT-QID 30 Days 06/13/20 Inhaler] #1 puff Ascorbic Acid [Vitamin C] 500 mg PO BID 30 Days #30 tab 06/13/20 Cholecalciferol [Vitamin D3 (25 1,000 unit PO DAILY 30 Days #30 tab 06/13/20 Mcg = 1000 Iu)] INSULIN ASPART (NovoLOG) [NovoLOG 0 unit SQ ACHS 30 Days #5 vial 06/13/20 (formulary)] Zinc Sulfate [Orazinc] 220 mg PO DAILY 30 Days #30 cap 06/13/20 INSULIN ASPART (NovoLOG) [NovoLOG 0 unit SQ ACHS vial 06/15/20 (formulary)] INSULIN ASPART (NovoLOG) [NovoLOG 3 unit SQ AC-TID 30 Days #4 vial 06/15/20 (formulary)] Insulin Detemir (Levemir) [Levemir] 30 unit SQ HS syr 06/15/20 Melatonin 3 mg PO HS PRN tablet 06/15/20 Allergies Allergy/AdvReac Type Severity Reaction Status Date / Time No Known Allergies Allergy Verified 08/01/20 02:12 Review of Systems ROS Statement: Those systems with pertinent positive or pertinent negative responses have been documented in the HPI. ROS Other: All systems not noted in ROS Statement are negative. Constitutional: Denies: fever, chills Eyes: Denies: vision change Respiratory: Denies: cough, dyspnea Cardiovascular: Denies: chest pain, palpitations, syncope Gastrointestinal: Denies: abdominal pain, nausea, vomiting Genitourinary: Denies: dysuria, hematuria Musculoskeletal: Denies: back pain Skin: Denies: rash Neurological: Denies: headache, weakness, numbness Past Medical History Past Medical History: Atrial Fibrillation, Diabetes Mellitus, Hyperlipidemia, Hypertension, Myocardial Infarction (non Q-wave), Osteoarthritis (OA) Additional Past Medical History / Comment(s): SEE DR FIELD'S H&P, KIDNEY STONES chronic back pain , concussion 1969, sciatica Last Myocardial Infarction Date:: 2006 History of Any Multi-Drug Resistant Organisms: None Reported Past Surgical History: AICD, Appendectomy, Cholecystectomy, Heart Catheterization With Stent Additional Past Surgical History / Comment(s): COLONOSCOPY, roel CATARACT. AICD 2006. see dr saucedo h&p 2016 Past Anesthesia/Blood Transfusion Reactions: No Reported Reaction Date of Last Stent Placement:: 2006 Type of Cardiac Device: AICD Device Placement Date:: 2006 [facility] LEFT CHEST Past Psychological History: No Psychological Hx Reported Smoking Status: Former smoker Past Alcohol Use History: Daily - Past Family History Mother Family Medical History: Coronary Artery Disease (CAD), Renal Disease Father Additional Family Medical History / Comment(s): during medical testing Sister(s) Family Medical History: Cancer Additional Family Medical History / Comment(s): pancreatic cancer General Exam Limitations: no limitations General appearance: alert, in no apparent distress Head exam: Present: atraumatic, normocephalic Eye exam: Present: normal appearance. Absent: scleral icterus, conjunctival injection ENT exam: Present: normal oropharynx Neck exam: Present: normal inspection Respiratory exam: Present: normal lung sounds bilaterally. Absent: respiratory distress, wheezes, rales, rhonchi, stridor Cardiovascular Exam: Present: regular rate, normal rhythm, normal heart sounds. Absent: systolic murmur, diastolic murmur, rubs, gallop GI/Abdominal exam: Present: soft. Absent: distended, tenderness, guarding, rebound, rigid, mass Extremities exam: Present: normal inspection, normal capillary refill. Absent: pedal edema, calf tenderness Back exam: Present: normal inspection Neurological exam: Present: alert, oriented X3 Skin exam: Present: warm, dry, intact, normal color. Absent: rash Course Vital Signs 08/01/20 08/01/20 08/01/20 02:04 04:00 05:00 Temperature 97.8 F Pulse Rate 58 L 54 L 50 L Respiratory 16 16 16 Rate Blood Pressure 101/61 97/52 103/52 O2 Sat by Pulse 98 100 100 Oximetry 08/01/20 06:16 Temperature 97.8 F Pulse Rate 55 L Respiratory 16 Rate Blood Pressure 112/55 O2 Sat by Pulse 100 Oximetry Medical Decision Making - Medical Decision Making The patient is a 75-year-old man who had mistakenly given 10 extra units of insulin. He is observed emergency Department and his blood sugar has not become hypoglycemic. He is feeling better and would like to go home. Discussed appropriate further care and follow-up. - Lab Data Result diagrams: 08/01/20 02:53 08/01/20 02:53 Lab Results 08/01/20 08/01/20 08/01/20 Range/Units 02:09 02:53 02:53 WBC 6.6 (3.8-10.6) k/uL RBC 2.76 L (4.30-5.90) m/uL Hgb 9.3 L D (13.0-17.5) gm/dL Hct 26.7 L (39.0-53.0) % MCV 96.7 D (80.0-100.0) fL MCH 33.7 (25.0-35.0) pg MCHC 34.9 (31.0-37.0) g/dL RDW 16.1 H (11.5-15.5) % Plt Count 235 (150-450) k/uL MPV 7.3 Neutrophils % 70 % Lymphocytes % 19 % Monocytes % 7 % Eosinophils % 3 % Basophils % 1 % Neutrophils # 4.6 (1.3-7.7) k/uL Lymphocytes # 1.2 (1.0-4.8) k/uL Monocytes # 0.4 (0-1.0) k/uL Eosinophils # 0.2 (0-0.7) k/uL Basophils # 0.1 (0-0.2) k/uL Anisocytosis Slight Macrocytosis Slight Sodium 136 L (137-145) mmol/L Potassium 4.7 (3.5-5.1) mmol/L Chloride 109 H (98-107) mmol/L Carbon Dioxide 21 L (22-30) mmol/L Anion Gap 6 mmol/L BUN 28 H (9-20) mg/dL Creatinine 1.58 H (0.66-1.25) mg/dL Est GFR (CKD-EPI)AfAm 49 (>60 ml/min/1.73 sqM) Est GFR (CKD-EPI)NonAf 42 (>60 ml/min/1.73 sqM) Glucose 115 H (74-99) mg/dL POC Glucose (mg/dL) 191 H (75-99) mg/dL POC Glu Ratchet Setter ID Ramon Herbert Calcium 8.8 (8.4-10.2) mg/dL 08/01/20 08/01/20 Range/Units 04:10 05:39 WBC (3.8-10.6) k/uL RBC (4.30-5.90) m/uL Hgb (13.0-17.5) gm/dL Hct (39.0-53.0) % MCV (80.0-100.0) fL MCH (25.0-35.0) pg MCHC (31.0-37.0) g/dL RDW (11.5-15.5) % Plt Count (150-450) k/uL MPV Neutrophils % % Lymphocytes % % Monocytes % % Eosinophils % % Basophils % % Neutrophils # (1.3-7.7) k/uL Lymphocytes # (1.0-4.8) k/uL Monocytes # (0-1.0) k/uL Eosinophils # (0-0.7) k/uL Basophils # (0-0.2) k/uL Anisocytosis Macrocytosis Sodium (137-145) mmol/L Potassium (3.5-5.1) mmol/L Chloride (98-107) mmol/L Carbon Dioxide (22-30) mmol/L Anion Gap mmol/L BUN (9-20) mg/dL Creatinine (0.66-1.25) mg/dL Est GFR (CKD-EPI)AfAm (>60 ml/min/1.73 sqM) Est GFR (CKD-EPI)NonAf (>60 ml/min/1.73 sqM) Glucose (74-99) mg/dL POC Glucose (mg/dL) 131 H 172 H (75-99) mg/dL POC Glu Ratchet Setter ID Muñoz, Mariluz Muñoz, Mariluz Calcium (8.4-10.2) mg/dL Disposition Clinical Impression: Accidental overdose Disposition: HOME SELF-CARE Condition: Good Instructions (If sedation given, give patient instructions): Adult Overdose (ED) Is patient prescribed a controlled substance at d/c from ED?: No Referrals: Keesha Miramontes MD [Primary Care Provider] - 1-2 days
[2020-08-01 06:18] VITALS: BP 112/55; PULSE 55
== END 2020-08-01 06:59 | disposition home or self-care (01) ==
LOC: EC 02:03
DX: T38.3X1A Poisoning by insulin and oral hypoglycemic [antidiabetic] drugs, accidental (unintentional), initial encounter (principal); I48.91 Unspecified atrial fibrillation; E11.9 Type 2 diabetes mellitus without complications; E78.5 Hyperlipidemia, unspecified; I10 Essential (primary) hypertension; I25.2 Old myocardial infarction; M19.90 Unspecified osteoarthritis, unspecified site; Z90.49 Acquired absence of other specified parts of digestive tract; Z95.5 Presence of coronary angioplasty implant and graft; Z87.442 Personal history of urinary calculi; Z79.01 Long term (current) use of anticoagulants; Z79.82 Long term (current) use of aspirin; Z87.891 Personal history of nicotine dependence; Z79.4 Long term (current) use of insulin
CPT/HCPCS: 36415; 80048; 85025; 99284

== ENCOUNTER → 2020-09-11 | Outpatient (CLI) | payer MEDICARE ==
[2020-09-11 12:48] LABS: Calcium 9.6 mg/dL (8.4-10.2); Potassium 5.2 mmol/L (3.5-5.1)
[2020-09-11 12:50] LABS: Basophils # (A) 0.1 k/uL (0-0.2); Basophils % (A) 1 %; Eosinophils # (A) 0.1 k/uL (0-0.7); Eosinophils % (A) 2 %; HCT 40.2 % (39.0-53.0); Lymphocytes # (A) 1.3 k/uL (1.0-4.8); Lymphocytes % (A) 22 %; MCH 31.7 pg (25.0-35.0); Mean Platelet Volume 7.4; Monocytes # (A) 0.3 k/uL (0-1.0); Monocytes % (A) 5 %; Neutrophils # (A) 4.1 k/uL (1.3-7.7); Neutrophils % (A) 68 %; Platelet Count 244 k/uL (150-450); RBC 4.06 m/uL (4.30-5.90); RDW 14.5 % (11.5-15.5); WBC 6.1 k/uL (3.8-10.6)
[2020-09-11 12:53] LABS: HGB 12.8 gm/dL (13.0-17.5)
== END | disposition home or self-care (01) ==
LOC: LABWHC1 11:23
PROVIDERS: ATTEND Urology
DX: Z01.812 Encounter for preprocedural laboratory examination (principal); N40.1 Benign prostatic hyperplasia with lower urinary tract symptoms; N39.0 Urinary tract infection, site not specified; E11.9 Type 2 diabetes mellitus without complications; R33.9 Retention of urine, unspecified
CPT/HCPCS: 80048; 85025

== ENCOUNTER 2020-09-17 14:18 | Day surgery (SDC) | payer MEDICARE ==
[2020-09-12 17:14] VITALS: BMI 25.0
--- NOTE | 2020-09-17 09:51 | P.HPIHPCON ---
History of Present Illness H&P Date: 09/17/20 Chief Complaint: BPH 75 year-old male with history of BPH and elevtated PVR, he has failed medical therapy. Surgical options were discussed with him. underwent a cystoscopy which showed bilateral obstructive prostate lateral lobes. Discussed with him the option of a TURP vs Urolift, Discuss risk and benefit of each approach. He agreed to proceed with urolift. Discussed with him the risk which includes but not limited to bleeding, infection, persistent symptoms, need of additional operation. He understood all the risk and agreed to proceed Consent for Procedure: I have explained the operation/procedure to the patient, including the risks, benefits, side effects, alternative therapies (including not receiving the proposed treatment or service), the likelihood of the patient achieving his/her goals, and potential recuperation problems for the procedure/sedation/analgesia, as well as any blood products, if indicated. I also explained to the patient the risks, benefits and side effects of the alternatives, as well as the risks rela chen to not receiving the proposed procedure, care, treatment, or services. Past Medical History Past Medical History: Atrial Fibrillation, Diabetes Mellitus, Hyperlipidemia, Hypertension, Myocardial Infarction (non Q-wave), Osteoarthritis (OA), Prostate Disorder Additional Past Medical History / Comment(s): KIDNEY STONES, chronic back pain, sciatica Last Myocardial Infarction Date:: 2006 History of Any Multi-Drug Resistant Organisms: None Reported Past Surgical History: AICD, Appendectomy, Cholecystectomy, Heart Catheterization With Stent Additional Past Surgical History / Comment(s): COLONOSCOPY, roel CATARACT. AICD 2006 Past Anesthesia/Blood Transfusion Reactions: No Reported Reaction Date of Last Stent Placement:: 2006 Type of Cardiac Device: AICD Device Placement Date:: 2006 [facility] LEFT CHEST Smoking Status: Former smoker - Past Family History Mother Family Medical History: Coronary Artery Disease (CAD), Renal Disease Father Additional Family Medical History / Comment(s): during medical testing Sister(s) Family Medical History: Cancer Additional Family Medical History / Comment(s): pancreatic cancer Medications and Allergies Home Medications Medication Instructions Recorded Confirmed Type Aspirin [Adult Low Dose Aspirin EC] 81 mg PO DAILY 03/29/19 09/12/20 History Apixaban [Eliquis] 5 mg PO BID #60 tab 05/21/20 09/12/20 Rx Atorvastatin [Lipitor] 40 mg PO DAILY 05/21/20 09/12/20 History Metoprolol Tartrate [Lopressor] 50 mg PO BID #60 tab 05/21/20 09/12/20 Rx Psyllium Husk/Aspartame [Metamucil 1 scoop PO DAILY PRN 05/21/20 09/12/20 History Sugar-Free Powder] Furosemide [Lasix] 40 mg PO BID@0900,1600 #60 tab 05/24/20 09/12/20 Rx Sotalol [Betapace] 40 mg PO BID #60 tab 05/24/20 09/12/20 Rx Spironolactone [Aldactone] 12.5 mg PO DAILY #30 tab 05/24/20 09/12/20 Rx Albuterol Inhaler [Ventolin Hfa 1 puff INHALATION RT-QID 30 Days 06/13/20 09/12/20 Rx Inhaler] #1 puff Glimepiride 1 tab PO BID 09/12/20 History Tamsulosin HCl [Flomax] 0.4 mg PO BID 09/12/20 09/12/20 History metFORMIN HCL 500 mg PO BID 09/12/20 09/12/20 History Allergies Allergy/AdvReac Type Severity Reaction Status Date / Time No Known Allergies Allergy Verified 09/12/20 17:07 Surgical - Exam - General well developed, well nourished, no distress, no pain - ENT normal nares, normal mucosa - Respiratory normal expansion, normal respiratory effort - Abdomen Abdomen: soft, non tender - Psychiatric oriented to time, oriented to person, oriented to place Assessment and Plan Assessment: 75 yo male with hx of BPH -OR for Urolift
[~2020-09-17 14:18] MED LIST changes: -LACTATED RINGERS 1,000 ML IV SCH; +LEVOFLOXACIN 500MG-D5W PMX 500 MG in DEXTROSE/WATER 1 100ML.BAG IVPB PRN; +LIDOCAINE 1% (10MG/ML) FOR IV START INTRADERMA PRN; -SODIUM CHLORIDE 0.9% 1,000 ML IV SCH; +fentaNYL (PF) 50 MCG/ML 2 ML AMP IV PRN
[2020-09-17] MEDS ORDERED: ONDANSETRON 4 MG/2 ML VIAL ONE (14:40)
[2020-09-17 14:57] LABS: Glucose,Whole Blood 201 mg/dL (75-99)
[2020-09-17] MEDS ORDERED: DEXAMETHASONE SOD PHOSPHATE 4 MG/ML 1 ML VIAL IV ONE (15:02)
[2020-09-17] MEDS ORDERED: INSULIN ASPART (NovoLOG) 100 UNIT/ML VIAL SQ ONE (15:02)
[2020-09-17] MEDS: LACTATED RINGERS 1,000 ML IV SCH ×2 (15:02→19:11)
[2020-09-17] MEDS ORDERED: ONDANSETRON 4 MG/2 ML VIAL IVP ONE (15:02)
[2020-09-17] MEDS ORDERED: SUCCINYLCHOLINE CHLORIDE 100 MG/5 ML SYR IV ONE (16:55)
[2020-09-17] MEDS ORDERED: PROPOFOL 10 MG/ML 20 ML VIAL IV ONE (16:55)
[2020-09-17] MEDS ORDERED: PHENYLEPHRINE-0.9% NACL SYG 1,000 MCG/10 ML SYRINGE ONE (16:55)
[2020-09-17] MEDS ORDERED: MIDAZOLAM 2 MG/2 ML VIAL ONE (16:55)
[2020-09-17] MEDS ORDERED: fentaNYL (PF) 50 MCG/ML 2 ML AMP ONE (16:55)
[2020-09-17] MEDS ORDERED: GLYCOPYRROLATE 0.2 MG/ML 2 ML VIAL ONE (16:55)
--- NOTE | 2020-09-17 17:47 | P.OP ---
Date of Procedure: 09/17/20 Preoperative Diagnosis: BPH Postoperative Diagnosis: Same Procedure(s) Performed: Cystoscopy, Urolift X 7 Implants: Urolift implant X 7 Anesthesia: JULIAA Surgeon: Curtis Bey Estimated Blood Loss (ml): 10 Pathology: none sent Condition: stable Disposition: PACU Indications for Procedure: 75 year-old male with history of BPH and elevtated PVR, he has failed medical therapy. Surgical options were discussed with him. underwent a cystoscopy which showed bilateral obstructive prostate lateral lobes. Discussed with him the option of a TURP vs Urolift, Discuss risk and benefit of each approach. He agreed to proceed with urolift. Discussed with him the risk which includes but not limited to bleeding, infection, persistent symptoms, need of additional operation. He understood all the risk and agreed to proceed Description of Procedure: Patient was brought to the operating room, general anesthesia was induced. He was prepped and draped in sterile fashion a placed in dorsal lithotomy position. Cystoscopy fitted with 20-Cypriot sheath was inserted per urethra, cystoscopy was performed which showed no abnormality within the bladder, of note patient had bilateral obstructive lateral lobes. Attention was then carried to the urolift implants. A total of 7 implants were placed, 3 on the right side, and 4 on the left side. Implants were placed distal to the bladder neck, but proximal to the Veru. Repeat cystoscopy showed no evidence of implant perforation into the bladder. Repeat cystoscopy also demonstrated an open anterior channel within the prostate. There was no evidence of bleeding, bladder was emptied at end of the case. Patient tolerated the procedure well was taken to PACU in stable condition
[2020-09-17 17:53] VITALS: TEMP 97.4
[2020-09-17 17:56] LABS: Glucose,Whole Blood 189 mg/dL (75-99)
[2020-09-17 18:00] VITALS: RESP 16
[2020-09-17] MEDS ORDERED: LACTATED RINGERS 1,000 ML IV ONE (18:25)
[2020-09-17] MEDS ORDERED: IV FLUID CONTINUATION 100 ML IV ONE (18:25)
[2020-09-17 19:25] VITALS: BP 125/63; PULSE 60
== END 2020-09-17 20:14 | disposition home or self-care (01) ==
LOC: OR 14:18
PROVIDERS: ATTEND Urology
DX: N40.0 Benign prostatic hyperplasia without lower urinary tract symptoms (principal); I48.91 Unspecified atrial fibrillation; E11.9 Type 2 diabetes mellitus without complications; E78.5 Hyperlipidemia, unspecified; I10 Essential (primary) hypertension; I25.2 Old myocardial infarction; M19.90 Unspecified osteoarthritis, unspecified site; Z87.442 Personal history of urinary calculi; G89.29 Other chronic pain; M54.9 Dorsalgia, unspecified; M54.30 Sciatica, unspecified side; Z95.810 Presence of automatic (implantable) cardiac defibrillator; Z90.89 Acquired absence of other organs; Z95.5 Presence of coronary angioplasty implant and graft; Z98.42 Cataract extraction status, left eye; Z98.41 Cataract extraction status, right eye; Z87.891 Personal history of nicotine dependence; Z82.49 Family history of ischemic heart disease and other diseases of the circulatory system; Z80.0 Family history of malignant neoplasm of digestive organs; Z80.1 Family history of malignant neoplasm of trachea, bronchus and lung; Z79.82 Long term (current) use of aspirin; Z79.899 Other long term (current) drug therapy
CPT/HCPCS: 84132; 52441; 52442 ×6; L8699; J2250; J1100; J2405; J1956; J3010; J2370; J0330; J2704

== ENCOUNTER → 2021-02-20 | Outpatient (CLI) | payer MEDICARE ==
[2021-02-20 12:33] LABS: HCT 43.1 % (39.0-53.0); HGB 14.4 gm/dL (13.0-17.5); MCH 33.1 pg (25.0-35.0); MCHC 33.4 g/dL (31.0-37.0); Mean Platelet Volume 7.7; Platelet Count 179 k/uL (150-450); RBC 4.35 m/uL (4.30-5.90); RDW 13.6 % (11.5-15.5); WBC 7.6 k/uL (3.8-10.6)
[2021-02-20 13:02] LABS: Potassium 5.4 mmol/L (3.5-5.1)
== END | disposition home or self-care (01) ==
LOC: LABPAT 11:59
PROVIDERS: ATTEND Internal Medicine Clinical Cardiac Electrophysiology
DX: Z01.812 Encounter for preprocedural laboratory examination (principal); I48.0 Paroxysmal atrial fibrillation
CPT/HCPCS: 80051; 82565; 84520; 85027

== ENCOUNTER → 2021-02-20 | Outpatient (CLI) | payer MEDICARE ==
[2021-02-20 20:38] LABS: Hemoglobin A1C 8.4 % (4.0-6.0)
== END | disposition home or self-care (01) ==
LOC: LABWHC1 12:02
PROVIDERS: ATTEND Internal Medicine
DX: E11.9 Type 2 diabetes mellitus without complications (principal)
CPT/HCPCS: 36415; 83036

== ENCOUNTER 2021-05-02 10:27 | Day surgery (SDC) | payer MEDICARE ==
[2021-04-29 15:08] VITALS: BMI 28.1
[~2021-05-02 10:27] MED LIST changes: +LACTATED RINGERS 1,000 ML IV SCH; -LEVOFLOXACIN 500MG-D5W PMX 500 MG in DEXTROSE/WATER 1 100ML.BAG IVPB PRN; -LIDOCAINE 1% (10MG/ML) FOR IV START INTRADERMA PRN; +SODIUM CHLORIDE 0.9% 1,000 ML IV SCH; -fentaNYL (PF) 50 MCG/ML 2 ML AMP IV PRN
[2021-05-02] MEDS ORDERED: SODIUM CHLORIDE 0.9% 1,000 ML IV ONE (10:57)
[2021-05-02 11:01] LABS: Glucose,Whole Blood 206 mg/dL (75-99)
[2021-05-02 11:04] VITALS: BP 148/74; PULSE 67; RESP 16; TEMP 97.9
[2021-05-02 11:06] LABS: Basophils # (A) 0.1 k/uL (0-0.2); Basophils % (A) 1 %; Eosinophils # (A) 0.4 k/uL (0-0.7); Eosinophils % (A) 6 %; HCT 40.9 % (39.0-53.0); HGB 14.4 gm/dL (13.0-17.5); Lymphocytes # (A) 1.6 k/uL (1.0-4.8); Lymphocytes % (A) 25 %; MCHC 35.1 g/dL (31.0-37.0); Mean Platelet Volume 8.1; Monocytes # (A) 0.6 k/uL (0-1.0); Monocytes % (A) 9 %; Neutrophils # (A) 3.5 k/uL (1.3-7.7); Neutrophils % (A) 56 %; Platelet Count 169 k/uL (150-450); RBC 4.35 m/uL (4.30-5.90); RDW 12.6 % (11.5-15.5); WBC 6.2 k/uL (3.8-10.6)
[2021-05-02] MEDS ORDERED: INSULIN ASPART (NovoLOG) 100 UNIT/ML VIAL SQ SCH (11:06)
[2021-05-02 11:54] LABS: Calcium 9.8 mg/dL (8.4-10.2); Potassium 5.2 mmol/L (3.5-5.1)
[2021-05-02] MEDS ORDERED: APIXABAN 5 MG TAB PO SCH (12:52)
--- NOTE | 2021-05-02 13:24 | P.PCN ---
Preoperative Diagnosis: Patient came in for in A. fib ablation Unfortunately he stopped taking ELIQUIS since yesterday Risk of CVA The procedure will be canceled and rescheduled This was explained to the patient
== END 2021-05-02 13:23 | disposition home or self-care (01) ==
LOC: CATHEP 10:27
PROVIDERS: ATTEND Internal Medicine Clinical Cardiac Electrophysiology
DX: I48.19 Other persistent atrial fibrillation (principal); Z53.09 Procedure and treatment not carried out because of other contraindication; E11.9 Type 2 diabetes mellitus without complications; E78.5 Hyperlipidemia, unspecified; I11.0 Hypertensive heart disease with heart failure; I25.5 Ischemic cardiomyopathy; I50.9 Heart failure, unspecified; Z79.899 Other long term (current) drug therapy; Z79.01 Long term (current) use of anticoagulants; Z87.891 Personal history of nicotine dependence; Z79.82 Long term (current) use of aspirin
CPT/HCPCS: 80048; 85025; 87635

== ENCOUNTER → 2021-05-22 | Outpatient (CLI) | payer MEDICARE | END | disposition home or self-care (01) | LOC: LABPAT 10:30 | PROVIDERS: ATTEND Nurse Practitioner Adult Health | DX: U07.1 COVID-19 (principal) | CPT/HCPCS: U0003; C9803 ==

== ENCOUNTER 2021-05-23 09:29 | Day surgery (SDC) | payer MEDICARE ==
[2021-05-21 16:55] VITALS: BMI 28.1
[2021-05-23 10:20] LABS: Glucose,Whole Blood 220 mg/dL (75-99)
[2021-05-23] MEDS ORDERED: SODIUM CHLORIDE 0.9% 1,000 ML IV ONE ×2 (10:24→18:04)
[2021-05-23 10:30] VITALS: RESP 16
[2021-05-23] MEDS ORDERED: LIDOCAINE 1% INJ 10MG/ML (20 ML MDV) ONE ×3 (12:00→16:47)
[2021-05-23] MEDS ORDERED: fentaNYL (PF) 50 MCG/ML 2 ML AMP ONE (12:10)
[2021-05-23] MEDS ORDERED: PROTAMINE SULFATE 10 MG/ML 5 ML VIAL IV ONE (12:10)
[2021-05-23] MEDS ORDERED: ROCURONIUM 10 MG/ML (5 ML VIAL) IV ONE (12:10)
[2021-05-23] MEDS ORDERED: FUROSEMIDE 10 MG/ML 2 ML VIAL ONE (12:10)
[2021-05-23] MEDS ORDERED: HEPARIN SODIUM,PORCINE 10,000 UNIT/ML 1 ML VIAL ONE (12:10)
[2021-05-23] MEDS ORDERED: HEPARIN SODIUM,PORCINE 5,000 UNIT/ML 1 ML VIAL ONE (12:10)
[2021-05-23] MEDS ORDERED: SUCCINYLCHOLINE CHLORIDE 100 MG/5 ML SYR IV ONE (12:10)
[2021-05-23] MEDS ORDERED: MIDAZOLAM 2 MG/2 ML VIAL ONE (12:10)
[2021-05-23] MEDS ORDERED: PROPOFOL 10 MG/ML 20 ML VIAL IV ONE (12:10)
[2021-05-23] MEDS ORDERED: HYDROmorphone (PF) 1 MG/ML ONE (12:10)
[2021-05-23] MEDS ORDERED: PHENYLEPHRINE-0.9% NACL SYG 1,000 MCG/10 ML SYRINGE ONE (12:10)
[2021-05-23] MEDS ORDERED: LIDOCAINE 1% INJ 10MG/ML (20 ML MDV) SQ ONE ×2 (12:59→16:55)
[2021-05-23] MEDS ORDERED: HEPARIN SOD,PORK IN 0.45% NACL 25,000 UNIT in 0.45% NACL 1 250ML.BAG IV ONE (13:10)
[2021-05-23 13:57] LABS: Glucose,Whole Blood 136 mg/dL (75-99)
[2021-05-23 15:11] LABS: Glucose,Whole Blood 128 mg/dL (75-99)
[2021-05-23] MEDS ORDERED: HEPARIN SODIUM (1,000 UNIT/ML) 1,000 UNIT in SODIUM CHLORIDE 0.9% 1,000 ML IRRIGATION ONE (15:16)
[2021-05-23] MEDS ORDERED: IOPAMIDOL-370 100ML BTL INJ ONE (16:21)
[2021-05-23] MEDS ORDERED: ACETAMINOPHEN TAB 325 MG TAB PO PRN (16:35)
[2021-05-23] MEDS ORDERED: ACETAMINOPHEN IV (For NPO) 1,000 MG in EMPTY BAG 1 BAG IVPB ONE (16:35)
--- NOTE | 2021-05-23 16:55 | P.EPPROC ---
- EP Procedure Note Electrophysiology Procedure Note: PROCEDURE A. fib ablation, PVI and linear ablation in the left atrium DIAGNOSIS Atrial fibrillation, symptomatic, refractory to therapy Cardio myopathy RESULT No left atrial appendage mass seen on intracardiac echo Successful A. fib ablation/pulmonary vein isolation of all veins using cryo- ablation Complete entrance block in all 4 veins confirmed No evidence for phrenic nerve injury Linear ablation left atrial septum Esophageal deflection YES, left-sided esophagus PROCEDURE DETAILS Patient was brought to the EP lab in a fasting state. Written informed consent was obtained prior to the procedure. Procedure performed under general anesthesia After initial muscle relaxant use, muscle relaxants were not given thereafter in order to assess phrenic nerve during procedure. Patient prepped and draped as per protocol [facility] single chamber ICD was reprogrammed. Therapies were turned off. Baseline measurements were made Full cryo-set up with standard preparation of the cryoablation tools done. Femoral Venous access obtained on the right and left groins Venous and arterial Sheaths placed. Diagnostic catheters for the high right atrium, phrenic nerve stimulation and pacing, His bundle, RV and coronary sinus placed Intracardiac echo catheter placed. Long sheath placed in the right atrium Left and right transseptal catheterization performed under intracardiac echo guidance. Intravenous heparin with aCT above 300 Later, catheter positioning and balloon positioning in the left atrium, under intracardiac echo guidance Sinus cycle length 949 ms, CT 180 ms QRS 155 ms right bundle branch block pattern and QT 496 ms H 71 ms and HV 45 ms Sinus node recovery times at 600, 504 100 ms were 1665, 1627 ms and 1188 ms. Corresponding corrected sinus node recovery times were prolonged AV node Wenckebach block 400 ms Burst stimulation from the high right atrium from 400 ms down to 300 ms. No inducible atrial fibrillation post PVI Transseptal catheterization performed RA pressure 15/10/13 LA pressure 36/12/24 Transseptal catheterization performed with standard sheath. The cryoablation sheath was then placed with an over the wire exchange without any acute complications. All 4 pulmonary veins were isolated in the following sequence: Left superior followed by left inferior followed by right superior followed by right inferior The cryo-ablation balloon was placed at the os of each vein 1.5 mL of IV dye was injected to confirm an occluded vein Goal during cryoablation was to achieve complete occlusion of the pulmonary vein, achieve -30 degrees C at 30 seconds and achieve -40 degrees C at 60 seconds and a time to effect of less than 60-90 seconds, . If not the balloon was repositioned to obtain this result After completion of Cryoblation with durations from 180-240 seconds, entrance block was confirmed with the Attain circular catheter in a roving fashion around the antrum of the pulmonary veins Phrenic nerve pacing was performed from the SVC, right innominate vein area and diaphragm voltage was monitored. Diaphragmatic contractions were also monitored manually for strength of contraction. Parameter goals for each cryo freeze Complete occlusion of the appropriate vein -30 degrees C by 30 seconds -40 degrees C by 60 seconds Minimum between minus 40-55 degrees C Thaw time greater than 10 seconds Balloon visualized by intracardiac echo The esophagus was intubated. Esophageal Temperature monitoring with a CIRCA catheter formed. Esophageal deflection for hypothermia of the esophagus below 30 degrees C Left superior pulmonary vein Complete isolation, entrance block Left inferior pulmonary vein Complete isolation, entrance block Right superior pulmonary vein, during phrenic nerve pacing Complete isolation, entrance block Right inferior pulmonary vein, during phrenic nerve pacing Complete isolation, entrance block At the end of the procedure the Achieve catheter was once again used to check for entrance block Phrenic nerve stimulation was performed to confirm diaphragmatic stimulation the end of the procedure Cine fluoroscopy was performed at the very end of the procedure to confirm movement of both diaphragms with inspiration and expiration 3-D electro-anatomic mapping was performed with an irrigated RF ablation c atheter The veins were noted to be completely isolated Left atrial Mapping was performed Left atrial roof between the 2 pulmonary veins was 4.5 cm Fractionated electrograms noted along the septum RF ablation performed in the left atrial septum along fractionated electrograms The segment of the left atrial septum between the pulmonary veins and the RF line was completely isolated The end of the procedure the ICD was interrogated. This impedance stable at 480 ohms, high-voltage impedance stable at 73 ohms, R waves 12 mV ICD was reprogrammed and therapies for VT and VF are turned on At the end of the procedure the patient was extubated Heparin was reversed Venous sheaths were removed and hemostasis assured PROCEDURES PERFORMED Diagnostic EP study CS pacing and recording Left and right transseptal catheterization 3D mapping) Intracardiac echocardiography Pulmonary vein isolation with transseptal and comprehensive EPS, [id number] Linear ablation, left atrium, [id number] ICD interrogation and reprogramming
--- NOTE | 2021-05-23 16:57 | P.PRLE ---
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 fib ablation successfully with complete pulmonary vein isolation and ablation along the left side of the septum He has felt distinctly better from a heart failure standpoint while maintaining sinus rhythm I will continue all his cardiac medications including low-dose sotalol and ELIQUIS Thank you for entrusting me with the care of the patient Warm regards Sincerely Jayson Gallego
[2021-05-23] MEDS ORDERED: HYDROmorphone 0.5 MG/0.5 ML SYRINGE IVP ONE (17:15)
[2021-05-23 18:13] LABS: Glucose,Whole Blood 135 mg/dL (75-99)
[2021-05-23] MEDS: GLIMEPIRIDE 1 MG TAB PO SCH (19:50)
[2021-05-23] MEDS: APIXABAN 5 MG TAB PO SCH (19:52)
[2021-05-23] MEDS: METOPROLOL TARTRATE 50 MG TAB PO SCH (19:52)
[2021-05-23] MEDS: SOTALOL 80 MG TAB PO SCH (19:53)
[2021-05-23] MEDS ORDERED: ATORVASTATIN 40 MG TAB PO SCH (21:00)
[2021-05-24 07:36] LABS: Glucose,Whole Blood 221 mg/dL (75-99)
[2021-05-24 08:10] VITALS: BP 104/63; PULSE 68; TEMP 98.2
[2021-05-24] MEDS: GLIMEPIRIDE 1 MG TAB PO SCH (08:17)
[2021-05-24] MEDS: APIXABAN 5 MG TAB PO SCH (08:17)
[2021-05-24] MEDS: METOPROLOL TARTRATE 50 MG TAB PO SCH (08:17)
[2021-05-24] MEDS: SOTALOL 80 MG TAB PO SCH (08:18)
[2021-05-24] MEDS ORDERED: ASPIRIN 81 MG PO SCH (09:00)
[2021-05-24 10:16] LABS: African American GFR (CKD) 51.7 (60.0-200.0); Blood Urea Nitrogen 19.5 mg/dL (9.0-27.0); Calcium 8.2 mg/dL (8.7-10.3); Carbon Dioxide 22.9 mmol/L (20.0-27.5); Chloride 106 mmol/L (96-109); Chol/HDL Ratio 2.96 Ratio; Glucose 201 mg/dL (70-110); LDL Cholesterol,Calculated 28.1 mg/dL (0.0-131.0); Non-African American GFR(CKD) 44.6 (60.0-200.0); Potassium 4.6 mmol/L (3.5-5.5); Sodium 138 mmol/L (135-145)
--- NOTE | 2021-05-24 14:56 | DS ---
DISCHARGE SUMMARY DATE OF ADMISSION: 05/23/2021. DATE OF DISCHARGE: 05/24/2021. DIAGNOSIS: Persistent atrial fibrillation, symptomatic, status post pulmonary vein isolation procedure that was performed by Dr. Gallego yesterday. Both the groins are clean and dry. There was some oozing in the right groin, but that seems to have settled down very nicely. He is in the sinus rhythm, resting comfortably, has no chest pain, shortness of breath or palpitations. Vitals are stable. Rhythm is sinus. There is JVD of 1 cm. No carotid bruit. S1, S2 heard normally. Lungs reveal decent air entry. Abdomen is soft. Lower extremities reveal diminished pulses. Central nervous system is normal. IMPRESSION: 1. Stable, status post pulmonary vein isolation procedure. 2. Hypertension. 3. Hyperlipidemia. RECOMMENDATIONS: I am recommending that patient can be discharged. All medications were reviewed. He will go home on current medical regimen that includes Eliquis 5 mg b.i.d. His groins are clean and dry with a good pulse. He will see Dr. Gallego in one week. Discharge instructions regarding activity, diet and medications were given. MMODL / IJN: [id number] /
[2021-05-25] MEDS ORDERED: metFORMIN 500 MG TAB PO SCH (21:00)
== END 2021-05-24 11:07 | disposition home or self-care (01) ==
LOC: CATHEP 09:29 → 6NMEDSUR 16:16 → CATHEP 05-24 11:07
PROVIDERS: ATTEND Internal Medicine Clinical Cardiac Electrophysiology
DX: I48.0 Paroxysmal atrial fibrillation (principal); I48.91 Unspecified atrial fibrillation; Z20.822 Contact with and (suspected) exposure to COVID-19
CPT/HCPCS: 93662; 93613; 93656; 93657; 80048; 80061; 84443; 87635; C1894 ×2; C1769 ×4; C1760; C1730 ×2; C1759; C1893; C1733; C1766; C1732; J2250; J2720; J1644 ×4; J1940; J0690; J2001; J3010; J1170 ×2; J2370; J0330; J2704; Q9967; 93282

== ENCOUNTER 2021-09-23 10:48 | Inpatient (IN) | payer MEDICARE ==
--- NOTE | 2021-09-23 12:37 | ED ---
General Adult HPI - General Stated complaint: Shortness of Breath Time Seen by Provider: 09/23/21 12:16 Source: patient, family, RN notes reviewed Limitations: no limitations - History of Present Illness Initial comments: Patient is a pleasant 76-year-old male presenting to the emergency department with concerns for shortness of breath. Onset of symptoms was a week ago. Patient has had palpitations intermittently over the past 3-4 days. Patient does have history of A. fib. Family is concerned that heart rate at home did drop into the 30s couple of times earlier today. At other times it was up in the 120s. Patient is on blood thinners, eliquis. Patient recently discontinued sotalol. is planned to have ablation in the future. Dyspnea does worsen with exertion. Patient is only able to walk around 10 feet. - Related Data Home Medications Medication Instructions Recorded Confirmed Aspirin [Adult Low Dose Aspirin EC] 81 mg PO DAILY 03/29/19 09/23/21 Atorvastatin [Lipitor] 40 mg PO HS 05/21/20 09/23/21 Psyllium Husk/Aspartame [Metamucil 6 gm PO DAILY PRN 05/21/20 09/23/21 Sugar-Free Powder] metFORMIN HCL 500 mg PO BID 09/12/20 09/23/21 Glimepiride [Amaryl] 1 mg PO AC-BID 05/21/21 09/23/21 HYDROcodone/APAP 5-325MG [Boardman 1 tab PO DAILY PRN 05/21/21 09/23/21 5-325] Amoxicillin 500 mg PO DIRECTED 09/23/21 09/23/21 Ibuprofen [Motrin] 600 mg PO BID PRN 09/23/21 09/23/21 Previous Rx's Medication Instructions Recorded Apixaban [Eliquis] 5 mg PO BID #60 tab 05/21/20 Metoprolol Tartrate [Lopressor] 50 mg PO BID #60 tab 05/21/20 Allergies Allergy/AdvReac Type Severity Reaction Status Date / Time No Known Allergies Allergy Verified 09/23/21 13:53 Review of Systems ROS Statement: Those systems with pertinent positive or pertinent negative responses have been documented in the HPI. ROS Other: All systems not noted in ROS Statement are negative. Constitutional: Denies: fever Eyes: Denies: eye pain ENT: Denies: ear pain Respiratory: Reports: as per HPI, dyspnea. Denies: cough Cardiovascular: Reports: palpitations, dyspnea on exertion. Denies: chest pain Endocrine: Denies: fatigue Gastrointestinal: Denies: abdominal pain Genitourinary: Denies: dysuria Musculoskeletal: Denies: back pain Skin: Denies: rash Neurological: Denies: weakness Past Medical History Past Medical History: Atrial Fibrillation, Diabetes Mellitus, Eye Disorder, Hyperlipidemia, Myocardial Infarction ([place]), Osteoarthritis (OA) Additional Past Medical History / Comment(s): Macular degeneration. Hx kidney stones, chronic back pain, concussion 1969, sciatica; states hx falls D/T Rt knee giving out, uses 4-prong cane occ. NT feet. c/o throbbing pain Lt arm oc c. Last Myocardial Infarction Date:: 2006 History of Any Multi-Drug Resistant Organisms: None Reported Past Surgical History: AICD, Appendectomy, Cholecystectomy, Heart Catheterization With Stent Additional Past Surgical History / Comment(s): Colonoscopy, bilat cataracts. AICD 2006. not sure how many cardiac stents Past Anesthesia/Blood Transfusion Reactions: No Reported Reaction Date of Last Stent Placement:: not sure Type of Cardiac Device: AICD Device Placement Date:: 2006 [facility] LEFT CHEST Past Psychological History: No Psychological Hx Reported Smoking Status: Former smoker Past Alcohol Use History: Daily Additional Past Alcohol Use History / Comment(s): QUIT IN 2004, SMOKED 40 YRS. 1 beer daily Past Drug Use History: None Reported - Past Family History Mother Family Medical History: Coronary Artery Disease (CAD), Renal Disease Father Additional Family Medical History / Comment(s): during medical testing(iodine) Sister(s) Family Medical History: Cancer Additional Family Medical History / Comment(s): pancreatic cancer General Exam Limitations: no limitations General appearance: alert, in no apparent distress Head exam: Present: normocephalic Eye exam: Present: normal appearance Neck exam: Present: normal inspection Respiratory exam: Present: normal lung sounds bilaterally. Absent: respiratory distress, wheezes Cardiovascular Exam: Present: tachycardia, irregular rhythm Expanded Peripheral pulses: 2+: Radial (R), Radial (L), Dorsalis Pedis (R), Dorsalis Pedis (L) GI/Abdominal exam: Present: soft. Absent: tenderness Extremities exam: Present: normal inspection. Absent: pedal edema, calf tenderness Back exam: Present: normal inspection Neurological exam: Present: alert. Absent: motor sensory deficit Psychiatric exam: Present: normal affect, normal mood Skin exam: Present: normal color Course Vital Signs 09/23/21 09/23/21 09/23/21 11:36 12:15 13:15 Temperature 97.3 F L 97.5 F L Pulse Rate 65 125 H 104 H Respiratory 16 18 18 Rate Blood Pressure 105/39 115/81 115/63 O2 Sat by Pulse 99 98 99 Oximetry EKG Findings - EKG Comments: EKG Findings:: Regular narrow complex rhythm 3-131. KS 81. QRS 138. QT 293. QTC 370. Left axis. Right bundle branch block. Borderline lateral ST d epression. Medical Decision Making - Medical Decision Making Patient reevaluated and resting comfortably in bed. Patient updated on results and plan. Case discussed with Dr. Figueroa, who will admit for Dr. chao. Dr. Gallego will need to be consult. - Lab Data Result diagrams: 09/23/21 12:34 09/23/21 12:34 Lab Results 09/23/21 09/23/21 09/23/21 Range/Units 12:34 12:34 12:34 WBC 14.2 H (3.8-10.6) k/uL RBC 4.48 (4.30-5.90) m/uL Hgb 14.6 (13.0-17.5) gm/dL Hct 44.4 (39.0-53.0) % MCV 99.0 (80.0-100.0) fL MCH 32.6 (25.0-35.0) pg MCHC 32.9 (31.0-37.0) g/dL RDW 14.5 (11.5-15.5) % Plt Count 199 (150-450) k/uL MPV 9.0 Neutrophils % 78 % Lymphocytes % 15 % Monocytes % 5 % Eosinophils % 1 % Basophils % 0 % Neutrophils # 11.0 H (1.3-7.7) k/uL Lymphocytes # 2.1 (1.0-4.8) k/uL Monocytes # 0.7 (0-1.0) k/uL Eosinophils # 0.1 (0-0.7) k/uL Basophils # 0.1 (0-0.2) k/uL Macrocytosis Slight Sodium 139 (137-145) mmol/L Potassium 6.0 H (3.5-5.1) mmol/L Chloride 109 H (98-107) mmol/L Carbon Dioxide 17 L (22-30) mmol/L Anion Gap 13 mmol/L BUN 37 H (9-20) mg/dL Creatinine 1.71 H (0.66-1.25) mg/dL Est GFR (CKD-EPI)AfAm 44 (>60 ml/min/1.73 sqM) Est GFR (CKD-EPI)NonAf 38 (>60 ml/min/1.73 sqM) Glucose 245 H (74-99) mg/dL Calcium 9.4 (8.4-10.2) mg/dL Magnesium 1.7 (1.6-2.3) mg/dL Total Bilirubin 1.6 H (0.2-1.3) mg/dL AST 111 H (17-59) U/L ALT 90 H (4-49) U/L Alkaline Phosphatase 84 (38-126) U/L Troponin I 0.078 H* (0.000-0.034) ng/mL Total Protein 7.7 (6.3-8.2) g/dL Albumin 4.3 (3.5-5.0) g/dL TSH 4.380 (0.465-4.680) mIU/L Free T4 1.04 (0.78-2.19) ng/dL - Radiology Data Radiology results: image reviewed (Two-view chest x-ray shows no acute process. Right lower lobe nodule.) Disposition Clinical Impression: Dyspnea, Atrial fibrillation with RVR, Bradycardia, Near syncope Disposition: ADMITTED IP TO THIS HOSP Is patient prescribed a controlled substance at d/c from ED?: No Referrals: Keesha Miramontes MD [Primary Care Provider] - 1-2 days Time of Disposition: 14:23
--- NOTE | 2021-09-23 13:09 | XR ---
EXAMINATION TYPE: XR chest 2V DATE OF EXAM: 09/23/2021 COMPARISON: 07/10/2020 TECHNIQUE: PA and lateral views submitted. HISTORY: Dysrhythmia FINDINGS: The lungs are clear and there is no pneumothorax, pleural effusion, or focal pneumonia. Hyperinflat ion with cardiomegaly and cardiac device. Arthropathy of the shoulders. 8 mm nodule overlying the rig ht lower lobe IMPRESSION: 1. No acute process. Cardiomegaly correlate for COPD. 2. 8 mm nodule overlying the right lower lobe consider follow-up CT chest.
[2021-09-23 13:13] LABS: Basophils # (A) 0.1 k/uL (0-0.2); Basophils % (A) 0 %; Eosinophils # (A) 0.1 k/uL (0-0.7); Eosinophils % (A) 1 %; HCT 44.4 % (39.0-53.0); HGB 14.6 gm/dL (13.0-17.5); Lymphocytes # (A) 2.1 k/uL (1.0-4.8); Lymphocytes % (A) 15 %; MCH 32.6 pg (25.0-35.0); MCHC 32.9 g/dL (31.0-37.0); Macrocytosis Slight; Monocytes # (A) 0.7 k/uL (0-1.0); Monocytes % (A) 5 %; Neutrophils % (A) 78 %; Platelet Count 199 k/uL (150-450); RBC 4.48 m/uL (4.30-5.90); RDW 14.5 % (11.5-15.5); WBC 14.2 k/uL (3.8-10.6)
[2021-09-23 13:22] LABS: Albumin 4.3 g/dL (3.5-5.0); Calcium 9.4 mg/dL (8.4-10.2); Magnesium 1.7 mg/dL (1.6-2.3); Total Bilirubin 1.6 mg/dL (0.2-1.3); Total Protein 7.7 g/dL (6.3-8.2)
[2021-09-23 13:30] LABS: INR 1.1 (<1.2); Partial Thromboplastin Time 24.3 sec (22.0-30.0); Prothrombin Time 11.5 sec (9.0-12.0)
[2021-09-23 13:38] LABS: T4, Free (Free Thyroxine) 1.04 ng/dL (0.78-2.19)
[2021-09-23] MEDS ORDERED: INSULIN REGULAR 100 UNIT/ML VIAL (IV) IV ONE (14:17)
[2021-09-23] MEDS ORDERED: CALCIUM GLUCONATE IN NACL 1 GM in SALINE 1 100ML.BAG IVPB ONE (14:17)
[2021-09-23] MEDS ORDERED: DEXTROSE 50% SYRINGE 50 ML IVP ONE (14:17)
[2021-09-23] MEDS ORDERED: SODIUM BICARB 8.4% 50 ML SYR (1 MEQ/ML) IV ONE (14:17)
[2021-09-23] MEDS ORDERED: NALOXONE 0.4 MG/ML 1 ML VIAL IV PRN (14:24)
[2021-09-23] MEDS: SODIUM CHLORIDE 0.9% 1,000 ML IV SCH (14:59)
[2021-09-23 16:59] LABS: Glucose,Whole Blood 218 mg/dL (75-99)
[2021-09-23] MEDS ORDERED: METOPROLOL TARTRATE 50 MG TAB PO SCH (17:30)
[2021-09-23] MEDS ORDERED: METOPROLOL TARTRATE 25 MG TAB PO SCH (17:45)
[2021-09-24] MEDS ORDERED: DILTIAZEM 125 MG in SODIUM CHLORIDE 0.9% 100 ML IV SCH (00:30)
[2021-09-24] MEDS: METOPROLOL TARTRATE 50 MG TAB PO SCH ×4 (01:05→20:53)
[2021-09-24 08:42] LABS: Basophils # (A) 0.1 k/uL (0-0.2); Basophils % (A) 1 %; Eosinophils # (A) 0.2 k/uL (0-0.7); Eosinophils % (A) 2 %; HCT 43.7 % (39.0-53.0); Lymphocytes # (A) 2.3 k/uL (1.0-4.8); Lymphocytes % (A) 21 %; MCH 32.2 pg (25.0-35.0); MCHC 32.1 g/dL (31.0-37.0); MCV 100.2 fL (80.0-100.0); Macrocytosis Slight; Monocytes # (A) 0.7 k/uL (0-1.0); Monocytes % (A) 6 %; Neutrophils # (A) 7.6 k/uL (1.3-7.7); Neutrophils % (A) 69 %; Platelet Count 166 k/uL (150-450); RBC 4.36 m/uL (4.30-5.90); RDW 14.1 % (11.5-15.5)
[2021-09-24] MEDS ORDERED: HYDROcodone/APAP 5-325MG 1 EACH TAB PO PRN (09:04)
[2021-09-24] MEDS ORDERED: PSYLLIUM HUSK 100% 6 GM PACKET PO PRN (09:04)
[2021-09-24 09:06] LABS: Albumin 3.9 g/dL (3.5-5.0); Bilirubin, Delta 0.2 mg/dL (0.0-0.2); Bilirubin,Unconjugated 1.3 mg/dL (0.0-1.1); Calcium 9.2 mg/dL (8.4-10.2); Magnesium 1.8 mg/dL (1.6-2.3); Potassium 5.4 mmol/L (3.5-5.1); Total Bilirubin 1.5 mg/dL (0.2-1.3); Total Protein 6.9 g/dL (6.3-8.2)
[2021-09-24] MEDS: FAMOTIDINE 20 MG TAB PO SCH (09:24)
--- NOTE | 2021-09-24 11:45 | CONS ---
JAZMÍN Lilly is a 76-year-old gentleman with history of paroxysmal atrial fibrillation, cardiomyopathy, chronic systolic heart failure, status post AICD, who comes to hospital with sustained palpitations. Patient was seen by Cardiology last week and was told that he was back in atrial fibrillation. He was on sotalol, which was stopped, and the plan was to see him back in the office and repeat an EKG. In the meantime, patient comes into hospital because of worsening symptoms. He had successful cryoablation of atrial fibrillation in May of 2021. EKG on this admission revealed atrial fibrillation with poorly controlled ventricular rate and a right bundle branch block. At the time of my evaluation, his heart rate is still elevated around 20 beats per minute. He is stable otherwise. His labs showed that the troponins are mildly elevated at 0.07, 0.08, and 0.1. He has renal insufficiency with a creatinine of 1.6. TSH is normal at 4.3. The plan at this stage is to control his heart rate by increasing the dose of metoprolol, gradually taper and stop the diltiazem, continue the Eliquis, and once heart rate is well controlled discharge him home and arrange followup for reconsideration of another attempted ablation. PAST MEDICAL HISTORY: Significant for cardiomyopathy with congestive heart failure, status post AICD, permanent atrial fibrillation, status post prior ablation, and diabetes. MEDICATIONS: Medications at home included Lopressor 50 b.i.d., Motrin, Cecil, Amaryl, Lipitor, aspirin, Eliquis, amoxacillin, metformin. ALLERGIES: THERE ARE NO KNOWN DRUG ALLERGIES. FAMILY HISTORY: Negative for premature coronary artery disease. REVIEW OF SYSTEMS: Fourteen out of 14-point review of systems has been performed. Pertinents are as documented. PHYSICAL EXAMINATION: Patient is comfortable at rest. Heart rate is 117 beats per minute. Blood pressure is 102/58, respiratory rate is 20. O2 saturation is 97% on room air. There is no jugular venous distention. Chest exam reveals good air entry bilaterally. Heart exam reveals first and second heart sounds and a systolic murmur at the apex. Abdomen is soft. Examination of extremities did not reveal any edema. Peripheral pulses are felt. LABS: Labs show that the hemoglobin is 14, platelet count is 166. Potassium is 5.4; it was 6 on admission. BUN is 41, creatinine is 1.6. Troponins are elevated. BNP is elevated at 7940. ASSESSMENT: 1. Permanent atrial fibrillation with poorly controlled ventricular rate. 2. Elevated troponin secondary to chronic renal insufficiency. 3. Chronic systolic heart failure. PLAN: I will taper and stop the Cardizem, increase the dose of metoprolol. No potassium supplements. Consider nephrology evaluation if necessary. MMODL / IJN: [id number] /
--- NOTE | 2021-09-24 12:05 | XR ---
EXAMINATION TYPE: XR chest 2V DATE OF EXAM: 09/24/2021 COMPARISON: Chest x-ray 09/23/2021 HISTORY: Dyspnea TECHNIQUE: Frontal and lateral views of the chest are obtained. FINDINGS: Findings are similar to prior exam. The heart remains enlarged. Defibrillator lead and gen erator are stable. No evident pneumothorax or pleural effusion. Nodular density over the lower right chest described in prior report likely represents nipple shadow. No airspace disease is seen. IMPRESSION: Cardiomegaly.
[2021-09-24 12:12] LABS: Glucose,Whole Blood 282 mg/dL (75-99)
--- NOTE | 2021-09-24 13:29 | P.HPIM ---
History of Present Illness H&P Date: 09/24/21 This is a pleasant 76-year-old male who presents to the emergency room with main complaints of shortness of breath worsening with exertion which began about 1 week ago. Additionally patient has palpitations intermittently over the past 3- 4 days. Patient is experiencing some midsternal chest discomfort and feels he is gasping for breath intermittently as well. Feels associated to palpitations. There is also concern as heart rate has been ranging 30's up to the 120's at home. Sotalol as recently discontinued on patient. Patient follows with Dr. Miramontes in the primary care office. Chronic conditions including atrial fibrillation, congestive heart failure, diabetes mellitus, hyperlipidemia, osteoarthritis, macular degeneration, cardiac catheterization with stenting, patient has an AICD implanted in 2006. Patient did undergo ROSI and cardioversion May 2020. He follows with Dr. Gallego in an office, was evaluated last week and had an EKG done. Per patient Dr Gallego planning for cardioversion on November 04. Patient has been checking his blood sugar about once a week at home, states he was given insulin the past but he did not understand how to draw up insulin, and had given himself too much requiring hospitalization for hypoglycemia. Labs on admission showing white count 14.2, potassium 6.0, BUN 37, creatinine 1.71, blood glucose in the 200s, magnesium 1.7, liver enzymes are elevated, elevated troponins 0.078, 0.087, 0.107, BNP is also elevated 7940. Chest x-ray on admission shows no acute process, cardiomegaly correlate for COPD. There is an 8 mm nodule overlying the right lower lobe consider follow-up CT chest. EKG shows sinus tachycardia possible A flutter with right bundle-branch block, heart rate up into the 140s. Patient is admitted to the hospital with consult placed to cardiology. He is started on a Cardizem drip. Echocardiogram is pending. At the time of my assessment patient appears dyspneic at rest, heart rate in the 80s regular rate and rhythm. Pending cardiac evaluation. REVIEW OF SYSTEMS: CONSTITUTIONAL: No fever, no malaise, no fatigue. HEENT: No recent visual problems or hearing problems. Denied any sore throat. CARDIOVASCULAR: No orthopnea, PND, no syncope. Reports intermittent chest pain, palpitations. PULMONARY: Reports intermittent dyspnea, no cough, no hemoptysis. GASTROINTESTINAL: No diarrhea, no nausea, no vomiting, no abdominal pain. NEUROLOGICAL: No headaches, no weakness, no numbness. HEMATOLOGICAL: Denies any bleeding or petechiae. GENITOURINARY: Denies any burning micturition, frequency, or urgency. MUSCULOSKELETAL/RHEUMATOLOGICAL: Denies any joint pain, swelling, or any muscle pain. ENDOCRINE: Denies any polyuria or polydipsia. The rest of the 14-point review of systems is negative. PHYSICAL EXAMINATION: GENERAL: The patient is alert and oriented x3, not in any acute distress. Well developed, well nourished. HEENT: Pupils are round and equally reacting to light. EOMI. No scleral icterus. No conjunctival pallor. Normocephalic, atraumatic. No pharyngeal erythema. No thyromegaly. CARDIOVASCULAR: S1 and S2 present. No murmurs, rubs, or gallops. PULMONARY: Faint bibasilar crackles noted, lungs are tight. ABDOMEN: Soft, nontender, nondistended, normoactive bowel sounds. No palpable organomegaly. MUSCULOSKELETAL: No joint swelling or deformity. EXTREMITIES: No cyanosis, clubbing, or pedal edema. NEUROLOGICAL: Gross neurological examination did not reveal any focal deficits. SKIN: No rashes. Assessment and Plan Assessment Dyspnea worse with exertion secondary to atrial fibrillation with rapid ventricular rate Acute kidney injury Elevated troponin level secondary to chronic renal failure, ACS ruled out Chronic systolic dysfunction, most recent EF 35% in 2020 Hyperkalemia Hypomagnesemia Transaminitis, improving Right lower lobe lung nodule, 8mm Diabetes mellitus with hyperglycemia History of permanent pacemaker History of coronary artery disease status post PCI Hypertension was hypotensive on admission Hyperlipidemia Chronic kidney disease Former nicotine dependence GI Prophylaxis DVT Prophylaxis Full Code Plan Continue on cardizem gtt 2D echo pending Cardiology consultation Nephrology consultation Resume appropriate home medication Procalcitonin negative Repeat BMP tomorrow The impression and plan of care has been dictated by Nurse Paula Gray as directed. Dr. Ju MD I have performed a history and physical examination and medical decision making of this patient, discussed the same with the dictator, and agree with the dict ators assessment and plan as written, documented as a scribe. Based on total visit time, I have performed more than 50% of this visit. Past Medical History Past Medical History: Atrial Fibrillation, Diabetes Mellitus, Eye Disorder, Hyperlipidemia, Myocardial Infarction ([place]), Osteoarthritis (OA) Additional Past Medical History / Comment(s): Macular degeneration. Hx kidney stones, chronic back pain, concussion 1969, sciatica; states hx falls D/T Rt knee giving out, uses 4-prong cane occ. NT feet. c/o throbbing pain Lt arm occ. Last Myocardial Infarction Date:: 2006 History of Any Multi-Drug Resistant Organisms: None Reported Past Surgical History: AICD, Appendectomy, Cholecystectomy, Heart Catheterization With Stent Additional Past Surgical History / Comment(s): Colonoscopy, bilat cataracts. AICD 2006. not sure how many cardiac stents Past Anesthesia/Blood Transfusion Reactions: No Reported Reaction Date of Last Stent Placement:: not sure Type of Cardiac Device: AICD Device Placement Date:: 2006 [facility] LEFT CHEST Past Psychological History: No Psychological Hx Reported Smoking Status: Former smoker Past Alcohol Use History: Daily Additional Past Alcohol Use History / Comment(s): QUIT IN 2004, SMOKED 40 YRS. 1 beer daily Past Drug Use History: None Reported - Past Family History Mother Family Medical History: Coronary Artery Disease (CAD), Renal Disease Father Additional Family Medical History / Comment(s): during medical testing(iodine) Sister(s) Family Medical History: Cancer Additional Family Medical History / Comment(s): pancreatic cancer Medications and Allergies Home Medications Medication Instructions Recorded Confirmed Type Aspirin [Adult Low Dose Aspirin EC] 81 mg PO DAILY 03/29/19 09/23/21 History Apixaban [Eliquis] 5 mg PO BID #60 tab 05/21/20 09/23/21 Rx Atorvastatin [Lipitor] 40 mg PO HS 05/21/20 09/23/21 History Metoprolol Tartrate [Lopressor] 50 mg PO BID #60 tab 05/21/20 09/23/21 Rx Psyllium Husk/Aspartame [Metamucil 6 gm PO DAILY PRN 05/21/20 09/23/21 History Sugar-Free Powder] metFORMIN HCL 500 mg PO BID 09/12/20 09/23/21 History Glimepiride [Amaryl] 1 mg PO AC-BID 05/21/21 09/23/21 History HYDROcodone/APAP 5-325MG [[place] 1 tab PO DAILY PRN 05/21/21 09/23/21 History 5-325] Amoxicillin 500 mg PO DIRECTED 09/23/21 09/23/21 History Ibuprofen [Motrin] 600 mg PO BID PRN 09/23/21 09/23/21 History Allergies Allergy/AdvReac Type Severity Reaction Status Date / Time No Known Allergies Allergy Verified 09/23/21 13:53 Physical Exam Vitals: Vital Signs Temp Pulse Resp BP Pulse Ox 09/24/21 07:42 117 H 20 102/58 09/24/21 06:38 117 H 18 102/61 97 09/24/21 06:00 118 H 18 90/66 96 09/24/21 05:00 118 H 18 86/64 09/24/21 04:31 116 H 18 101/60 09/24/21 04:10 134 H 18 80/42 97 09/24/21 03:52 131 H 18 86/34 96 09/24/21 03:00 134 H 18 96/63 96 09/24/21 02:00 155 H 18 92/69 09/24/21 01:37 158 H 18 98/74 09/24/21 01:00 158 H 18 104/83 96 09/24/21 00:00 159 H 18 101/72 96 09/23/21 23:00 155 H 18 107/72 97 09/23/21 22:30 97.8 F 64 22 91/67 98 09/23/21 17:45 163 H 18 107/81 99 09/23/21 13:15 104 H 18 115/63 99 09/23/21 12:15 97.5 F L 125 H 18 115/81 98 09/23/21 11:36 97.3 F L 65 16 105/39 99 Intake and Output 09/23/21 09/24/21 09/24/21 22:59 06:59 14:59 Intake Total 42.459 17.333 Balance 42.459 17.333 Intake: Intake, IV Titration 42.459 17.333 Amount Diltiazem 125 mg In 42.459 17.333 Sodium Chloride 0.9% 100 ml @ 5 mls/hr IV .Q[facility]H [facility] Rx#:[id number] Results CBC & Chem 7: 09/24/21 07:21 09/24/21 07:21 Labs: Abnormal Lab Results - Last 24 Hours (Table) 09/23/21 09/23/21 09/23/21 Range/Units 12:34 12:34 12:34 WBC 14.2 H (3.8-10.6) k/uL Neutrophils # 11.0 H (1.3-7.7) k/uL Potassium 6.0 H (3.5-5.1) mmol/L Chloride 109 H (98-107) mmol/L Carbon Dioxide 17 L (22-30) mmol/L BUN 37 H (9-20) mg/dL Creatinine 1.71 H (0.66-1.25) mg/dL Glucose 245 H (74-99) mg/dL POC Glucose (mg/dL) (75-99) mg/dL Total Bilirubin 1.6 H (0.2-1.3) mg/dL AST 111 H (17-59) U/L ALT 90 H (4-49) U/L Troponin I 0.078 H* (0.000-0.034) ng/mL 09/23/21 09/23/21 09/23/21 Range/Units 16:57 17:39 20:58 WBC (3.8-10.6) k/uL Neutrophils # (1.3-7.7) k/uL Potassium (3.5-5.1) mmol/L Chloride (98-107) mmol/L Carbon Dioxide (22-30) mmol/L BUN (9-20) mg/dL Creatinine (0.66-1.25) mg/dL Glucose (74-99) mg/dL POC Glucose (mg/dL) 218 H (75-99) mg/dL Total Bilirubin (0.2-1.3) mg/dL AST (17-59) U/L ALT (4-49) U/L Troponin I 0.087 H* 0.107 H* (0.000-0.034) ng/mL Assessment and Plan Time with Patient: Greater than 30
[2021-09-24 16:49] LABS: Glucose,Whole Blood 273 mg/dL (75-99)
[2021-09-24] MEDS: INSULIN ASPART (NovoLOG) 100 UNIT/ML VIAL SQ SCH ×3 (17:09→20:53)
--- NOTE | 2021-09-24 18:30 | CA ---
Transthoracic Echo Report Name: Maxx Dill Age: 76 Gender: M : 1945 Exam Date: 09/24/2021 09:15 Exam Location: [place] [facility] Ht (in): 67 Wt (lb): 182 Ordering Physician: Wilder Menjivar MD ([id number]) Attending/Referring Phys: Otto GARDINER System Integration Engineer Brandi Valdez RDCS Procedure CPT: Indications: a-fib Cardiac Hx: PACER, OR, AFIB Technical Quality: Contrast 1: Total Dose (mL): Contrast 2: Total Dose (mL): MEASUREMENTS (Male / Female) Normal Values 2D ECHO LV Diastolic Diameter PLAX 6.1 cm 4.2 - 5.9 / 3.9 - 5.3 cm LV Systolic Diameter PLAX 5.6 cm IVS Diastolic Thickness 1.0 cm 0.6 - 1.0 / 0.6 - 0.9 cm LVPW Diastolic Thickness 1.0 cm 0.6 - 1.0 / 0.6 - 0.9 cm LV Relative Wall Thickness 0.3 RV Internal Dim ED PLAX 2.4 cm LA Systolic Diameter LX 4.5 cm 3.0 - 4.0 / 2.7 - 3.8 cm LA Volume 87.7 cm 18 - 58 / 22 - 52 cm M-MODE Aortic Root Diameter MM 3.0 cm LA Systolic Diameter MM 4.3 cm LA Ao Ratio MM 1.4 MV E Point Septal Separation 0.7 cm AV Cusp Separation MM 1.2 cm DOPPLER MV Area PHT 5.2 cm Mitral E Point Velocity 65.3 cm/s Mitral A Point Velocity 35.4 cm/s Mitral E to A Ratio 1.8 MV Deceleration Time 146.6 ms TR Peak Velocity 254.3 cm/s TR Peak Gradient 25.9 mmHg Right Ventricular Systolic Press 30.9 mmHg FINDINGS Left Ventricle Left ventricular dilatation. Mild concentric LVH mild global decrease in contractility with ejection fraction of 40% by visual inspection. Right Ventricle Normal right ventricular size and function. Right Atrium Normal right atrial size. Left Atrium Mildly increased left atrial diameter. Severely increased left atrial volume. Mildly increased left atrial area. Mitral Valve Moderate mitral regurgitation. Aortic Valve Mild aortic regurgitation. Aortic valve sclerosis. Tricuspid Valve Mild tricuspid regurgitation. No evidence of pulmonary hypertension. Pulmonic Valve Pulmonic valve not well visualized. Pericardium Echo free space anterior to the right ventricle likely represents a fat pad. Aorta Normal size aortic root. CONCLUSIONS Mild LV dilatation with mild global decrease in contractility in his ejection fraction of 40%. There is moderate eccentric mitral regurgitation no pericardial effusion with possible fat pad Previewed by: Dr. Tereso Ferro MD (Electronically Signed) Final Date: 24 September 2021 18:29
[2021-09-24 20:44] LABS: Glucose,Whole Blood 205 mg/dL (75-99)
[2021-09-24] MEDS: APIXABAN 5 MG TAB PO SCH (20:53)
[2021-09-24] MEDS: SODIUM CHLORIDE 0.9% 1,000 ML IV SCH ×2 (20:55→21:39)
[2021-09-24] MEDS ORDERED: DILTIAZEM DRIP BOLUS FROM BAG 1 MG SOLN IV ONE (21:14)
[2021-09-24] MEDS: DILTIAZEM 125 MG in SODIUM CHLORIDE 0.9% 100 ML IV SCH (21:39)
[2021-09-24 22:03] LABS: Appearance,Urine Clear (Clear); Bacteria,Urine Rare /hpf; Bilirubin,Urine Negative (Negative); Blood,Urine Negative (Negative); Color,Urine Yellow; Glucose,Urine (UA) 1+ (Negative); Hyaline Casts,Urine 70 /lpf (0-2); Ketones,Urine Negative (Negative); Leukocyte Esterase,Urine Trace (Negative); Mucus,Urine Rare /hpf; Nitrite,Urine Negative (Negative); PH, Urine 5.5 (5.0-8.0); Protein,Urine Negative (Negative); RBC,Urine 1 /hpf (0-5); Urobilinogen,Urine <2.0 mg/dL (<2.0); WBC,Urine 10 /hpf (0-5)
[2021-09-24] MEDS ORDERED: LORazepam 2 MG/ML INJ IV PRN (23:53)
[2021-09-25] MEDS: MIDODRINE 5 MG TAB PO SCH ×4 (00:05→17:15)
[2021-09-25 01:22] LABS: Glucose,Whole Blood 218 mg/dL (75-99)
[2021-09-25] MEDS ORDERED: FLUMAZENIL 0.1 MG/ML 5 ML VIAL IVP STA (01:30)
--- NOTE | 2021-09-25 02:21 | CT ---
EXAMINATION TYPE: CT brain wo con DATE OF EXAM: 09/25/2021 COMPARISON: None HISTORY: ams CT DLP: 1146.4 mGycm Automated exposure control for dose reduction was used. There is cerebral cortical atrophy. There is no mass effect or midline shift. There is no sign of int racranial hemorrhage. No evidence of cerebral edema. Calvarium is intact. IMPRESSION: Negative unenhanced head CT scan.
[2021-09-25 05:55] LABS: Glucose,Whole Blood 245 mg/dL (75-99)
[2021-09-25] MEDS: INSULIN ASPART (NovoLOG) 100 UNIT/ML VIAL SQ SCH ×4 (06:13→21:03)
[2021-09-25] MEDS: ASPIRIN 81 MG PO SCH (08:53)
[2021-09-25] MEDS: FAMOTIDINE 20 MG TAB PO SCH (08:53)
[2021-09-25] MEDS: APIXABAN 5 MG TAB PO SCH ×2 (08:53→21:03)
[2021-09-25] MEDS: METOPROLOL TARTRATE 50 MG TAB PO SCH ×2 (08:54→21:03)
[2021-09-25] MEDS: DILTIAZEM 125 MG in SODIUM CHLORIDE 0.9% 100 ML IV SCH (08:55)
[2021-09-25 09:26] LABS: Basophils # (A) 0.1 k/uL (0-0.2); Basophils % (A) 1 %; Eosinophils # (A) 0.1 k/uL (0-0.7); Eosinophils % (A) 1 %; HGB 13.4 gm/dL (13.0-17.5); Lymphocytes # (A) 1.9 k/uL (1.0-4.8); Lymphocytes % (A) 21 %; MCH 32.5 pg (25.0-35.0); MCHC 32.6 g/dL (31.0-37.0); MCV 99.6 fL (80.0-100.0); Macrocytosis Slight; Mean Platelet Volume 9.5; Monocytes # (A) 0.7 k/uL (0-1.0); Monocytes % (A) 7 %; Neutrophils # (A) 6.2 k/uL (1.3-7.7); Neutrophils % (A) 69 %; Platelet Count 166 k/uL (150-450); RBC 4.12 m/uL (4.30-5.90); WBC 9.1 k/uL (3.8-10.6)
[2021-09-25 09:50] LABS: Albumin 3.6 g/dL (3.5-5.0); Bilirubin, Delta 0.2 mg/dL (0.0-0.2); Bilirubin,Unconjugated 1.6 mg/dL (0.0-1.1); Calcium 8.9 mg/dL (8.4-10.2); Magnesium 1.9 mg/dL (1.6-2.3); Potassium 5.1 mmol/L (3.5-5.1); Total Bilirubin 1.8 mg/dL (0.2-1.3); Total Protein 6.4 g/dL (6.3-8.2)
--- NOTE | 2021-09-25 10:51 | P.NPCON ---
History of Present Illness - Reason for Consult acute renal failure, chronic renal failure - History of Present Illness Reason for consultation: Acute kidney injury on chronic kidney disease History of present illness: Patient is a 76-year-old male seen in renal consultation for acute kidney injury on chronic kidney disease. Patient has chronic kidney disease stage IIIa with baseline creatinine in the range of 1.3-1.5 secondary to diabetic kidney disease and nephrosclerosis. Patient presented to the hospital with shortness of breath and was noted to be in A. fib with RVR. He is currently maintained on Cardizem drip. Patient states he's undergone ablation in the past and will need another one in the near future. He's been followed by cardiology. He currently denies any chest pain or shortness of breath. Last night the patient became confused and hypotensive. He received a dose of midodrine and also Xanax. This morning he is more awake and son is present at bedside. He required straight catheterization once last night when he was confused. He does follow with urology outpatient for urinary retention. He admits to taking Motrin about once a week as needed. Creatinine on admission was 1.71 and is stable at 1.65 today. No hematuria. No vomiting or diarrhea. Vital signs are stable. General: Awake. No acute distress. HEENT: Head exam is unremarkable. LUNGS: Breath sounds decreased. HEART: Rate and Rhythm are regular. ABDOMEN: Soft, no distention. EXTREMITITES: No edema. Past Medical History Past Medical History: Atrial Fibrillation, Diabetes Mellitus, Eye Disorder, Hyperlipidemia, Myocardial Infarction ([place]), Osteoarthritis (OA) Additional Past Medical History / Comment(s): Macular degeneration. Hx kidney stones, chronic back pain, concussion 1969, sciatica; states hx falls D/T Rt knee giving out, uses 4-prong cane occ. NT feet. c/o throbbing pain Lt arm occ. Last Myocardial Infarction Date:: 2006 History of Any Multi-Drug Resistant Organisms: None Reported Past Surgical History: AICD, Appendectomy, Cholecystectomy, Heart Catheterization With Stent Additional Past Surgical History / Comment(s): Colonoscopy, bilat cataracts. AICD 2006. not sure how many cardiac stents Past Anesthesia/Blood Transfusion Reactions: No Reported Reaction Date of Last Stent Placement:: not sure Type of Cardiac Device: AICD Device Placement Date:: 2006 [facility] LEFT CHEST Past Psychological History: No Psychological Hx Reported Smoking Status: Former smoker Past Alcohol Use History: Daily Additional Past Alcohol Use History / Comment(s): QUIT IN 2004, SMOKED 40 YRS. 1 beer daily Past Drug Use History: None Reported - Past Family History Mother Family Medical History: Coronary Artery Disease (CAD), Renal Disease Father Additional Family Medical History / Comment(s): during medical testin g(iodine) Sister(s) Family Medical History: Cancer Additional Family Medical History / Comment(s): pancreatic cancer Medications and Allergies Home Medications Medication Instructions Recorded Confirmed Type Aspirin [Adult Low Dose Aspirin EC] 81 mg PO DAILY 03/29/19 09/23/21 History Apixaban [Eliquis] 5 mg PO BID #60 tab 05/21/20 09/23/21 Rx Atorvastatin [Lipitor] 40 mg PO HS 05/21/20 09/23/21 History Metoprolol Tartrate [Lopressor] 50 mg PO BID #60 tab 05/21/20 09/23/21 Rx Psyllium Husk/Aspartame [Metamucil 6 gm PO DAILY PRN 05/21/20 09/23/21 History Sugar-Free Powder] metFORMIN HCL 500 mg PO BID 09/12/20 09/23/21 History Glimepiride [Amaryl] 1 mg PO AC-BID 05/21/21 09/23/21 History HYDROcodone/APAP 5-325MG [[place] 1 tab PO DAILY PRN 05/21/21 09/23/21 History 5-325] Amoxicillin 500 mg PO DIRECTED 09/23/21 09/23/21 History Ibuprofen [Motrin] 600 mg PO BID PRN 09/23/21 09/23/21 History Allergies Allergy/AdvReac Type Severity Reaction Status Date / Time No Known Allergies Allergy Verified 09/23/21 13:53 Physical Exam Vitals: Vital Signs Temp Pulse Pulse Resp BP BP Pulse Ox 09/25/21 08:00 97.9 F 90 17 105/65 97 09/25/21 06:09 90/62 09/25/21 04:00 97.4 F L 80 18 116/68 100 09/25/21 02:00 91 20 09/25/21 01:44 91 20 95/69 100 09/25/21 01:17 77 20 102/68 100 09/25/21 00:56 88 20 109/67 98 04/26/22 23:30 97.9 F 98 24 96/64 100 09/24/21 21:49 155 H 104/76 09/24/21 20:00 156 H 18 09/24/21 19:43 97.6 F 156 H 18 112/74 98 09/24/21 15:45 97.4 F L 80 18 106/68 100 09/24/21 15:35 80 18 108/75 99 09/24/21 11:30 78 18 109/74 100 Intake and Output 09/24/21 09/25/21 09/25/21 22:59 06:59 14:59 Intake Total 118 112.250 Output Total 900 Balance 118 -900 112.250 Intake: Intake, IV Titration 112.250 Amount Diltiazem 125 mg In 112.250 Sodium Chloride 0.9% 100 ml @ 10 MG/HR 10 mls/hr IV .[id number] [facility] Rx#: [id number] Oral 118 Output: Urine 900 Other: Voiding Method Toilet Urinal Urinal Urinal Results - Lab Results Most recent lab results Calcium 8.9 mg/dL (8.4-10.2) 09/25/21 08:50 Magnesium 1.9 mg/dL (1.6-2.3) 09/25/21 08:50 09/25/21 08:50 09/25/21 08:50 Assessment and Plan Plan: Assessment: 1. Mild acute kidney injury versus progression of underlying chronic kidney dis ease. Etiology is hemodynamic instability from A. fib. Creatinine stable at 1.65 today. Rule out urinary retention. He required straight catheterization once last night. 2. Chronic kidney disease stage III with baseline creatinine in the range of 1.3-1.5 secondary to nephrosclerosis and diabetic kidney disease. 3. A. fib with RVR maintained on Cardizem drip. 4. Metabolic acidosis secondary to acute kidney injury. 5. Diabetes mellitus. 6. Chronic systolic CHF with ejection fraction of 40% with moderate mitral regurgitation. Plan: Monitor bladder scans to rule out urinary retention. Check renal ultrasound. Encouraged oral intake. Add oral bicarb. Continue to monitor renal function and urine output. Check a.m. cortisol level. Hold midodrine for systolic blood pressure greater than 110. Thank you for the consultation. I will continue to follow the patient with you during his hospital stay.
--- NOTE | 2021-09-25 11:42 | US ---
EXAMINATION TYPE: US kidneys/renal and bladder DATE OF EXAM: 09/25/2021 COMPARISON: US dated 04/05/2019 CLINICAL HISTORY: wood. WOOD, pt states he is unable to empty bladder, has been receiving straight cath s EXAM MEASUREMENTS: Right Kidney: 11.6 x 5.6 x 5.5 cm Left Kidney: 10.2 x 4.9 x 4.2 cm Right Kidney: Visualized portions appeared wnl Left Kidney: Cystic lesion upper pole= 3.7 x 4.5 x 3.3 cm not well characterized due to positioning, increased in size compared to prior exam Bladder: Irregular posterior wall Bilateral Jets seen: Only right jet visualized Incidental finding, very small amount of ascites adjacent to right lobe of liver There is no evidence for hydronephrosis at this point in time. No nephrolithiasis is seen. No lesley s are identified. Cortical medullary differentiation is maintained. The urinary bladder is anechoic. IMPRESSION: Minimal ascites noted. Renal sizes as described.
[2021-09-25 11:58] LABS: Glucose,Whole Blood 230 mg/dL (75-99)
[2021-09-25] MEDS ORDERED: METOPROLOL TARTRATE 50 MG TAB PO STA (12:19)
[2021-09-25] MEDS: SODIUM BICARBONATE TAB 650 MG TAB PO SCH ×2 (12:38→21:03)
[2021-09-25] MEDS: DILTIAZEM ORAL 30 MG TAB PO SCH ×3 (13:52→21:08)
--- NOTE | 2021-09-25 14:19 | P.PN ---
Subjective Progress Note Date: 09/25/21 HISTORY OF PRESENT ILLNESS: Patient examined this morning at the bedside. Patient denies chest pain or pressure. Denies SOB. He went into afib with RVR overnight and was started on a Cardizem drip. Patient appears to be in sinus mechanism with PACs this morning. Echo completed revealing EF 40%. PHYSICAL EXAM: VITAL SIGNS: Reviewed. GENERAL: Well-developed in no acute distress. NECK: Supple. No JVD or thyromegaly LUNGS: Respirations even and unlabored. Lungs essentially clear to auscultation bilaterally. HEART: Irregular rate and rhythm. S1 and S2 heard. Systolic murmur noted. EXTREMITIES: Normal range of motion. No clubbing or cyanosis. Peripheral pulses intact. No lower extremity edema ASSESSMENT: Paroxysmal atrial fibrillation with RVR Acute kidney injury Abnormal troponins, not suggestive of ACS, likely secondary to WOOD Chronic heart failure with reduced EF PLAN: Increase metoprolol to 100mg BID Discontinue IV Cardizem Continue telemetry monitoring Further recommendations pending patient course Nurse practitioner note has been reviewed by physician. Signing provider agrees with the documented findings, assessment, and plan of care. Objective - Vital Signs Vital signs: Vital Signs Temp 97.9 F 09/25/21 08:00 Pulse 90 09/25/21 08:00 Resp 17 09/25/21 08:00 BP 105/65 09/25/21 08:00 Pulse Ox 97 09/25/21 08:00 Intake & Output 09/24/21 09/25/21 09/25/21 18:59 06:59 18:59 Intake Total 135.333 363.500 Output Total 900 450 Balance 135.333 -900 -86.500 Weight 82.554 kg Intake: Intake, IV Titration 17.333 123.500 Amount Diltiazem 125 mg In 123.500 Sodium Chloride 0.9% 100 ml @ 10 MG/HR 10 mls/hr IV .[id number] [facility] Rx#: [id number] Diltiazem 125 mg In 17.333 Sodium Chloride 0.9% 100 ml @ 5 mls/hr IV .Q24H [facility] Rx#:[id number] Oral 118 240 Output: Urine 900 450 Straight 450 Other: Voiding Method Urinal Urinal - Labs CBC & Chem 7: 09/25/21 08:50 09/25/21 08:50 Labs: Abnormal Lab Results - Last 24 Hours (Table) 09/24/21 09/24/21 09/24/21 Range/Units 07:21 16:45 20:31 RBC (4.30-5.90) m/uL Sodium (137-145) mmol/L Chloride (98-107) mmol/L Carbon Dioxide (22-30) mmol/L BUN (9-20) mg/dL Creatinine (0.66-1.25) mg/dL Glucose (74-99) mg/dL POC Glucose (mg/dL) 273 H 205 H (75-99) mg/dL Hemoglobin A1c 7.0 H (0.0-6.0) % Total Bilirubin (0.2-1.3) mg/dL Unconjugated Bilirubin (0.0-1.1) mg/dL ALT (4-49) U/L Urine Glucose (UA) (Negative) Ur Leukocyte Esterase (Negative) Urine WBC (0-5) /hpf Urine WBC Clumps (None) /hpf Urine Bacteria (None) /hpf Hyaline Casts (0-2) /lpf Urine Mucus (None) /hpf 09/24/21 09/25/21 09/25/21 Range/Units 21:20 01:19 05:53 RBC (4.30-5.90) m/uL Sodium (137-145) mmol/L Chloride (98-107) mmol/L Carbon Dioxide (22-30) mmol/L BUN (9-20) mg/dL Creatinine (0.66-1.25) mg/dL Glucose (74-99) mg/dL POC Glucose (mg/dL) 218 H 245 H (75-99) mg/dL Hemoglobin A1c (0.0-6.0) % Total Bilirubin (0.2-1.3) mg/dL Unconjugated Bilirubin (0.0-1.1) mg/dL ALT (4-49) U/L Urine Glucose (UA) 1+ H (Negative) Ur Leukocyte Esterase Trace H (Negative) Urine WBC 10 H (0-5) /hpf Urine WBC Clumps Rare H (None) /hpf Urine Bacteria Rare H (None) /hpf Hyaline Casts 70 H (0-2) /lpf Urine Mucus Rare H (None) /hpf 09/25/21 09/25/21 09/25/21 Range/Units 08:50 08:50 11:54 RBC 4.12 L (4.30-5.90) m/uL Sodium 134 L (137-145) mmol/L Chloride 108 H (98-107) mmol/L Carbon Dioxide 18 L (22-30) mmol/L BUN 46 H (9-20) mg/dL Creatinine 1.65 H (0.66-1.25) mg/dL Glucose 252 H (74-99) mg/dL POC Glucose (mg/dL) 230 H (75-99) mg/dL Hemoglobin A1c (0.0-6.0) % Total Bilirubin 1.8 H (0.2-1.3) mg/dL Unconjugated Bilirubin 1.6 H (0.0-1.1) mg/dL ALT 91 H (4-49) U/L Urine Glucose (UA) (Negative) Ur Leukocyte Esterase (Negative) Urine WBC (0-5) /hpf Urine WBC Clumps (None) /hpf Urine Bacteria (None) /hpf Hyaline Casts (0-2) /lpf Urine Mucus (None) /hpf
[2021-09-25 16:46] LABS: Glucose,Whole Blood 273 mg/dL (75-99)
--- NOTE | 2021-09-25 18:17 | P.GSCN ---
History of Present Illness Consult date: 09/25/21 Reason for Consult: Urinary retention History of present illness: This is 76-year-old male admitted to the hospital with shortness of breath and A. fib. Urology is consulted for urinary retention. He does have history of BPH underwent a Urolift in August 2020. He indicated following surgery he has been able to void to completion but does complain of weak stream and intermittent straining with urination. Denies any dysuria or gross hematuria. Last night he was having some difficulty voiding, he required straight cath for a postvoid residual of greater than 400 mL's. He continues to have difficulty voiding today. Denies any dysuria or gross hematuria. He underwent a renal ultrasound on presentation showed no evidence of hydronephrosis. Review of Systems - Constitutional Denies fever, Denies weight loss - EENT Ears, nose, mouth and throat: Denies dysphagia - Cardiovascular Reports shortness of breath - Respiratory Denies cough, Denies 7 - Gastrointestinal Reports as per HPI - Genitourinary Reports urinary retention, Denies dysuria, Denies flank pain, Denies hematuria - Neurological Denies headaches, Denies syncope Past Medical History Past Medical History: Atrial Fibrillation, Diabetes Mellitus, Eye Disorder, Hyperlipidemia, Myocardial Infarction ([place]), Osteoarthritis ([place]) Additional Past Medical History / Comment(s): Macular degeneration. Hx kidney stones, chronic back pain, concussion 1969, sciatica; states hx falls D/T Rt knee giving out, uses 4-prong cane occ. NT feet. c/o throbbing pain Lt arm occ. Last Myocardial Infarction Date:: 2006 History of Any Multi-Drug Resistant Organisms: None Reported Past Surgical History: AICD, Appendectomy, Cholecystectomy, Heart Catheterization With Stent Additional Past Surgical History / Comment(s): Colonoscopy, bilat cataracts. AICD 2006. not sure how many cardiac stents Past Anesthesia/Blood Transfusion Reactions: No Reported Reaction Date of Last Stent Placement:: not sure Type of Cardiac Device: AICD Device Placement Date:: 2006 [facility] LEFT CHEST Past Psychological History: No Psychological Hx Reported Smoking Status: Former smoker Past Alcohol Use History: Daily Additional Past Alcohol Use History / Comment(s): QUIT IN 2004, SMOKED 40 YRS. 1 beer daily Past Drug Use History: None Reported - Past Family History Mother Family Medical History: Coronary Artery Disease (CAD), Renal Disease Father Additional Family Medical History / Comment(s): during medical testing(iodine) Sister(s) Family Medical History: Cancer Additional Family Medical History / Comment(s): pancreatic cancer Medications and Allergies Home Medications Medication Instructions Recorded Confirmed Type Aspirin [Adult Low Dose Aspirin EC] 81 mg PO DAILY 03/29/19 09/23/21 History Apixaban [Eliquis] 5 mg PO BID #60 tab 05/21/20 09/23/21 Rx Atorvastatin [Lipitor] 40 mg PO HS 05/21/20 09/23/21 History Metoprolol Tartrate [Lopressor] 50 mg PO BID #60 tab 05/21/20 09/23/21 Rx Psyllium Husk/Aspartame [Metamucil 6 gm PO DAILY PRN 05/21/20 09/23/21 History Sugar-Free Powder] metFORMIN HCL 500 mg PO BID 09/12/20 09/23/21 History Glimepiride [Amaryl] 1 mg PO AC-BID 05/21/21 09/23/21 History HYDROcodone/APAP 5-325MG [[place] 1 tab PO DAILY PRN 05/21/21 09/23/21 History 5-325] Amoxicillin 500 mg PO DIRECTED 09/23/21 09/23/21 History Ibuprofen [Motrin] 600 mg PO BID PRN 09/23/21 09/23/21 History Allergies Allergy/AdvReac Type Severity Reaction Status Date / Time No Known Allergies Allergy Verified 09/23/21 13:53 Surgical - Exam Vital Signs Temp Pulse Resp BP Pulse Ox 97.3 F L 65 16 105/39 99 09/23/21 11:36 09/23/21 11:36 09/23/21 11:36 09/23/21 11:36 09/23/21 11:36 - General no distress, no pain - Eyes normal ocular movement, no pale - ENT normal nares, normal mucosa - Respiratory normal expansion - Abdomen Abdomen: soft, no distended Results - Labs 09/25/21 08:50 09/25/21 08:50 Abnormal Lab Results - Last 24 Hours (Table) 09/24/21 09/24/21 09/24/21 Range/Units 07:21 20:31 21:20 RBC (4.30-5.90) m/uL Sodium (137-145) mmol/L Chloride (98-107) mmol/L Carbon Dioxide (22-30) mmol/L BUN (9-20) mg/dL Creatinine (0.66-1.25) mg/dL Glucose (74-99) mg/dL POC Glucose (mg/dL) 205 H (75-99) mg/dL Hemoglobin A1c 7.0 H (0.0-6.0) % Total Bilirubin (0.2-1.3) mg/dL Unconjugated Bilirubin (0.0-1.1) mg/dL ALT (4-49) U/L Urine Glucose (UA) 1+ H (Negative) Ur Leukocyte Esterase Trace H (Negative) Urine WBC 10 H (0-5) /hpf Urine WBC Clumps Rare H (None) /hpf Urine Bacteria Rare H (None) /hpf Hyaline Casts 70 H (0-2) /lpf Urine Mucus Rare H (None) /hpf 09/25/21 09/25/21 09/25/21 Range/Units 01:19 05:53 08:50 RBC (4.30-5.90) m/uL Sodium 134 L (137-145) mmol/L Chloride 108 H (98-107) mmol/L Carbon Dioxide 18 L (22-30) mmol/L BUN 46 H (9-20) mg/dL Creatinine 1.65 H (0.66-1.25) mg/dL Glucose 252 H (74-99) mg/dL POC Glucose (mg/dL) 218 H 245 H (75-99) mg/dL Hemoglobin A1c (0.0-6.0) % Total Bilirubin 1.8 H (0.2-1.3) mg/dL Unconjugated Bilirubin 1.6 H (0.0-1.1) mg/dL ALT 91 H (4-49) U/L Urine Glucose (UA) (Negative) Ur Leukocyte Esterase (Negative) Urine WBC (0-5) /hpf Urine WBC Clumps (None) /hpf Urine Bacteria (None) /hpf Hyaline Casts (0-2) /lpf Urine Mucus (None) /hpf 09/25/21 09/25/21 09/25/21 Range/Units 08:50 11:54 16:44 RBC 4.12 L (4.30-5.90) m/uL Sodium (137-145) mmol/L Chloride (98-107) mmol/L Carbon Dioxide (22-30) mmol/L BUN (9-20) mg/dL Creatinine (0.66-1.25) mg/dL Glucose (74-99) mg/dL POC Glucose (mg/dL) 230 H 273 H (75-99) mg/dL Hemoglobin A1c (0.0-6.0) % Total Bilirubin (0.2-1.3) mg/dL Unconjugated Bilirubin (0.0-1.1) mg/dL ALT (4-49) U/L Urine Glucose (UA) (Negative) Ur Leukocyte Esterase (Negative) Urine WBC (0-5) /hpf Urine WBC Clumps (None) /hpf Urine Bacteria (None) /hpf Hyaline Casts (0-2) /lpf Urine Mucus (None) /hpf Diabetes panel 09/24/21 09/25/21 Range/Units 07:21 08:50 Sodium 134 L (137-145) mmol/L Potassium 5.1 (3.5-5.1) mmol/L Chloride 108 H (98-107) mmol/L Carbon Dioxide 18 L (22-30) mmol/L BUN 46 H (9-20) mg/dL Creatinine 1.65 H (0.66-1.25) mg/dL Glucose 252 H (74-99) mg/dL Hemoglobin A1c 7.0 H (0.0-6.0) % Calcium 8.9 (8.4-10.2) mg/dL AST 55 (17-59) U/L ALT 91 H (4-49) U/L Alkaline Phosphatase 86 (38-126) U/L Total Protein 6.4 (6.3-8.2) g/dL Albumin 3.6 (3.5-5.0) g/dL Calcium panel 09/25/21 Range/Units 08:50 Calcium 8.9 (8.4-10.2) mg/dL Albumin 3.6 (3.5-5.0) g/dL Pituitary panel 09/25/21 Range/Units 08:50 Sodium 134 L (137-145) mmol/L Potassium 5.1 (3.5-5.1) mmol/L Chloride 108 H (98-107) mmol/L Carbon Dioxide 18 L (22-30) mmol/L BUN 46 H (9-20) mg/dL Creatinine 1.65 H (0.66-1.25) mg/dL Glucose 252 H (74-99) mg/dL Calcium 8.9 (8.4-10.2) mg/dL Adrenal panel 09/25/21 Range/Units 08:50 Sodium 134 L (137-145) mmol/L Potassium 5.1 (3.5-5.1) mmol/L Chloride 108 H (98-107) mmol/L Carbon Dioxide 18 L (22-30) mmol/L BUN 46 H (9-20) mg/dL Creatinine 1.65 H (0.66-1.25) mg/dL Glucose 252 H (74-99) mg/dL Calcium 8.9 (8.4-10.2) mg/dL Total Bilirubin 1.8 H (0.2-1.3) mg/dL AST 55 (17-59) U/L ALT 91 H (4-49) U/L Alkaline Phosphatase 86 (38-126) U/L Total Protein 6.4 (6.3-8.2) g/dL Albumin 3.6 (3.5-5.0) g/dL Assessment and Plan Assessment: This is a 76-year-old male with history of BPH, underwent a Uroliftlast year. Has been having difficulty voiding since admission, required straight cath 1 for a postvoid residual greater than 400 mL -Rechecks PVR if = greater than 400 mL recommend inserting a Paredes catheter, Paredes catheter can be removed prior to discharge, recheck postvoid residual after removing the Paredes catheter -We'll start on Flomax Can follow-up with me as an outpatient in 2 weeks
--- NOTE | 2021-09-25 19:13 | P.PN ---
Subjective This is a pleasant 76 years old male with past medical history of Atrial Fibrillation, on Eliquis, Diabetes Mellitus, Hyperlipidemia, Myocardial Inf arction, Osteoarthritis ,macular degeneration. Hx kidney stones, chronic back pain, concussion 1969, sciatica; states hx falls , NT feet. Coronary artery disease status post Stent Status post. AICD 2006 fluctuation in heart rate, bradycardia/tachycardia has pacemaker. Heart rate was fluctuated 64-163, systolic blood pressure 90s to 100. Patient is afebrile. That showed mild leukocytosis, rest of CBC, INR is unremarkable. Creatinine is elevated to 1.7, baseline 1.3-1.5 , potassium elevated at 6.0. Glucose 245, bilirubin 1.6, AST elevated 111, ALT elevated 90. Elevated troponin 0.07, 0.08, 0.10. ProBNP elevated 7940 TSH is normal 4.3, free T4 is normal 1.0. 1 EKG showed sinus tachycardia with short NM interval at 131. Another EKG showing atrial flutter/tachycardia with rapid ventricular response at 161 30 EKG showing sinus tachycardia with short NM interval possibly atrial flutter at 143 Patient received Colace, gluconate 1 g, D50 and insulin 5 units, metoprolol 50 mg twice a day, sodium bicarb. Subjective: Resume the care of the patient today 12/25/2021 Patient awake slightly sleepy. Follows commands. No chest pain or dyspnea. Patient able to eat his diet today better than yesterday. His heart rate was still uncontrolled and metoprolol increased to 100 mg twice a day as well as Cardizem oral. He continued on Eliquis and telemetry monitoring. Urologist evaluated the patient for retention and recommended Paredes catheter and Flomax and outpatient follow-up Creatinine is still elevated to close to baseline of 1.3-1.5, currently 1.6. Manager Residential on the case Ultrasound of the abdomen no hydronephrosis and increased left kidney cystic. CT of the brain is negative. Pronecalcitonin is negative. Objective - Vital Signs Vital signs: Vital Signs Temp 97.4 F L 09/25/21 04:00 Pulse 80 09/25/21 04:00 Resp 18 09/25/21 04:00 BP 90/62 09/25/21 06:09 Pulse Ox 100 09/25/21 04:00 Intake & Output 09/24/21 09/25/21 09/25/21 18:59 06:59 18:59 Intake Total 135.333 Output Total 900 Balance 135.333 -900 Weight 82.554 kg Intake: Intake, IV Titration 17.333 Amount Diltiazem 125 mg In 17.333 Sodium Chloride 0.9% 100 ml @ 5 mls/hr IV .Q24H [facility] Rx#:[id number] Oral 118 Output: Urine 900 Other: Voiding Method Urinal Urinal - Exam GENERAL: The patient is alert and oriented x3, not in any acute distress. Well developed, well nourished. HEENT: Pupils are round and equally reacting to light. EOMI. No scleral icterus. No conjunctival pallor. Normocephalic, atraumatic. No pharyngeal erythema. No thyromegaly. CARDIOVASCULAR: S1 and S2 present. No murmurs, rubs, or gallops. PULMONARY: Chest is clear to auscultation, no wheezing or crackles. ABDOMEN: Soft, nontender, nondistended, normoactive bowel sounds. No palpable organomegaly. MUSCULOSKELETAL: No joint swelling or deformity. EXTREMITIES: No cyanosis, clubbing, or pedal edema. NEUROLOGICAL: Gross neurological examination did not reveal any focal deficits. SKIN: No rashes. no petechiae. - Labs CBC & Chem 7: 09/25/21 08:50 09/25/21 08:50 Labs: Abnormal Lab Results - Last 24 Hours (Table) 09/24/21 09/24/21 09/24/21 Range/Units 07:21 07:21 07:21 WBC 11.0 H (3.8-10.6) k/uL MCV 100.2 H (80.0-100.0) fL Potassium 5.4 H (3.5-5.1) mmol/L Chloride 109 H (98-107) mmol/L Carbon Dioxide 20 L (22-30) mmol/L BUN 41 H (9-20) mg/dL Creatinine 1.63 H (0.66-1.25) mg/dL Glucose 215 H (74-99) mg/dL POC Glucose (mg/dL) (75-99) mg/dL Hemoglobin A1c 7.0 H (0.0-6.0) % Total Bilirubin 1.5 H (0.2-1.3) mg/dL Unconjugated Bilirubin 1.3 H (0.0-1.1) mg/dL ALT 66 H (4-49) U/L Urine Glucose (UA) (Negative) Ur Leukocyte Esterase (Negative) Urine WBC (0-5) /hpf Urine WBC Clumps (None) /hpf Urine Bacteria (None) /hpf Hyaline Casts (0-2) /lpf Urine Mucus (None) /hpf 09/24/21 09/24/21 09/24/21 Range/Units 12:10 16:45 20:31 WBC (3.8-10.6) k/uL MCV (80.0-100.0) fL Potassium (3.5-5.1) mmol/L Chloride (98-107) mmol/L Carbon Dioxide (22-30) mmol/L BUN (9-20) mg/dL Creatinine (0.66-1.25) mg/dL Glucose (74-99) mg/dL POC Glucose (mg/dL) 282 H 273 H 205 H (75-99) mg/dL Hemoglobin A1c (0.0-6.0) % Total Bilirubin (0.2-1.3) mg/dL Unconjugated Bilirubin (0.0-1.1) mg/dL ALT (4-49) U/L Urine Glucose (UA) (Negative) Ur Leukocyte Esterase (Negative) Urine WBC (0-5) /hpf Urine WBC Clumps (None) /hpf Urine Bacteria (None) /hpf Hyaline Casts (0-2) /lpf Urine Mucus (None) /hpf 09/24/21 09/25/21 09/25/21 Range/Units 21:20 01:19 05:53 WBC (3.8-10.6) k/uL MCV (80.0-100.0) fL Potassium (3.5-5.1) mmol/L Chloride (98-107) mmol/L Carbon Dioxide (22-30) mmol/L BUN (9-20) mg/dL Creatinine (0.66-1.25) mg/dL Glucose (74-99) mg/dL POC Glucose (mg/dL) 218 H 245 H (75-99) mg/dL Hemoglobin A1c (0.0-6.0) % Total Bilirubin (0.2-1.3) mg/dL Unconjugated Bilirubin (0.0-1.1) mg/dL ALT (4-49) U/L Urine Glucose (UA) 1+ H (Negative) Ur Leukocyte Esterase Trace H (Negative) Urine WBC 10 H (0-5) /hpf Urine WBC Clumps Rare H (None) /hpf Urine Bacteria Rare H (None) /hpf Hyaline Casts 70 H (0-2) /lpf Urine Mucus Rare H (None) /hpf Assessment and Plan Assessment: Paroxysmal atrial fibrillation/flutter with RVR in the cardiac arrhythmias Elevated troponin, secondary to above fund renal disease acute kidney injury, versus progressive CTD Chronic kidney disease stage III Elevated liver enzymes Urinary retention Left renal cyst Diabetes mellitus chronic atrial fibrillation on Eliquis History of osteoarthritis Chronic back pain History of coronary artery disease status post stenting Plan: this is a pleasant 76 years old male with A. fib and RVR on cardiac arrhythmia Continue with telemetry Cardiology consult Continue with metoprolol and Cardizem. Continue with Eliquis Monitor kidney function, dress shoe inspector on the case Continue with Flomax and follow-up with urologist after discharge in 2 weeks Labs and medication were reviewed.. Continue same treatment. Continue with symptomatic treatment. Resume home medication. Monitor lytes and vitals. DVT and GI prophylaxis. Further recommendations as per clinical course of the patient DVT prophylaxis: Eliquis GI Prophylaxis: Pepcid PT/OT: Pending Prognosis is guarded
[2021-09-25 20:36] LABS: Glucose,Whole Blood 182 mg/dL (75-99)
[2021-09-25] MEDS: GLIMEPIRIDE 1 MG TAB PO SCH (21:06)
[2021-09-26 04:56] LABS: Basophils # (A) 0.1 k/uL (0-0.2); Basophils % (A) 1 %; Eosinophils # (A) 0.1 k/uL (0-0.7); Eosinophils % (A) 1 %; HGB 13.7 gm/dL (13.0-17.5); Lymphocytes # (A) 1.8 k/uL (1.0-4.8); Lymphocytes % (A) 19 %; MCH 33.4 pg (25.0-35.0); MCHC 34.2 g/dL (31.0-37.0); MCV 97.6 fL (80.0-100.0); Mean Platelet Volume 9.2; Monocytes # (A) 0.7 k/uL (0-1.0); Monocytes % (A) 7 %; Neutrophils # (A) 6.5 k/uL (1.3-7.7); Neutrophils % (A) 69 %; Platelet Count 169 k/uL (150-450); RDW 14.5 % (11.5-15.5); WBC 9.4 k/uL (3.8-10.6)
[2021-09-26] MEDS ORDERED: DILTIAZEM 125 MG in SODIUM CHLORIDE 0.9% 100 ML IV SCH (05:00)
[2021-09-26 05:17] LABS: Calcium 8.7 mg/dL (8.4-10.2); Potassium 4.7 mmol/L (3.5-5.1)
[2021-09-26 06:20] LABS: Glucose,Whole Blood 231 mg/dL (75-99)
[2021-09-26] MEDS: MIDODRINE 5 MG TAB PO SCH ×3 (06:34→18:04)
[2021-09-26] MEDS: GLIMEPIRIDE 1 MG TAB PO SCH (06:34)
[2021-09-26] MEDS: INSULIN ASPART (NovoLOG) 100 UNIT/ML VIAL SQ SCH ×4 (06:34→20:28)
[2021-09-26] MEDS: SODIUM BICARBONATE TAB 650 MG TAB PO SCH ×2 (09:29→20:27)
[2021-09-26] MEDS: APIXABAN 5 MG TAB PO SCH ×2 (09:29→20:27)
[2021-09-26] MEDS: METOPROLOL TARTRATE 50 MG TAB PO SCH ×2 (09:29→21:12)
[2021-09-26] MEDS: FAMOTIDINE 20 MG TAB PO SCH (09:30)
[2021-09-26] MEDS: ASPIRIN 81 MG PO SCH (09:30)
[2021-09-26] MEDS: TAMSULOSIN 0.4 MG CAP.ER.24H PO SCH (09:30)
[2021-09-26] MEDS: DILTIAZEM ORAL 30 MG TAB PO SCH (09:36)
--- NOTE | 2021-09-26 10:11 | P.PN ---
Subjective Patient is seen in follow-up for acute kidney injury and chronic kidney disease. Renal function stable. Has Paredes catheter for urinary retention. On Cardizem drip for A. fib. Denies chest pain or shortness of breath. Sitting up in chair. Vital signs are stable. In A. fib. General: Awake. No acute distress. HEENT: Head exam is unremarkable. LUNGS: Breath sounds decreased. HEART: Irregular rate and rhythm. ABDOMEN: Soft, no distention. EXTREMITITES: No edema. Objective - Vital Signs Vital signs: Vital Signs Temp 98 F 09/26/21 04:00 Pulse 150 H 09/26/21 04:00 Resp 20 09/26/21 04:00 BP 98/70 09/26/21 04:00 Pulse Ox 100 09/26/21 04:00 Intake & Output 09/25/21 09/26/21 09/26/21 18:59 06:59 18:59 Intake Total 363.500 Output Total 650 300 Balance -286.500 -300 Intake: Intake, IV Titration 123.500 Amount Diltiazem 125 mg In 123.500 Sodium Chloride 0.9% 100 ml @ 10 MG/HR 10 mls/hr IV .[id number] Rx#: [id number] Oral 240 Output: Urine 650 300 Straight 450 Other: Voiding Method Urinal Urinal - Labs CBC & Chem 7: 09/26/21 04:14 09/26/21 04:14 Labs: Abnormal Lab Results - Last 24 Hours (Table) 09/25/21 09/25/21 09/25/21 Range/Units 11:54 16:44 20:35 RBC (4.30-5.90) m/uL Sodium (137-145) mmol/L Chloride (98-107) mmol/L Carbon Dioxide (22-30) mmol/L BUN (9-20) mg/dL Creatinine (0.66-1.25) mg/dL Glucose (74-99) mg/dL POC Glucose (mg/dL) 230 H 273 H 182 H (75-99) mg/dL 09/26/21 09/26/21 09/26/21 Range/Units 04:14 04:14 06:19 RBC 4.10 L (4.30-5.90) m/uL Sodium 135 L (137-145) mmol/L Chloride 108 H (98-107) mmol/L Carbon Dioxide 19 L (22-30) mmol/L BUN 43 H (9-20) mg/dL Creatinine 1.59 H (0.66-1.25) mg/dL Glucose 216 H (74-99) mg/dL POC Glucose (mg/dL) 231 H (75-99) mg/dL Assessment and Plan Plan: Assessment: 1. Mild acute kidney injury versus progression of underlying chronic kidney disease. Etiology is hemodynamic instability from A. fib and urinary retention. Creatinine stable at 1.59 today. No hydronephrosis noted on kidney ultrasound. 2. Chronic kidney disease stage IIIa with baseline creatinine in the range of 1.3-1.5 secondary to nephrosclerosis and diabetic kidney disease. 3. A. fib with RVR maintained on Cardizem drip. 4. Metabolic acidosis secondary to acute kidney injury. On oral bicarb. 5. Diabetes mellitus. 6. Chronic systolic CHF with ejection fraction of 40% with moderate mitral regurgitation. 7. Urinary retention. Currently has Paredes catheter. On Flomax. Urology following. Plan: Encouraged oral intake. Continue to monitor renal function and urine output. Cortisol level not low. Hold midodrine for systolic blood pressure greater than 110. Avoid nephrotoxins.
--- NOTE | 2021-09-26 10:34 | XR ---
EXAMINATION TYPE: XR chest 1V portable DATE OF EXAM: 09/26/2021 COMPARISON: Chest x-ray 09/24/[address] 06/08/2020 HISTORY: Shortness of breath TECHNIQUE: Single frontal view of the chest is obtained. FINDINGS: There is no focal air space opacity, pleural effusion, or pneumothorax seen. The cardiac silhouette size is enlarged, patient with prominent epicardial fat pads. Generator is present in the left pectoral region, intracardiac defibrillator lead is stable likely within the right ventricle. R ight hemidiaphragm is mildly elevated as on prior. The osseous structures are intact. IMPRESSION: Stable exam, no acute abnormality.
[2021-09-26 11:35] LABS: Glucose,Whole Blood 159 mg/dL (75-99)
[2021-09-26] MEDS ORDERED: IV FLUID CONTINUATION 1,000 ML IV ONE (11:56)
[2021-09-26] MEDS ORDERED: PROPOFOL 10 MG/ML 20 ML VIAL IV ONE (11:56)
[2021-09-26] MEDS ORDERED: PHENYLEPHRINE-0.9% NACL SYG 1,000 MCG/10 ML SYRINGE ONE (11:56)
[2021-09-26] MEDS ORDERED: CALCIUM CHLORIDE 100 MG/ML 10 ML SYRINGE ONE (12:00)
--- NOTE | 2021-09-26 12:00 | P.PN ---
Subjective Progress Note Date: 09/26/21 This is a pleasant 76 years old male with past medical history of Atrial Fibrillation, on Eliquis, Diabetes Mellitus, Hyperlipidemia, Myocardial Infarction, Osteoarthritis ,macular degeneration. Hx kidney stones, chronic back pain, concussion 1969, sciatica; states hx falls , NT feet. Coronary artery disease status post Stent Status post. AICD 2006 fluctuation in heart rate, bradycardia/tachycardia has pacemaker. Heart rate was fluctuated 64-163, systolic blood pressure 90s to 100. Patient is afebrile. That showed mild leukocytosis, rest of CBC, INR is unremarkable. Creatinine is elevated to 1.7, baseline 1.3-1.5 , potassium elevated at 6.0. Glucose 245, bilirubin 1.6, AST elevated 111, ALT elevated 90. Elevated troponin 0.07, 0.08, 0.10. ProBNP elevated 7940 TSH is normal 4.3, free T4 is normal 1.0. 1 EKG showed sinus tachycardia with short [place] interval at 131. Another EKG showing atrial flutter/tachycardia with rapid ventricular response at 161 30 EKG showing sinus tachycardia with short [place] interval possibly atrial flutter at 143 Patient received Colace, gluconate 1 g, D50 and insulin 5 units, metoprolol 50 mg twice a day, sodium bicarb. Subjective: Resume the care of the patient today 09/25/2021 Patient awake slightly sleepy. Follows commands. No chest pain or dyspnea. Patient able to eat his diet today better than yesterday. His heart rate was still uncontrolled and metoprolol increased to 100 mg twice a day as well as Cardizem oral. He continued on Eliquis and telemetry monitoring. Urologist evaluated the patient for retention and recommended Paredes catheter an d Flomax and outpatient follow-up Creatinine is still elevated to close to baseline of 1.3-1.5, currently 1.6. Nursing Assistant on the case Ultrasound of the abdomen no hydronephrosis and increased left kidney cystic. CT of the brain is negative. Pronecalcitonin is negative. 09/26/2021 Patient is seen and evaluated on the selected unit today with cardiology following closely. Patient had heart rates of 130s to 150s last night and placed back on the IV Cardizem at 10 mL per hour and patient also continues on metoprolol and anticoagulant in the form of Eliquis and will continue. Patient also with some urinary retention and evaluated by urology recommending indwelling Paredes catheter along with Flomax which patient is taking and there is some noted hematuria in the Paredes catheter that urology is aware of. Unsure if this is in regards to trauma from the catheter insertion or secondary to being on anticoagulant. Patient denies any pain of the catheter or with voiding. Nephrology also following and monitoring kidney functions closely. Labs today reveal a hemoglobin of 13.7 and WBC is normal at 9.4, sodium is 135 with a potassium 4.7, BUN is 43 and creatinine is 1.59 which is mildly improved from yesterday. Blood sugars are also being closely monitored and patient is maintained on oral antidiabetic agents and also being maintained on sliding scale and will continue. Per nursing staff plan is for possible cardioversion today and patient will be currently nothing by mouth. Patient does feel short of breath and currently maintained on 2 L and reports to not wearing this at home. Will obtain chest x-ray. Patient denies any chest pain but reports to having a noticeable difference and feelings of palpitations and heart pounding when his heart rate is elevated. Patient is afebrile. Review of systems: Constitutional: No reports of fatigue, fever, or chills Cardiovascular: No reports of chest pain or palpitations Respiratory: reports of exertional shortness of breath when talking GI: No reports of nausea, vomiting, or diarrhea : No reports of dysuria or retention, currently with indwelling Paredes catheter Neurovascular: No reports of weakness or numbness All medications have been reviewed Active Medications Hydrocodone Bitart/Acetaminophen (Hydrocodone/Apap 5-325mg 1 Each Tab) 1 each PO DAILY PRN PRN Reason: Pain Last Admin: 09/24/21 13:23 Dose: 1 each Documented by: Apixaban (Apixaban 5 Mg Tab) 5 mg PO BID [facility]; Protocol Last Admin: 09/26/21 09:29 Dose: 5 mg Documented by: Aspirin (Aspirin 81 Mg) 81 mg PO DAILY [facility] Last Admin: 09/26/21 09:30 Dose: 81 mg Documented by: Diltiazem HCl (Diltiazem Oral 30 Mg Tab) 30 mg PO QID [facility] Last Admin: 09/26/21 09:36 Dose: Not Given Documented by: Famotidine (Famotidine 20 Mg Tab) 20 mg PO DAILY [facility] Last Admin: 09/26/21 09:30 Dose: 20 mg Documented by: Glimepiride (Glimepiride 1 Mg Tab) 1 mg PO AC-BRKFST [facility] Last Admin: 09/26/21 06:34 Dose: 1 mg Documented by: Sodium Chloride (Saline 0.9%) 1,000 mls @ 20 mls/hr IV .Q24H [facility] Last Admin: 09/24/21 21:39 Dose: 20 mls/hr Documented by: Diltiazem HCl 125 mg/ Sodium (Chloride) 125 mls @ 10 mls/hr IV .[id number] [facility] Last Admin: 09/26/21 05:04 Dose: 10 mg/hr, 10 mls/hr Documented by: Sodium Chloride (Saline 0.9%) 1,000 mls @ 20 mls/hr IV .Q24H [facility] Insulin Aspart (Insulin Aspart (Novolog) 100 Unit/Ml Vial) 0 unit SQ ACHS [facility]; Protocol Last Admin: 09/26/21 06:34 Dose: 3 unit Documented by: Lorazepam (Lorazepam 2 Mg/Ml Inj) 0.5 mg IV Q8HR PRN PRN Reason: Anxiety Last Admin: 09/25/21 00:05 Dose: 0.5 mg Documented by: Metoprolol Tartrate (Metoprolol Tartrate 50 Mg Tab) 100 mg PO BID [facility] Last Admin: 09/26/21 09:29 Dose: 100 mg Documented by: Midodrine (Midodrine 5 Mg Tab) 5 mg PO AC-TID [facility] Last Admin: 09/26/21 06:34 Dose: 5 mg Documented by: Naloxone HCl (Naloxone 0.4 Mg/Ml 1 Ml Vial) 0.2 mg IV Q2M PRN PRN Reason: Opioid Reversal Psyllium Hydrophilic Mucilloid (Psyllium Husk 100% 6 Gm Packet) 6 gm PO DAILY PRN PRN Reason: Constipation Sodium Bicarbonate (Sodium Bicarbonate Tab 650 Mg Tab) 650 mg PO BID [facility] Last Admin: 09/26/21 09:29 Dose: 650 mg Documented by: Tamsulosin HCl (Tamsulosin 0.4 Mg Cap.Er.24h) 0.4 mg PO DAILY [facility] Last Admin: 09/26/21 09:30 Dose: 0.4 mg Documented by: Physical exam: GENERAL: The patient is alert and oriented x3, not in any acute distress. Well developed, well nourished. HEENT: Pupils are round and equally reacting to light. EOMI. No scleral icterus. No conjunctival pallor. Normocephalic, atraumatic. No pharyngeal erythema. No thyromegaly. CARDIOVASCULAR: S1 and S2 present. No murmurs, rubs, or gallops. PULMONARY: Chest is clear to auscultation, no wheezing or crackles. ABDOMEN: Soft, nontender, nondistended, normoactive bowel sounds. No palpable organomegaly. MUSCULOSKELETAL: No joint swelling or deformity. EXTREMITIES: No cyanosis, clubbing, or pedal edema. NEUROLOGICAL: Gross neurological examination did not reveal any focal deficits. SKIN: No rashes. no petechiae. Assessment: Paroxysmal atrial fibrillation/flutter with RVR on IV Cardizem Elevated troponin, secondary to above fund renal disease Cardiomyopathy with Chronic systolic heart failure, status post AICD, possible acute exacerbation, BNP was 7940 on admission, EF is 40% acute kidney injury, versus progressive CTD Chronic kidney disease stage III Elevated liver enzymes Urinary retention requiring indwelling Paredes catheter with history of urolift procedure in the outpatient setting Left renal cyst Diabetes mellitus chronic atrial fibrillation on Eliquis History of osteoarthritis Chronic back pain History of coronary artery disease status post stenting Full code Plan: This is a pleasant 76 years old male with A. fib and RVR and currently back on IV Cardizem Continue with telemetry Cardiology following and plan is for cardioversion today and patient was made nothing by mouth Continue with oxygen supplementation as needed as patient is currently having some shortness of breath and currently maintained on 2 L via nasal cannula. Patient reports to not wearing oxygen in the outpatient setting. Wean FiO2 as tolerated, possibly a component of the atrial fibrillation with RVR at this time and will monitor closely. Chest x-ray showed no acute process. Most recent echo shows an EF of 40% with some moderate eccentric mitral regurgitation and no pericardial effusion with possible fat pad along with some mild LV dilatation and mild decrease in contractility, BNP on admission was 7940 Continue with metoprolol and Cardizem. Continue with Eliquis Monitor kidney function, sales account specialist on the case Continue with Flomax and follow-up with urologist after discharge in 2 weeks, recommend continue with indwelling Paredes catheter for retention and also closely monitor CBC and output as patient has some noted hematuria possibly secondary to trauma during insertion or possible component of being on anticoagulant, hemoglobin is stable at 13.7 Labs and medication were reviewed.. Continue same treatment. Continue with symptomatic treatment. Resume home medication. Monitor lytes and vitals. DVT and GI prophylaxis. Further recommendations as per clinical course of the patient DVT prophylaxis: Eliquis GI Prophylaxis: Pepcid PT/OT: Pending Prognosis is guarded The impression and plan of care has been dictated by Jenny Moody, Nurse Practitioner as directed. Dr. Pepper MD I have performed a history and examination and MDM of this patient, discussed the same with the dictator, and agree with the dictator's assessment and plan as written ,documented as a scribe. Based on total visit time, I have performed more than 50% of the visit. Objective - Vital Signs Vital signs: Vital Signs Temp 98 F 09/26/21 04:00 Pulse 150 H 09/26/21 04:00 Resp 20 09/26/21 04:00 BP 98/70 09/26/21 04:00 Pulse Ox 100 09/26/21 04:00 Intake & Output 09/25/21 09/26/21 09/26/21 18:59 06:59 18:59 Intake Total 363.500 Output Total 650 300 Balance -286.500 -300 Intake: Intake, IV Titration 123.500 Amount Diltiazem 125 mg In 123.500 Sodium Chloride 0.9% 100 ml @ 10 MG/HR 10 mls/hr IV .[id number] [facility] Rx#: [id number] Oral 240 Output: Urine 650 300 Straight 450 Other: Voiding Method Urinal Urinal - Labs CBC & Chem 7: 09/26/21 04:14 09/26/21 04:14 Labs: Abnormal Lab Results - Last 24 Hours (Table) 09/25/21 09/25/21 09/25/21 Range/Units 08:50 08:50 11:54 RBC 4.12 L (4.30-5.90) m/uL Sodium 134 L (137-145) mmol/L Chloride 108 H (98-107) mmol/L Carbon Dioxide 18 L (22-30) mmol/L BUN 46 H (9-20) mg/dL Creatinine 1.65 H (0.66-1.25) mg/dL Glucose 252 H (74-99) mg/dL POC Glucose (mg/dL) 230 H (75-99) mg/dL Total Bilirubin 1.8 H (0.2-1.3) mg/dL Unconjugated Bilirubin 1.6 H (0.0-1.1) mg/dL ALT 91 H (4-49) U/L 09/25/21 09/25/21 09/26/21 Range/Units 16:44 20:35 04:14 RBC (4.30-5.90) m/uL Sodium 135 L (137-145) mmol/L Chloride 108 H (98-107) mmol/L Carbon Dioxide 19 L (22-30) mmol/L BUN 43 H (9-20) mg/dL Creatinine 1.59 H (0.66-1.25) mg/dL Glucose 216 H (74-99) mg/dL POC Glucose (mg/dL) 273 H 182 H (75-99) mg/dL Total Bilirubin (0.2-1.3) mg/dL Unconjugated Bilirubin (0.0-1.1) mg/dL ALT (4-49) U/L 09/26/21 09/26/21 Range/Units 04:14 06:19 RBC 4.10 L (4.30-5.90) m/uL Sodium (137-145) mmol/L Chloride (98-107) mmol/L Carbon Dioxide (22-30) mmol/L BUN (9-20) mg/dL Creatinine (0.66-1.25) mg/dL Glucose (74-99) mg/dL POC Glucose (mg/dL) 231 H (75-99) mg/dL Total Bilirubin (0.2-1.3) mg/dL Unconjugated Bilirubin (0.0-1.1) mg/dL ALT (4-49) U/L
[2021-09-26] MEDS: EPINEPHrine 10 ML SYRINGE (0.1 MG/ML) IV ONE ×4 (13:11→13:26)
[2021-09-26] MEDS ORDERED: NOREPINEPHRINE 4 MG in SODIUM CHLORIDE 0.9% 250 ML IV ONE (13:37)
[2021-09-26] MEDS: DOBUTamine DRIP 500 MG in DEXTROSE/WATER 1 250ML.BAG IV SCH ×3 (13:41→13:55)
[2021-09-26] MEDS ORDERED: CALCIUM CHLORIDE 100 MG/ML 10 ML SYRINGE IVP ONE ×2 (13:50→15:45)
[2021-09-26] MEDS ORDERED: CALCIUM CHLORIDE 0.5 GM in SODIUM CHLORIDE 0.9% 50 ML IVPB ONE (13:52)
[2021-09-26] MEDS ORDERED: CALCIUM CHLORIDE 100 MG/ML 10 ML SYRINGE IV ONE (14:00)
[2021-09-26] MEDS ORDERED: ceFAZolin 1,000 MG VIAL IVPB ONE (14:07)
--- NOTE | 2021-09-26 14:11 | P.ANPRN ---
Procedure Note - Anesthesia - Invasive Line Right Arterial Line Time Out Performed: Yes Date of Procedure: 09/26/21 Time of Procedure: 13:45 Location of Patient: PreOp Preparation: Sterile Prep, Sterile Dressing Arterial Line Location: Radial Ultrasound Used: Yes Purpose - Visualization and Identification of Vasculature: Yes Needle Guage: 20 Image Stored and Saved: No (no printer) Narrative: arterial line performed under sterile conditions.
[2021-09-26] MEDS ORDERED: SODIUM CHLORIDE 0.9% 1,000 ML IV ONE (14:12)
--- NOTE | 2021-09-26 14:37 | P.ANPRN ---
Procedure Note - Anesthesia - Invasive Line Right Central Line Time Out Performed: Yes ([id number]) Date of Procedure: 09/26/21 Time of Procedure: 13:51 Location of Patient: Phase I Preparation: Sterile Prep, Sterile Dressing Arterial Line Location: Radial (right) Ultrasound Used: Yes Purpose - Visualization and Identification of Vasculature: Yes Needle Guage: 18g angio Image Stored and Saved: Yes Narrative: Central line placement per sterile protocol utilized. right groin prepped and draped. Sterile protocol. US utilized. +local +needle +jwire +uneventful dilation and introduction right Femoral TLC. All lumens bled and flushed. Attempts x1
--- NOTE | 2021-09-26 15:09 | P.PN ---
Subjective Progress Note Date: 09/26/21 Paredes catheter placed yesterday, urine is clear in the bag Objective - Vital Signs Vital signs: Vital Signs Temp 97.7 F 09/26/21 09:25 Pulse 58 L 09/26/21 13:40 Resp 18 09/26/21 13:40 BP 78/52 09/26/21 13:40 Pulse Ox 99 09/26/21 13:40 Intake & Output 09/25/21 09/26/21 09/26/21 18:59 06:59 18:59 Intake Total 363.500 800 Output Total 650 300 Balance -286.500 -300 800 Weight 82.554 kg Intake: IV 800 Intake, IV Titration 123.500 Amount Diltiazem 125 mg In 123.500 Sodium Chloride 0.9% 100 ml @ 10 MG/HR 10 mls/hr IV .[id number] [facility] Rx#: [id number] Oral 240 Output: Urine 650 300 Straight 450 Other: Voiding Method Urinal Urinal Urinal - Constitutional General appearance: Present: no acute distress - Gastrointestinal General gastrointestinal: Present: soft. Absent: distended, tenderness - Labs CBC & Chem 7: 09/26/21 04:14 09/26/21 04:14 Labs: Abnormal Lab Results - Last 24 Hours (Table) 09/25/21 09/25/21 09/26/21 Range/Units 16:44 20:35 04:14 RBC (4.30-5.90) m/uL Sodium 135 L (137-145) mmol/L Chloride 108 H (98-107) mmol/L Carbon Dioxide 19 L (22-30) mmol/L BUN 43 H (9-20) mg/dL Creatinine 1.59 H (0.66-1.25) mg/dL Glucose 216 H (74-99) mg/dL POC Glucose (mg/dL) 273 H 182 H (75-99) mg/dL 09/26/21 09/26/21 09/26/21 Range/Units 04:14 06:19 11:34 RBC 4.10 L (4.30-5.90) m/uL Sodium (137-145) mmol/L Chloride (98-107) mmol/L Carbon Dioxide (22-30) mmol/L BUN (9-20) mg/dL Creatinine (0.66-1.25) mg/dL Glucose (74-99) mg/dL POC Glucose (mg/dL) 231 H 159 H (75-99) mg/dL Assessment and Plan Assessment: This is a 76-year-old male with history of BPH, underwent a Uroliftlast year. Has been having difficulty voiding since admission, required straight cath 1 for a postvoid residual greater than 400 mL. Paredes catheter was placed yesterday -Keep Paredes in place, can have a trial of void prior to discharge -We'll start on Flomax -Can follow-up with me as an outpatient in 2 weeks
[2021-09-26 15:22] LABS: Glucose,Whole Blood 260 mg/dL (75-99)
[2021-09-26] MEDS ORDERED: CALCIUM CHLORIDE 100 MG/ML 10 ML SYRINGE IVP PRN (15:24)
[2021-09-26] MEDS: SODIUM CHLORIDE 0.9% 1,000 ML IV SCH (15:53)
[2021-09-26] MEDS: NOREPINEPHRINE 4 MG in SODIUM CHLORIDE 0.9% 250 ML IV SCH (15:54)
--- NOTE | 2021-09-26 18:41 | P.EPPROC ---
- EP Procedure Note Electrophysiology Procedure Note: Preprocedure Diagnosis Sustained atrial tachycardia with RVR Status post cryoablation coronary veins in the past On by mouth metoprolol and oral Cardizem Overnight he was on IV Cardizem drip for rate control He was brought in to the EP lab around 12 noon for electrical cardioversion Diltiazem drip was discontinued just before cardioversion Successful electrical cardioversion was performed Thereafter the patient took a while before he woke up Even after he was alert and awake his blood pressure remained extremely low His blood pressure was 65-75 mmHg systolic No Response to phenylephrine Very transient response to epinephrine Virtually no response to norepinephrine drip even in high doses along with 5 mics of dobutamine Radial artery line and a central venous line was placed by anesthesia in the recovery room 2-D echo did not show any pericardial effusion LV function is chronically reduced Therefore since he had refractory hypertension and was on IV Cardizem I considered vaso-plegia as a mechanism of his severe refractory hypertension He was given half an ampule of IV calcium chloride with an immediate response and improvement in blood pressure Within 60 seconds his blood pressure improved to 110 mmHg After about 10 minutes the rest of the ampule of calcium chloride was given and he was transferred to the ICU I also started him on IV dobutamine since he is severe LV dysfunction He was administered another round of IV calcium in the ICU, once again with immediate improvement in blood pressure Now he is on very low dose norepinephrine He remains on dobutamine 5 mics Impression Atrial tachycardia with RVR with difficult rate control Vasoplegia secondary to calcium channel blockers Severe cardio myopathy with congestive heart failure at baseline Right bundle branch block with secondary ST-T changes at baseline History of atrial fibrillation status post cryoablation of the pulmonary veins, now with residual atrial tachycardia Plan minimize IV fluids Taper off norepinephrine drip tomorrow Continue IV dobutamine until tomorrow and taper off tomorrow Absolutely no IV or by mouth Cardizem Hold metoprolol for now Stop Midrin Continue ELIQUIS Continue aspirin Continue dobutamine until tomorrow only Continue diabetes medications Hold metoprolol for now
--- NOTE | 2021-09-26 18:42 | P.EPPROC ---
- EP Procedure Note Electrophysiology Procedure Note: Procedure Electrical cardioversion for atrial tachycardia Successful electrical cardioversion for atrial tachycardia performed Patient went into sinus rhythm in the 50s underlying right bundle branch block pattern with secondary ST-T changes
[2021-09-26 20:05] LABS: Glucose,Whole Blood 208 mg/dL (75-99)
[2021-09-27] MEDS: NOREPINEPHRINE 4 MG in SODIUM CHLORIDE 0.9% 250 ML IV SCH ×3 (01:34→22:53)
[2021-09-27 05:17] LABS: Basophils % (A) 0 %; Eosinophils # (A) 0.1 k/uL (0-0.7); Eosinophils % (A) 1 %; HCT 35.7 % (39.0-53.0); HGB 11.7 gm/dL (13.0-17.5); Lymphocytes # (A) 1.5 k/uL (1.0-4.8); Lymphocytes % (A) 17 %; MCH 31.8 pg (25.0-35.0); MCHC 32.7 g/dL (31.0-37.0); MCV 97.1 fL (80.0-100.0); Mean Platelet Volume 9.4; Monocytes # (A) 0.7 k/uL (0-1.0); Monocytes % (A) 8 %; Neutrophils # (A) 6.5 k/uL (1.3-7.7); Neutrophils % (A) 73 %; Platelet Count 132 k/uL (150-450); RBC 3.68 m/uL (4.30-5.90); RDW 13.9 % (11.5-15.5); WBC 8.9 k/uL (3.8-10.6)
[2021-09-27 05:25] LABS: Calcium 8.9 mg/dL (8.4-10.2); Magnesium 1.8 mg/dL (1.6-2.3); Potassium 4.6 mmol/L (3.5-5.1)
[2021-09-27 06:29] LABS: Glucose,Whole Blood 169 mg/dL (75-99)
[2021-09-27] MEDS ORDERED: CALCIUM CHLORIDE 100 MG/ML 10 ML SYRINGE IVP ONE (06:38)
[2021-09-27] MEDS: INSULIN ASPART (NovoLOG) 100 UNIT/ML VIAL SQ SCH ×4 (06:40→20:06)
[2021-09-27] MEDS: GLIMEPIRIDE 1 MG TAB PO SCH ×2 (06:40→20:06)
--- NOTE | 2021-09-27 07:38 | CA ---
Transthoracic Echo Report Name: Maxx Dill Age: 76 Gender: M : 1945 Exam Date: 09/26/2021 13:38 Exam Location: [place] [facility] Ht (in): 67 Wt (lb): 182 Ordering Physician: Jayson Gallego MD ([id number]) Attending/Referring Phys: Land Surveying Survey Worker Yudelka Guo RDCS Procedure CPT: Indications: cardiogenic shock Cardiac Hx: Technical Quality: Fair Contrast 1: Total Dose (mL): Contrast 2: Total Dose (mL): MEASUREMENTS (Male / Female) Normal Values 2D ECHO LV Diastolic Diameter PLAX 5.7 cm 4.2 - 5.9 / 3.9 - 5.3 cm LV Systolic Diameter PLAX 5.0 cm IVS Diastolic Thickness 1.3 cm 0.6 - 1.0 / 0.6 - 0.9 cm LVPW Diastolic Thickness 1.0 cm 0.6 - 1.0 / 0.6 - 0.9 cm LV Relative Wall Thickness 0.4 FINDINGS Left Ventricle Limited study. Global hypokinesis, left ventricular ejection fraction is estimated at 30-35% Right Ventricle Pacer wire noted in RV. Right Atrium Left Atrium Mitral Valve Aortic Valve Tricuspid Valve Pulmonic Valve Pericardium No pericardial effusion. Fat pad noted. Aorta CONCLUSIONS Global decrease in contractility. No pericardial effusion Previewed by: Dr. Tereso Ferro MD (Electronically Signed) Final Date: 27 September 2021 07:37
--- NOTE | 2021-09-27 07:42 | XR ---
EXAMINATION TYPE: XR chest 1V portable DATE OF EXAM: 09/27/2021 COMPARISON: Chest x-ray 09/26/2021 HISTORY: Congestive heart failure TECHNIQUE: Single frontal view of the chest is obtained. FINDINGS: No evident pneumothorax or pleural effusion. Heart is enlarged. Intracardiac defibrillator lead, generator are stable. There may be some improvement in aeration as compared to prior exam. Tho racic spondylosis is present. IMPRESSION: Suspect improvement in volume status, aeration
[2021-09-27] MEDS: METOPROLOL TARTRATE 50 MG TAB PO SCH ×2 (08:34→20:05)
[2021-09-27] MEDS: APIXABAN 5 MG TAB PO SCH ×2 (08:38→20:05)
[2021-09-27] MEDS: SODIUM BICARBONATE TAB 650 MG TAB PO SCH ×2 (08:38→20:05)
[2021-09-27] MEDS: FAMOTIDINE 20 MG TAB PO SCH (08:38)
[2021-09-27] MEDS: ASPIRIN 81 MG PO SCH (08:38)
[2021-09-27] MEDS: TAMSULOSIN 0.4 MG CAP.ER.24H PO SCH (08:38)
[2021-09-27] MEDS ORDERED: DOBUTamine DRIP 500 MG in DEXTROSE/WATER 1 250ML.BAG IV SCH (10:00)
--- NOTE | 2021-09-27 10:04 | P.PN ---
Subjective Patient is seen in follow-up for acute kidney injury and chronic kidney disease. Patient went for cardioversion yesterday and became quite hypotensive. He was transferred to the ICU. Levophed has been discontinued. Currently on dobutamine. Urine output was low overnight but is now starting to improve. Heart rate and blood pressure stable at this time. Denies chest pain or shortness of breath. Vital signs are stable. On dobutamine. General: Awake. No acute distress. HEENT: Head exam is unremarkable. LUNGS: Breath sounds decreased. HEART: Regular rate and rhythm. ABDOMEN: Soft, no distention. EXTREMITITES: No edema. Objective - Vital Signs Vital signs: Vital Signs Temp 97.7 F 09/27/21 08:00 Pulse 64 09/27/21 09:00 Resp 20 09/27/21 09:00 BP 100/63 09/27/21 09:00 Pulse Ox 97 09/27/21 09:00 Intake & Output 09/26/21 09/27/21 09/27/21 18:59 06:59 18:59 Intake Total 562.512 4460.485 364.468 Output Total 62 106 88 Balance 872.196 912.485 276.468 Weight 82.554 kg 86.2 kg Intake: IV 867.149 256.213 60.956 DOBUTamine DRIP 500 mg In 37.149 136.213 30.956 Dextrose/Water 1 250ml. bag @ 5 MCG/KG/MIN 12.383 mls/hr IV .[id number] [facility] Rx#:[id number] Sodium Chloride 0.9% 1, 30 120 30 000 ml @ 10 mls/hr IV . Q24H [facility] Rx#:[id number] Intake, IV Titration 67.047 222.272 3.512 Amount Norepinephrine 4 mg In 67.047 222.272 3.512 Sodium Chloride 0.9% 250 ml @ 0.05 MCG/KG/MIN 15. 727 mls/hr IV .[id number] [facility] Rx#:[id number] Oral 540 300 Output: Urine 62 106 88 Other: Voiding Method Urinal Urinal ABP, PAP, CO, CI - Last Documented Arterial Blood Pressure 112/57 - Labs CBC & Chem 7: 09/27/21 05:00 09/27/21 05:00 Labs: Abnormal Lab Results - Last 24 Hours (Table) 09/26/21 09/26/21 09/26/21 Range/Units 11:34 15:19 20:03 RBC (4.30-5.90) m/uL Hgb (13.0-17.5) gm/dL Hct (39.0-53.0) % Plt Count (150-450) k/uL Sodium (137-145) mmol/L Carbon Dioxide (22-30) mmol/L BUN (9-20) mg/dL Creatinine (0.66-1.25) mg/dL Glucose (74-99) mg/dL POC Glucose (mg/dL) 159 H 260 H 208 H (75-99) mg/dL 09/27/21 09/27/21 09/27/21 Range/Units 05:00 05:00 06:28 RBC 3.68 L (4.30-5.90) m/uL Hgb 11.7 L (13.0-17.5) gm/dL Hct 35.7 L (39.0-53.0) % Plt Count 132 L (150-450) k/uL Sodium 132 L (137-145) mmol/L Carbon Dioxide 20 L (22-30) mmol/L BUN 48 H (9-20) mg/dL Creatinine 2.34 H (0.66-1.25) mg/dL Glucose 172 H (74-99) mg/dL POC Glucose (mg/dL) 169 H (75-99) mg/dL Assessment and Plan Plan: Assessment: 1. Acute kidney injury secondary to ATN secondary to hypotension and urinary retention. Creatinine 2.34 today. Urine output starting to improve. No hydr onephrosis noted on kidney ultrasound. 2. Chronic kidney disease stage IIIa with baseline creatinine in the range of 1.3-1.5 secondary to nephrosclerosis and diabetic kidney disease. 3. A. fib with RVR status post cardioversion. 4. Metabolic acidosis secondary to acute kidney injury. On oral bicarb. 5. Diabetes mellitus. 6. Chronic systolic CHF with ejection fraction of 40% with moderate mitral regurgitation. 7. Urinary retention. Currently has Paredes catheter. On Flomax. Urology following. Plan: Encouraged oral intake. Patient appears euvolemic. Hold off on fluids and diuretics at this time. Continue to monitor renal function and urine output. Cortisol level not low. Midodrine stopped by cardiology. Avoid nephrotoxins.
[2021-09-27] MEDS ORDERED: MAGNESIUM OXIDE 400 MG TAB PO STA (10:42)
--- NOTE | 2021-09-27 11:34 | P.PN ---
Subjective This is a pleasant 76 years old male with past medical history of Atrial Fibrillation, on Eliquis, Diabetes Mellitus, Hyperlipidemia, Myocardial Inf arction, Osteoarthritis ,macular degeneration. Hx kidney stones, chronic back pain, concussion 1969, sciatica; states hx falls , NT feet. Coronary artery disease status post Stent Status post. AICD 2006 fluctuation in heart rate, bradycardia/tachycardia has pacemaker. Heart rate was fluctuated 64-163, systolic blood pressure 90s to 100. Patient is afebrile. That showed mild leukocytosis, rest of CBC, INR is unremarkable. Creatinine is elevated to 1.7, baseline 1.3-1.5 , potassium elevated at 6.0. Glucose 245, bilirubin 1.6, AST elevated 111, ALT elevated 90. Elevated troponin 0.07, 0.08, 0.10. ProBNP elevated 7940 TSH is normal 4.3, free T4 is normal 1.0. 1 EKG showed sinus tachycardia with short OH interval at 131. Another EKG showing atrial flutter/tachycardia with rapid ventricular response at 161 30 EKG showing sinus tachycardia with short OH interval possibly atrial flutter at 143 Patient received Colace, gluconate 1 g, D50 and insulin 5 units, metoprolol 50 mg twice a day, sodium bicarb. Subjective: Resume the care of the patient today 09/25/2021 Patient awake slightly sleepy. Follows commands. No chest pain or dyspnea. Patient able to eat his diet today better than yesterday. His heart rate was still uncontrolled and metoprolol increased to 100 mg twice a day as well as Cardizem oral. He continued on Eliquis and telemetry monitoring. Urologist evaluated the patient for retention and recommended Paredes catheter and Flomax and outpatient follow-up Creatinine is still elevated to close to baseline of 1.3-1.5, currently 1.6. Rn Building on the case Ultrasound of the abdomen no hydronephrosis and increased left kidney cystic. CT of the brain is negative. Pronecalcitonin is negative. 09/26/2021 Patient is seen and evaluated on the selected unit today with cardiology following closely. Patient had heart rates of 130s to 150s last night and place d back on the IV Cardizem at 10 mL per hour and patient also continues on metoprolol and anticoagulant in the form of Eliquis and will continue. Patient also with some urinary retention and evaluated by urology recommending indwelling Paredes catheter along with Flomax which patient is taking and there is some noted hematuria in the Paredes catheter that urology is aware of. Unsure if this is in regards to trauma from the catheter insertion or secondary to being on anticoagulant. Patient denies any pain of the catheter or with voiding. Nephrology also following and monitoring kidney functions closely. Labs today reveal a hemoglobin of 13.7 and WBC is normal at 9.4, sodium is 135 with a pota ssium 4.7, BUN is 43 and creatinine is 1.59 which is mildly improved from yesterday. Blood sugars are also being closely monitored and patient is maintained on oral antidiabetic agents and also being maintained on sliding scale and will continue. Per nursing staff plan is for possible cardioversion today and patient will be currently nothing by mouth. Patient does feel short of breath and currently maintained on 2 L and reports to not wearing this at home. Will obtain chest x-ray. Patient denies any chest pain but reports to having a noticeable difference and feelings of palpitations and heart pounding when his heart rate is elevated. Patient is afebrile. 09/27/2021 Patient is monitored in the ICU today. Post status post cardioversion yesterday, it was successful per telecommunications facility examiner. After the procedure patient needed some oppressors with levophed, which is helped now unkept on dobutamine 2.5. His blood pressure is stable now, heart rate 60-63. Patient is asymptomatic. Sheet Metal Duct Installer Apprentice recommended to keep him on metoprolol 50 mg twice a day while discontinuing Cardizem. Creatinine went up to 2.3, nephrology team on the case and they recommended to keep monitoring now. Patient also on fluid, he is not on diuretic. Currently on metoprolol 50 mg twice a day, Flomax He is on Amaryl 1 mg daily and we will increase it to his home dose of twice a day. Metformin remains on hold. Glucose controlled with ISS Objective - Vital Signs Vital signs: Vital Signs Temp 97.7 F 09/27/21 08:00 Pulse 64 09/27/21 09:00 Resp 20 09/27/21 09:00 BP 100/63 09/27/21 09:00 Pulse Ox 97 09/27/21 09:00 Intake & Output 09/26/21 09/27/21 09/27/21 18:59 06:59 18:59 Intake Total 797.286 1382.485 364.468 Output Total 62 106 88 Balance 872.196 912.485 276.468 Weight 82.554 kg 86.2 kg Intake: IV 867.149 256.213 60.956 DOBUTamine DRIP 500 mg In 37.149 136.213 30.956 Dextrose/Water 1 250ml. bag @ 5 MCG/KG/MIN 12.383 mls/hr IV .[id number] RAMANDEEP Rx#:[id number] Sodium Chloride 0.9% 1, 30 120 30 000 ml @ 10 mls/hr IV . Q24H RAMANDEEP Rx#:[id number] Intake, IV Titration 67.047 222.272 3.512 Amount Norepinephrine 4 mg In 67.047 222.272 3.512 Sodium Chloride 0.9% 250 ml @ 0.05 MCG/KG/MIN 15. 727 mls/hr IV .[id number] RAMANDEEP Rx#:[id number] Oral 540 300 Output: Urine 62 106 88 Other: Voiding Method Urinal Urinal ABP, PAP, CO, CI - Last Documented Arterial Blood Pressure 112/57 - Exam GENERAL: The patient is alert and oriented x3, not in any acute distress. Well developed, well nourished. HEENT: Pupils are round and equally reacting to light. EOMI. No scleral icterus. No conjunctival pallor. Normocephalic, atraumatic. No pharyngeal erythema. No t hyromegaly. CARDIOVASCULAR: S1 and S2 present. No murmurs, rubs, or gallops. PULMONARY: Chest is clear to auscultation, no wheezing or crackles. ABDOMEN: Soft, nontender, nondistended, normoactive bowel sounds. No palpable organomegaly. MUSCULOSKELETAL: No joint swelling or deformity. EXTREMITIES: No cyanosis, clubbing, or pedal edema. NEUROLOGICAL: Gross neurological examination did not reveal any focal deficits. SKIN: No rashes. no petechiae. - Labs CBC & Chem 7: 09/27/21 05:00 09/27/21 05:00 Labs: Abnormal Lab Results - Last 24 Hours (Table) 09/26/21 09/26/21 09/26/21 Range/Units 11:34 15:19 20:03 RBC (4.30-5.90) m/uL Hgb (13.0-17.5) gm/dL Hct (39.0-53.0) % Plt Count (150-450) k/uL Sodium (137-145) mmol/L Carbon Dioxide (22-30) mmol/L BUN (9-20) mg/dL Creatinine (0.66-1.25) mg/dL Glucose (74-99) mg/dL POC Glucose (mg/dL) 159 H 260 H 208 H (75-99) mg/dL 09/27/21 09/27/21 09/27/21 Range/Units 05:00 05:00 06:28 RBC 3.68 L (4.30-5.90) m/uL Hgb 11.7 L (13.0-17.5) gm/dL Hct 35.7 L (39.0-53.0) % Plt Count 132 L (150-450) k/uL Sodium 132 L (137-145) mmol/L Carbon Dioxide 20 L (22-30) mmol/L BUN 48 H (9-20) mg/dL Creatinine 2.34 H (0.66-1.25) mg/dL Glucose 172 H (74-99) mg/dL POC Glucose (mg/dL) 169 H (75-99) mg/dL Assessment and Plan Assessment: Paroxysmal atrial fibrillation/flutter with RVR in the cardiac arrhythmias Elevated troponin, secondary to above fund renal disease acute kidney injury, versus progressive CTD Chronic kidney disease stage III Elevated liver enzymes Urinary retention Left renal cyst Diabetes mellitus chronic atrial fibrillation on Eliquis History of osteoarthritis Chronic back pain History of coronary artery disease status post stenting Plan: this is a pleasant 76 years old male with A. fib and RVR on cardiac arrhythmia Continue with telemetry Cardiology consult Continue with metoprolol Continue with Eliquis Monitor kidney function, senior facilities manager on the case Continue with Flomax and follow-up with urologist after discharge in 2 weeks Continue with holding metformin. Continue with MRI Labs and medication were reviewed.. Continue same treatment. Continue with symptomatic treatment. Resume home medication. Monitor lytes and vitals. DVT and GI prophylaxis. Further recommendations as per clinical course of the patient DVT prophylaxis: Eliquis GI Prophylaxis: Pepcid PT/OT: Pending Prognosis is guarded
[2021-09-27 12:10] LABS: Glucose,Whole Blood 176 mg/dL (75-99)
[2021-09-27 17:57] LABS: Glucose,Whole Blood 229 mg/dL (75-99)
[2021-09-27] MEDS: SODIUM CHLORIDE 0.9% 1,000 ML IV SCH (18:21)
[2021-09-27 19:59] LABS: Glucose,Whole Blood 218 mg/dL (75-99)
[2021-09-28 05:35] LABS: Glucose,Whole Blood 218 mg/dL (75-99)
[2021-09-28] MEDS: INSULIN ASPART (NovoLOG) 100 UNIT/ML VIAL SQ SCH ×2 (06:50→13:07)
[2021-09-28 09:02] LABS: Basophils % (A) 0 %; Eosinophils # (A) 0.2 k/uL (0-0.7); Eosinophils % (A) 3 %; HCT 35.4 % (39.0-53.0); HGB 11.6 gm/dL (13.0-17.5); Lymphocytes # (A) 1.1 k/uL (1.0-4.8); Lymphocytes % (A) 15 %; MCH 32.2 pg (25.0-35.0); MCHC 32.8 g/dL (31.0-37.0); MCV 98.3 fL (80.0-100.0); Macrocytosis Slight; Mean Platelet Volume 9.5; Monocytes # (A) 0.5 k/uL (0-1.0); Monocytes % (A) 8 %; Neutrophils # (A) 5.2 k/uL (1.3-7.7); Neutrophils % (A) 72 %; Platelet Count 132 k/uL (150-450); RBC 3.61 m/uL (4.30-5.90); RDW 14.8 % (11.5-15.5); WBC 7.2 k/uL (3.8-10.6)
[2021-09-28 09:13] LABS: Calcium 9.1 mg/dL (8.4-10.2)
--- NOTE | 2021-09-28 09:26 | P.PN ---
Subjective Patient is seen in follow-up for acute kidney injury and chronic kidney disease. Renal function is fairly stable. Denies chest pain or shortness of breath. Oral intake is good. Hemodynamically stable. Family present at bedside. Vital signs are stable. General: Awake. No acute distress. HEENT: Head exam is unremarkable. LUNGS: Breath sounds decreased. HEART: Regular rate and rhythm. ABDOMEN: Soft, no distention. EXTREMITITES: No edema. Objective - Vital Signs Vital signs: Vital Signs Temp 97.8 F 09/27/21 21:56 Pulse 99 09/27/21 21:56 Resp 14 09/27/21 21:56 BP 127/72 09/27/21 21:56 Pulse Ox 99 09/27/21 21:56 Intake & Output 09/27/21 09/28/21 09/28/21 18:59 06:59 18:59 Intake Total 890.848 540 240 Output Total 423 1300 Balance 467.848 -760 240 Intake: IV 143.336 DOBUTamine DRIP 500 mg In 43.336 Dextrose/Water 1 250ml. bag @ 5 MCG/KG/MIN 12.383 mls/hr IV .[id number] RAMANDEEP Rx#:[id number] Sodium Chloride 0.9% 1, 100 000 ml @ 10 mls/hr IV . Q24H [facility]ANDEEP Rx#:[id number] Intake, IV Titration 3.512 Amount Norepinephrine 4 mg In 3.512 Sodium Chloride 0.9% 250 ml @ 0.05 MCG/KG/MIN 15. 727 mls/hr IV .[id number] RAMANDEEP Rx#:[id number] Oral 744 540 240 Output: Urine 423 1300 Other: Voiding Method Urinal Indwelling Catheter ABP, PAP, CO, CI - Last Documented Arterial Blood Pressure 97/53 - Labs CBC & Chem 7: 09/28/21 08:10 09/28/21 08:10 Labs: Abnormal Lab Results - Last 24 Hours (Table) 09/27/21 09/27/21 09/27/21 Range/Units 12:07 17:55 19:58 RBC (4.30-5.90) m/uL Hgb (13.0-17.5) gm/dL Hct (39.0-53.0) % Plt Count (150-450) k/uL Sodium (137-145) mmol/L Carbon Dioxide (22-30) mmol/L BUN (9-20) mg/dL Creatinine (0.66-1.25) mg/dL Glucose (74-99) mg/dL POC Glucose (mg/dL) 176 H 229 H 218 H (75-99) mg/dL 09/28/21 09/28/21 09/28/21 Range/Units 05:29 08:10 08:10 RBC 3.61 L (4.30-5.90) m/uL Hgb 11.6 L (13.0-17.5) gm/dL Hct 35.4 L (39.0-53.0) % Plt Count 132 L (150-450) k/uL Sodium 132 L (137-145) mmol/L Carbon Dioxide 17 L (22-30) mmol/L BUN 50 H (9-20) mg/dL Creatinine 2.23 H (0.66-1.25) mg/dL Glucose 239 H (74-99) mg/dL POC Glucose (mg/dL) 218 H (75-99) mg/dL Assessment and Plan Plan: Assessment: 1. Acute kidney injury secondary to ATN secondary to hypotension and urinary retention. Creatinine peaked at 2.3 for this admission - 2.23 today. Nonoliguric. No hydronephrosis noted on kidney ultrasound. 2. Chronic kidney disease stage IIIa with baseline creatinine in the range of 1.3-1.5 secondary to nephrosclerosis and diabetic kidney disease. 3. A. fib with RVR status post cardioversion. 4. Metabolic acidosis secondary to acute kidney injury. On oral bicarb. 5. Diabetes mellitus. 6. Chronic systolic CHF with ejection fraction of 40% with moderate mitral regurgitation. 7. Urinary retention. Currently has Paredes catheter. On Flomax. Urology following. Plan: Encouraged oral intake. Patient appears euvolemic. Hold off on fluids and diuretics at this time. Continue to monitor renal function and urine output. Cortisol level not low. Avoid nephrotoxins. Increase dose of bicarb. Blood sugar control.
[2021-09-28] MEDS: APIXABAN 5 MG TAB PO SCH (09:49)
[2021-09-28] MEDS: TAMSULOSIN 0.4 MG CAP.ER.24H PO SCH (09:49)
[2021-09-28] MEDS: METOPROLOL TARTRATE 50 MG TAB PO SCH (09:49)
[2021-09-28] MEDS: GLIMEPIRIDE 1 MG TAB PO SCH (09:49)
[2021-09-28] MEDS: ASPIRIN 81 MG PO SCH (09:50)
[2021-09-28] MEDS: FAMOTIDINE 20 MG TAB PO SCH (09:50)
[2021-09-28] MEDS ORDERED: SODIUM BICARBONATE TAB 650 MG TAB PO SCH ×2 (09:54→21:00)
--- NOTE | 2021-09-28 11:16 | P.PN ---
Subjective Progress Note Date: 09/27/21 Patient underwent cardioversion yesterday and was successfully converted to sinus rhythm with a right bundle branch block with secondary ST-T wave changes at baseline. Patient became hypotensive on calcium channel flakito with a blood pressure in the 60s. Once the calcium channel flakito was reversed margot verdin's blood pressure improved almost instantly. He was started on a dobutamine drip. Beta blockers will remain on hold. Patient is doing well today he denies chest pain or shortness of breath. Will continue to monitor him for 24 hours. Will discontinue dobutamine drip. Remove lines once dopamine drip has been discontinued. Downgrade patient to select care today Objective - Vital Signs Vital signs: Vital Signs Temp 97.8 F 09/27/21 21:56 Pulse 99 09/27/21 21:56 Resp 14 09/27/21 21:56 BP 127/72 09/27/21 21:56 Pulse Ox 99 09/27/21 21:56 Intake & Output 09/27/21 09/28/21 09/28/21 18:59 06:59 18:59 Intake Total 890.848 540 240 Output Total 423 1300 Balance 467.848 -760 240 Intake: IV 143.336 DOBUTamine DRIP 500 mg In 43.336 Dextrose/Water 1 250ml. bag @ 5 MCG/KG/MIN 12.383 mls/hr IV .[id number] RAMANDEEP Rx#:[id number] Sodium Chloride 0.9% 1, 100 000 ml @ 10 mls/hr IV . Q24H RAMANDEEP Rx#:[id number] Intake, IV Titration 3.512 Amount Norepinephrine 4 mg In 3.512 Sodium Chloride 0.9% 250 ml @ 0.05 MCG/KG/MIN 15. 727 mls/hr IV .[id number] RAMANDEEP Rx#:[id number] Oral 744 540 240 Output: Urine 423 1300 Other: Voiding Method Urinal Indwelling Catheter ABP, PAP, CO, CI - Last Documented Arterial Blood Pressure 97/53 - Exam PHYSICAL EXAM: VITAL SIGNS: Reviewed. GENERAL: Well-developed in no acute distress. HEENT: Head is normocephalic. Pupils are equal, round. Sclerae anicteric. Mucous membranes of the mouth are moist. NECK: Supple. No JVD or thyromegaly RESPIRATORY: Respirations even and unlabored. Lungs diminished to auscultation bilaterally. CARDIO: Regular rate and rhythm. S1 and S2 heard. No murmur or gallops. EXTREMITIES: Normal range of motion. No clubbing or cyanosis. Peripheral pulses intact. Negative for bilateral lower extremity edema NEURO: Orientated to person, time, mood is appropriate - Labs CBC & Chem 7: 09/28/21 08:10 09/28/21 08:10 Labs: Abnormal Lab Results - Last 24 Hours (Table) 09/27/21 09/27/21 09/27/21 Range/Units 12:07 17:55 19:58 RBC (4.30-5.90) m/uL Hgb (13.0-17.5) gm/dL Hct (39.0-53.0) % Plt Count (150-450) k/uL Sodium (137-145) mmol/L Carbon Dioxide (22-30) mmol/L BUN (9-20) mg/dL Creatinine (0.66-1.25) mg/dL Glucose (74-99) mg/dL POC Glucose (mg/dL) 176 H 229 H 218 H (75-99) mg/dL 09/28/21 09/28/21 09/28/21 Range/Units 05:29 08:10 08:10 RBC 3.61 L (4.30-5.90) m/uL Hgb 11.6 L (13.0-17.5) gm/dL Hct 35.4 L (39.0-53.0) % Plt Count 132 L (150-450) k/uL Sodium 132 L (137-145) mmol/L Carbon Dioxide 17 L (22-30) mmol/L BUN 50 H (9-20) mg/dL Creatinine 2.23 H (0.66-1.25) mg/dL Glucose 239 H (74-99) mg/dL POC Glucose (mg/dL) 218 H (75-99) mg/dL Assessment and Plan Assessment: Atrial tachycardia with RVR Cardiomyopathy with chronic systolic heart failure status post AICD Plan: Titrate dobutamine drip down, and discontinued. Remove lines once dobutamine drip is discontinued. Hold beta blockers. Transfer to [facility]. Possible discharge within 24 hours Further recommendations based on clinical course The above impression and plan of care have been discussed and directed by the signing physician. Trina Soriano, nurse practitioner, acting as scribe for signing physician.
--- NOTE | 2021-09-28 11:19 | P.PN ---
Subjective Progress Note Date: 09/28/21 Patient is seen today resting comfortably in bed on selective care. He denies chest pain or shortness of breath. Patient remains in sinus rhythm. Blood pressure has been stable and well controlled in the low 100s systolically. Patient states he is ready to go home. Patient is started on Lopressor 50 mg twice a day tolerating well. No episodes of hypotension or bradycardia Objective - Vital Signs Vital signs: Vital Signs Temp 97.8 F 09/27/21 21:56 Pulse 99 09/27/21 21:56 Resp 14 09/27/21 21:56 BP 127/72 09/27/21 21:56 Pulse Ox 99 09/27/21 21:56 Intake & Output 09/27/21 09/28/21 09/28/21 18:59 06:59 18:59 Intake Total 890.848 540 240 Output Total 423 1300 Balance 467.848 -760 240 Intake: IV 143.336 DOBUTamine DRIP 500 mg In 43.336 Dextrose/Water 1 250ml. bag @ 5 MCG/KG/MIN 12.383 mls/hr IV .[id number] RAMANDEEP Rx#:[id number] Sodium Chloride 0.9% 1, 100 000 ml @ 10 mls/hr IV . Q24H RAMANDEEP Rx#:[id number] Intake, IV Titration 3.512 Amount Norepinephrine 4 mg In 3.512 Sodium Chloride 0.9% 250 ml @ 0.05 MCG/KG/MIN 15. 727 mls/hr IV .[id number] RAMANDEEP Rx#:[id number] Oral 744 540 240 Output: Urine 423 1300 Other: Voiding Method Urinal Indwelling Catheter ABP, PAP, CO, CI - Last Documented Arterial Blood Pressure 97/53 - Exam PHYSICAL EXAM: VITAL SIGNS: Reviewed. GENERAL: Well-developed in no acute distress. HEENT: Head is normocephalic. Pupils are equal, round. Sclerae anicteric. Mucous membranes of the mouth are moist. NECK: Supple. No JVD or thyromegaly RESPIRATORY: Respirations even and unlabored. Lungs diminished to auscultation bilaterally. CARDIO: Regular rate and rhythm. S1 and S2 heard. No murmur or gallops. EXTREMITIES: Normal range of motion. No clubbing or cyanosis. Peripheral pulses intact. Negative for bilateral lower extremity edema NEURO: Orientated to person, time, mood is appropriate - Labs CBC & Chem 7: 09/28/21 08:10 09/28/21 08:10 Labs: Abnormal Lab Results - Last 24 Hours (Table) 09/27/21 09/27/21 09/27/21 Range/Units 12:07 17:55 19:58 RBC (4.30-5.90) m/uL Hgb (13.0-17.5) gm/dL Hct (39.0-53.0) % Plt Count (150-450) k/uL Sodium (137-145) mmol/L Carbon Dioxide (22-30) mmol/L BUN (9-20) mg/dL Creatinine (0.66-1.25) mg/dL Glucose (74-99) mg/dL POC Glucose (mg/dL) 176 H 229 H 218 H (75-99) mg/dL 09/28/21 09/28/21 09/28/21 Range/Units 05:29 08:10 08:10 RBC 3.61 L (4.30-5.90) m/uL Hgb 11.6 L (13.0-17.5) gm/dL Hct 35.4 L (39.0-53.0) % Plt Count 132 L (150-450) k/uL Sodium 132 L (137-145) mmol/L Carbon Dioxide 17 L (22-30) mmol/L BUN 50 H (9-20) mg/dL Creatinine 2.23 H (0.66-1.25) mg/dL Glucose 239 H (74-99) mg/dL POC Glucose (mg/dL) 218 H (75-99) mg/dL Assessment and Plan Assessment: Atrial tachycardia with RVR Cardiomyopathy with chronic systolic heart failure status post AICD Plan: Continue with Lopressor 50 mg twice a day. Continue with all other current cardiac medications. Patient is stable to be discharged from a cardiac standpoint The above impression and plan of care have been discussed and directed by the signing physician. Trina Soriano, nurse practitioner, acting as scribe for signing physician.
[2021-09-28 12:11] VITALS: TEMP 98
[2021-09-28 12:13] LABS: Glucose,Whole Blood 214 mg/dL (75-99)
--- NOTE | 2021-09-28 12:49 | P.PN ---
Subjective no acute overnight events, plan to discharge home today. Urine is clear, had evidence of paraphimosis on examination today Objective - Vital Signs Vital signs: Vital Signs Temp 98.0 F 09/28/21 08:00 Pulse 68 09/28/21 08:00 Resp 18 09/28/21 08:00 BP 117/76 09/28/21 08:00 Pulse Ox 99 09/27/21 21:56 Intake & Output 09/27/21 09/28/21 09/28/21 18:59 06:59 18:59 Intake Total 890.848 540 240 Output Total 423 1300 Balance 467.848 -760 240 Intake: IV 143.336 DOBUTamine DRIP 500 mg In 43.336 Dextrose/Water 1 250ml. bag @ 5 MCG/KG/MIN 12.383 mls/hr IV .[id number] RAMANDEEP Rx#:[id number] Sodium Chloride 0.9% 1, 100 000 ml @ 10 mls/hr IV . Q24H RAMANDEEP Rx#:[id number] Intake, IV Titration 3.512 Amount Norepinephrine 4 mg In 3.512 Sodium Chloride 0.9% 250 ml @ 0.05 MCG/KG/MIN 15. 727 mls/hr IV .[id number] RAMANDEEP Rx#:[id number] Oral 744 540 240 Output: Urine 423 1300 Other: Voiding Method Urinal Indwelling Catheter Indwelling Catheter ABP, PAP, CO, CI - Last Documented Arterial Blood Pressure 97/53 - Constitutional General appearance: Present: no acute distress - Gastrointestinal General gastrointestinal: Present: soft. Absent: distended, tenderness - Genitourinary Genitourinary Comment(s): positive for paraphimosis - Labs CBC & Chem 7: 09/28/21 08:10 09/28/21 08:10 Labs: Abnormal Lab Results - Last 24 Hours (Table) 09/27/21 09/27/21 09/28/21 Range/Units 17:55 19:58 05:29 RBC (4.30-5.90) m/uL Hgb (13.0-17.5) gm/dL Hct (39.0-53.0) % Plt Count (150-450) k/uL Sodium (137-145) mmol/L Carbon Dioxide (22-30) mmol/L BUN (9-20) mg/dL Creatinine (0.66-1.25) mg/dL Glucose (74-99) mg/dL POC Glucose (mg/dL) 229 H 218 H 218 H (75-99) mg/dL 09/28/21 09/28/21 09/28/21 Range/Units 08:10 08:10 12:04 RBC 3.61 L (4.30-5.90) m/uL Hgb 11.6 L (13.0-17.5) gm/dL Hct 35.4 L (39.0-53.0) % Plt Count 132 L (150-450) k/uL Sodium 132 L (137-145) mmol/L Carbon Dioxide 17 L (22-30) mmol/L BUN 50 H (9-20) mg/dL Creatinine 2.23 H (0.66-1.25) mg/dL Glucose 239 H (74-99) mg/dL POC Glucose (mg/dL) 214 H (75-99) mg/dL Assessment and Plan Assessment: This is a 76-year-old male with history of BPH, underwent a Uroliftlast year. Has been having difficulty voiding since admission, required straight cath 1 for a postvoid residual greater than 400 mL. Paredes catheter was placed -okay to remove catheter -Paraphimosis was reduced at that site -Continue Flomax -Can follow-up with me as an outpatient in 2 weeks
[2021-09-28 14:35] VITALS: PULSE 64; RESP 16
[2021-09-28 14:44] VITALS: BP 105/69
[2021-09-28] MEDS: NOREPINEPHRINE 4 MG in SODIUM CHLORIDE 0.9% 250 ML IV SCH (15:20)
[2021-09-28] MEDS: SODIUM BICARBONATE TAB 650 MG TAB PO SCH (15:20)
--- NOTE | 2021-09-28 21:29 | P.DS ---
Providers Date of admission: 09/23/21 14:24 Attending physician: Renae Figueroa Consults: 09/23/21 14:24 Consult Physician Urgent Consulting Provider: Jayson Gallego Consult Reason/Comments: Bradycardia at home with near syncope and dyspnea Do you want consulting provider notified?: Yes 09/24/21 13:29 Consult Physician Routine Consulting Provider: True Pots Consult Reason/Comments: acute on chronic kidney failure Do you want consulting provider notified?: Yes 09/25/21 13:30 Consult Physician Routine Consulting Provider: Curtis Bey Consult Reason/Comments: retention, hx retention w/urolift Do you want consulting provider notified?: Yes Primary care physician: Fe Duarte [facility] Course: Please note that patient was not discharged but he left AMA Diagnoses: Paroxysmal atrial fibrillation/flutter with RVR in the cardiac arrhythmias Elevated troponin, secondary to above fund renal disease acute kidney injury, versus progressive CTD Chronic kidney disease stage III urinary retention, status post Paredes catheter which was removed prior to discharge by urologist but patient does not went to evaluate fully and he left AMA Elevated liver enzymes Left renal cyst Diabetes mellitus chronic atrial fibrillation on Eliquis History of osteoarthritis Chronic back pain History of coronary artery disease status post stenting Hospital course: This is a pleasant 76 years old male with past medical history of Atrial Fibrillation, on Eliquis, Diabetes Mellitus, Hyperlipidemia, Myocardial Infarction, Osteoarthritis ,macular degeneration. Hx kidney stones, chronic monroe k pain, concussion 1969, sciatica; states hx falls , NT feet. Coronary artery disease status post Stent, Status post AICD 2006, fluctuation in heart rate, bradycardia/tachycardia has pacemaker. Presents because of dyspnea and echocardiogram related to atrial fibrillation with RVR resistant to treatment, he underwent cardioversion and her crit after that is been controlled and patient became asymptomatic. Patient developed by ammonia box operator and recommended to continue with blood thinner, aspirin and metoprolol 50 mg twice a day which patient confirms to me he has at all at home. Also milking system installer evaluated the patient for worsening kidney function but stable and asymptomatic on both surfaces ammonia box operator and milking system installer. The patient for discharge. Also patient needed Paredes catheter for urinary retention. Urologist decided to discontinue the Paredes catheter today however patient did not want to wait till voiding trial to check postvoid residual and decide if he will need replacement of Paredes catheter or not and he said he left AMA. Risks of leaving him and make explained for him by staff. Patient has capacity to make medical decision and he was doing well and about to be discharged most likely today but he left AMA as above. Problems and management plan were discussed with the patient and he verbalized understanding and acceptance Patient was found stable and can be discharged home however he needs follow-up as an outpatient. Patient was instructed to follow up with PCP within one week and patient agrees Patient also was instructed to follow up with his ammonia box operator Dr. Dorado and milking system installer and urologist Physical exam Gen: patient is a AAOx3, no distress CVS: S1-S2, RRR, no murmur Lungs: B/L CTA, no wheezing Abdomen: soft, no distention, no tenderness, positive bowel sounds Extremity: no leg edema or induration Time spent more than 35 minutes Plan - Discharge Summary Discharge Rx Participant: No New Discharge Prescriptions: New Tamsulosin [Flomax] 0.4 mg PO DAILY #30 Sodium Bicarbonate Tab 1,300 mg PO BID #120 tab Famotidine [Pepcid] 20 mg PO DAILY #60 tab Continue Aspirin [Adult Low Dose Aspirin EC] 81 mg PO DAILY Atorvastatin [Lipitor] 40 mg PO HS Psyllium Husk/Aspartame [Metamucil Sugar-Free Powder] 6 gm PO DAILY PRN PRN Reason: Constipation Apixaban [Eliquis] 5 mg PO BID #60 tab Metoprolol Tartrate [Lopressor] 50 mg PO BID #60 tab HYDROcodone/APAP 5-325MG [Polson 5-325] 1 tab PO DAILY PRN PRN Reason: Pain Glimepiride [Amaryl] 1 mg PO AC-BID Discontinued metFORMIN HCL 500 mg PO BID Ibuprofen [Motrin] 600 mg PO BID PRN PRN Reason: Pain Amoxicillin 500 mg PO DIRECTED Discharge Medication List Aspirin [Adult Low Dose Aspirin EC] 81 mg PO DAILY 03/29/19 [History] Apixaban [Eliquis] 5 mg PO BID #60 tab 05/21/20 [Rx] Atorvastatin [Lipitor] 40 mg PO HS 05/21/20 [History] Metoprolol Tartrate [Lopressor] 50 mg PO BID #60 tab 05/21/20 [Rx] Psyllium Husk/Aspartame [Metamucil Sugar-Free Powder] 6 gm PO DAILY PRN 05/21/20 [History] Glimepiride [Amaryl] 1 mg PO AC-BID 05/21/21 [History] HYDROcodone/APAP 5-325MG [Polson 5-325] 1 tab PO DAILY PRN 05/21/21 [History] Famotidine [Pepcid] 20 mg PO DAILY #60 tab 09/28/21 [Rx] Sodium Bicarbonate Tab 1,300 mg PO BID #120 tab 09/28/21 [Rx] Tamsulosin [Flomax] 0.4 mg PO DAILY #30 09/28/21 [Rx] Follow up Appointment(s)/Referral(s): Jayson Gallego MD [STAFF PHYSICIAN] - 1 Week Keesha Miramontes MD [Primary Care Provider] - 1-2 days Curtis Bey MD [STAFF PHYSICIAN] - 2 Weeks True Post DO [STAFF PHYSICIAN] - 1 Week Activity/Diet/Wound Care/Special Instructions: heart healthy diebetic low carbohydrate diet 1800 k paige per day activity is restricted till you see your doctor we recommend to check your glucose four times a day , before each meal and at bed side, keep the results in a log book and bring it to your doctor on your appointment date if your glucose is less than 70 or more than 400 then call 911 and come to emergency room Discharge Disposition: Left Against Medical Advice Plan of Treatment: LABS to be done in 2-3 days. BMP
== END 2021-09-28 16:22 | disposition left against medical advice (07) | DRG 308 ==
LOC: EC 10:48 → 3SCARD 14:24 → 2SICU 09-26 13:48 → 3SCARD 09-27 22:10
PROVIDERS: ADMIT Hospitalist; ATTEND Hospitalist
PROC: 03HY32Z Insertion of Monitoring Device into Upper Artery, Percutaneous Approach (ICD-10-PCS; 2021-09-26)
PROC: 4A133B1 Monitoring of Arterial Pressure, Peripheral, Percutaneous Approach (ICD-10-PCS; 2021-09-26)
PROC: 4A133J1 Monitoring of Arterial Pulse, Peripheral, Percutaneous Approach (ICD-10-PCS; 2021-09-26)
PROC: 02HV33Z Insertion of Infusion Device into Superior Vena Cava, Percutaneous Approach (ICD-10-PCS; principal; 2021-09-26 07:30)
DX: I48.21 Permanent atrial fibrillation (principal); N17.0 Acute kidney failure with tubular necrosis; I50.22 Chronic systolic (congestive) heart failure; E87.2 Acidosis; I13.0 Hypertensive heart and chronic kidney disease with heart failure and stage 1 through stage 4 chronic kidney disease, or unspecified chronic kidney disease; I48.92 Unspecified atrial flutter; I47.1 Supraventricular tachycardia; M19.90 Unspecified osteoarthritis, unspecified site; I95.9 Hypotension, unspecified; E11.22 Type 2 diabetes mellitus with diabetic chronic kidney disease; E11.65 Type 2 diabetes mellitus with hyperglycemia; E78.5 Hyperlipidemia, unspecified; E83.42 Hypomagnesemia; E87.5 Hyperkalemia; G89.29 Other chronic pain; H35.30 Unspecified macular degeneration; I25.10 Atherosclerotic heart disease of native coronary artery without angina pectoris; I25.2 Old myocardial infarction; I34.0 Nonrheumatic mitral (valve) insufficiency; I42.9 Cardiomyopathy, unspecified; I45.10 Unspecified right bundle-branch block; N18.31 Chronic kidney disease, stage 3a; N28.1 Cyst of kidney, acquired; Z28.311 Partially vaccinated for COVID-19; N40.1 Benign prostatic hyperplasia with lower urinary tract symptoms; N47.2 Paraphimosis; M54.2 Cervicalgia; R77.8 Other specified abnormalities of plasma proteins; R74.01 Elevation of levels of liver transaminase levels; M54.30 Sciatica, unspecified side; R33.8 Other retention of urine; Z79.01 Long term (current) use of anticoagulants; Z79.4 Long term (current) use of insulin; Z79.82 Long term (current) use of aspirin; Z79.84 Long term (current) use of oral hypoglycemic drugs; Z79.899 Other long term (current) drug therapy; Z80.0 Family history of malignant neoplasm of digestive organs; Z82.49 Family history of ischemic heart disease and other diseases of the circulatory system; Z87.442 Personal history of urinary calculi; Z87.891 Personal history of nicotine dependence; Z95.810 Presence of automatic (implantable) cardiac defibrillator; Z95.5 Presence of coronary angioplasty implant and graft; Z88.6 Allergy status to analgesic agent; Z88.0 Allergy status to penicillin; Z84.1 Family history of disorders of kidney and ureter
CPT/HCPCS: 36415; 70450; 71045; 71046; 76770; 80048; 80053; 81001; 82248; 82533; 83036; 83735; 83880; 84145; 84439; 84443; 84481; 84484; 85025; 85610; 85730; 92960; 93005; 93306; 93308; 96365; 96366; 96375; 99285

== ENCOUNTER → 2021-10-04 | Outpatient (CLI) | payer MEDICARE ==
[2021-10-04 19:25] LABS: African American GFR (CKD) 36.5 (60.0-200.0); Anion Gap 11.2 mmol/L (10.00-18.00); BUN/Creat Ratio 14.55 Ratio (12.00-20.00); Blood Urea Nitrogen 29.1 mg/dL (9.0-27.0); Calcium 9.3 mg/dL (8.7-10.3); Carbon Dioxide 23.8 mmol/L (20.0-27.5); Magnesium 1.7 mg/dL (1.5-2.4); Non-African American GFR(CKD) 31.5 (60.0-200.0); Potassium 4.6 mmol/L (3.5-5.5)
== END | disposition home or self-care (01) ==
LOC: LABWHC1 10:20
PROVIDERS: ATTEND Nurse Practitioner Adult Health
DX: I10 Essential (primary) hypertension (principal); N17.9 Acute kidney failure, unspecified
CPT/HCPCS: 36415; 80048; 83735

== ENCOUNTER 2021-10-08 09:23 | Day surgery (SDC) | payer MEDICARE ==
[2021-10-07 11:33] VITALS: BMI 29.0
[~2021-10-08 09:23] MED LIST changes: +HYDROmorphone 0.5 MG/0.5 ML SYRINGE IVP PRN; +MIDAZOLAM 2 MG/2 ML VIAL IV PRN
[2021-10-08 10:02] LABS: Glucose,Whole Blood 167 mg/dL (75-99)
[2021-10-08] MEDS ORDERED: PROPOFOL 10 MG/ML 20 ML VIAL IV ONE (11:45)
[2021-10-08] MEDS ORDERED: MIDAZOLAM 2 MG/2 ML VIAL ONE (11:45)
[2021-10-08] MEDS ORDERED: HEPARIN SODIUM,PORCINE 5,000 UNIT/ML 1 ML VIAL ONE (11:45)
[2021-10-08] MEDS ORDERED: SUGAMMADEX SODIUM 200 MG/2 ML SDV IV ONE (11:45)
[2021-10-08] MEDS ORDERED: DOPamine DRIP 400 MG/250 ML BAG IV ONE (11:45)
[2021-10-08] MEDS ORDERED: ETOMIDATE 2 MG/ML 10 ML VIAL ONE (11:45)
[2021-10-08] MEDS ORDERED: ISOPROTERENOL 250 MCG/1.25 ML SYR IV ONE (11:45)
[2021-10-08] MEDS ORDERED: SUCCINYLCHOLINE CHLORIDE 100 MG/5 ML SYR IV ONE (11:45)
[2021-10-08] MEDS ORDERED: fentaNYL (PF) 50 MCG/ML 2 ML AMP ONE (11:45)
[2021-10-08] MEDS ORDERED: IOPAMIDOL-370 50ML BTL INJ ONE (12:12)
[2021-10-08] MEDS ORDERED: HEPARIN SODIUM (1,000 UNIT/ML) 1,000 UNIT in SODIUM CHLORIDE 0.9% 1,000 ML IRRIGATION ONE (12:15)
[2021-10-08] MEDS ORDERED: HEPARIN SOD,PORK IN 0.45% NACL 25,000 UNIT in 0.45% NACL 1 250ML.BAG IV ONE (12:15)
[2021-10-08] MEDS ORDERED: LIDOCAINE 1% INJ 10MG/ML (30 ML VIAL-PF) SQ ONE (12:27)
[2021-10-08] MEDS ORDERED: ACETAMINOPHEN TAB 325 MG TAB PO PRN (15:30)
--- NOTE | 2021-10-08 16:16 | P.EPPROC ---
- EP Procedure Note Electrophysiology Procedure Note: Diagnosis Worsening heart failure despite Guidant directed cardio myopathy medications Patient in an atrial tachycardia with a resting heart rates ranging from 95-120 beats a minute Final diagnosis Reentrant atrial tachycardia with an isthmus in the lower posterior wall of the LA Successful RF ablation of this isthmus and exit site A detailed discussion with the patient and his daughter This is a very sick patient with worsening heart failure primarily due to recurrent atrial tachycardia with RVR at rest and with exertion Successful PVI in the past Severe ischemic cardio myopathy single-chamber ICD, [facility] medical Decision to mapped the right and left atria to see if this is a mappable atrial tachycardia are not and radiofrequency ablation according Versus upgrade to biventricular ICD and AV node ablation Left upper extremity venogram was performed. 10 mL IV dye injected in the left arm Patent subclavian vein Cinefluoroscopy of the leads was performed Dual coil ICD lead noted Details Patient was brought to the EP lab in a fasting state. Written informed consent was obtained prior to the procedure. First an 8-Andorran sheath was placed in the right femoral vein and a 6-Andorran sheath in the right femoral artery. CS catheter was placed in the coronary sinus An organized atrial tachycardia with the tachycardia cycle length of 330 ms noted Entrainment mapping from the coronary sinus showed a long PPI Next venous sheaths were placed in the right left femoral veins also Intracardiac echo catheter placed Mapping and ablation cath placed, first in the cavo tricuspid isthmus Post-pacing interval from the cavo tricuspid isthmus was long Under intracardiac echo guidance, left] transseptal catheterization was performed No pericardial effusion noted No left atrial thrombus noted LA pressure 31/6/18, Mean pressure 18 mmHg, during atrial tachycardia Right atrial mapping was performed Broad septal activation noted Coronary sinus mapping performed, late activation Transseptal catheterization performed Pentaray catheter placed in the left atrium Activation mapping performed Earliest activation noted on the posterior inferior wall Isthmus with late diastolic potentials noted in this area Mechanical termination occurred during detailed mapping of this area An EP study on her off Isuprel was performed reinduce tachycardia The tachycardia could not be reinduce despite burst stimulation and exit stimulation on and off Isuprel At this point, the patient was intubated since the esophagus was in very close proximity to this area Barium esophagogram was performed before and after An endoscope was placed in the esophagus The esophagus was successfully deflected leftwards Low blood pressure during general anesthesia IV dopamine started Mapping of this early site was performed in sinus rhythm Long fractionated signals were noted in sinus rhythm During the tachycardia this corresponded to the long fractionated signals, diastolic potentials leading up to the P wave RF ablation was performed The isthmus and the access site were ablated successfully Good power and good stability noted All catheters were removed IV heparin stopped, IV dopamine discontinue Venous sheaths were closed with Vascade Arterial sheath closed with Perclose
[2021-10-08 16:54] LABS: Glucose,Whole Blood 114 mg/dL (75-99)
[2021-10-08] MEDS ORDERED: ACETAMINOPHEN IV (For NPO) 1,000 MG in EMPTY BAG 1 BAG IVPB ONE (17:00)
[2021-10-08] MEDS: GLIMEPIRIDE 1 MG TAB PO SCH (17:48)
[2021-10-08 20:24] LABS: Glucose,Whole Blood 100 mg/dL (75-99)
[2021-10-08] MEDS ORDERED: ATORVASTATIN 40 MG TAB PO SCH (21:00)
[2021-10-08] MEDS ORDERED: METOPROLOL TARTRATE 50 MG TAB PO SCH (21:00)
[2021-10-08] MEDS: APIXABAN 5 MG TAB PO SCH (21:04)
[2021-10-08] MEDS: SODIUM BICARBONATE TAB 650 MG TAB PO SCH (21:04)
[2021-10-09 06:52] LABS: Glucose,Whole Blood 163 mg/dL (75-99)
[2021-10-09 07:45] VITALS: BP 107/69; PULSE 66; RESP 18; TEMP 98.6
[2021-10-09] MEDS ORDERED: TAMSULOSIN 0.4 MG CAP.ER.24H PO SCH (09:00)
[2021-10-09] MEDS ORDERED: ASPIRIN 81 MG PO SCH (09:00)
[2021-10-09] MEDS ORDERED: FAMOTIDINE 20 MG TAB PO SCH (09:00)
[2021-10-09] MEDS: APIXABAN 5 MG TAB PO SCH (09:24)
[2021-10-09] MEDS: SODIUM BICARBONATE TAB 650 MG TAB PO SCH (09:24)
[2021-10-09] MEDS: GLIMEPIRIDE 1 MG TAB PO SCH (09:24)
[2021-10-09 09:57] LABS: African American GFR (CKD) 47.8 (60.0-200.0); Anion Gap 8.6 mmol/L (10.00-18.00); BUN/Creat Ratio 19.5 Ratio (12.00-20.00); Blood Urea Nitrogen 31.2 mg/dL (9.0-27.0); Calcium 8.2 mg/dL (8.7-10.3); Carbon Dioxide 27.4 mmol/L (20.0-27.5); Non-African American GFR(CKD) 41.2 (60.0-200.0)
--- NOTE | 2021-10-09 10:46 | P.DS ---
Providers Attending physician: Jayson Gallego Primary care physician: Stated None Hospital Course: Patient is doing well. He feels a lot better. No chest discomfort no code discomfort no dizziness and lightheadedness His twelve-lead EKG shows sinus rhythm with PACs ICD was interrogated postprocedure RV threshold 0.5 V at 0.5 ms, R waves 11.8 mV and pacing. 400 ohms High-voltage impedance 66 ohms His programmed to VVI 40 beats a minute with MADIT RIT programming for tachycardia therapy Blood pressure 107 06 9 mmHg respirations normal pulse rate in the 60s and 70s afebrile Normal heart sounds Carol lungs Bruising in the right groin puncture site I sutured this today and applied a pressure dressing The bleeding has stopped There was no hematoma, simply an overuse from the track Plan Continue current medications including ELIQUIS Change metoprolol formulation to metoprolol succinate but attributed dose of 25 mg by mouth daily Daytime increase the dose to 50 g daily depending upon his blood pressure Metoprolol tartrate has been discontinued Home today Plan - Discharge Summary Discharge Rx Participant: Yes New Discharge Prescriptions: New Metoprolol Succinate [Toprol XL] 25 mg PO DAILY #90 tab Discontinued Metoprolol Tartrate [Lopressor] 50 mg PO BID #60 tab No Action Aspirin [Adult Low Dose Aspirin EC] 81 mg PO DAILY Atorvastatin [Lipitor] 40 mg PO HS Psyllium Husk/Aspartame [Metamucil Sugar-Free Powder] 6 gm PO Q7D PRN PRN Reason: Constipation Apixaban [Eliquis] 5 mg PO BID #60 tab Glimepiride [Amaryl] 1 mg PO AC-BID Tamsulosin [Flomax] 0.4 mg PO DAILY #30 Sodium Bicarbonate Tab 1,300 mg PO BID #120 tab Famotidine [Pepcid] 20 mg PO DAILY #60 tab Discharge Medication List Aspirin [Adult Low Dose Aspirin EC] 81 mg PO DAILY 03/29/19 [History] Apixaban [Eliquis] 5 mg PO BID #60 tab 05/21/20 [Rx] Atorvastatin [Lipitor] 40 mg PO HS 05/21/20 [History] Psyllium Husk/Aspartame [Metamucil Sugar-Free Powder] 6 gm PO Q7D PRN 05/21/20 [History] Glimepiride [Amaryl] 1 mg PO AC-BID 05/21/21 [History] Famotidine [Pepcid] 20 mg PO DAILY #60 tab 09/28/21 [Rx] Sodium Bicarbonate Tab 1,300 mg PO BID #120 tab 09/28/21 [Rx] Tamsulosin [Flomax] 0.4 mg PO DAILY #30 09/28/21 [Rx] Metoprolol Succinate [Toprol XL] 25 mg PO DAILY #90 tab 10/08/21 [Rx] Follow up Appointment(s)/Referral(s): Jayson Gallego MD [STAFF PHYSICIAN] - 1 Week (Office will call with appointment time and date.) Activity/Diet/Wound Care/Special Instructions: Post EP study - Ablation instructions 1. Keep access sites dry for 2 days. 2. No heavy lifting or straining for 2 days. 3. Avoid bending the hips repeatedly for 2 days. 4. You may go up and down stairs slowly Call if the following is noted 1. Bleeding, increasing swelling or pain at the access sites. 2. Increasing chest discomfort, especially upon taking a deep breath. 3. Increasing shortness of breath, at rest or with exertion. 4. Undue cough / phlegm 5. Difficulty or pain while swallowing. 6. Pain or change in color in the extremities. 7. Fever, chills, rigors. 8. Increasing headache or neurologic symptoms. 9. Dizziness, fainting, palpitations Stop metoprolol tartrate Start metoprolol succinate 25 mg every morning Continue ELIQUIS in all other medications Discharge Disposition: HOME SELF-CARE
== END 2021-10-09 11:32 | disposition home or self-care (01) ==
LOC: CATHEP 09:23 → 6NMEDSUR 15:00 → 2SICU 15:57 → CATHEP 10-09 11:32
PROVIDERS: ATTEND Internal Medicine Clinical Cardiac Electrophysiology
DX: I47.1 Supraventricular tachycardia (principal); I25.5 Ischemic cardiomyopathy; Z87.891 Personal history of nicotine dependence; I48.19 Other persistent atrial fibrillation; I25.10 Atherosclerotic heart disease of native coronary artery without angina pectoris; I11.0 Hypertensive heart disease with heart failure; Z20.822 Contact with and (suspected) exposure to COVID-19; I50.9 Heart failure, unspecified; Z95.810 Presence of automatic (implantable) cardiac defibrillator; E78.5 Hyperlipidemia, unspecified; Z82.49 Family history of ischemic heart disease and other diseases of the circulatory system; Z79.01 Long term (current) use of anticoagulants; Z79.84 Long term (current) use of oral hypoglycemic drugs; Z79.82 Long term (current) use of aspirin; Z79.899 Other long term (current) drug therapy
CPT/HCPCS: 93462; 93623; 93662; 93653; 80048; 87635; C1759; C1769 ×3; C1894 ×2; C1760 ×2; C1730; C1731; C1893; C1732; J2250; J1644 ×3; J0690; J2001; J3010; J1265; J0330; J2704; Q9967

== ENCOUNTER → 2022-11-24 | Outpatient (CLI) | payer MEDICARE ==
--- NOTE | 2022-11-24 11:58 | XR ---
EXAMINATION TYPE: XR cervical spine limited DATE OF EXAM: 11/24/2022 10:46 AM INDICATION: Patient age:Male; 77 years old; Reason for study: M54.2; [facility]. COMPARISON: CT cervical spine 04/23/2010 TECHNIQUE: The cervical spine was imaged in frontal, lateral, odontoid, and swimmer's projections. FINDINGS: No acute fracture. Mild retrolisthesis of C3 on C4. There are osteophytes noted throughout the cervic al spine on the anterior aspects of the vertebral bodies. The anterior osteophytes are large at C3-C5 . Partial ankylosis of C5-C6. Multilevel disc space narrowing with endplate sclerosis. Pedicles are i ntact. Soft tissues are within normal limits. The odontoid appears intact. Carotid calcifications ar e identified. Single-lead AICD identified. IMPRESSION: 1. No fracture or dislocation. 2. Moderate degenerative disc disease changes of the cervical spine as described above.
== END | disposition home or self-care (01) ==
LOC: RADXRMAIN 10:15
PROVIDERS: ATTEND Internal Medicine
DX: M50.31 Other cervical disc degeneration, high cervical region (principal); M43.12 Spondylolisthesis, cervical region; M25.78 Osteophyte, vertebrae; G95.89 Other specified diseases of spinal cord
CPT/HCPCS: 72040

== ENCOUNTER → 2022-11-25 | Outpatient (CLI) | payer MEDICARE ==
--- NOTE | 2022-11-25 12:30 | CT ---
EXAMINATION TYPE: CT brain wo con CT DLP: 1081.6 x4 months mGycm, Automated exposure control for dose reduction was used. DATE OF EXAM: 11/25/2022 12:25 PM COMPARISON: 09/25/2021. CLINICAL INDICATION:Male, 77 years old with history of R51.9 HEADACHE, headaches TECHNIQUE: Brain: Axial CT images of the brain were obtained with coronal and sagittal reformats created and rev iewed. Contrast used: None. Oral contrast used: None. FINDINGS: Brain: Extra-axial spaces: No abnormal extra-axial fluid collections. Ventricular system: Dilatation in proportion to cerebral atrophy. Cerebral parenchyma: Cerebral atrophy. No acute intraparenchymal hemorrhage or mass effect. The sherwood -white junction is well differentiated. Scattered hypoattenuating areas are seen within the white mat ter. Cerebellum: Unremarkable. Mass effect: No evidence of midline shift. Intracranial vasculature: Atherosclerotic calcifications of the intracranial vessels. Soft tissues: Normal. Calvarium/osseous structures: No depressed skull fracture. Paranasal sinuses and mastoid air cells: Mild scattered paranasal sinus disease. Visualized orbits: Bilateral aphakia IMPRESSION: 1. No acute intracranial process. 2. Nonspecific white matter changes, likely secondary to chronic small vessel ischemic disease.
== END | disposition home or self-care (01) ==
LOC: RADCTMAIN 12:05
PROVIDERS: ATTEND Internal Medicine
DX: R51.9 Headache, unspecified (principal)
CPT/HCPCS: 70450

== ENCOUNTER → 2023-02-18 | Day surgery (SDC) | payer MEDICARE ==
[~2023-02-18] MED LIST changes: -HYDROmorphone 0.5 MG/0.5 ML SYRINGE IVP PRN; +IV FLUID CONTINUATION 1,000 ML IV ONE; -LACTATED RINGERS 1,000 ML IV SCH; -MIDAZOLAM 2 MG/2 ML VIAL IV PRN; +MIDAZOLAM 2 MG/2 ML VIAL IVP ONE; -SODIUM CHLORIDE 0.9% 1,000 ML IV SCH; +fentaNYL (PF) 50 MCG/ML 2 ML AMP ONE
[2023-02-18 11:10] LABS: Glucose,Whole Blood 133 mg/dL (70-110)
[2023-02-18] MEDS: BENZOCAINE SPRAY 1 CAN MUCOUS MEM ONE ×2 (12:20→12:44)
[2023-02-18] MEDS: fentaNYL (PF) 50 MCG/1 ML VIAL IVP ONE ×3 (12:44→12:55)
[2023-02-18] MEDS: MIDAZOLAM 2 MG/2 ML VIAL IVP ONE ×2 (12:46→12:55)
[2023-02-18 13:16] VITALS: TEMP 97.7
--- NOTE | 2023-02-18 16:50 | P.TEE ---
Date of Procedure: 02/18/23 Description of Procedure(s): Procedure performed: 1. Transesophageal Echocardiogram with color flow doppler, pulsed wave doppler and continuous wave doppler, 2. Bubble Study 3. Moderate conscious sedation. Sedation time 35 mins. Indications: Severe Mitral regurgitation Consent: I have discussed the risks, benefits and alternative therapies for the above-mentioned procedure. The patient has indicated understanding and acceptance of the risks of the procedure. Signed consent was obtained and was placed in the paper chart. Procedural Steps: Timeout was performed in usual fashion. Patient's heart rate, blood pressure, oxygen saturation and ECG were monitored. Benzocaine was sprayed liberally in the back of thr throat. Bite block was placed between the jaw. 4 mg of Versed and 100 mcg of Fentanyl were administered intravenously. After achieving appropriate moderate concious sedation, ROSI probe was advanced without difficulty and without any immediate complications to the esophagus. ROSI study was performed with color flow doppler, pulsed wave doppler and continuous wave doppler. Agitated saline bubbles were injected to assess for any intra-atrial shunt. The probe was then removed. Patient tolerated the procedure well. Patient was transferred to the post procedure area in stable and satisfactory condition. Throughout the procedure patient's heart rate, blood pressure, oxygen saturation and ECG were monitored. Total sedation time 35 mins. Complications: none FINDINGS Left Atrium : Moderate LA dilatation Left Atrial Appendage: No evidence of thrombus or mass seen in INGA Inter atrial septum: Intact inter-atrial septum Left Ventricle: Normal global LV size and systolic function Right Atrium: Mildly increased RA size. PPM wire seen in RA. Right Ventricle: Normal global RV size and systolic function. PPM wire seen in RV Aortic Valve: Structurally normal Trileaflet, mildly calcific. No significant stenosis. Trace regurgitation on color doppler assessment. Mitral Valve: Mild myxomatous and degenerative changes of A2 component of anterior mitral leaflet with severe mitral regurgitation. Central directed jet, likely primary MR. EROA 0.5 cm2, Regurgitant volume 80 ml. PISA radius 0.9cm, aliasing velocity 44 cm/s, MR peak velocity 463 cm/s, MR VTI 159. Pulmonic Valve: Not well visualized. Tricuspid Valve: Moderate regurgitation. PPM wire seen in tricuspid valve. Ascending aorta, Aortic root and Aortic arch: . No evidence of large atheroma or bulky calcification. Aortic root doesnot appear dilated. Desceding aorta: Moderate intimat thickening and calcific plaque CONCLUSION: Severe Mitral regurgitation, likely primary due to degeneration of A2 scallop of anterior leaflet Moderate TR PPM wire in RA and RV
[2023-02-18 18:18] VITALS: BP 141/69; PULSE 61; RESP 16
== END ==
LOC: CATHCVL 10:42
PROVIDERS: ATTEND Student in an Organized Health Care Education/Training Program
DX: I08.1 Rheumatic disorders of both mitral and tricuspid valves (principal); I11.0 Hypertensive heart disease with heart failure; I50.9 Heart failure, unspecified; I42.9 Cardiomyopathy, unspecified; I48.0 Paroxysmal atrial fibrillation; I25.10 Atherosclerotic heart disease of native coronary artery without angina pectoris; E11.9 Type 2 diabetes mellitus without complications; Z87.891 Personal history of nicotine dependence; Z79.82 Long term (current) use of aspirin; Z79.01 Long term (current) use of anticoagulants; Z79.899 Other long term (current) drug therapy; Z79.84 Long term (current) use of oral hypoglycemic drugs
CPT/HCPCS: 93312; 93320; 93325; J2250; J3010

== ENCOUNTER → 2023-04-15 | Outpatient (CLI) | payer MEDICARE ==
[2023-04-15 10:06] LABS: ALT 17 U/L (4-49); AST 25 U/L (17-59); African American GFR (CKD) 60 (>60 ml/min/1.73 sqM); Albumin 3.8 g/dL (3.5-5.0); Albumin/Globulin Ratio 1.2; Alkaline Phosphatase 91 U/L (38-126); Anion Gap 12 mmol/L; Blood Urea Nitrogen 19 mg/dL (9-20); Calcium 9.5 mg/dL (8.4-10.2); Carbon Dioxide 22 mmol/L (22-30); Chloride 104 mmol/L (98-107); Globulin 3.2 g/dL; Glucose 133 mg/dL (74-99); Magnesium 1.8 mg/dL (1.6-2.3); Non-African American GFR(CKD) 52 (>60 ml/min/1.73 sqM); Potassium 4.6 mmol/L (3.5-5.1); Sodium 138 mmol/L (137-145); Total Bilirubin 1.7 mg/dL (0.2-1.3)
[2023-04-15 10:12] LABS: NT-Pro-B-Type Natriuretic Pept 1010 pg/mL
[2023-04-15 11:51] LABS: HCT 37.6 % (39.0-53.0); HGB 12.7 gm/dL (13.0-17.5); MCH 32.1 pg (25.0-35.0); MCHC 33.9 g/dL (31.0-37.0); MCV 94.7 fL (80.0-100.0); Platelet Count 148 k/uL (150-450); Poikilocytosis Slight; RBC 3.97 m/uL (4.30-5.90); RDW 13.7 % (11.5-15.5); WBC 6.5 k/uL (3.8-10.6)
[2023-04-15 15:43] LABS: INR 1.11 sec (0.93-1.11); Prothrombin Time 11.9 sec (9.9-11.9)
== END | disposition home or self-care (01) ==
LOC: LABWHC1 08:17
PROVIDERS: ATTEND Internal Medicine
DX: I34.0 Nonrheumatic mitral (valve) insufficiency (principal)
CPT/HCPCS: 36415; 80053; 83735; 83880; 85027; 85610

== ENCOUNTER → 2023-06-22 | Outpatient (CLI) | payer MEDICARE ==
[2023-06-22 15:11] LABS: HGB 12.2 g/dL (13.0-17.0); MCH 31.8 pg (27.0-32.0); MCV 96.4 FL (80.0-97.0); Mean Platelet Volume 10.5 FL (9.5-12.2); NRBC Per 100 WBC 0 X 10*3/uL (0.00-0.01); Platelet Count 161 X 10*3/uL (140-440); RBC 3.84 X 10*6/uL (4.40-5.60); RDW 13.9 % (11.5-14.5); WBC 6.72 X 10*3/uL (4.50-10.00)
[2023-06-22 16:27] LABS: ALT 20 U/L (10-49); AST 21 U/L (14-35); Albumin 4.2 g/dL (3.8-4.9); Albumin/Globulin Ratio 1.56 Ratio (1.60-3.17); Alkaline Phosphatase 93 U/L (41-126); BUN/Creat Ratio 13.73 Ratio (12.00-20.00); Blood Urea Nitrogen 20.6 mg/dL (9.0-27.0); Calcium 10.2 mg/dL (8.7-10.3); Carbon Dioxide 23.1 mmol/L (21.6-31.8); Chloride 103 mmol/L (96-109); Globulin 2.7 g/dL (1.6-3.3); Glucose 234 mg/dL (70-110); Magnesium 1.8 mg/dL (1.5-2.4); Potassium 5.2 mmol/L (3.5-5.5); Sodium 139 mmol/L (135-145); Total Bilirubin 1.3 mg/dL (0.3-1.2); Total Protein 6.9 g/dL (6.2-8.2)
[2023-06-22 21:13] LABS: INR 1.07 sec (0.93-1.11); Prothrombin Time 11.5 sec (9.9-11.9)
== END | disposition home or self-care (01) ==
LOC: LABWHC1 11:20
PROVIDERS: ATTEND Internal Medicine
DX: Z01.812 Encounter for preprocedural laboratory examination (principal); I34.0 Nonrheumatic mitral (valve) insufficiency
CPT/HCPCS: 36415; 80053; 83735; 85027; 85610

== ENCOUNTER 2023-09-01 07:31 | Emergency (ER) | payer MEDICARE ==
--- NOTE | 2023-09-01 07:49 | ED ---
General Adult HPI - General Chief complaint: Urogenital Stated complaint: Blood In Urine Time Seen by Provider: 09/01/23 07:36 Source: patient, RN notes reviewed Mode of arrival: ambulatory Limitations: no limitations - History of Present Illness Initial comments: Patient is a pleasant 70-year-old male present to the emergency department with concerns for hematuria. Onset of symptoms was last night. Patient has had several episodes. Patient does have mild dysuria associated with it. No fever. No back or flank or abdominal pain. No history of similar symptoms previously. Patient is on Eliquis secondary to history of atrial fibrillation. - Related Data Home Medications Medication Instructions Recorded Confirmed Aspirin [Adult Low Dose Aspirin EC] 81 mg PO DAILY 03/29/19 02/16/23 Atorvastatin [Lipitor] 40 mg PO HS 05/21/20 02/18/23 Psyllium Husk/Aspartame [Metamucil 6 gm PO Q7D PRN 05/21/20 02/16/23 Sugar-Free Powder] Glimepiride [Amaryl] 2 mg PO AC-BID 05/21/21 02/18/23 Furosemide [Lasix] 20 mg PO DAILY PRN 02/16/23 02/18/23 metFORMIN HCL [Glucophage] 500 mg PO BID 02/18/23 02/18/23 Previous Rx's Medication Instructions Recorded Apixaban [Eliquis] 5 mg PO BID #60 tab 05/21/20 Metoprolol Succinate [Toprol XL] 25 mg PO DAILY #90 tab 10/08/21 Nitrofurantoin Monohyd/M-Cryst 100 mg PO Q12HR #20 cap 09/01/23 [Macrobid] Allergies Allergy/AdvReac Type Severity Reaction Status Date / Time Calcium Channel Blocking AdvReac Severe Chest Pain Verified 02/16/23 14:42 Agent Dilt Review of Systems ROS Statement: Those systems with pertinent positive or pertinent negative responses have been documented in the HPI. ROS Other: All systems not noted in ROS Statement are negative. Constitutional: Denies: fever Eyes: Denies: eye pain ENT: Denies: ear pain Respiratory: Denies: cough Cardiovascular: Denies: chest pain Endocrine: Denies: fatigue Gastrointestinal: Reports: as per HPI. Denies: abdominal pain, nausea, vomiting Genitourinary: Reports: as per HPI, dysuria (Mild), hematuria Musculoskeletal: Denies: back pain Past Medical History Past Medical History: Atrial Fibrillation, Diabetes Mellitus, Eye Disorder, Hyperlipidemia, Myocardial Infarction (HI), Osteoarthritis (OA) Additional Past Medical History / Comment(s): Macular degeneration. Hx kidney stones, chronic back pain, concussion 1969, sciatica; states hx falls D/T Rt knee giving out, uses 4-prong cane occ. NT feet. c/o throbbing pain Lt arm occ., leaky valve, occasional swelling ankles, uses O2 occasionally, not daily, still has @home from when he had Covid in 2020 Last Myocardial Infarction Date:: 2006 History of Any Multi-Drug Resistant Organisms: None Reported Past Surgical History: AICD, Appendectomy, Cholecystectomy, Heart Catheterization With Stent Additional Past Surgical History / Comment(s): Colonoscopy, bilat cataracts. AICD 2006. not sure how many cardiac stents Past Anesthesia/Blood Transfusion Reactions: No Reported Reaction Date of Last Stent Placement:: not sure Type of Cardiac Device: AICD Device Placement Date:: 2006 [facility] LEFT CHEST Past Psychological History: No Psychological Hx Reported Smoking Status: Former smoker - Past Family History Mother Family Medical History: Coronary Artery Disease (CAD), Renal Disease Father Additional Family Medical History / Comment(s): during medical testin g(iodine) Sister(s) Family Medical History: Cancer Additional Family Medical History / Comment(s): pancreatic cancer General Exam Limitations: no limitations General appearance: alert, in no apparent distress Head exam: Present: normocephalic Eye exam: Present: normal appearance ENT exam: Present: normal oropharynx Neck exam: Present: normal inspection Respiratory exam: Present: normal lung sounds bilaterally Cardiovascular Exam: Present: irregular rhythm GI/Abdominal exam: Present: soft. Absent: distended, tenderness, guarding, rebound, rigid Extremities exam: Present: normal inspection Neurological exam: Present: alert Psychiatric exam: Present: normal affect, normal mood Skin exam: Present: normal color Course Vital Signs 09/01/23 07:32 Temperature 97.1 F L Pulse Rate 67 Respiratory 20 Rate Blood Pressure 118/75 O2 Sat by Pulse 97 Oximetry Medical Decision Making - Medical Decision Making Was pt. sent in by a medical professional or institution (, PA, COPYRIGHT CLERK, urgent care, hospital, or fpc...) When possible be specific @ -No Did you speak to anyone other than the patient for history (EMS, parent, family, police, friend...)? What history was obtained from this source @ -No Did you review nursing and triage notes (agree or disagree)? Why? @ -I reviewed and agree with nursing and triage notes Were old charts reviewed (outside hosp., previous admission, EMS record, old EKG, old radiological studies, urgent care reports/EKG's, fpc records)? Report findings @ -No old charts were reviewed Differential Diagnosis (chest pain, altered mental status, abdominal pain women, abdominal pain men, vaginal bleeding, weakness, fever, dyspnea, syncope, headache, dizziness, GI bleed, back pain, seizure, CVA, palpatations, mental health, musculoskeletal)? @ -Differential Abdominal Pain Men: Appendicitis, cholecystitis, diverticulosis, ischemic bowel, pancreatitis, hepatitis, UTI, gastroenteritis, AAA, incarcerated hernia, bowel obstruction, constipation, inflammatory bowel, hepatitis, peptic ulcer disease, splenic infarction, perforated viscus, testicular torsion, this is not meant to be an all-inclusive list EKG interpreted by me (3pts min.). @ -As above X-rays interpreted by me (1pt min.). @ -X-ray shows probable left renal stone CT interpreted by me (1pt min.). @ -None done U/S interpreted by me (1pt. min.). @ -None done What testing was considered but not performed or refused? (CT, X-rays, U/S, labs)? Why? @ -None What meds were considered but not given or refused? Why? @ -None Did you discuss the management of the patient with other professionals (professionals i.e. , PA, COPYRIGHT CLERK, lab, RT, psych nurse, social insurance analyst, rolling chair pusher, teacher, weapons electrical engineering officer, home health care case manager)? Give summary @ -No Was smoking cessation discussed for >3mins.? @ -No Was critical care preformed (if so, how long)? @ -No Were there social determinants of health that impacted care today? How? (Homelessness, low income, unemployed, alcoholism, drug addiction, transportation, low edu. Level, literacy, decrease access to med. care, residential, rehab)? @ -No Was there de-escalation of care discussed even if they declined (Discuss DNR or withdrawal of care, Hospice)? DNR status @ -No What co-morbidities impacted this encounter? (DM, HTN, Smoking, COPD, CAD, Cancer, CVA, ARF, Chemo, Hep., AIDS, mental health diagnosis, sleep apnea, morbid obesity)? @ -None Was patient admitted / discharged? Hospital course, mention meds given and route, prescriptions, significant lab abnormalities, going to OR and other pertinent info. @ -Patient presents with hematuria with minimal dysuria. Urinalysis with red and white cells. Patient will be covered with antibiotics for possible urinary tract infection. Patient is advised to hold his anticoagulant for the next day or 2 until bleeding improves. Patient is advised urology follow-up. Undiagnosed new problem with uncertain prognosis? @ -No Drug Therapy requiring intensive monitoring for toxicity (Heparin, Nitro, Insulin, Cardizem)? @ -No Were any procedures done? @ -No Diagnosis/symptom? @ -Hematuria Acute, or Chronic, or Acute on Chronic? @ -Acute Uncomplicated (without systemic symptoms) or Complicated (systemic symptoms)? @ -Default Side effects of treatment? @ -No Exacerbation, Progression, or Severe Exacerbation? @ -No Poses a threat to life or bodily function? How? (Chest pain, USA, HI, pneumonia, PE, COPD, DKA, ARF, appy, cholecystitis, CVA, Diverticulitis, Homicidal, Suicidal, threat to staff... and all critical care pts) @ -No - Lab Data Lab Results 09/01/23 Range/Units 08:00 Urine Color Red Urine Appearance Bloody (Clear) Urine RBC >182 H (0-5) /hpf Urine WBC >182 H (0-5) /hpf Urine Bacteria Occasional H (None) /hpf Disposition Clinical Impression: Hematuria Disposition: HOME SELF-CARE Condition: Stable Instructions (If sedation given, give patient instructions): Hematuria (ED) Additional Instructions: Prescription sent to pharmacy. Please do follow-up with your primary care physician and your urologist in the next day or 2 for recheck. Please hold your Eliquis/blood thinner for the next day or 2 until bleeding improves. Return for increased bleeding, pain, bleeding from other areas, fever, vomiting, worsening symptoms or other concerns. Prescriptions: Nitrofurantoin Monohyd/M-Cryst [Macrobid] 100 mg PO Q12HR #20 cap Is patient prescribed a controlled substance at d/c from ED?: No Referrals: Los Nolan MD [STAFF PHYSICIAN] - 1-2 days Curtis Bey MD [STAFF PHYSICIAN] - 1-2 days Time of Disposition: 09:14
[2023-09-01 08:26] LABS: Bacteria,Urine Occasional /hpf; RBC,Urine >182 /hpf (0-5); WBC,Urine >182 /hpf (0-5)
[2023-09-01 08:27] LABS: Appearance,Urine Bloody (Clear); Color,Urine Red
--- NOTE | 2023-09-01 08:47 | XR ---
EXAMINATION TYPE: XR abdomen 1V DATE OF EXAM: 09/01/2023 8:08 AM CLINICAL INDICATION:Male, 78 years old with history of Hematuria; COMPARISON: 02/08/2011. TECHNIQUE: One radiographic view of the abdomen was obtained. FINDINGS: The bowel gas pattern is nonspecific without dilated loops of small or large bowel. There i s no evidence for organomegaly or pneumoperitoneum. The osseous structures are intact. No abnormal calcifications are present. Fecal material and gas are demonstrated throughout the colon and rectum. Calcification projects over the left inferior renal sinus measuring 5 mm. Musculoskeletal degenerative changes throughout the spine. Right upper quadrant cholecystectomy. IMPRESSION: 1. Left inferior renal calculus measuring 5 mm. 2. Nonspecific bowel gas pattern without radiographic evidence for acute process.
[2023-09-01 09:25] VITALS: BP 103/69; PULSE 72; RESP 17; TEMP 97.9
== END 2023-09-01 09:20 | disposition home or self-care (01) ==
LOC: EC 07:31
DX: N20.0 Calculus of kidney (principal); Z88.8 Allergy status to other drugs, medicaments and biological substances; Z87.891 Personal history of nicotine dependence
CPT/HCPCS: 74018; 81001; 87086; 99283

== ENCOUNTER → 2023-09-11 | Outpatient (CLI) | payer MEDICARE ==
[2023-09-11 12:35] LABS: African American GFR (CKD) 21 (>60 ml/min/1.73 sqM); Blood Urea Nitrogen 54 mg/dL (9-20); Non-African American GFR(CKD) 18 (>60 ml/min/1.73 sqM)
--- NOTE | 2023-09-11 13:35 | CT ---
EXAMINATION TYPE: CT abdomen pelvis wo con DATE OF EXAM: 09/11/2023 COMPARISON: 09/05/2011 HISTORY: hematuria CT DLP: 930 mGycm Automated exposure control for dose reduction was used. TECHNIQUE: Helical acquisition of images was performed from the lung bases through the pelvis. FINDINGS: The lungs are clear. There is mild to moderate cardiomegaly. There is surgical absence of the gallbladder. There is no biliary ductal dilatation. There is no organomegaly of the liver, pancreas, spleen or adrenal glands. There are a few tiny punct ate pancreatic calcifications consistent with mild chronic pancreatitis. There are 2 nonobstructing left renal calculi one measuring 6 mm and the other measuring approximatel y 7 mm. There are no right renal calcifications. Immediately adjacent to the left kidney there is a 5 .8 cm well-circumscribed cystic oval mass which does clearly appear to communicate with the left kidn ey and possibly represents an exophytic cyst or other is a benign retroperitoneal cyst. It was not pr esent on the prior study but is consistent with a benign etiology. There is mild infrarenal aneurysmal dilatation of the abdominal aorta measuring 2.7 cm. There is no r etroperitoneal adenopathy or hemorrhage. The bowel loops are normal in caliber is no evidence of obstruction. No inflammatory changes are iden tified in the mesentery and there is no free intraperitoneal air or fluid. There is no pelvic mass, free fluid, abscess or adenopathy. There are radiation seeds within the pros lerner gland which is mildly prominent. The urinary bladder is markedly distended with urine but there is no urinary bladder wall thickening. The osseous structures and soft tissues are unremarkable. IMPRESSION: 2 nonobstructing left renal calcifications as described above.
== END | disposition home or self-care (01) ==
LOC: RADCTMAIN 11:44
PROVIDERS: ATTEND Urology
DX: N28.89 Other specified disorders of kidney and ureter (principal); R31.0 Gross hematuria
CPT/HCPCS: 74176; 82565; 84520

== ENCOUNTER 2023-09-16 15:50 | Inpatient (IN) | payer MEDICARE ==
--- NOTE | 2023-09-16 16:32 | ED ---
General Adult HPI - General Chief complaint: Weakness Stated complaint: KERMIT Mcintyre Time Seen by Provider: 09/16/23 16:08 Source: patient, family Mode of arrival: ambulatory Limitations: no limitations - History of Present Illness Initial comments: Dictation was produced using [employer] dictation software. please excuse any grammatical, word or spelling errors. Chief Complaint: 78-year-old male presents for generalized weakness History of Present Illness: Patient 78-year-old male with multiple comorbidities presents to the ER for generalized weakness. Patient was seen here in the emergency department approximately 2 weeks ago. He was discharged. Patient states that since then he has had frequent falls. Denies any head injury. Contacted his primary care doctor and instructed to come to the emergency department lives at home with his who is having difficulty taking care of him. Denies any focal weakness. States that he is generalized weak. Denies any acute pain. The ROS documented in this emergency department record has been reviewed and confirmed by me. Those systems with pertinent positive or negative responses have been documented in the HPI. All other systems are other negative and/or noncontributory. - Related Data Home Medications Medication Instructions Recorded Confirmed Aspirin [Adult Low Dose Aspirin EC] 81 mg PO DAILY 03/29/19 09/16/23 Atorvastatin [Lipitor] 40 mg PO HS 05/21/20 09/16/23 Glimepiride [Amaryl] 2 mg PO BID 05/21/21 09/16/23 metFORMIN HCL [Glucophage] 500 mg PO BID 02/18/23 09/16/23 Amiodarone [Cordarone] 400 mg PO DAILY 09/16/23 09/16/23 Furosemide [Lasix] 40 mg PO DAILY 09/16/23 09/16/23 Naproxen Sodium [Aleve] 220 mg PO DAILY PRN 09/16/23 09/16/23 Sulfamethox-Tmp 800-160Mg [Bactrim 1 tab PO BID 09/16/23 09/16/23 DS 800-160 mg] predniSONE 10 mg PO DAILY PRN 09/16/23 09/16/23 Previous Rx's Medication Instructions Recorded Apixaban [Eliquis] 5 mg PO BID #60 tab 05/21/20 Metoprolol Succinate [Toprol XL] 25 mg PO DAILY #90 tab 10/08/21 Allergies Allergy/AdvReac Type Severity Reaction Status Date / Time Calcium Channel Blocking AdvReac Severe Chest Pain Verified 09/16/23 18:28 Agent Dilt Review of Systems ROS Statement: Those systems with pertinent positive or pertinent negative responses have been documented in the HPI. ROS Other: All systems not noted in ROS Statement are negative. Past Medical History Past Medical History: Atrial Fibrillation, Diabetes Mellitus, Eye Disorder, Hyperlipidemia, Myocardial Infarction (NC), Osteoarthritis (OA) Additional Past Medical History / Comment(s): Macular degeneration. Hx kidney stones, chronic back pain, concussion 1969, sciatica; states hx falls D/T Rt knee giving out, uses 4-prong cane occ. NT feet. c/o throbbing pain Lt arm occ., leaky valve, occasional swelling ankles, uses O2 occasionally, not daily, still has @home from when he had Covid in 2020 Last Myocardial Infarction Date:: 2006 History of Any Multi-Drug Resistant Organisms: None Reported Past Surgical History: AICD, Appendectomy, Cholecystectomy, Heart Catheterization With Stent Additional Past Surgical History / Comment(s): Colonoscopy, bilat cataracts. AICD 2006. not sure how many cardiac stents Past Anesthesia/Blood Transfusion Reactions: No Reported Reaction Date of Last Stent Placement:: not sure Type of Cardiac Device: AICD Device Placement Date:: 2006 [facility] LEFT CHEST Past Psychological History: No Psychological Hx Reported Smoking Status: Former smoker - Past Family History Mother Family Medical History: Coronary Artery Disease (CAD), Renal Disease Father Additional Family Medical History / Comment(s): during medical testing(iodine) Sister(s) Family Medical History: Cancer Additional Family Medical History / Comment(s): pancreatic cancer General Exam - General Exam Comments Initial Comments: PHYSICAL EXAM: General Impression: Alert and oriented x3, not in acute distress HEENT: Normocephalic atraumatic, extra-ocular movements intact, pupils equal and reactive to light bilaterally, mucous membranes moist. Cardiovascular: Heart regular rate and rhythm Chest: Able to complete full sentences, no retractions, no tachypnea Abdomen: abdomen soft, non-tender, non-distended, no organomegaly Musculoskeletal: Pulses present and equal in all extremities, no peripheral edema Motor: no focal deficits noted Neurological: CN II-XII grossly intact, no focal motor or sensory deficits noted Skin: Intact with no visualized rashes Psych: Normal affect and mood Limitations: no limitations Course Vital Signs 09/16/23 15:58 Temperature 97.5 F L Pulse Rate 75 Respiratory 16 Rate Blood Pressure 98/61 O2 Sat by Pulse 100 Oximetry Medical Decision Making - Medical Decision Making Was pt. sent in by a medical professional or institution (, KAE, ELECTRIC POWER MACHINE OPERATOR, urgent care, hospital, or snf...) When possible be specific @ -No Did you speak to anyone other than the patient for history (EMS, parent, family, police, friend...)? What history was obtained from this source @ -No Did you review nursing and triage notes (agree or disagree)? Why? @ -I reviewed and agree with nursing and triage notes Were old charts reviewed (outside hosp., previous admission, EMS record, old EKG, old radiological studies, urgent care reports/EKG's, snf records)? Report findings @ -No old charts were reviewed Differential Diagnosis (chest pain, altered mental status, abdominal pain women, abdominal pain men, vaginal bleeding, musculoskeletal, weakness, fever, dyspnea, syncope, headache, dizziness, GI bleed, back pain, seizure, CVA, palpatations, mental health)? @ -Differential Weakness: Hypoglycemia, shock, sepsis, hyponatremia, anemia, infection, NC, ETOH, adverse medicine reaction, overdose, stroke, this is not meant to be an all-inclusive list. EKG interpreted by me (3pts min.). @ -My EKG interpretation: Ventricular rate 76, A-fib, cures 180, QTc 496, right bundle branch block. No OR prolongation, no QTC prolongation, no ST or T-wave changes noted. Suspicious ST depressions in lateral precordial leads. No ST elevations. X-rays interpreted by me (1pt min.). @ -None done CT interpreted by me (1pt min.). @ -CT scan the brain is unremarkable for any acute processes U/S interpreted by me (1pt. min.). @ -None done What testing was considered but not performed or refused? (CT, X-rays, U/S, labs)? Why? @ -None What meds were considered but not given or refused? Why? @ -None Did you discuss the management of the patient with other professionals (professionals i.e. , KAE, ELECTRIC POWER MACHINE OPERATOR, lab, RT, psych nurse, pediatric social worker, tuft machine operator, teacher, staff air defense officer, director case)? Give summary @ -Discussed with commissioned defence force officer, Dr. Mcdonough on-call. She is made aware of patient's hyperkalemia and kidney disease. She request patient be put on sodium bicarbonate drip and she agrees with hyperkalemia cocktail. Was smoking cessation discussed for >3mins.? @ -No Was critical care preformed (if so, how long)? @ -Yes, 33 minutes Were there social determinants of health that impacted care today? How? (Homelessness, low income, unemployed, alcoholism, drug addiction, transportation, low edu. Level, literacy, decrease access to med. care, custodial, rehab)? @ -No Was there de-escalation of care discussed even if they declined (Discuss DNR or withdrawal of care, Hospice)? DNR status @ -No What co-morbidities impacted this encounter? (DM, HTN, Smoking, COPD, CAD, Cancer, CVA, ARF, Chemo, Hep., AIDS, mental health diagnosis, sleep apnea, morbid obesity)? @ -None Was patient admitted / discharged? Hospital course, mention meds given and route, prescriptions, significant lab abnormalities, going to OR and other pertinent info. @ -78-year-old male presents emergency department with weakness. Vital signs upon arrival shows blood pressure of 98/61, rest of vital signs within acceptable limits. Patient states he fell however denies any traumatic complaints. His physical examination shows well-appearing male no acute distres s without any obvious traumatic injuries. CBC within acceptable limits, coag panel is negative. Metabolic panel shows potassium of 6.6 with acidosis with a bicarb 15. Creatinine is 3.3 with BUN 54. Patient treated with hyperkalemia cocktail. Nephrology consulted. Patient will be admitted for further care. Undiagnosed new problem with uncertain prognosis? @ -No Drug Therapy requiring intensive monitoring for toxicity (Heparin, Nitro, Insulin, Cardizem)? @ -No Were any procedures done? @ -No Diagnosis/symptom? Acute, or Chronic, or Acute on Chronic? Uncomplicated (without systemic symptoms) or Complicated (systemic symptoms)? @ -Hyperkalemia weakness Side effects of treatment? @ -No Exacerbation, Progression, or Severe Exacerbation? @ -No Poses a threat to life or bodily function? How? (Chest pain, USA, NC, pneumonia, PE, COPD, DKA, ARF, appy, cholecystitis, CVA, Diverticulitis, Homicidal, Suicidal, threat to staff... and all critical care pts) @ -Yes - Lab Data Result diagrams: 09/16/23 16:38 09/16/23 16:38 Lab Results 09/16/23 09/16/23 09/16/23 Range/Units 16:38 16:38 16:38 WBC 7.5 (3.8-10.6) k/uL RBC 3.12 L (4.30-5.90) m/uL Hgb 10.2 L (13.0-17.5) gm/dL Hct 31.5 L (39.0-53.0) % MCV 101.0 H (80.0-100.0) fL MCH 32.8 (25.0-35.0) pg MCHC 32.4 (31.0-37.0) g/dL RDW 14.0 (11.5-15.5) % Plt Count 137 L (150-450) k/uL MPV 8.7 Neutrophils % 90 % Lymphocytes % 6 % Monocytes % 3 % Eosinophils % 0 % Basophils % 0 % Neutrophils # 6.7 (1.3-7.7) k/uL Lymphocytes # 0.5 L (1.0-4.8) k/uL Monocytes # 0.2 (0-1.0) k/uL Eosinophils # 0.0 (0-0.7) k/uL Basophils # 0.0 (0-0.2) k/uL Macrocytosis Slight PT 14.2 H (10.0-12.5) sec INR 1.4 H (<1.2) APTT 28.3 (22.0-30.0) sec Sodium 134 L (137-145) mmol/L Potassium 6.6 H* (3.5-5.1) mmol/L Chloride 104 (98-107) mmol/L Carbon Dioxide 15 L (22-30) mmol/L Anion Gap 15 mmol/L BUN 54 H (9-20) mg/dL Creatinine 3.38 H (0.66-1.25) mg/dL Est GFR (CKD-EPI)AfAm 19 (>60 ml/min/1.73 sqM) Est GFR (CKD-EPI)NonAf 16 (>60 ml/min/1.73 sqM) Glucose 313 H (74-99) mg/dL Calcium 8.8 (8.4-10.2) mg/dL Magnesium 2.2 (1.6-2.3) mg/dL Total Bilirubin 0.8 (0.2-1.3) mg/dL AST 26 (17-59) U/L ALT 25 (4-49) U/L Alkaline Phosphatase 87 (38-126) U/L Troponin I (0.000-0.034) ng/mL NT-Pro-B Natriuret Pep 5260 pg/mL Total Protein 5.9 L (6.3-8.2) g/dL Albumin 3.5 (3.5-5.0) g/dL 09/16/23 Range/Units 16:38 WBC (3.8-10.6) k/uL RBC (4.30-5.90) m/uL Hgb (13.0-17.5) gm/dL Hct (39.0-53.0) % MCV (80.0-100.0) fL MCH (25.0-35.0) pg MCHC (31.0-37.0) g/dL RDW (11.5-15.5) % Plt Count (150-450) k/uL MPV Neutrophils % % Lymphocytes % % Monocytes % % Eosinophils % % Basophils % % Neutrophils # (1.3-7.7) k/uL Lymphocytes # (1.0-4.8) k/uL Monocytes # (0-1.0) k/uL Eosinophils # (0-0.7) k/uL Basophils # (0-0.2) k/uL Macrocytosis PT (10.0-12.5) sec INR (<1.2) APTT (22.0-30.0) sec Sodium (137-145) mmol/L Potassium (3.5-5.1) mmol/L Chloride (98-107) mmol/L Carbon Dioxide (22-30) mmol/L Anion Gap mmol/L BUN (9-20) mg/dL Creatinine (0.66-1.25) mg/dL Est GFR (CKD-EPI)AfAm (>60 ml/min/1.73 sqM) Est GFR (CKD-EPI)NonAf (>60 ml/min/1.73 sqM) Glucose (74-99) mg/dL Calcium (8.4-10.2) mg/dL Magnesium (1.6-2.3) mg/dL Total Bilirubin (0.2-1.3) mg/dL AST (17-59) U/L ALT (4-49) U/L Alkaline Phosphatase (38-126) U/L Troponin I <0.012 (0.000-0.034) ng/mL NT-Pro-B Natriuret Pep pg/mL Total Protein (6.3-8.2) g/dL Albumin (3.5-5.0) g/dL Disposition Clinical Impression: Hyperkalemia Disposition: ADMITTED IP TO THIS HOSP Condition: Serious Referrals: None,Stated [Primary Care Provider] - 1-2 days Decision Time: 19:21
[2023-09-16 17:13] LABS: Basophils % (A) 0 %; Eosinophils % (A) 0 %; HCT 31.5 % (39.0-53.0); HGB 10.2 gm/dL (13.0-17.5); Lymphocytes # (A) 0.5 k/uL (1.0-4.8); Lymphocytes % (A) 6 %; MCH 32.8 pg (25.0-35.0); MCHC 32.4 g/dL (31.0-37.0); Macrocytosis Slight; Mean Platelet Volume 8.7; Monocytes # (A) 0.2 k/uL (0-1.0); Monocytes % (A) 3 %; Neutrophils # (A) 6.7 k/uL (1.3-7.7); Neutrophils % (A) 90 %; Platelet Count 137 k/uL (150-450); RBC 3.12 m/uL (4.30-5.90); WBC 7.5 k/uL (3.8-10.6)
[2023-09-16 17:15] LABS: ALT 25 U/L (4-49); AST 26 U/L (17-59); African American GFR (CKD) 19 (>60 ml/min/1.73 sqM); Albumin 3.5 g/dL (3.5-5.0); Alkaline Phosphatase 87 U/L (38-126); Anion Gap 15 mmol/L; Blood Urea Nitrogen 54 mg/dL (9-20); Calcium 8.8 mg/dL (8.4-10.2); Carbon Dioxide 15 mmol/L (22-30); Chloride 104 mmol/L (98-107); Glucose 313 mg/dL (74-99); Magnesium 2.2 mg/dL (1.6-2.3); Non-African American GFR(CKD) 16 (>60 ml/min/1.73 sqM); Sodium 134 mmol/L (137-145); Total Bilirubin 0.8 mg/dL (0.2-1.3); Total Protein 5.9 g/dL (6.3-8.2)
[2023-09-16 17:24] LABS: NT-Pro-B-Type Natriuretic Pept 5260 pg/mL
[2023-09-16 17:30] LABS: INR 1.4 (<1.2); Partial Thromboplastin Time 28.3 sec (22.0-30.0); Prothrombin Time 14.2 sec (10.0-12.5)
--- NOTE | 2023-09-16 17:34 | CT ---
EXAMINATION TYPE: CT brain wo con CT DLP: 1197 mGycm, Automated exposure control for dose reduction was used. DATE OF EXAM: 09/16/2023 5:24 PM COMPARISON: 11/25/2022. CLINICAL INDICATION:Male, 78 years old with history of weakness, falling/ A fib TECHNIQUE: Brain: Axial CT images of the brain were obtained with coronal and sagittal reformats created and rev iewed. Contrast used: None. Oral contrast used: None. FINDINGS: Brain: Extra-axial spaces: No abnormal extra-axial fluid collections. Ventricular system: Dilatation in proportion to cerebral atrophy. Cerebral parenchyma: Cerebral atrophy. No acute intraparenchymal hemorrhage or mass effect. The sherwood -white junction is well differentiated. Scattered hypoattenuating areas are seen within the white mat ter. Cerebellum: Unremarkable. Mass effect: No evidence of midline shift. Intracranial vasculature: unremarkable Soft tissues: Normal. Calvarium/osseous structures: No depressed skull fracture. Paranasal sinuses and mastoid air cells: Mild scattered paranasal sinus disease. Visualized orbits: Bilateral aphakia IMPRESSION: 1. No acute intracranial process. 2. Nonspecific white matter changes, likely secondary to chronic small vessel ischemic disease.
[2023-09-16 17:37] LABS: Potassium 6.6 mmol/L (3.5-5.1)
[2023-09-16] MEDS: CALCIUM GLUCONATE IN NACL 1 GM in SALINE 1 100ML.BAG IVPB ONE (18:21)
[2023-09-16] MEDS: DEXTROSE 50% SYRINGE 50 ML IVP ONE (18:22)
[2023-09-16] MEDS: INSULIN REGULAR 100 UNIT/ML VIAL (IV) IV ONE (18:26)
[2023-09-16] MEDS: SODIUM ZIRCONIUM CYCLOSILICATE 10 GM PACKET PO ONE (18:32)
[2023-09-16] MEDS: DEXTROSE 5% IN WATER 1,000 ML with SODIUM BICARB (1 MEQ/ML) 150 ML IV SCH (20:09)
--- NOTE | 2023-09-16 20:09 | XR ---
EXAMINATION TYPE: XR chest 1V portable DATE OF EXAM: 09/16/2023 7:58 PM CLINICAL INDICATION:Male, 78 years old with history of weakness; [facility] COMPARISON: Chest radiographs from 09/27/2021. TECHNIQUE: XR chest 1V portable Frontal view of the chest. FINDINGS: Lungs/Pleura: Subsegmental atelectasis present in lung bases. No evidence of pleural effusion or pneu mothorax. Pulmonary vascularity: Unremarkable. Heart/mediastinum: Cardiomediastinal silhouette is enlarged and stable. Musculoskeletal: No acute osseous pathology. Other findings: Left chest wall AICD device with intact leads. IMPRESSION: No acute cardiopulmonary disease/process.
[2023-09-16] MEDS ORDERED: NALOXONE 0.4 MG/ML 1 ML VIAL IV PRN (20:28)
[2023-09-16] MEDS ORDERED: predniSONE 10 MG TAB PO PRN (21:01)
[2023-09-16 22:02] LABS: Appearance,Urine Cloudy (Clear); Bilirubin,Urine Negative (Negative); Blood,Urine Negative (Negative); Color,Urine Yellow; Glucose,Urine (UA) Trace (Negative); Hyaline Casts,Urine 11 /lpf (0-2); Ketones,Urine Negative (Negative); Leukocyte Esterase,Urine Moderate (Negative); Mucus,Urine Rare /hpf; Nitrite,Urine Negative (Negative); PH, Urine 6.5 (5.0-8.0); Protein,Urine Trace (Negative); RBC,Urine 6 /hpf (0-5); Specific Gravity,Urine 1.017 (1.001-1.035); Squamous Epithelial Cell,Urine <1 /hpf (0-4); Urobilinogen,Urine <2.0 mg/dL (<2.0); WBC,Urine 144 /hpf (0-5)
[2023-09-16] MEDS: SODIUM CHLORIDE 0.9% 1,000 ML IV SCH ×2 (22:17→22:18)
--- NOTE | 2023-09-17 03:42 | HP ---
HISTORY AND PHYSICAL HISTORY OF PRESENT ILLNESS: He has had frequent falls. Difficulty taking care of him. Denies any weakness, generally weak. He is 78-year-old white male, admitted for severe hypokalemia and acute renal insufficiency, acute tubular necrosis, possibly due to some dehydration. HOME MEDICINES: 1. Amaryl 2 mg b.i.d. 2. Lipitor 40 daily. 3. Aspirin 81 daily. 4. Cordarone 400 daily. 5. Metformin 500 b.i.d. 6. Prednisone 10 mg daily. Prior history of Eliquis and metoprolol-XL. ALLERGIES: Calcium channel blockers. REVIEW OF SYSTEMS: A 14-point review of systems otherwise negative. PAST HISTORY: Atrial fibrillation, diabetes mellitus, eye disorder, COPD, hypertension, myocardial infarction, osteoarthritis, COVID in 2020, ankle swelling. SURGICAL HISTORY: AICD, appendectomy, cholecystectomy, heart catheterization, stent, colonoscopy, bilateral cataracts, AICD. FAMILY HISTORY: Mother coronary artery disease, renal disease. Father iodine allergy. Sister, cancer of pancreas. PHYSICAL EXAMINATION: GENERAL: Obese white male, BMI is over 40, alert and oriented x3. HEENT: Head normocephalic, atraumatic. HEART: Irregular rate and rhythm. CHEST: Decreased breath sounds. ABDOMEN: Distended, obesity. MUSCULOSKELETAL: 2+ edema. NEUROLOGIC: Cranial nerves are intact. SKIN: Warm, dry, intact. PSYCH: Fair mood and affect. LABORATORY DATA: Sodium 134, potassium 6.6, BUN is 54, creatinine 3.38, hemoglobin is 10.2. ASSESSMENT: Acute hypokalemia, uncontrolled diabetes mellitus, acute tubular necrosis. BNP is 5260, history of atrial fibrillation, will get Cardiology to see him. Replace, put the potassium down, possibly do an echo. Await for Cardiology to evaluate him for atrial fibrillation, etc. PROGNOSIS: Extremely guarded. MMODL / IJN: [id number] /
[2023-09-17] MEDS: ASPIRIN 81 MG PO SCH (08:39)
[2023-09-17] MEDS: METOPROLOL SUCCINATE (ER) 25 MG TAB.ER.24H PO SCH ×2 (08:39→20:57)
[2023-09-17] MEDS: AMIODARONE 200 MG TAB PO SCH (08:39)
[2023-09-17] MEDS: FUROSEMIDE 40 MG TAB PO SCH (08:40)
[2023-09-17] MEDS: APIXABAN 5 MG TAB PO SCH (08:40)
[2023-09-17] MEDS: GLIMEPIRIDE 1 MG TAB PO SCH (08:40)
[2023-09-17 11:02] LABS: African American GFR (CKD) 20 (>60 ml/min/1.73 sqM); Anion Gap 6 mmol/L; Blood Urea Nitrogen 52 mg/dL (9-20); Calcium 8.7 mg/dL (8.4-10.2); Carbon Dioxide 27 mmol/L (22-30); Chloride 101 mmol/L (98-107); Glucose 173 mg/dL (74-99); Non-African American GFR(CKD) 17 (>60 ml/min/1.73 sqM); Potassium 5.2 mmol/L (3.5-5.1); Sodium 134 mmol/L (137-145)
--- NOTE | 2023-09-17 11:55 | P.NPCON ---
History of Present Illness - Reason for Consult acute renal failure - History of Present Illness Patient is a 78-year-old male who is admitted to the hospital with complaints of increased weakness, difficulty in passing urine. Underlying history of type 2 diabetes and hypertension. Blood pressure was significantly low in the 90s. NSAIDs noted on home med list. labs showed serum creatinine 3.3 with serum potassium of 6.6. Previous creatinine was 1.5 on 06/22/2023. Review of Systems as per HPI Past Medical History Past Medical History: Atrial Fibrillation, Diabetes Mellitus, Eye Disorder, Hyperlipidemia, Myocardial Infarction (HI), Osteoarthritis (OA) Additional Past Medical History / Comment(s): Macular degeneration. Hx kidney stones, chronic back pain, concussion 1969, sciatica; states hx falls D/T Rt knee giving out, uses 4-prong cane occ. NT feet. c/o throbbing pain Lt arm occ., leaky valve, occasional swelling ankles, uses O2 occasionally, not daily, still has @home from when he had Covid in 2020 Last Myocardial Infarction Date:: 2006 History of Any Multi-Drug Resistant Organisms: None Reported Past Surgical History: AICD, Appendectomy, Cholecystectomy, Heart Catheterization With Stent Additional Past Surgical History / Comment(s): Colonoscopy, bilat cataracts. AICD 2006. not sure how many cardiac stents Past Anesthesia/Blood Transfusion Reactions: No Reported Reaction Date of Last Stent Placement:: not sure Type of Cardiac Device: AICD Device Placement Date:: 2006 [facility] LEFT CHEST Past Psychological History: No Psychological Hx Reported Smoking Status: Former smoker - Past Family History Mother Family Medical History: Coronary Artery Disease (CAD), Renal Disease Father Additional Family Medical History / Comment(s): during medical testing(iodine) Sister(s) Family Medical History: Cancer Additional Family Medical History / Comment(s): pancreatic cancer Medications and Allergies Home Medications Medication Instructions Recorded Confirmed Type Aspirin [Adult Low Dose Aspirin EC] 81 mg PO DAILY 03/29/19 09/16/23 History Apixaban [Eliquis] 5 mg PO BID #60 tab 05/21/20 09/16/23 Rx Atorvastatin [Lipitor] 40 mg PO HS 05/21/20 09/16/23 History Glimepiride [Amaryl] 2 mg PO BID 05/21/21 09/16/23 History Metoprolol Succinate [Toprol XL] 25 mg PO DAILY #90 tab 10/08/21 09/16/23 Rx metFORMIN HCL [Glucophage] 500 mg PO BID 02/18/23 09/16/23 History Amiodarone [Cordarone] 400 mg PO DAILY 09/16/23 09/16/23 History Furosemide [Lasix] 40 mg PO DAILY 09/16/23 09/16/23 History Naproxen Sodium [Aleve] 220 mg PO DAILY PRN 09/16/23 09/16/23 History Sulfamethox-Tmp 800-160Mg [Bactrim 1 tab PO BID 09/16/23 09/16/23 History DS 800-160 mg] predniSONE 10 mg PO DAILY PRN 09/16/23 09/16/23 History Allergies Allergy/AdvReac Type Severity Reaction Status Date / Time Calcium Channel Blocking AdvReac Severe Chest Pain Verified 09/16/23 18:28 Agent Dilt Physical Exam Vitals: Vital Signs Temp Pulse Resp BP Pulse Ox 09/17/23 05:52 97.8 F 75 16 98/60 97 09/17/23 04:00 71 18 106/93 97 09/17/23 02:14 70 16 109/69 98 09/17/23 00:59 71 16 105/66 97 09/16/23 22:00 72 18 105/74 99 09/16/23 21:00 78 19 103/65 09/16/23 20:00 81 13 101/70 98 09/16/23 19:00 68 23 102/56 97 09/16/23 18:00 74 25 H 98/55 99 09/16/23 17:00 66 19 94/52 100 09/16/23 16:32 71 17 93 L 09/16/23 15:58 97.5 F L 75 16 98/61 100 Intake and Output 09/16/23 09/17/23 09/17/23 22:59 06:59 14:59 Other: Weight 77.111 kg patient is awake, comfortable, no acute distress Examination of the heart S1 and S2 Examination of the lungs bilateral breath sounds are heard Abdomen is soft nontender Examination of lower extremities shows no evidence of edema. DOCUMENTATION ENGINEER exam grossly intact Results - Lab Results Most recent lab results Calcium 8.7 mg/dL (8.4-10.2) 09/17/23 10:10 Magnesium 2.2 mg/dL (1.6-2.3) 09/16/23 16:38 09/16/23 16:38 09/17/23 10:10 Assessment and Plan Assessment: 1. Acute kidney injury secondary to hypotension in the setting of use of NSAIDs. Rule out urine retention. Check ultrasound of the kidneys. UA shows WBCs more than 144 trace protein no blood. 2. Hypotension secondary to UTI, volume depletion 3. Hypertension with blood pressure currently low 4. Hyperkalemia associated with acute kidney injury and NSAIDs. Rule out urine retention. 5. Type 2 diabetes maintained on metformin, currently on hold Plan: check bladder scan Check ultrasound of the kidneys Continue with IV antibiotics Continue IV fluids Continue to hold diuretics and metformin. Avoid NSAIDs repeat labs in a.m. Thank you for the consultation. We will continue to follow the patient with you during his hospitalization.
--- NOTE | 2023-09-17 12:12 | P.CRDCN ---
History of Present Illness History of present illness: HISTORY OF PRESENT ILLNESS: This is a 78-year-old male with a past medical history significant for coronary artery disease with previous stenting, ischemic cardiomyopathy, AICD implantati on, paroxysmal atrial fibrillation, A-fib ablation, and severe mitral regurgitation with recent mitral valve repair at [facility]. Patient follows in the office with Dr. Gallego. We have been asked to see the patient in consultation for abnormal EKG. Patient examined at the bedside in the emergency room. Patient states he presented to the emergency room with a chief complaint of feeling unsteady and generalized weakness. He also reports having an episode of blurred vision. He also reports decreased urine output at home. Patient was found to be in acute renal failure and also hyperkalemic. EKG on admission reveals atrial fibrillation with controlled ventricular rate. Patient was recently seen in the office and his beta-flakito was increased and he was started on amiodarone at that time and plan was for cardioversion on October 01, 2023. Patient denies any chest pain or pressure. He denies any shortness of breath. He denies any palpitations. He remains in atrial fibrillation with controlled ventricular rate at the time of examination DIAGNOSTICS: - EKG reveals atrial fibrillation with right bundle branch block. Controlled ventricular rate. Heart rate 76.. - Chest xray negative for acute process. - Laboratory data: WBC 7.5. Hemoglobin 10.2. Platelet count 137. Sodium 134. Potassium 6.6. BUN 54. Creatinine 3.38. Troponin negative x 2. proBNP 5260. - Current home cardiac medications include Lipitor 40 mg at night, Lasix 40 mg daily, amiodarone 400 mg daily, metoprolol succinate 25 mg daily, aspirin 81 mg daily, and Eliquis 5 mg twice a day. - Most recent echocardiogram obtained in December 2021 revealed ejection fraction 50 to 55%, mild AR, moderate to severe MR, mild TR - Patient underwent low-level exercise stress test on 07/17/2023 revealing very low exercise capacity on modified Harsh protocol. Patient was suggested to start cardiac rehab. REVIEW OF SYSTEMS: At the time of my exam: CONSTITUTIONAL: Denies fever or chills. HEENT: Denies blurred vision, vision changes, or eye pain. Denies hemoptysis CARDIOVASCULAR: Denies chest pain. Denies orthopnea. Denies PND. Denies palpitations RESPIRATORY: Denies shortness of breath. GASTROINTESTINAL: Denies abdominal pain. Denies nausea or vomiting. HEMATOLOGIC: Denies bleeding disorders. GENITOURINARY: Denies any blood in urine. SKIN: Denies pruitis. Denies rash. PHYSICAL EXAM: VITAL SIGNS: Reviewed. GENERAL: Well-developed in no acute distress. HEENT: Head is normocephalic. Pupils are equal, round. Sclerae anicteric. Mucous membranes of the mouth are moist. Neck supple. No JVD or thyromegaly LUNGS: Respirations even and unlabored. Lungs essentially clear to auscultation bilaterally. HEART: Irregular rate and rhythm. S1 and S2 heard. ABDOMEN: Soft. Nondistended. Nontender. EXTREMITIES: Normal range of motion. No clubbing or cyanosis. Peripheral pulses intact. No lower extremity edema NEUROLOGIC: Awake and alert. Oriented x 3. ASSESSMENT: Generalized weakness Acute kidney injury Hyperkalemia Hypotension Paroxysmal atrial fibrillation with controlled ventricular rate Known right bundle branch block Severe mitral regurgitation with recent mitral valve percutaneous repair at [facility] Coronary artery disease with previous stenting History of ischemic cardiomyopathy with improvement in LV function History of A-fib ablation History of single-chamber AICD implantation, [facility] PLAN: Obtain 2D echo to assess cardiac structure and function Hold all nephrotoxic agents. Monitor kidney function. Increase metoprolol to 25 mg twice a day Continue current dose of amiodarone Continue anticoagulation with Eliquis Patient is tentatively scheduled for outpatient cardioversion on 10/01/2023 Further recommendations pending patient course Nurse practitioner note has been reviewed by physician. Signing provider agrees with the documented findings, assessment, and plan of care documented by OPERATIONS SCHEDULER as a scribe. Past Medical History Past Medical History: Atrial Fibrillation, Diabetes Mellitus, Eye Disorder, Hyperlipidemia, Myocardial Infarction (PA), Osteoarthritis (OA) Additional Past Medical History / Comment(s): Macular degeneration. Hx kidney stones, chronic back pain, concussion 1969, sciatica; states hx falls D/T Rt knee giving out, uses 4-prong cane occ. NT feet. c/o throbbing pain Lt arm occ., leaky valve, occasional swelling ankles, uses O2 occasionally, not daily, still has @home from when he had Covid in 2020 Last Myocardial Infarction Date:: 2006 History of Any Multi-Drug Resistant Organisms: None Reported Past Surgical History: AICD, Appendectomy, Cholecystectomy, Heart Catheterization With Stent Additional Past Surgical History / Comment(s): Colonoscopy, bilat cataracts. AICD 2006. not sure how many cardiac stents Past Anesthesia/Blood Transfusion Reactions: No Reported Reaction Date of Last Stent Placement:: not sure Type of Cardiac Device: AICD Device Placement Date:: 2006 [facility] LEFT CHEST Past Psychological History: No Psychological Hx Reported Smoking Status: Former smoker - Past Family History Mother Family Medical History: Coronary Artery Disease (CAD), Renal Disease Father Additional Family Medical History / Comment(s): during medical testing(iodine) Sister(s) Family Medical History: Cancer Additional Family Medical History / Comment(s): pancreatic cancer Medications and Allergies Home Medications Medication Instructions Recorded Confirmed Type Aspirin [Adult Low Dose Aspirin EC] 81 mg PO DAILY 03/29/19 09/16/23 History Apixaban [Eliquis] 5 mg PO BID #60 tab 05/21/20 09/16/23 Rx Atorvastatin [Lipitor] 40 mg PO HS 05/21/20 09/16/23 History Glimepiride [Amaryl] 2 mg PO BID 05/21/21 09/16/23 History Metoprolol Succinate [Toprol XL] 25 mg PO DAILY #90 tab 10/08/21 09/16/23 Rx metFORMIN HCL [Glucophage] 500 mg PO BID 02/18/23 09/16/23 History Amiodarone [Cordarone] 400 mg PO DAILY 09/16/23 09/16/23 History Furosemide [Lasix] 40 mg PO DAILY 09/16/23 09/16/23 History Naproxen Sodium [Aleve] 220 mg PO DAILY PRN 09/16/23 09/16/23 History Sulfamethox-Tmp 800-160Mg [Bactrim 1 tab PO BID 09/16/23 09/16/23 History DS 800-160 mg] predniSONE 10 mg PO DAILY PRN 09/16/23 09/16/23 History Allergies Allergy/AdvReac Type Severity Reaction Status Date / Time Calcium Channel Blocking AdvReac Severe Chest Pain Verified 09/16/23 18:28 Agent Dilt Physical Exam Vitals: Vital Signs Temp Pulse Resp BP Pulse Ox 09/17/23 05:52 97.8 F 75 16 98/60 97 09/17/23 04:00 71 18 106/93 97 09/17/23 02:14 70 16 109/69 98 09/17/23 00:59 71 16 105/66 97 09/16/23 22:00 72 18 105/74 99 09/16/23 21:00 78 19 103/65 09/16/23 20:00 81 13 101/70 98 09/16/23 19:00 68 23 102/56 97 09/16/23 18:00 74 25 H 98/55 99 09/16/23 17:00 66 19 94/52 100 09/16/23 16:32 71 17 93 L 09/16/23 15:58 97.5 F L 75 16 98/61 100 Intake and Output 09/16/23 09/17/23 09/17/23 22:59 06:59 14:59 Other: Weight 77.111 kg Results 09/16/23 16:38 09/17/23 10:10 Cardiac Enzymes 09/16/23 09/16/23 09/17/23 Range/Units 16:38 16:38 10:10 AST 26 (17-59) U/L Troponin I <0.012 <0.012 (0.000-0.034) ng/mL Coagulation 09/16/23 Range/Units 16:38 PT 14.2 H (10.0-12.5) sec APTT 28.3 (22.0-30.0) sec CBC 09/16/23 Range/Units 16:38 WBC 7.5 (3.8-10.6) k/uL RBC 3.12 L (4.30-5.90) m/uL Hgb 10.2 L (13.0-17.5) gm/dL Hct 31.5 L (39.0-53.0) % Plt Count 137 L (150-450) k/uL Comprehensive Metabolic Panel 09/16/23 09/16/23 09/17/23 Range/Units 16:38 21:05 10:10 Sodium 134 L 134 L (137-145) mmol/L Potassium 6.6 H* 5.9 H 5.2 H (3.5-5.1) mmol/L Chloride 104 101 (98-107) mmol/L Carbon Dioxide 15 L 27 (22-30) mmol/L BUN 54 H 52 H (9-20) mg/dL Creatinine 3.38 H 3.32 H (0.66-1.25) mg/dL Glucose 313 H 173 H (74-99) mg/dL Calcium 8.8 8.7 (8.4-10.2) mg/dL AST 26 (17-59) U/L ALT 25 (4-49) U/L Alkaline Phosphatase 87 (38-126) U/L Total Protein 5.9 L (6.3-8.2) g/dL Albumin 3.5 (3.5-5.0) g/dL Current Medications Generic Name Dose Route Start Last Admin Trade Name Freq PRN Reason Stop Dose Admin Amiodarone HCl 400 mg 09/17/23 09:00 09/17/23 08:39 Amiodarone 200 Mg Tab PO 400 mg DAILY RAMANDEEP Administration Apixaban 5 mg 09/17/23 09:00 09/17/23 08:40 Apixaban 5 Mg Tab PO 5 mg BID RAMANDEEP Administration Protocol Aspirin 81 mg 09/17/23 09:00 09/17/23 08:39 Aspirin 81 Mg PO 81 mg DAILY RAMANDEEP Administration Atorvastatin Calcium 40 mg 09/17/23 21:00 Atorvastatin 40 Mg Tab PO HS RAMANDEEP Glimepiride 2 mg 09/17/23 09:00 09/17/23 08:40 Glimepiride 1 Mg Tab PO 2 mg BID RAMANDEEP Administration Sodium Bicarbonate 150 ml/ 1,150 mls @ 50 mls/hr 09/16/23 19:30 09/17/23 08:39 Dextrose/Water IV 50 mls/hr .Q23H RAMANDEEP Administration Sodium Chloride 1,000 mls @ 20 mls/hr 09/16/23 20:30 09/16/23 22:18 Saline 0.9% IV Not Given .Q24H RAMANDEEP Sodium Chloride 1,000 mls @ 75 mls/hr 09/16/23 21:15 09/16/23 22:18 Saline 0.9% IV 75 mls/hr .[id number] RAMANDEEP Administration Metoprolol Succinate 25 mg 09/17/23 21:00 Metoprolol Succinate (Er) 25 Mg Tab.Er.24h PO BID RAMANDEEP Naloxone HCl 0.2 mg 09/16/23 20:28 Naloxone 0.4 Mg/Ml 1 Ml Vial IV Q2M PRN Opioid Reversal Prednisone 10 mg 09/16/23 21:01 Prednisone 10 Mg Tab PO DAILY PRN "feeling sick" Intake and Output 09/16/23 09/17/23 09/17/23 22:59 06:59 14:59 Other: Weight 77.111 kg 09/16/23 16:38 09/17/23 10:10
--- NOTE | 2023-09-17 13:27 | US ---
EXAMINATION TYPE: US kidneys/renal and bladder DATE OF EXAM: 09/17/2023 COMPARISON: CT 2023, US 2021 CLINICAL INDICATION: Male, 78 years old with history of wood; WOOD EXAM MEASUREMENTS: Right Kidney: 11.3 x 5.5 x 6.3 cm Left Kidney: 11.3 x 4.6 x 4.2 cm Right Kidney: No hydronephrosis or masses seen Left Kidney: Anechoic area seen upper pole: 6.8 x 6.1 x 4.1 cm. *Hyperechoic focus with posterior shadowing seen at mid: 0.6 x 0.7 x 0.4 cm. Bladder: Catheter in place. Unable to evaluate. Bilateral Jets seen: No IMPRESSION: * No evidence for obstructive uropathy. * Left renal calculi. * Catheter in place.
[2023-09-17 16:37] LABS: Glucose,Whole Blood 310 mg/dL (70-110)
--- NOTE | 2023-09-17 17:28 | CA ---
Transthoracic Echo Report Name: Maxx Dill Age: 78 Gender: M : 1945 Exam Date: 09/17/2023 11:22 Exam Location: [facility] Ht (in): 67 Wt (lb): 170 Ordering Physician: Los Rao MD Attending/Referring Phys: Dressmaker Helper Cris Camacho RCS Procedure CPT: Indications: afib Cardiac Hx: Technical Quality: Technically difficult study Contrast 1: Definity Total Dose (mL): 2 Contrast 2: Total Dose (mL): MEASUREMENTS (Male / Female) Normal Values 2D ECHO LV Diastolic Diameter PLAX 6.2 cm 4.2 - 5.9 / 3.9 - 5.3 cm LV Systolic Diameter PLAX 5.5 cm IVS Diastolic Thickness 0.7 cm 0.6 - 1.0 / 0.6 - 0.9 cm LVPW Diastolic Thickness 0.8 cm 0.6 - 1.0 / 0.6 - 0.9 cm LV Relative Wall Thickness 0.2 LVOT Diameter 2.3 cm Aortic Root Diameter 3.5 cm LV Diastolic Volume MOD BP 162.7 cm??? 67 - 155 / 56 - 104 cm??? LV Systolic Volume MOD BP 117.3 cm??? 22 - 58 / 19 - 49 cm??? LV Ejection Fraction MOD BP 27.9 % >= 55 % LV Cardiac Index MOD BP 1958.9 cm???/min???m??? LV Diastolic Volume MOD 4C 159.0 cm??? LV Systolic Volume MOD 4C 102.7 cm??? LV Ejection Fraction MOD 4C 35.4 % LV Cardiac Index MOD 4C 2428.9 cm???/min???m??? LV Diastolic Length 4C 8.6 cm LV Systolic Length 4C 7.5 cm LV Diastolic Volume MOD 2C 161.3 cm??? LV Systolic Volume MOD 2C 119.3 cm??? LV Ejection Fraction MOD 2C 26.0 % LV Cardiac Index MOD 2C 1811.2 cm???/min???m??? LV Diastolic Length 2C 8.9 cm LV Systolic Length 2C 8.4 cm LA Volume 93.7 cm??? 18 - 58 / 22 - 52 cm??? LA Volume Index 48.7 cm???/m??? 16 - 28 cm???/m??? Ascending Aorta Diameter 3.6 cm DOPPLER AV Peak Velocity 110.5 cm/s AV Peak Gradient 4.9 mmHg AV Mean Velocity 86.9 cm/s AV Mean Gradient 3.2 mmHg AV Velocity Time Integral 29.8 cm LVOT Peak Velocity 69.5 cm/s LVOT Peak Gradient 1.9 mmHg LVOT Velocity Time Integral 15.7 cm LVOT Stroke Volume 67.1 cm??? LVOT Stroke Volume Index 35.5 ml/m??? LVOT Cardiac Index 2892.8 cm???/min???m??? AV Area Cont Eq vti 2.3 cm??? AV Area Cont Eq pk 2.7 cm??? MV Peak Velocity 163.5 cm/s MV Peak Gradient 10.7 mmHg MV Mean Velocity 71.3 cm/s MV Mean Gradient 2.9 mmHg MV Velocity Time Integral 36.8 cm TR Peak Velocity 206.2 cm/s TR Peak Gradient 17.0 mmHg Right Atrial Pressure 15.0 mmHg Pulmonary Artery Systolic Pressu 32.0 mmHg Right Ventricular Systolic Press 32.0 mmHg PV Peak Velocity 51.1 cm/s PV Peak Gradient 1.0 mmHg FINDINGS Left Ventricle Left ventricular ejection fraction is estimated at 25-30 % with beat to beat variability. Mildly increased left ventricular diastolic diameter. Mildly increased left ventricular diastolic volume. Severely increased left ventricular systolic volume. Severely decreased left ventricular ejection fraction. Right Ventricle Right ventricle not well visualized. Right ventricular systolic pressure within normal limits. Catheter/pacemaker wire in the right ventricular cavity. Right Atrium Right atrium not well visualized. Left Atrium Severely increased left atrial volume. Mildly increased left atrial area. Mitral Valve Mitral valve thickened. Mitral valve repair previously done at [facility]. Mild mitral stenosis with a gradient of 3mmHg. Mild mitral regurgitation. Aortic Valve Trileaflet aortic valve. Diffuse thickening of the aortic valve cusps with reduced excursion. No aortic stenosis. Mild aortic regurgitation. Tricuspid Valve Structurally normal tricuspid valve. No tricuspid stenosis. Mild tricuspid regurgitation. Pulmonic Valve Pulmonic valve not well visualized. No pulmonic stenosis. No pulmonic regurgitation. Pericardium No pericardial effusion. Aorta Normal size aortic root and proximal ascending aorta. CONCLUSIONS Severe LV systolic dysfunction with an ejection fraction of 25-30% Mild mitral stenosis with mild mitral regurgitation involving the previously repaired mitral valve Mild tricuspid regurgitation I aortic sclerosis without significant stenosis Mild aortic regurgitation Previewed by: Dr. Wilder Menjivar MD (Electronically Signed) Final Date: 17 September 2023 17:27
--- NOTE | 2023-09-17 18:57 | CT ---
EXAMINATION TYPE: CT chest wo con DATE OF EXAM: 09/17/2023 COMPARISON: 06/08/2020 HISTORY: pleural effusion CT DLP: 424 mGycm. Automated Exposure Control for Dose Reduction was Utilized. TECHNIQUE: CT scan of the thorax is performed without IV contrast. FINDINGS: LUNGS: There is no lung mass or nodule. There is no airspace/consolidative density or abnormal interstitial density. There are small bilateral pleural effusions. There is moderate to marked cardiomegaly and an AICD device. The great vessels the chest are normal. There is no mediastinal, hilar or axillary adenopathy.. Limited scanning through the upper abdomen reveals cholecystectomy with no other significant abnormal ity. There are no focal osseous lesions. Impression: 1. Small bilateral pleural effusions. 2. No lung masses, nodules or air space consolidation. 3. No abnormal interstitial density. 4. Moderate to marked cardiomegaly.
[2023-09-17 20:08] LABS: Glucose,Whole Blood 287 mg/dL (70-110)
[2023-09-17] MEDS: IPRATROPIUM-ALBUTEROL 3 ML NEB INHALATION SCH (20:11)
[2023-09-17] MEDS: INSULIN ASPART (NovoLOG) 100 UNIT/ML VIAL SQ SCH (20:57)
[2023-09-17] MEDS: ATORVASTATIN 40 MG TAB PO SCH (20:57)
[2023-09-18 06:13] LABS: Glucose,Whole Blood 79 mg/dL (70-110)
--- NOTE | 2023-09-18 10:51 | P.PN ---
Subjective patient is seen for follow-up for acute kidney injury and hyperkalemia. patient was noted to have significant urine retention and a Paredes catheter was placed with 950 ML of urine obtained. He is currently comfortable. No acute distress. Overall feeling better. labs are pending from today. Objective - Vital Signs Vital signs: Vital Signs Temp 97.5 F L 09/18/23 08:09 Pulse 64 09/18/23 09:38 Resp 18 09/18/23 08:09 BP 103/50 09/18/23 08:09 Pulse Ox 97 09/18/23 08:09 FiO2 Intake & Output 09/17/23 09/18/23 09/18/23 18:59 06:59 18:59 Intake Total 360 245 Output Total 4275 750 Balance -3915 -750 245 Weight 77.111 kg Intake: IV 5 Invasive Line 1 5 Oral 360 240 Output: Urine 4275 750 Uretheral (Paredes) 950 Other: Voiding Method Indwelling Catheter Indwelling Catheter - Exam patient is awake, comfortable, no acute distress Examination of the heart S1 and S2 Examination of the lungs bilateral breath sounds are heard Abdomen is soft nontender Examination of lower extremities shows no evidence of edema. 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 Acute kidney injury secondary to hypotension in the setting of use of NSAIDs as well as significant urine retention with about 1000 ML of urine obtained on initial Paredes catheter placement.. ultrasound showed no significant abnormalities. This was done after Paredes catheter placement. UA shows WBCs more than 144 trace protein no blood. 2. Hypotension secondary to UTI, volume depletion 3. Hypertension with blood pressure currently low 4. Hyperkalemia associated with acute kidney injury and NSAIDs. Rule out urine retention. 5. Type 2 diabetes maintained on metformin, currently on hold Plan: continue with Paredes catheter Continue IV fluids continue IV antibiotics Repeat labs today and in a.m.
[2023-09-18 11:49] LABS: Glucose,Whole Blood 201 mg/dL (70-110)
--- NOTE | 2023-09-18 12:54 | P.PN ---
Subjective HISTORY OF PRESENT ILLNESS: This is a 78-year-old male with a past medical history significant for coronary artery disease with previous stenting, ischemic cardiomyopathy, AICD implantation, paroxysmal atrial fibrillation, A-fib ablation, and severe mitral regurgitation with recent mitral valve repair at [facility]. Patient follows in the office with Dr. Gallego. We have been asked to see the patient in consultation for abnormal EKG. Patient examined at the bedside in the emergency room. Patient states he presented to the emergency room with a chief complaint of feeling unsteady and generalized weakness. He also reports having an episode of blurred vision. He also reports decreased urine output at home. Patient was found to be in acute renal failure and also hyperkalemic. EKG on admission reveals atrial fibrillation with controlled ventricular rate. Patient was recently seen in the office and his beta-flakito was increased and he was started on amiodarone at that time and plan was for cardioversion on October 01, 2023. Patient denies any chest pain or pressure. He denies any shortness of breath. He denies any palpitations. He remains in atrial fibrillation with controlled ventricular rate at the time of examination DIAGNOSTICS: - EKG reveals atrial fibrillation with right bundle branch block. Controlled ventricular rate. Heart rate 76.. - Chest xray negative for acute process. - Laboratory data: WBC 7.5. Hemoglobin 10.2. Platelet count 137. Sodium 134. Potassium 6.6. BUN 54. Creatinine 3.38. Troponin negative x 2. proBNP 5260. - Current home cardiac medications include Lipitor 40 mg at night, Lasix 40 mg daily, amiodarone 400 mg daily, metoprolol succinate 25 mg daily, aspirin 81 mg daily, and Eliquis 5 mg twice a day. - Most recent echocardiogram obtained in December 2021 revealed ejection fraction 50 to 55%, mild AR, moderate to severe MR, mild TR - Patient underwent low-level exercise stress test on 07/17/2023 revealing very low exercise capacity on modified Harsh protocol. Patient was suggested to start cardiac rehab. 09/18/2023 Patient examined this morning at the bedside. Patient denies chest pain or pressure. He denies shortness of breath. Telemetry reveals atrial fibrillation with controlled ventricular rate. Echocardiogram completed revealing ejection fraction 25 to 30%. PHYSICAL EXAM: VITAL SIGNS: Reviewed. GENERAL: Well-developed in no acute distress. HEENT: Head is normocephalic. Pupils are equal, round. Sclerae anicteric. Mucous membranes of the mouth are moist. Neck supple. No JVD or thyromegaly LUNGS: Respirations even and unlabored. Lungs essentially clear to auscultation bilaterally. HEART: Irregular rate and rhythm. S1 and S2 heard. ABDOMEN: Soft. Nondistended. Nontender. EXTREMITIES: Normal range of motion. No clubbing or cyanosis. Peripheral pulses intact. No lower extremity edema NEUROLOGIC: Awake and alert. Oriented x 3. ASSESSMENT: Generalized weakness Acute kidney injury Hyperkalemia Hypotension Paroxysmal atrial fibrillation with controlled ventricular rate Known right bundle branch block Severe mitral regurgitation with recent mitral valve percutaneous repair at [facility] Coronary artery disease with previous stenting History of ischemic cardiomyopathy with improvement in LV function History of A-fib ablation History of single-chamber AICD implantation, [facility] PLAN: Continue current cardiac medications Continue anticoagulation with Eliquis Patient is tentatively scheduled for outpatient cardioversion on 10/01/2023 No further inpatient recommendations from a cardiac standpoint. Patient is stable for discharge from a cardiology perspective. We will sign off. Please reconsult if needed. Nurse practitioner note has been reviewed by physician. Signing provider agrees with the documented findings, assessment, and plan of care documented by DIRECTOR OF HEAD START as a scribe. Objective - Vital Signs Vital signs: Vital Signs Temp 98.6 F 09/18/23 11:41 Pulse 62 09/18/23 11:41 Resp 18 09/18/23 11:41 BP 110/53 09/18/23 11:41 Pulse Ox 98 09/18/23 11:41 FiO2 Intake & Output 09/17/23 09/18/23 09/18/23 18:59 06:59 18:59 Intake Total 360 250 Output Total 4275 750 Balance -3915 -750 250 Weight 77.111 kg Intake: IV 10 Invasive Line 1 10 Oral 360 240 Output: Urine 4275 750 Uretheral (Paredes) 950 Other: Voiding Method Indwelling Catheter Indwelling Catheter - Labs CBC & Chem 7: 09/16/23 16:38 09/17/23 10:10 Labs: Abnormal Lab Results - Last 24 Hours (Table) 09/17/23 09/17/23 09/18/23 Range/Units 16:36 20:04 11:47 POC Glucose (mg/dL) 310 H 287 H 201 H (70-110) mg/dL
[2023-09-18 13:01] LABS: Basophils # (A) 0.1 k/uL (0-0.2); Basophils % (A) 1 %; Eosinophils # (A) 0.2 k/uL (0-0.7); Eosinophils % (A) 2 %; HCT 30.6 % (39.0-53.0); Lymphocytes # (A) 1.1 k/uL (1.0-4.8); Lymphocytes % (A) 14 %; MCH 32.8 pg (25.0-35.0); MCHC 32.6 g/dL (31.0-37.0); MCV 100.6 fL (80.0-100.0); Macrocytosis Slight; Mean Platelet Volume 8.7; Monocytes # (A) 0.5 k/uL (0-1.0); Monocytes % (A) 6 %; Neutrophils # (A) 6.4 k/uL (1.3-7.7); Neutrophils % (A) 77 %; Platelet Count 144 k/uL (150-450); RBC 3.04 m/uL (4.30-5.90); RDW 14.7 % (11.5-15.5); WBC 8.3 k/uL (3.8-10.6)
[2023-09-18 13:59] LABS: ALT 24 U/L (4-49); AST 26 U/L (17-59); African American GFR (CKD) 23 (>60 ml/min/1.73 sqM); Albumin 3.2 g/dL (3.5-5.0); Alkaline Phosphatase 81 U/L (38-126); Anion Gap 7 mmol/L; Blood Urea Nitrogen 47 mg/dL (9-20); Calcium 8.9 mg/dL (8.4-10.2); Carbon Dioxide 25 mmol/L (22-30); Chloride 101 mmol/L (98-107); Glucose 175 mg/dL (74-99); Non-African American GFR(CKD) 20 (>60 ml/min/1.73 sqM); Potassium 5.1 mmol/L (3.5-5.1); Sodium 133 mmol/L (137-145); Total Bilirubin 0.6 mg/dL (0.2-1.3); Total Protein 5.6 g/dL (6.3-8.2)
--- NOTE | 2023-09-18 14:56 | P.PN ---
Subjective Progress Note Date: 09/18/23 * 78-year-old male with a past medical history significant for coronary artery disease with previous stenting, ischemic cardiomyopathy, AICD implantation, paroxysmal atrial fibrillation, A-fib ablation, and severe mitral regurgitation with recent mitral valve repair at [facility]. * he presented to the emergency room with a chief complaint of feeling unsteady and generalized weakness. * Patient noted to be in acute renal failure and also hyperkalemic. * EKG on admission reveals atrial fibrillation with controlled ventricular rate. Chest xray negative for acute process. * Most recent echocardiogram obtained in December 2021 revealed ejection fraction 50 to 55%, mild AR, moderate to severe MR, mild TR * Admitted to medical floor with consultations obtained from cardiology as well as nephrology * 09/18/23 Dr Stephens assumed care, seen and evaluated at bedside, vitals r antonio, blood work ordered pending, appreciate input from nephrology and cardiology, echocardiogram and ultrasound reviewed. Continue to follow up on renal profile PHYSICAL EXAMINATION: GENERAL: The patient is alert and oriented x3, ill appearance HEENT: Pupils are round and equally reacting to light. EOMI. CARDIOVASCULAR: S1 and S2 present. No murmurs, rubs, or gallops. PULMONARY: Chest is clear to auscultation, no wheezing or crackles. ABDOMEN: Soft, nontender, nondistended, normoactive bowel sounds. No palpable organomegaly. MUSCULOSKELETAL: No joint swelling or deformity. EXTREMITIES: lower symmetry edema noted NEUROLOGICAL: Gross neurological examination did not reveal any focal deficits. SKIN: No rashes. Assessment and plan Acute renal failure with hyperkalemia on admission Acute hyponatremia Paroxysmal atrial fibrillation Diabetes mellitus type 2 on metformin at home Coronary artery disease with history of PCI and ischemic cardiomyopathy EF 25 to 30% History of single-chamber AICD in place, history of atrial fibrillation * In regards to renal failure, consultation obtained from nephrology, bladder scan ordered, renal ultrasound ordered, echocardiogram shows action fraction 25 to 30% * Renal ultrasound negative for obstructive uropathy, CT chest shows bilateral effusion * In regards to atrial fibrillation continue Eliquis, amiodarone, metoprolol * Regards to diabetes mellitus continue glimepiride, hold metformin continue patient on correctional insulin monitor for hypoglycemia * Continue to follow-up on renal profile Objective - Vital Signs Vital signs: Vital Signs Temp 97.5 F L 09/18/23 08:09 Pulse 64 09/18/23 09:38 Resp 18 09/18/23 08:09 BP 103/50 09/18/23 08:09 Pulse Ox 97 09/18/23 08:09 FiO2 Intake & Output 09/17/23 09/18/23 09/18/23 18:59 06:59 18:59 Intake Total 360 245 Output Total 4275 750 Balance -3915 -750 245 Weight 77.111 kg Intake: IV 5 Invasive Line 1 5 Oral 360 240 Output: Urine 4275 750 Uretheral (Paredes) 950 Other: Voiding Method Indwelling Catheter Indwelling Catheter - Labs CBC & Chem 7: 09/18/23 12:29 09/18/23 12:29 Labs: Abnormal Lab Results - Last 24 Hours (Table) 09/17/23 09/17/23 09/17/23 Range/Units 10:10 16:36 20:04 Sodium 134 L (137-145) mmol/L Potassium 5.2 H (3.5-5.1) mmol/L BUN 52 H (9-20) mg/dL Creatinine 3.32 H (0.66-1.25) mg/dL Glucose 173 H (74-99) mg/dL POC Glucose (mg/dL) 310 H 287 H (70-110) mg/dL
[2023-09-18 17:07] LABS: Glucose,Whole Blood 302 mg/dL (70-110)
[2023-09-18 20:10] LABS: Glucose,Whole Blood 209 mg/dL (70-110)
--- NOTE | 2023-09-18 21:40 | P.CONS ---
History of Present Illness - Reason for Consult Consult date: 09/18/23 - History of Present Illness Patient is a 78-year-old male with a past medical history significant for diabetes mellitus hypertension hyperlipidemia [place] atrial fibrillation presenting to the hospital 2 days ago for evaluation of generalized weakness and this patient symptom has been getting worse for last few days with history of recurrent falls and the patient also noticed to have blood in his urine did have some difficulty urination and burning but denies any suprapubic or flank pain nausea but no vomiting no chest pain shortness of breath occasional cough no diarrhea or constipation on presentation to the hospital the patient was afebrile and no fever have recorded subsequently patient was not tachycardic hypotensive or hypoxic and no need for supplemental oxygen patient did have white count of 7.5 BUN/creatinine has been elevated liver enzymes are normal urine was positive with moderate leukocyte esterase 144 WBC unfortunately culture was not done patient did have a chest x-ray no acute cardiopulmonary disease process CT of the chest small bilateral effusion no lung masses ultrasound of the abdominal no evidence of obstructive uropathy left renal calculi patient has been treated with Rocephin infectious was consulted last evening for further management of antibiotic therapy Past Medical History Past Medical History: Atrial Fibrillation, Diabetes Mellitus, Eye Disorder, Hyperlipidemia, Myocardial Infarction ([place]), Osteoarthritis (OA) Additional Past Medical History / Comment(s): Macular degeneration. Hx kidney stones, chronic back pain, concussion 1969, sciatica; states hx falls D/T Rt knee giving out, uses 4-prong cane occ. NT feet. c/o throbbing pain Lt arm occ., leaky valve, occasional swelling ankles, uses O2 occasionally, not daily, still has @home from when he had Covid in 2020. 08/22 leaky valve fixed at [facility] Last Myocardial Infarction Date:: 2006 History of Any Multi-Drug Resistant Organisms: None Reported Past Surgical History: AICD, Appendectomy, Cholecystectomy, Heart Catheterization With Stent Additional Past Surgical History / Comment(s): Colonoscopy, bilat cataracts. AICD 2006. not sure how many cardiac stents Past Anesthesia/Blood Transfusion Reactions: No Reported Reaction Date of Last Stent Placement:: not sure Type of Cardiac Device: Permanent Pacemaker, AICD Device Placement Date:: 2006 [facility] LEFT CHEST Past Psychological History: No Psychological Hx Reported Additional Psychological History / Comment(s): Pt resides with his spouse. He has a glucometer. He drives. Smoking Status: Former smoker Past Alcohol Use History: Daily Additional Past Alcohol Use History / Comment(s): QUIT IN 2004, SMOKED 40 YRS. 1 beer daily Past Drug Use History: None Reported - Past Family History Mother Family Medical History: Coronary Artery Disease (CAD), Renal Disease Father Additional Family Medical History / Comment(s): during medical t esting(iodine) Sister(s) Family Medical History: Cancer Additional Family Medical History / Comment(s): pancreatic cancer Medications and Allergies Home Medications Medication Instructions Recorded Confirmed Type Aspirin [Adult Low Dose Aspirin EC] 81 mg PO DAILY 03/29/19 09/16/23 History Apixaban [Eliquis] 5 mg PO BID #60 tab 05/21/20 09/16/23 Rx Atorvastatin [Lipitor] 40 mg PO HS 05/21/20 09/16/23 History Glimepiride [Amaryl] 2 mg PO BID 05/21/21 09/16/23 History Metoprolol Succinate [Toprol XL] 25 mg PO DAILY #90 tab 10/08/21 09/16/23 Rx metFORMIN HCL [Glucophage] 500 mg PO BID 02/18/23 09/16/23 History Amiodarone [Cordarone] 400 mg PO DAILY 09/16/23 09/16/23 History Furosemide [Lasix] 40 mg PO DAILY 09/16/23 09/16/23 History Naproxen Sodium [Aleve] 220 mg PO DAILY PRN 09/16/23 09/16/23 History Sulfamethox-Tmp 800-160Mg [Bactrim 1 tab PO BID 09/16/23 09/16/23 History DS 800-160 mg] predniSONE 10 mg PO DAILY PRN 09/16/23 09/16/23 History Allergies Allergy/AdvReac Type Severity Reaction Status Date / Time Calcium Channel Blocking AdvReac Severe Chest Pain Verified 09/16/23 18:28 Agent Dilt Physical Exam Vitals: Vital Signs Temp Pulse Pulse Resp BP BP Pulse Ox 09/18/23 08:09 97.5 F L 64 18 103/50 97 09/18/23 03:36 97.9 F 56 L 18 108/63 100 09/17/23 23:16 98.3 F 82 18 107/51 96 09/17/23 20:20 72 09/17/23 20:14 71 09/17/23 19:44 97.5 F L 66 16 109/72 95 09/17/23 15:10 98.1 F 62 16 100/56 100 09/17/23 13:00 64 16 97/64 97 Intake and Output 09/17/23 09/18/23 09/18/23 22:59 06:59 14:59 Intake Total 360 Output Total 225 750 Balance 135 -750 Intake: Oral 360 Output: Urine 225 750 Other: Voiding Method Indwelling Catheter Indwelling Catheter Weight 77.111 kg Results CBC & Chem 7: 09/19/23 06:19 09/19/23 06:19 Labs: Abnormal Lab Results - Last 24 Hours (Table) 09/17/23 09/17/23 09/17/23 Range/Units 10:10 16:36 20:04 Sodium 134 L (137-145) mmol/L Potassium 5.2 H (3.5-5.1) mmol/L BUN 52 H (9-20) mg/dL Creatinine 3.32 H (0.66-1.25) mg/dL Glucose 173 H (74-99) mg/dL POC Glucose (mg/dL) 310 H 287 H (70-110) mg/dL Assessment and Plan Plan: 1patient presented to hospital with generalized weakness frequent falls also have a urinary symptoms and hematuria concerning for symptomatic urinary tract infection likely from enteric gram-negative pathogen 2-we will obtain urine culture, ultrasound was negative for any obstructive u ropathy 3-Rocephin 1 g daily continue while waiting for the culture to finalize We will follow on clinical condition and cultures to further adjust medication if needed Thank you for this consultation we will follow the patient along with you Dictation was produced using [employer] dictation software. please excuse any grammatical, word or spelling errors. Time with Patient: Greater than 30
[2023-09-19 06:19] LABS: Glucose,Whole Blood 111 mg/dL (70-110)
[2023-09-19 07:34] LABS: HCT 26.2 % (39.0-53.0); HGB 8.8 gm/dL (13.0-17.5); MCH 33.5 pg (25.0-35.0); MCHC 33.6 g/dL (31.0-37.0); MCV 99.9 fL (80.0-100.0); Macrocytosis Slight; Mean Platelet Volume 9.6; Platelet Count 120 k/uL (150-450); RBC 2.62 m/uL (4.30-5.90); RDW 15.5 % (11.5-15.5); WBC 7.7 k/uL (3.8-10.6)
[2023-09-19 07:47] LABS: African American GFR (CKD) 23 (>60 ml/min/1.73 sqM); Anion Gap 6 mmol/L; Blood Urea Nitrogen 45 mg/dL (9-20); C Reactive Protein 1.4 mg/dL (<1.0); Calcium 8.6 mg/dL (8.4-10.2); Carbon Dioxide 23 mmol/L (22-30); Chloride 104 mmol/L (98-107); Glucose 91 mg/dL (74-99); Non-African American GFR(CKD) 20 (>60 ml/min/1.73 sqM); Potassium 4.8 mmol/L (3.5-5.1); Sodium 133 mmol/L (137-145)
[2023-09-19] MEDS: TAMSULOSIN 0.4 MG CAP.ER.24H PO SCH (10:05)
[2023-09-19] MEDS: MIDODRINE 5 MG TAB PO SCH (10:51)
[2023-09-19 11:17] LABS: Glucose,Whole Blood 239 mg/dL (70-110)
--- NOTE | 2023-09-19 11:24 | P.PN ---
Subjective patient is seen for follow-up for acute kidney injury and hyperkalemia. patient was noted to have significant urine retention and a Paredes catheter was placed with 950 ML of urine obtained. He is currently comfortable. No acute distress. Overall feeling better. blood pressure remains low Serum creatinine staying at about 2.8 mg/dL. Objective - Vital Signs Vital signs: Vital Signs Temp 98.0 F 09/19/23 10:52 Pulse 64 09/19/23 10:52 Resp 16 09/19/23 10:52 BP 112/64 09/19/23 10:52 Pulse Ox 98 09/19/23 10:52 FiO2 Intake & Output 09/18/23 09/19/23 09/19/23 18:59 06:59 18:59 Intake Total 580 730 185 Output Total 700 1650 525 Balance -120 -920 -340 Intake: IV 10 10 5 Invasive Line 1 10 10 5 Intake, IV Titration 110 Amount Sodium Chloride 0.9% 1, 60 000 ml @ 50 mls/hr IV . Q20H RAMANDEEP Rx#:[id number] cefTRIAXone 1 gm In 50 Sodium Chloride 0.9% 50 ml @ 100 mls/hr IVPB Q24HR RAMANDEEP Rx#:[id number] Oral 460 720 180 Output: Urine 700 1650 525 Uretheral (Paredes) 700 700 525 Other: Voiding Method Indwelling Catheter Indwelling Catheter Indwelling Catheter - Exam patient is awake, comfortable, no acute distress Examination of the heart S1 and S2 Examination of the lungs bilateral breath sounds are heard Abdomen is soft nontender Examination of lower extremities shows no evidence of edema. 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 - Labs CBC & Chem 7: 09/19/23 06:19 09/19/23 06:19 Labs: Abnormal Lab Results - Last 24 Hours (Table) 09/18/23 09/18/23 09/18/23 Range/Units 11:47 12:29 12:29 RBC 3.04 L (4.30-5.90) m/uL Hgb 10.0 L (13.0-17.5) gm/dL Hct 30.6 L (39.0-53.0) % MCV 100.6 H (80.0-100.0) fL Plt Count 144 L (150-450) k/uL Sodium 133 L (137-145) mmol/L BUN 47 H (9-20) mg/dL Creatinine 2.88 H (0.66-1.25) mg/dL Glucose 175 H (74-99) mg/dL POC Glucose (mg/dL) 201 H (70-110) mg/dL C-Reactive Protein (<1.0) mg/dL Total Protein 5.6 L (6.3-8.2) g/dL Albumin 3.2 L (3.5-5.0) g/dL 09/18/23 09/18/23 09/19/23 Range/Units 17:04 20:09 06:11 RBC (4.30-5.90) m/uL Hgb (13.0-17.5) gm/dL Hct (39.0-53.0) % MCV (80.0-100.0) fL Plt Count (150-450) k/uL Sodium (137-145) mmol/L BUN (9-20) mg/dL Creatinine (0.66-1.25) mg/dL Glucose (74-99) mg/dL POC Glucose (mg/dL) 302 H 209 H 111 H (70-110) mg/dL C-Reactive Protein (<1.0) mg/dL Total Protein (6.3-8.2) g/dL Albumin (3.5-5.0) g/dL 09/19/23 09/19/23 09/19/23 Range/Units 06:19 06:19 11:15 RBC 2.62 L (4.30-5.90) m/uL Hgb 8.8 L (13.0-17.5) gm/dL Hct 26.2 L (39.0-53.0) % MCV (80.0-100.0) fL Plt Count 120 L (150-450) k/uL Sodium 133 L (137-145) mmol/L BUN 45 H (9-20) mg/dL Creatinine 2.85 H (0.66-1.25) mg/dL Glucose (74-99) mg/dL POC Glucose (mg/dL) 239 H (70-110) mg/dL C-Reactive Protein 1.4 H (<1.0) mg/dL Total Protein (6.3-8.2) g/dL Albumin (3.5-5.0) g/dL Assessment and Plan Assessment: 1. Acute kidney injury secondary to hypotension in the setting of use of NSAIDs as well as significant urine retention with about 1000 ML of urine obtained on initial Paredes catheter placement.. ultrasound showed no significant abnormalities. This was done after Paredes catheter placement. UA shows WBCs more than 144 trace protein no blood. 2. Hypotension secondary to UTI, volume depletion 3. Hypertension with blood pressure currently low 4. Hyperkalemia associated with acute kidney injury and NSAIDs. Rule out urine retention. 5. Type 2 diabetes maintained on metformin, currently on hold 6. UTI maintained on antibiotics. I do not see a urine culture sent Plan: continue with Paredes catheter increase IV fluids Add midodrine continue IV antibiotics Repeat labs today and in a.m.
[2023-09-19] MEDS: SENNOSIDES 8.6 MG TAB PO PRN (13:03)
[2023-09-19] MEDS: MAGNESIUM HYDROXIDE 2,400 MG/30 ML CUP PO PRN (13:03)
--- NOTE | 2023-09-19 13:20 | P.PN ---
Subjective Progress Note Date: 09/19/23 * 78-year-old male with a past medical history significant for coronary artery disease with previous stenting, ischemic cardiomyopathy, AICD implantation, paroxysmal atrial fibrillation, A-fib ablation, and severe mitral regurgitation with recent mitral valve repair at [facility]. * he presented to the emergency room with a chief complaint of feeling unsteady and generalized weakness. * Patient noted to be in acute renal failure and also hyperkalemic. * EKG on admission reveals atrial fibrillation with controlled ventricular rate. Chest xray negative for acute process. * Most recent echocardiogram obtained in December 2021 revealed ejection fraction 50 to 55%, mild AR, moderate to severe MR, mild TR * Admitted to medical floor with consultations obtained from cardiology as well as nephrology * 09/18/23 Dr Stephens assumed care, seen and evaluated at bedside, vitals r eviewed, blood work ordered pending, appreciate input from nephrology and cardiology, echocardiogram and ultrasound reviewed. Continue to follow up on renal profile * 09/19/23 : patient seen and evaluated bedside, Paredes catheter removed will do trial of voiding, care plan discussed with patient and daughter at bedside follow-up creatinine levels 2.85. Potential discharge home within the next 24 hours if remains stable PHYSICAL EXAMINATION: GENERAL: The patient is alert and oriented x3, ill appearance HEENT: Pupils are round and equally reacting to light. EOMI. CARDIOVASCULAR: S1 and S2 present. No murmurs, rubs, or gallops. PULMONARY: Chest is clear to auscultation, no wheezing or crackles. ABDOMEN: Soft, nontender, nondistended, normoactive bowel sounds. No palpable organomegaly. MUSCULOSKELETAL: No joint swelling or deformity. EXTREMITIES: lower symmetry edema noted NEUROLOGICAL: Gross neurological examination did not reveal any focal deficits. SKIN: No rashes. Assessment and plan Acute renal failure with hyperkalemia on admission urinary tract infection Acute hyponatremia Paroxysmal atrial fibrillation Diabetes mellitus type 2 on metformin at home Coronary artery disease with history of PCI and ischemic cardiomyopathy EF 25 to 30% History of single-chamber AICD in place, history of atrial fibrillation * In regards to renal failure, consultation obtained from nephrology, renal ultrasound completed, echocardiogram shows action fraction 25 to 30% * Renal ultrasound negative for obstructive uropathy, CT chest shows bilateral effusion * in regards to urinary tract infection continue Rocephin day 3 of 5, patient noted to have urinary retention and Paredes cath was removed trial of voiding ordered e * In regards to atrial fibrillation continue Eliquis, amiodarone, metoprolol * Regards to diabetes mellitus continue glimepiride, hold metformin continue patient on correctional insulin monitor for hypoglycemia * Continue to follow-up on renal profile Objective - Vital Signs Vital signs: Vital Signs Temp 97.6 F 09/19/23 09:10 Pulse 72 09/19/23 09:32 Resp 16 09/19/23 09:10 BP 99/63 09/19/23 09:10 Pulse Ox 98 09/19/23 09:10 FiO2 Intake & Output 09/18/23 09/19/23 09/19/23 18:59 06:59 18:59 Intake Total 580 730 185 Output Total 700 1650 Balance -120 -920 185 Intake: IV 10 10 5 Invasive Line 1 10 10 5 Intake, IV Titration 110 Amount Sodium Chloride 0.9% 1, 60 000 ml @ 50 mls/hr IV . Q20H RAMANDEEP Rx#:[id number] cefTRIAXone 1 gm In 50 Sodium Chloride 0.9% 50 ml @ 100 mls/hr IVPB Q24HR [facility] Rx#:[id number] Oral 460 720 180 Output: Urine 700 1650 Uretheral (Paredes) 700 700 Other: Voiding Method Indwelling Catheter Indwelling Catheter Indwelling Catheter - Labs CBC & Chem 7: 09/19/23 06:19 09/19/23 06:19 Labs: Abnormal Lab Results - Last 24 Hours (Table) 09/18/23 09/18/23 09/18/23 Range/Units 11:47 12:29 12:29 RBC 3.04 L (4.30-5.90) m/uL Hgb 10.0 L (13.0-17.5) gm/dL Hct 30.6 L (39.0-53.0) % MCV 100.6 H (80.0-100.0) fL Plt Count 144 L (150-450) k/uL Sodium 133 L (137-145) mmol/L BUN 47 H (9-20) mg/dL Creatinine 2.88 H (0.66-1.25) mg/dL Glucose 175 H (74-99) mg/dL POC Glucose (mg/dL) 201 H (70-110) mg/dL C-Reactive Protein (<1.0) mg/dL Total Protein 5.6 L (6.3-8.2) g/dL Albumin 3.2 L (3.5-5.0) g/dL 09/18/23 09/18/23 09/19/23 Range/Units 17:04 20:09 06:11 RBC (4.30-5.90) m/uL Hgb (13.0-17.5) gm/dL Hct (39.0-53.0) % MCV (80.0-100.0) fL Plt Count (150-450) k/uL Sodium (137-145) mmol/L BUN (9-20) mg/dL Creatinine (0.66-1.25) mg/dL Glucose (74-99) mg/dL POC Glucose (mg/dL) 302 H 209 H 111 H (70-110) mg/dL C-Reactive Protein (<1.0) mg/dL Total Protein (6.3-8.2) g/dL Albumin (3.5-5.0) g/dL 09/19/23 09/19/23 Range/Units 06:19 06:19 RBC 2.62 L (4.30-5.90) m/uL Hgb 8.8 L (13.0-17.5) gm/dL Hct 26.2 L (39.0-53.0) % MCV (80.0-100.0) fL Plt Count 120 L (150-450) k/uL Sodium 133 L (137-145) mmol/L BUN 45 H (9-20) mg/dL Creatinine 2.85 H (0.66-1.25) mg/dL Glucose (74-99) mg/dL POC Glucose (mg/dL) (70-110) mg/dL C-Reactive Protein 1.4 H (<1.0) mg/dL Total Protein (6.3-8.2) g/dL Albumin (3.5-5.0) g/dL
[2023-09-19 16:52] LABS: Glucose,Whole Blood 248 mg/dL (70-110)
--- NOTE | 2023-09-19 20:13 | P.PN ---
Subjective Progress Note Date: 09/19/23 Principal diagnosis: Reason for follow-up visit urinary tract infection Patient is a 78-year-old male with a past medical history significant for diabetes mellitus hypertension hyperlipidemia [place] atrial fibrillation presenting to the [facility] for evaluation generalized weakness and recurrent falls he did have some hematuria positive UA concerning for symptomatic ureteric infection. On today's evaluation that is 09/19/2023,the patient remains to be afebrile, patient is on room air not requiring supplemental oxygen and denies any shortness of breath no chest pain or cough.Patient denies having any nausea or vomiting, no abdominal pain and no diarrhea has been reported Patient white count is 7.7, creatinine is 2.85 cultures currently pending Objective - Vital Signs Vital signs: Vital Signs Temp 98.0 F 09/19/23 10:52 Pulse 64 09/19/23 10:52 Resp 16 09/19/23 10:52 BP 112/64 09/19/23 10:52 Pulse Ox 98 09/19/23 10:52 FiO2 Intake & Output 09/18/23 09/19/23 09/19/23 18:59 06:59 18:59 Intake Total 580 730 185 Output Total 700 1650 525 Balance -120 -920 -340 Intake: IV 10 10 5 Invasive Line 1 10 10 5 Intake, IV Titration 110 Amount Sodium Chloride 0.9% 1, 60 000 ml @ 50 mls/hr IV . Q20H RAMANDEEP Rx#:[id number] cefTRIAXone 1 gm In 50 Sodium Chloride 0.9% 50 ml @ 100 mls/hr IVPB Q24HR RAMANDEEP Rx#:[id number] Oral 460 720 180 Output: Urine 700 1650 525 Uretheral (Paredes) 700 700 525 Other: Voiding Method Indwelling Catheter Indwelling Catheter Indwelling Catheter - Exam GENERAL DESCRIPTION: An elderly male lying in bed in no distress RESPIRATORY SYSTEM: Unlabored breathing , decreased breath sounds at bases HEART: S1 S2 regular rate and rhythm , ABDOMEN: Soft , no tenderness EXTREMITIES: No edema feet Exam completed with the help of [employer]IFICATION EQUIPMENT OPERATOR - Labs CBC & Chem 7: 09/19/23 06:19 09/19/23 06:19 Labs: Abnormal Lab Results - Last 24 Hours (Table) 09/18/23 09/18/23 09/18/23 Range/Units 11:47 12:29 12:29 RBC 3.04 L (4.30-5.90) m/uL Hgb 10.0 L (13.0-17.5) gm/dL Hct 30.6 L (39.0-53.0) % MCV 100.6 H (80.0-100.0) fL Plt Count 144 L (150-450) k/uL Sodium 133 L (137-145) mmol/L BUN 47 H (9-20) mg/dL Creatinine 2.88 H (0.66-1.25) mg/dL Glucose 175 H (74-99) mg/dL POC Glucose (mg/dL) 201 H (70-110) mg/dL C-Reactive Protein (<1.0) mg/dL Total Protein 5.6 L (6.3-8.2) g/dL Albumin 3.2 L (3.5-5.0) g/dL 09/18/23 09/18/23 09/19/23 Range/Units 17:04 20:09 06:11 RBC (4.30-5.90) m/uL Hgb (13.0-17.5) gm/dL Hct (39.0-53.0) % MCV (80.0-100.0) fL Plt Count (150-450) k/uL Sodium (137-145) mmol/L BUN (9-20) mg/dL Creatinine (0.66-1.25) mg/dL Glucose (74-99) mg/dL POC Glucose (mg/dL) 302 H 209 H 111 H (70-110) mg/dL C-Reactive Protein (<1.0) mg/dL Total Protein (6.3-8.2) g/dL Albumin (3.5-5.0) g/dL 09/19/23 09/19/23 09/19/23 Range/Units 06:19 06:19 11:15 RBC 2.62 L (4.30-5.90) m/uL Hgb 8.8 L (13.0-17.5) gm/dL Hct 26.2 L (39.0-53.0) % MCV (80.0-100.0) fL Plt Count 120 L (150-450) k/uL Sodium 133 L (137-145) mmol/L BUN 45 H (9-20) mg/dL Creatinine 2.85 H (0.66-1.25) mg/dL Glucose (74-99) mg/dL POC Glucose (mg/dL) 239 H (70-110) mg/dL C-Reactive Protein 1.4 H (<1.0) mg/dL Total Protein (6.3-8.2) g/dL Albumin (3.5-5.0) g/dL Assessment and Plan (1) Urinary tract infection Current Visit: Yes Status: Acute Code(s): N39.0 - URINARY TRACT INFECTION, SITE NOT SPECIFIED SNOMED Code(s): 80281494 Plan: 1patient presented to hospital with generalized weakness frequent falls also have a urinary symptoms and hematuria concerning for symptomatic urinary tract infection likely from enteric gram-negative pathogen 2-ultrasound was negative for any obstructive uropathy, urine culture currently pending 3-patient is currently being treated with Rocephin while waiting for the culture to finalize Dictation was produced using [employer] dictation software. please excuse any grammatical, word or spelling errors. Time with Patient: Less than 30
[2023-09-19 20:14] LABS: Glucose,Whole Blood 256 mg/dL (70-110)
[2023-09-19] MEDS: GLIMEPIRIDE 2 MG TAB PO SCH (20:15)
[2023-09-20 06:07] LABS: Glucose,Whole Blood 162 mg/dL (70-110)
[2023-09-20] MEDS: polyethylene glycoL 3350 17 GM POWD.PACK PO PRN (08:02)
[2023-09-20 09:40] LABS: HCT 30.3 % (39.0-53.0); HGB 9.8 gm/dL (13.0-17.5); Hypochromasia Slight; MCH 33.4 pg (25.0-35.0); MCHC 32.2 g/dL (31.0-37.0); MCV 103.8 fL (80.0-100.0); Macrocytosis Moderate; Mean Platelet Volume 8.7; Platelet Count 115 k/uL (150-450); RBC 2.92 m/uL (4.30-5.90); RDW 15.1 % (11.5-15.5); WBC 7.6 k/uL (3.8-10.6)
[2023-09-20 10:08] LABS: African American GFR (CKD) 31 (>60 ml/min/1.73 sqM); Anion Gap 6 mmol/L; Blood Urea Nitrogen 39 mg/dL (9-20); Calcium 8.4 mg/dL (8.4-10.2); Carbon Dioxide 22 mmol/L (22-30); Chloride 106 mmol/L (98-107); Glucose 122 mg/dL (74-99); Non-African American GFR(CKD) 27 (>60 ml/min/1.73 sqM); Sodium 134 mmol/L (137-145)
[2023-09-20] MEDS: LACTULOSE 20 GM/30 ML CUP PO ONE (10:54)
[2023-09-20 11:45] LABS: Glucose,Whole Blood 233 mg/dL (70-110)
--- NOTE | 2023-09-20 11:49 | P.PN ---
Subjective patient is seen for follow-up for acute kidney injury and hyperkalemia. patient was noted to have significant urine retention and a Paredes catheter was placed with 950 ML of urine obtained. Paredes catheter was removed yesterday however patient needed straight cath x 2. He is also complaining of significant constipation. Bladder scans being monitored. He is currently comfortable. No acute distress. Overall feeling better. Serum creatinine decreased to 2.2 today. Patient is maintained on IV fluids. Objective - Vital Signs Vital signs: Vital Signs Temp 97.3 F L 09/20/23 10:56 Pulse 65 09/20/23 10:56 Resp 16 09/20/23 10:56 BP 115/57 09/20/23 10:56 Pulse Ox 100 09/20/23 10:56 FiO2 Intake & Output 09/19/23 09/20/23 09/20/23 18:59 06:59 18:59 Intake Total 1558 1490 Output Total 525 950 Balance 1033 -950 1490 Weight 83.3 kg Intake: IV 10 Invasive Line 1 10 Intake, IV Titration 1250 1250 Amount Sodium Chloride 0.9% 1, 1200 1200 000 ml @ 100 mls/hr IV . Q10H RAMAN[facility]EP Rx#:[id number] cefTRIAXone 1 gm In 50 50 Sodium Chloride 0.9% 50 ml @ 100 mls/hr IVPB Q24HR RAMAN[facility]EP Rx#:[id number] Oral 298 240 Output: Urine 525 950 Straight 950 Uretheral (Paredes) 525 Other: Voiding Method Urinal Urinal Urinal - Exam patient is awake, comfortable, no acute distress Examination of the heart S1 and S2 Examination of the lungs bilateral breath sounds are heard Abdomen is soft nontender Examination of lower extremities shows no evidence of edema. HOSPITALIST exam grossly intact - Labs CBC & Chem 7: 09/20/23 09:24 09/20/23 09:24 Labs: Abnormal Lab Results - Last 24 Hours (Table) 09/19/23 09/19/23 09/20/23 Range/Units 16:48 20:12 06:06 RBC (4.30-5.90) m/uL Hgb (13.0-17.5) gm/dL Hct (39.0-53.0) % MCV (80.0-100.0) fL Plt Count (150-450) k/uL Sodium (137-145) mmol/L BUN (9-20) mg/dL Creatinine (0.66-1.25) mg/dL Glucose (74-99) mg/dL POC Glucose (mg/dL) 248 H 256 H 162 H (70-110) mg/dL 09/20/23 09/20/23 09/20/23 Range/Units 09:24 09:24 11:44 RBC 2.92 L (4.30-5.90) m/uL Hgb 9.8 L (13.0-17.5) gm/dL Hct 30.3 L (39.0-53.0) % MCV 103.8 H (80.0-100.0) fL Plt Count 115 L (150-450) k/uL Sodium 134 L (137-145) mmol/L BUN 39 H (9-20) mg/dL Creatinine 2.24 H (0.66-1.25) mg/dL Glucose 122 H (74-99) mg/dL POC Glucose (mg/dL) 233 H (70-110) mg/dL Microbiology - Last 24 Hours (Table) 09/18/23 13:16 Urine Culture - Final Urine,Catheterized Assessment and Plan Assessment: 1. Acute kidney injury secondary to hypotension in the setting of use of NSAIDs as well as significant urine retention with about 1000 ML of urine obtained on initial Paredes catheter placement.. ultrasound showed no significant abnormalities. This was done after Paredes catheter placement. UA shows WBCs more than 144 trace protein no blood. 2. Hypotension secondary to UTI, volume depletion 3. Hypertension with blood pressure currently low 4. Hyperkalemia associated with acute kidney injury and NSAIDs. Rule out urine retention. 5. Type 2 diabetes maintained on metformin, currently on hold 6. UTI maintained on antibiotics. I do not see a urine culture sent 7. Urine retention status post Paredes catheter placement, now removed and continuing to monitor bladder scans. Patient did need treat catheterization x 2 and hopefully urine retention will improve with treatment of constipation. Plan: continue to monitor bladder scans Continue IV fluids Add midodrine continue IV antibiotics Repeat labs today and in a.m.
--- NOTE | 2023-09-20 11:52 | P.PN ---
Subjective Progress Note Date: 09/20/23 * 78-year-old male with a past medical history significant for coronary artery disease with previous stenting, ischemic cardiomyopathy, AICD implantation, paroxysmal atrial fibrillation, A-fib ablation, and severe mitral regurgitation with recent mitral valve repair at [facility]. * he presented to the emergency room with a chief complaint of feeling unsteady and generalized weakness. * Patient noted to be in acute renal failure and also hyperkalemic. * EKG on admission reveals atrial fibrillation with controlled ventricular rate. Chest xray negative for acute process. * Most recent echocardiogram obtained in December 2021 revealed ejection fraction 50 to 55%, mild AR, moderate to severe MR, mild TR * Admitted to medical floor with consultations obtained from cardiology as well as nephrology * 09/18/23 Dr Stephens assumed care, seen and evaluated at bedside, vitals r antonio, blood work ordered pending, appreciate input from nephrology and cardiology, echocardiogram and ultrasound reviewed. Continue to follow up on renal profile * 09/19/23 : patient seen and evaluated bedside, Paredes catheter removed will do trial of voiding, care plan discussed with patient and daughter at bedside follow-up creatinine levels 2.85. Potential discharge home within the next 24 hours if remains stable * 09/20/23: Patient seen and evaluated bedside, follow-up blood work pending, co ntinue with bladder management, infectious disease following continue on IV antibiotic receiving Rocephin day 4 of 5. Discharge disposition depending on renal function and clinical course. Patient states he wants to make sure he is doing well before he is discharged home. Continue to have retention will continue trial of voiding. Creatinine improving 2.24 PHYSICAL EXAMINATION: GENERAL: The patient is alert and oriented x3, ill appearance HEENT: Pupils are round and equally reacting to light. EOMI. CARDIOVASCULAR: S1 and S2 present. No murmurs, rubs, or gallops. PULMONARY: Chest is clear to auscultation, no wheezing or crackles. ABDOMEN: Soft, nontender, nondistended, normoactive bowel sounds. No palpable organomegaly. MUSCULOSKELETAL: No joint swelling or deformity. EXTREMITIES: lower symmetry edema noted NEUROLOGICAL: Gross neurological examination did not reveal any focal deficits. SKIN: No rashes. Assessment and plan Acute renal failure with hyperkalemia on admission urinary tract infection Urinary retention requiring Paredes catheter while inpatient Acute hyponatremia Paroxysmal atrial fibrillation Diabetes mellitus type 2 on metformin at home Coronary artery disease with history of PCI and ischemic cardiomyopathy EF 25 to 30% History of single-chamber AICD in place, history of atrial fibrillation * In regards to renal failure, consultation obtained from nephrology, renal ultrasound completed, echocardiogram shows action fraction 25 to 30% * Renal ultrasound negative for obstructive uropathy, CT chest shows bilateral effusion * in regards to urinary tract infection continue Rocephin day 4 of 5, patient noted to have urinary retention and Paredes cath was removed trial of voiding ordered * In regards to atrial fibrillation continue Eliquis, amiodarone, metoprolol * Regards to diabetes mellitus continue glimepiride, hold metformin continue patient on correctional insulin monitor for hypoglycemia * Continue to follow-up on renal profile Objective - Vital Signs Vital signs: Vital Signs Temp 98.0 F 09/20/23 07:52 Pulse 63 09/20/23 08:07 Resp 16 09/20/23 07:52 BP 113/61 09/20/23 07:52 Pulse Ox 98 09/20/23 07:52 FiO2 Intake & Output 09/19/23 09/20/23 09/20/23 18:59 06:59 18:59 Intake Total 1558 1490 Output Total 525 950 Balance 1033 -950 1490 Weight 83.3 kg Intake: IV 10 Invasive Line 1 10 Intake, IV Titration 1250 1250 Amount Sodium Chloride 0.9% 1, 1200 1200 000 ml @ 100 mls/hr IV . Q10H RAMANDEEP Rx#:[id number] cefTRIAXone 1 gm In 50 50 Sodium Chloride 0.9% 50 ml @ 100 mls/hr IVPB Q24HR RAMANDEEP Rx#:[id number] Oral 298 240 Output: Urine 525 950 Straight 950 Uretheral (Paredes) 525 Other: Voiding Method Urinal Urinal Urinal - Labs CBC & Chem 7: 09/20/23 09:24 09/20/23 09:24 Labs: Abnormal Lab Results - Last 24 Hours (Table) 09/19/23 09/19/23 09/19/23 Range/Units 11:15 16:48 20:12 POC Glucose (mg/dL) 239 H 248 H 256 H (70-110) mg/dL 09/20/23 Range/Units 06:06 POC Glucose (mg/dL) 162 H (70-110) mg/dL Microbiology - Last 24 Hours (Table) 09/18/23 13:16 Urine Culture - Final Urine,Catheterized
[2023-09-20] MEDS: bisacodyL 10 MG SUPP RECTAL STA (13:38)
[2023-09-20 16:32] LABS: Glucose,Whole Blood 186 mg/dL (70-110)
[2023-09-20 20:04] LABS: Glucose,Whole Blood 267 mg/dL (70-110)
[2023-09-21 05:27] LABS: Glucose,Whole Blood 117 mg/dL (70-110)
--- NOTE | 2023-09-21 10:36 | P.PN ---
Subjective Patient is seen in follow-up for acute kidney injury on chronic kidney disease. Renal function improving. Has Paredes catheter for urinary retention. Nonoliguric. Receiving IV fluids. No vomiting or diarrhea. Vital signs are stable. General: No acute distress. HEENT: Head exam is unremarkable. LUNGS: No audible rhonchi or wheezes. HEART: Rate and Rhythm are regular. ABDOMEN: Nontender. EXTREMITITES: No edema. Objective - Vital Signs Vital signs: Vital Signs Temp 97.7 F 09/21/23 07:53 Pulse 67 09/21/23 07:53 Resp 16 09/21/23 07:53 BP 116/49 09/21/23 07:53 Pulse Ox 98 09/21/23 07:53 FiO2 Intake & Output 09/20/23 09/21/23 09/21/23 18:59 06:59 18:59 Intake Total 360 100 110 Output Total 850 800 Balance -490 -700 110 Weight 86 kg Intake: Intake, IV Titration 100 Amount Sodium Chloride 0.9% 1, 100 000 ml @ 100 mls/hr IV . Q10H [facility] Rx#:[id number] Oral 360 110 Output: Urine 850 800 Uretheral (Paredes) 850 Other: Voiding Method Indwelling Catheter Indwelling Catheter Indwelling Catheter # Bowel Movements 5 - Labs CBC & Chem 7: 09/20/23 09:24 09/20/23 09:24 Labs: Abnormal Lab Results - Last 24 Hours (Table) 09/20/23 09/20/23 09/20/23 Range/Units 11:44 16:30 20:03 POC Glucose (mg/dL) 233 H 186 H 267 H (70-110) mg/dL 09/21/23 Range/Units 05:25 POC Glucose (mg/dL) 117 H (70-110) mg/dL Assessment and Plan Plan: Assessment: 1. Acute kidney injury secondary to urinary retention and hypotension. Renal function improving. Creatinine 3.38 on admission and is 2.24 today. 2. Chronic kidney disease stage IIIb with baseline creatinine 1.3-1.5. Suspect diabetic kidney disease. 3. Urinary retention. Has Paredes catheter. On Flomax. 4. Diabetes mellitus. 5. UTI on antibiotics. 6. Anemia of chronic kidney disease. Rule out iron deficiency. 7. Hypertension with chronic kidney disease. Controlled. Plan: Decrease rate of normal saline to 75 cc an hour. Check iron studies. Avoid nephrotoxins. Potential trial of void tomorrow. Hold midodrine for systolic blood pressure greater than 110.
[2023-09-21 11:19] LABS: African American GFR (CKD) 39 (>60 ml/min/1.73 sqM); Anion Gap 5 mmol/L; Blood Urea Nitrogen 27 mg/dL (9-20); Calcium 8.3 mg/dL (8.4-10.2); Carbon Dioxide 18 mmol/L (22-30); Chloride 110 mmol/L (98-107); Glucose 132 mg/dL (74-99); Non-African American GFR(CKD) 34 (>60 ml/min/1.73 sqM); Potassium 4.9 mmol/L (3.5-5.1); Sodium 133 mmol/L (137-145)
[2023-09-21 11:21] LABS: Glucose,Whole Blood 135 mg/dL (70-110)
[2023-09-21 14:27] VITALS: BMI 29.7
[2023-09-21 16:07] LABS: Glucose,Whole Blood 267 mg/dL (70-110)
[2023-09-21] MEDS: BENZONATATE 100 MG CAP PO PRN (18:18)
[2023-09-21 19:41] LABS: % Iron Saturation 16.06 (15.00-50.00); Iron 44 UG/DL (65-175); Total Iron Binding Capacity 274 UG/DL (228-460)
[2023-09-21 20:21] LABS: Glucose,Whole Blood 304 mg/dL (70-110)
[2023-09-21 21:05] VITALS: RESP 18
--- NOTE | 2023-09-21 22:57 | PN ---
PROGRESS NOTE SUBJECTIVE: The patient remains on Primatene for orthostatic hypotension, Flomax for BPH. He wants a voiding trial to get the urine out tonight. He wants to take the Paredes out and see if he can pee, Amaryl for diabetes, Tessalon Perles for cough, Rocephin for possible pneumonia, Eliquis for the atrial fibrillation and amiodarone for atrial fibrillation, DuoNeb updrafts. COPD appears to be improved. We are going to get a voiding trial. Possibly send him home soon. OBJECTIVE: VITAL SIGNS: He is saturating on room air. Blood pressure 111/51, temp 98.7, pulse 60s, respiratory rate 16 to 18. LUNGS: Clear. CARDIOVASCULAR: S1, S2. ABDOMEN: Soft. HEMATOLOGY: Negative for Homans. PSYCH: Fair mood and affect. Sodium 133, potassium 4.9, BUN is 27, creatinine 1.86, GFR 34 up from 60. The patient is slowly improving. Follow up as an outpatient soon. Continue on breathing treatments. Prognosis guarded. MMODL / IJN: [id number] /
[2023-09-22 06:15] LABS: Glucose,Whole Blood 122 mg/dL (70-110)
--- NOTE | 2023-09-22 07:52 | P.GSCN ---
History of Present Illness Consult date: 09/22/23 Reason for Consult: Urinary retention History of present illness: This is a 78-year-old male admitted to the hospital with generalized weakness. Urology has been consulted for urinary retention. Patient has chronic incomplete bladder emptying with elevated postvoid residual. He is status post UroLift back in August 2020 following his UroLift he was able to empty more completely but continues to have elevated residual. He had a Paredes catheter placed upon admission, catheter was removed yesterday he has been unable to void. He indicated he is having minimal urge to void. Denies any dysuria or gross hematuria at this time. He has required straight cath x 1 this morning, PVR 425 mL. He did have a renal ultrasound on presentation that showed no evidence of hydronephrosis Review of Systems - Constitutional Denies fever, Denies weight loss - Cardiovascular Denies chest pain, Denies shortness of breath - Respiratory Denies cough, Denies 7 - Gastrointestinal Denies abdominal pain, Denies nausea, Denies vomiting Past Medical History Past Medical History: Atrial Fibrillation, Diabetes Mellitus, Eye Disorder, Hyperlipidemia, Myocardial Infarction ([place]), Osteoarthritis (OA) Additional Past Medical History / Comment(s): Macular degeneration. Hx kidney stones, chronic back pain, concussion 1969, sciatica; states hx falls D/T Rt knee giving out, uses 4-prong cane occ. NT feet. c/o throbbing pain Lt arm occ., leaky valve, occasional swelling ankles, uses O2 occasionally, not daily, still has @home from when he had Covid in 2020. 08/22 leaky valve fixed at [facility] Last Myocardial Infarction Date:: 2006 History of Any Multi-Drug Resistant Organisms: None Reported Past Surgical History: AICD, Appendectomy, Cholecystectomy, Heart Catheterization With Stent Additional Past Surgical History / Comment(s): Colonoscopy, bilat cataracts. AICD 2006. not sure how many cardiac stents Past Anesthesia/Blood Transfusion Reactions: No Reported Reaction Date of Last Stent Placement:: not sure Type of Cardiac Device: Permanent Pacemaker, AICD Device Placement Date:: 2006 [facility] LEFT CHEST Past Psychological History: No Psychological Hx Reported Additional Psychological History / Comment(s): Pt resides with his spouse. He has a glucometer. He drives. Smoking Status: Former smoker Past Alcohol Use History: Daily Additional Past Alcohol Use History / Comment(s): QUIT IN 2004, SMOKED 40 YRS. 1 beer daily Past Drug Use History: None Reported - Past Family History Mother Family Medical History: Coronary Artery Disease (CAD), Renal Disease Father Additional Family Medical History / Comment(s): during medical testing(iodine) Sister(s) Family Medical History: Cancer Additional Family Medical History / Comment(s): pancreatic cancer Medications and Allergies Home Medications Medication Instructions Recorded Confirmed Type Aspirin [Adult Low Dose Aspirin EC] 81 mg PO DAILY 03/29/19 09/16/23 History Apixaban [Eliquis] 5 mg PO BID #60 tab 05/21/20 09/16/23 Rx Atorvastatin [Lipitor] 40 mg PO HS 05/21/20 09/16/23 History Glimepiride [Amaryl] 2 mg PO BID 05/21/21 09/16/23 History Metoprolol Succinate [Toprol XL] 25 mg PO DAILY #90 tab 10/08/21 09/16/23 Rx metFORMIN HCL [Glucophage] 500 mg PO BID 02/18/23 09/16/23 History Amiodarone [Cordarone] 400 mg PO DAILY 09/16/23 09/16/23 History Furosemide [Lasix] 40 mg PO DAILY 09/16/23 09/16/23 History Naproxen Sodium [Aleve] 220 mg PO DAILY PRN 09/16/23 09/16/23 History Sulfamethox-Tmp 800-160Mg [Bactrim 1 tab PO BID 09/16/23 09/16/23 History DS 800-160 mg] predniSONE 10 mg PO DAILY PRN 09/16/23 09/16/23 History Allergies Allergy/AdvReac Type Severity Reaction Status Date / Time Calcium Channel Blocking AdvReac Severe Chest Pain Verified 09/16/23 18:28 Agent [facility] [employer] - Exam Vital Signs Temp Pulse Resp BP Pulse Ox 97.5 F L 75 16 98/61 100 09/16/23 15:58 09/16/23 15:58 09/16/23 15:58 09/16/23 15:58 09/16/23 15:58 - General no distress, no pain - Eyes normal ocular movement, no pale - ENT normal nares, normal mucosa - Respiratory normal expansion, normal respiratory effort - Abdomen Abdomen: soft, non tender - Psychiatric oriented to time, oriented to person, oriented to place Results - Labs 09/20/23 09:24 09/21/23 10:16 Abnormal Lab Results - Last 24 Hours (Table) 09/21/23 09/21/23 09/21/23 Range/Units 10:16 11:19 16:05 Sodium 133 L (137-145) mmol/L Chloride 110 H (98-107) mmol/L Carbon Dioxide 18 L (22-30) mmol/L BUN 27 H (9-20) mg/dL Creatinine 1.86 H (0.66-1.25) mg/dL Glucose 132 H (74-99) mg/dL POC Glucose (mg/dL) 135 H 267 H (70-110) mg/dL Calcium 8.3 L (8.4-10.2) mg/dL Iron 44 L (65-175) UG/DL Transferrin 196.0 L (204.0-354.0) mg/dL 09/21/23 09/22/23 Range/Units 20:19 06:13 Sodium (137-145) mmol/L Chloride (98-107) mmol/L Carbon Dioxide (22-30) mmol/L BUN (9-20) mg/dL Creatinine (0.66-1.25) mg/dL Glucose (74-99) mg/dL POC Glucose (mg/dL) 304 H 122 H (70-110) mg/dL Calcium (8.4-10.2) mg/dL Iron (65-175) UG/DL Transferrin (204.0-354.0) mg/dL Diabetes panel 09/21/23 Range/Units 10:16 Sodium 133 L (137-145) mmol/L Potassium 4.9 (3.5-5.1) mmol/L Chloride 110 H (98-107) mmol/L Carbon Dioxide 18 L (22-30) mmol/L BUN 27 H (9-20) mg/dL Creatinine 1.86 H (0.66-1.25) mg/dL Glucose 132 H (74-99) mg/dL Calcium 8.3 L (8.4-10.2) mg/dL Calcium panel 09/21/23 Range/Units 10:16 Calcium 8.3 L (8.4-10.2) mg/dL Pituitary panel 09/21/23 Range/Units 10:16 Sodium 133 L (137-145) mmol/L Potassium 4.9 (3.5-5.1) mmol/L Chloride 110 H (98-107) mmol/L Carbon Dioxide 18 L (22-30) mmol/L BUN 27 H (9-20) mg/dL Creatinine 1.86 H (0.66-1.25) mg/dL Glucose 132 H (74-99) mg/dL Calcium 8.3 L (8.4-10.2) mg/dL Adrenal panel 09/21/23 Range/Units 10:16 Sodium 133 L (137-145) mmol/L Potassium 4.9 (3.5-5.1) mmol/L Chloride 110 H (98-107) mmol/L Carbon Dioxide 18 L (22-30) mmol/L BUN 27 H (9-20) mg/dL Creatinine 1.86 H (0.66-1.25) mg/dL Glucose 132 H (74-99) mg/dL Calcium 8.3 L (8.4-10.2) mg/dL Assessment and Plan Assessment: 78-year-old male with history of chronic incomplete bladder emptying status post UroLift in September 19. At baseline his postvoid residuals in the 300 to 400 mL. -Increase Flomax to 0.8 -Reassess residual, if less than 400 mL thenhe is okay for discharge from urology standpoint without a Paredes catheter, but if residuals greater than 400 then Paredes catheter can be reinserted and he can follow-up as an outpatient in 1 to 2 weeks
[2023-09-22] MEDS: TAMSULOSIN 0.4 MG CAP.ER.24H PO SCH (08:41)
[2023-09-22 10:29] LABS: African American GFR (CKD) 44 (>60 ml/min/1.73 sqM); Anion Gap 3 mmol/L; Blood Urea Nitrogen 25 mg/dL (9-20); Calcium 7.9 mg/dL (8.4-10.2); Carbon Dioxide 19 mmol/L (22-30); Chloride 109 mmol/L (98-107); Glucose 128 mg/dL (74-99); Magnesium 2.1 mg/dL (1.6-2.3); Non-African American GFR(CKD) 38 (>60 ml/min/1.73 sqM); Potassium 4.8 mmol/L (3.5-5.1); Sodium 131 mmol/L (137-145)
--- NOTE | 2023-09-22 10:57 | P.PN ---
Subjective Patient is seen in follow-up for acute kidney injury on chronic kidney disease. Renal function improving. Paredes catheter removed last night but has not voided on his own yet. Bladder scan will be checked. Receiving IV fluids. No vomiting or diarrhea. Vital signs are stable. General: No acute distress. HEENT: Head exam is unremarkable. LUNGS: No audible rhonchi or wheezes. HEART: Rate and Rhythm are regular. ABDOMEN: Nontender. EXTREMITITES: No edema. Objective - Vital Signs Vital signs: Vital Signs Temp 97.2 F L 09/22/23 04:00 Pulse 68 09/22/23 10:01 Resp 18 09/22/23 04:00 BP 110/57 09/22/23 04:00 Pulse Ox 97 09/22/23 04:00 FiO2 Intake & Output 09/21/23 09/22/23 09/22/23 18:59 06:59 18:59 Intake Total 460 0 Output Total 375 1000 Balance 85 -1000 0 Weight 86 kg 87.5 kg Intake: Oral 460 0 Output: Urine 375 1000 Straight 425 Uretheral (Paredes) 150 Other: Voiding Method Indwelling Catheter - Labs CBC & Chem 7: 09/20/23 09:24 09/22/23 09:49 Labs: Abnormal Lab Results - Last 24 Hours (Table) 09/21/23 09/21/23 09/21/23 Range/Units 10:16 11:19 16:05 Sodium 133 L (137-145) mmol/L Chloride 110 H (98-107) mmol/L Carbon Dioxide 18 L (22-30) mmol/L BUN 27 H (9-20) mg/dL Creatinine 1.86 H (0.66-1.25) mg/dL Glucose 132 H (74-99) mg/dL POC Glucose (mg/dL) 135 H 267 H (70-110) mg/dL Calcium 8.3 L (8.4-10.2) mg/dL Iron 44 L (65-175) UG/DL Transferrin 196.0 L (204.0-354.0) mg/dL 09/21/23 09/22/23 Range/Units 20:19 06:13 Sodium (137-145) mmol/L Chloride (98-107) mmol/L Carbon Dioxide (22-30) mmol/L BUN (9-20) mg/dL Creatinine (0.66-1.25) mg/dL Glucose (74-99) mg/dL POC Glucose (mg/dL) 304 H 122 H (70-110) mg/dL Calcium (8.4-10.2) mg/dL Iron (65-175) UG/DL Transferrin (204.0-354.0) mg/dL Assessment and Plan Plan: Assessment: 1. Acute kidney injury secondary to urinary retention and hypotension. Renal function improving. Creatinine 3.38 on admission -1.86 yesterday. 2. Chronic kidney disease stage IIIb with baseline creatinine 1.3-1.5. Suspect diabetic kidney disease. 3. Urinary retention. On Flomax. Urology following. 4. Diabetes mellitus. 5. UTI on antibiotics. 6. Anemia of chronic kidney disease. Iron deficiency noted. 7. Hypertension with chronic kidney disease. Controlled. Plan: Maintain IV fluids. Add IV iron. Avoid nephrotoxins. Monitor bladder scans. Paredes catheter to be reinserted if has retention. Hold midodrine for systolic blood pressure greater than 110.
[2023-09-22 11:18] LABS: Glucose,Whole Blood 171 mg/dL (70-110)
[2023-09-22] MEDS: SODIUM FERRIC GLUCONAT-SUCROSE 125 MG in SODIUM CHLORIDE 0.9% 100 ML IVPB SCH (13:11)
[2023-09-22 15:44] VITALS: PULSE 62
[2023-09-22 15:45] VITALS: BP 116/65; TEMP 97
[2023-09-22 16:10] LABS: Glucose,Whole Blood 270 mg/dL (70-110)
--- NOTE | 2023-09-22 23:33 | PN ---
PROGRESS NOTE SUBJECTIVE: This is a 78-year-old white male, he is on Flomax. He had a trial of Paredes removal overnight. He is seen by Urology also. He is on IV fluids. No nausea or vomiting. OBJECTIVE: VITAL SIGNS: Blood pressure 110/57, temp 97.2, pulse 68, and respiratory rate 18. HEART: S1, S2. LUNGS: Decreased breath sounds. HEMATOLOGY: Negative for Homans. PSYCH: Fair mood and affect. GI: Soft. ASSESSMENT: Acute kidney injury secondary to urinary retention, hypotension, chronic kidney disease stage IIIB. Urinary retention on Flomax. Urology following, diabetes mellitus, UTI, anemia of chronic disease, iron deficiency, hypertensive chronic kidney disease. Fluids, iron. Monitor bladder scan. Watch for retention, home midodrine if his blood pressure drops low. MMODL / IJN: [id number] /
--- NOTE | 2023-09-25 09:01 | CDI ---
Documentation Clarification Form Date: 09/25/2023 From: Flaca Luna Admit Date: 09/16/2023 08:28:00 PM Patient Name: Maxx Dill Visit Number: [id number] Discharge Date: 09/22/2023 07:37:00 PM ATTENTION: The Clinical Documentation Specialists (CDI) and [facility] Coding Staff appreciate your assistance in clarifying documentation. Please respond to the clarification below the line at the bottom and electronically sign. The CDI & [facility] Coding staff will review the response and follow-up if needed. Please note: Queries are made part of the Legal Health Record. If you have any questions, please contact the author of this message via ITS. Dr. Los Rao. UTI is documented in Dr Cuello 09/16 consult which may lack sufficient clinical evidence/support in the medical record. Additional clarification is requested. History/Risk Factors: ATN, HTN w CKD 3b, anemia due to CKD, T2DM w hyperglycemia and CKD, PAF, BPH Clinical Indicators: Urine: 09/15-Ur Leukocyte Esterase Moderate, WBC-144, Hyaline casts-11 Urine culture: 09/17- no growth after 18 hours Treatment: IV Rocephin Please clarify if urinary tract infection (UTI) is a valid diagnosis? [ ] Yes, UTI is present as evidence by (additional clinical support): [ ] No, UTI is ruled out [ ] Other (please specify diagnosis) [ ] Unable to determine MTDD
--- NOTE | 2023-09-25 09:21 | CDI ---
Documentation Clarification Form Date: 09/25/23 From: Flaca Luna Admit Date: 09/16/2023 08:28:00 PM Patient Name: Maxx Dill Visit Number: [id number] Discharge Date: 09/22/2023 07:37:00 PM ATTENTION: The Clinical Documentation Specialists (CDI) and [facility] Coding Staff appreciate your assistance in clarifying documentation. Please respond to the clarification below the line at the bottom and electronically sign. The CDI & [facility] Coding staff will review the response and follow-up if needed. Please note: Queries are made part of the Legal Health Record. If you have any questions, please contact the author of this message via ITS. Dr. Los Rao, Pneumonia is documented your progress note on 09/20 which may lack sufficient clinical evidence/support in the medical record. Additional clarification is requested. History/Risk Factors: ATN, HTN w CKD 3b, anemia due to CKD, T2DM w hyperglycemia and CKD, PAF, BPH Clinical Indicators: Elisabeth draper, Rocephin for possible pneumonia. COPDappears to be improved. CXR: -No acute cardiopulmonary/disease.process. Treatment: IV Rocephin Please clarify if pneumonia is a valid diagnosis? [ ] Yes, Pneumonia is present as evidence by (additional clinical support): [ ] No, Pneumonia is ruled out [ ] COPD with acute exacerbation and pneumonia ruled out [ ] Other (please specify diagnosis) [ ] Unable to determine MTDD
--- NOTE | 2023-09-25 16:04 | P.PN ---
Subjective Progress Note Date: 09/20/23 Principal diagnosis: Reason for follow-up visit urinary tract infection Patient is a 78-year-old male with a past medical history significant for diabetes mellitus hypertension hyperlipidemia [place] atrial fibrillation presenting to the [facility] for evaluation generalized weakness and recurrent falls he did have some hematuria positive UA concerning for symptomatic ureteric infection. On today's evaluation that is 09/20/2023, the patient continues to be afebrile, the patient is on room air and breathing comfortably, the Pt denies having any chest pain or cough, the patient denies having any abdominal pain no vomiting or any diarrhea has been reported by the nursing staff, no new symptoms. Patient white count is 7.6, creatinine is 2.24 Objective - Vital Signs Vital signs: Vital Signs Temp 98.0 F 09/20/23 07:52 Pulse 63 09/20/23 08:07 Resp 16 09/20/23 07:52 BP 113/61 09/20/23 07:52 Pulse Ox 98 09/20/23 07:52 FiO2 Intake & Output 09/19/23 09/20/23 09/20/23 18:59 06:59 18:59 Intake Total 1558 1490 Output Total 525 950 Balance 1033 -950 1490 Weight 83.3 kg Intake: IV 10 Invasive Line 1 10 Intake, IV Titration 1250 1250 Amount Sodium Chloride 0.9% 1, 1200 1200 000 ml @ 100 mls/hr IV . Q10H RAMANDEEP Rx#:[id number] cefTRIAXone 1 gm In 50 50 Sodium Chloride 0.9% 50 ml @ 100 mls/hr IVPB Q24HR RAMANDEEP Rx#:[id number] Oral 298 240 Output: Urine 525 950 Straight 950 Uretheral (Paredes) 525 Other: Voiding Method Urinal Urinal Urinal - Exam GENERAL DESCRIPTION: An elderly male lying in bed in no distress RESPIRATORY SYSTEM: Unlabored breathing , decreased breath sounds at bases HEART: S1 S2 regular rate and rhythm , ABDOMEN: Soft , no tenderness EXTREMITIES: No edema feet Exam completed with the help of BOARD MACHINE SET UP OPERATOR - Labs CBC & Chem 7: 09/20/23 09:24 09/22/23 09:49 Labs: Abnormal Lab Results - Last 24 Hours (Table) 09/19/23 09/19/23 09/19/23 Range/Units 11:15 16:48 20:12 POC Glucose (mg/dL) 239 H 248 H 256 H (70-110) mg/dL 09/20/23 Range/Units 06:06 POC Glucose (mg/dL) 162 H (70-110) mg/dL Microbiology - Last 24 Hours (Table) 09/18/23 13:16 Urine Culture - Final Urine,Catheterized Assessment and Plan (1) Urinary tract infection Status: Acute Code(s): N39.0 - URINARY TRACT INFECTION, SITE NOT SPECIFIED SNOMED Code(s): 24325139 Plan: 1patient presented to hospital with generalized weakness frequent falls also have a urinary symptoms and hematuria concerning for symptomatic urinary tract infection likely from enteric gram-negative pathogen 2-ultrasound was negative for any obstructive uropathy, urine culture currently pending 3-patient currently covered with Rocephin while waiting for the culture to finalize and monitor clinical course closely Dictation was produced using [employer] dictation software. please excuse any grammatical, word or spelling errors. Time with Patient: Less than 30
--- NOTE | 2023-09-25 16:04 | P.PN ---
Subjective Progress Note Date: 09/21/23 Principal diagnosis: Reason for follow-up visit urinary tract infection Patient is a 78-year-old male with a past medical history significant for diabetes mellitus hypertension hyperlipidemia [place] atrial fibrillation presenting to the [facility] for evaluation generalized weakness and recurrent falls he did have some hematuria positive UA concerning for symptomatic ureteric infection. On today's evaluation that is 09/21/2023, Patient is afebrile patient is currently on room air and denies having any shortness of breath, the patient denies any chest pain or cough, the patient denies any nausea vomiting did not have any abdominal pain and no diarrhea No CBC was done today his creatinine is 1.86 Objective - Vital Signs Vital signs: Vital Signs Temp 97 F L 09/21/23 20:00 Pulse 58 L 09/21/23 20:00 Resp 18 09/21/23 20:00 BP 110/69 09/21/23 20:00 Pulse Ox 99 09/21/23 20:00 FiO2 Intake & Output 09/21/23 09/21/23 09/22/23 06:59 18:59 06:59 Intake Total 100 460 Output Total 800 375 Balance -700 85 Weight 86 kg 86 kg Intake: Intake, IV Titration 100 Amount Sodium Chloride 0.9% 1, 100 000 ml @ 75 mls/hr IV . [id number] [facility] Rx#:[id number] Oral 460 Output: Urine 800 375 Other: Voiding Method Indwelling Catheter Indwelling Catheter - Exam GENERAL DESCRIPTION: An elderly male lying in bed in no distress RESPIRATORY SYSTEM: Unlabored breathing , decreased breath sounds at bases HEART: S1 S2 regular rate and rhythm , ABDOMEN: Soft , no tenderness EXTREMITIES: No edema feet - Labs CBC & Chem 7: 09/20/23 09:24 09/22/23 09:49 Labs: Abnormal Lab Results - Last 24 Hours (Table) 09/21/23 09/21/23 09/21/23 Range/Units 05:25 10:16 11:19 Sodium 133 L (137-145) mmol/L Chloride 110 H (98-107) mmol/L Carbon Dioxide 18 L (22-30) mmol/L BUN 27 H (9-20) mg/dL Creatinine 1.86 H (0.66-1.25) mg/dL Glucose 132 H (74-99) mg/dL POC Glucose (mg/dL) 117 H 135 H (70-110) mg/dL Calcium 8.3 L (8.4-10.2) mg/dL Iron 44 L (65-175) UG/DL Transferrin 196.0 L (204.0-354.0) mg/dL 09/21/23 09/21/23 Range/Units 16:05 20:19 Sodium (137-145) mmol/L Chloride (98-107) mmol/L Carbon Dioxide (22-30) mmol/L BUN (9-20) mg/dL Creatinine (0.66-1.25) mg/dL Glucose (74-99) mg/dL POC Glucose (mg/dL) 267 H 304 H (70-110) mg/dL Calcium (8.4-10.2) mg/dL Iron (65-175) UG/DL Transferrin (204.0-354.0) mg/dL Assessment and Plan (1) Urinary tract infection Status: Acute Code(s): N39.0 - URINARY TRACT INFECTION, SITE NOT SPECIFIED SNOMED Code(s): 04786901 Plan: 1patient presented to hospital with generalized weakness frequent falls also have a urinary symptoms and hematuria concerning for symptomatic urinary tract infection likely from enteric gram-negative pathogen 2-ultrasound was negative for any obstructive uropathy, urine culture currently pending 3-patient seem to have shown clinical improvement and will continue patient on Rocephin while waiting for the culture to finalize Dictation was produced using [employer] dictation software. please excuse any grammatical, word or spelling errors. Time with Patient: Less than 30
--- NOTE | 2023-09-25 16:05 | P.PN ---
Subjective Progress Note Date: 09/22/23 Principal diagnosis: Reason for follow-up visit urinary tract infection Patient is a 78-year-old male with a past medical history significant for diabetes mellitus hypertension hyperlipidemia CT atrial fibrillation presenting to the [facility] for evaluation generalized weakness and recurrent falls he did have some hematuria positive UA concerning for symptomatic ureteric infection. On today's evaluation that is 09/22/2023, patient has been afebrile, patient is breathing comfortably and is currently on room air, patient denies having any significant cough no chest pain shortness of breath, patient denies nausea vomiting or diarrhea and no abdominal pain, patient Paredes catheter has been discontinued patient is slightly concerned As he did not have any urination s laith then Patient creatinine 1.70 no CBC was done today culture has been negative Objective - Vital Signs Vital signs: Vital Signs Temp 97 F L 09/22/23 15:39 Pulse 62 09/22/23 15:39 Resp 18 09/22/23 15:39 BP 116/65 09/22/23 15:39 Pulse Ox 98 09/22/23 15:39 FiO2 Intake & Output 09/21/23 09/22/23 09/22/23 18:59 06:59 18:59 Intake Total 460 222 Output Total 375 1000 Balance 85 -1000 222 Weight 86 kg 87.5 kg Intake: Oral 460 222 Output: Urine 375 1000 Straight 425 Uretheral (Paredes) 150 Other: Voiding Method Indwelling Catheter - Exam GENERAL DESCRIPTION: An elderly male lying in bed in no distress RESPIRATORY SYSTEM: Unlabored breathing , decreased breath sounds at bases HEART: S1 S2 regular rate and rhythm , ABDOMEN: Soft , no tenderness EXTREMITIES: No edema feet - Labs CBC & Chem 7: 09/20/23 09:24 09/22/23 09:49 Labs: Abnormal Lab Results - Last 24 Hours (Table) 09/21/23 09/21/23 09/22/23 Range/Units 10:16 20:19 06:13 Sodium (137-145) mmol/L Chloride (98-107) mmol/L Carbon Dioxide (22-30) mmol/L BUN (9-20) mg/dL Creatinine (0.66-1.25) mg/dL Glucose (74-99) mg/dL POC Glucose (mg/dL) 304 H 122 H (70-110) mg/dL Calcium (8.4-10.2) mg/dL Iron 44 L (65-175) UG/DL Transferrin 196.0 L (204.0-354.0) mg/dL 09/22/23 09/22/23 09/22/23 Range/Units 09:49 11:16 16:09 Sodium 131 L (137-145) mmol/L Chloride 109 H (98-107) mmol/L Carbon Dioxide 19 L (22-30) mmol/L BUN 25 H (9-20) mg/dL Creatinine 1.70 H (0.66-1.25) mg/dL Glucose 128 H (74-99) mg/dL POC Glucose (mg/dL) 171 H 270 H (70-110) mg/dL Calcium 7.9 L (8.4-10.2) mg/dL Iron (65-175) UG/DL Transferrin (204.0-354.0) mg/dL Assessment and Plan (1) Urinary tract infection Status: Acute Code(s): N39.0 - URINARY TRACT INFECTION, SITE NOT SPECIFIED SNOMED Code(s): 22414353 Plan: 1patient presented to hospital with generalized weakness frequent falls also have a urinary symptoms and hematuria concerning for symptomatic urinary tract infection likely from enteric gram-negative pathogen 2-ultrasound was negative for any obstructive uropathy, urine culture has been negative 3-patient has received adequate IV Rocephin therapy with a culture negative no need for antibiotic on discharge discussed with METEOROLOGIST LIAISON for admitting team working on discharge Dictation was produced using [employer] dictation software. please excuse any grammatical, word or spelling errors. Time with Patient: Less than 30
--- NOTE | 2023-09-27 15:14 | PN ---
PROGRESS NOTE Urinary tract infection. Community-acquired pneumonia. MMODL / IJN: [id number] /
== END 2023-09-22 19:37 | disposition home or self-care (01) | DRG 689 ==
LOC: EC 15:50 → 3SCARD 20:28
PROVIDERS: ADMIT Family Medicine; ATTEND Family Medicine
DX: N39.0 Urinary tract infection, site not specified (principal); J18.9 Pneumonia, unspecified organism; N17.0 Acute kidney failure with tubular necrosis; E87.1 Hypo-osmolality and hyponatremia; J44.0 Chronic obstructive pulmonary disease with (acute) lower respiratory infection; D63.1 Anemia in chronic kidney disease; E11.22 Type 2 diabetes mellitus with diabetic chronic kidney disease; I48.0 Paroxysmal atrial fibrillation; E86.0 Dehydration; E11.65 Type 2 diabetes mellitus with hyperglycemia; N18.32 Chronic kidney disease, stage 3b; I12.9 Hypertensive chronic kidney disease with stage 1 through stage 4 chronic kidney disease, or unspecified chronic kidney disease; I34.0 Nonrheumatic mitral (valve) insufficiency; Z66 Do not resuscitate; R31.9 Hematuria, unspecified; E86.9 Volume depletion, unspecified; I25.10 Atherosclerotic heart disease of native coronary artery without angina pectoris; I25.5 Ischemic cardiomyopathy; I95.1 Orthostatic hypotension; E61.1 Iron deficiency; I45.10 Unspecified right bundle-branch block; E78.5 Hyperlipidemia, unspecified; E87.5 Hyperkalemia; N40.1 Benign prostatic hyperplasia with lower urinary tract symptoms; R33.8 Other retention of urine; R39.14 Feeling of incomplete bladder emptying; K59.00 Constipation, unspecified; G89.29 Other chronic pain; H35.30 Unspecified macular degeneration; M19.90 Unspecified osteoarthritis, unspecified site; M54.30 Sciatica, unspecified side; R29.6 Repeated falls; I25.2 Old myocardial infarction; Z79.82 Long term (current) use of aspirin; Z79.01 Long term (current) use of anticoagulants; Z79.84 Long term (current) use of oral hypoglycemic drugs; Z79.899 Other long term (current) drug therapy; Z87.891 Personal history of nicotine dependence; Z95.810 Presence of automatic (implantable) cardiac defibrillator; Z95.5 Presence of coronary angioplasty implant and graft; Z86.16 Personal history of COVID-19; Z88.8 Allergy status to other drugs, medicaments and biological substances
CPT/HCPCS: 36415; 51798; 70450; 71045; 71250; 76770; 80048; 80053; 81001; 82728; 83540; 83550; 83735; 83880; 84132; 84145; 84484; 85025; 85027; 85610; 85730; 86140; 87086; 93005; 93306; 94640; 96365; 96366; 96375; 99291

== ENCOUNTER 2023-10-01 05:46 | Day surgery (SDC) | payer MEDICARE ==
[2023-10-01] MEDS: SODIUM CHLORIDE 0.9% 500 ML 500 ML IV ONE (06:11)
[2023-10-01 06:25] LABS: Glucose,Whole Blood 61 mg/dL (70-110)
[2023-10-01 06:39] LABS: Basophils % (A) 1 %; Eosinophils # (A) 0.2 k/uL (0-0.7); Eosinophils % (A) 5 %; HCT 33.9 % (39.0-53.0); HGB 10.8 gm/dL (13.0-17.5); Hypochromasia Slight; Lymphocytes # (A) 1.1 k/uL (1.0-4.8); Lymphocytes % (A) 25 %; MCH 32.7 pg (25.0-35.0); MCHC 31.9 g/dL (31.0-37.0); MCV 102.6 fL (80.0-100.0); Macrocytosis Moderate; Mean Platelet Volume 8.1; Monocytes # (A) 0.3 k/uL (0-1.0); Monocytes % (A) 7 %; Neutrophils # (A) 2.5 k/uL (1.3-7.7); Neutrophils % (A) 59 %; Platelet Count 148 k/uL (150-450); Poikilocytosis Slight; RBC 3.31 m/uL (4.30-5.90); RDW 15.8 % (11.5-15.5); WBC 4.2 k/uL (3.8-10.6)
[2023-10-01 06:51] LABS: ALT 31 U/L (4-49); AST 27 U/L (17-59); African American GFR (CKD) 40 (>60 ml/min/1.73 sqM); Albumin 3.4 g/dL (3.5-5.0); Alkaline Phosphatase 95 U/L (38-126); Anion Gap 7 mmol/L; Blood Urea Nitrogen 17 mg/dL (9-20); Calcium 8.9 mg/dL (8.4-10.2); Carbon Dioxide 21 mmol/L (22-30); Chloride 107 mmol/L (98-107); Glucose 57 mg/dL (74-99); Non-African American GFR(CKD) 34 (>60 ml/min/1.73 sqM); Potassium 4.5 mmol/L (3.5-5.1); Sodium 135 mmol/L (137-145); Total Bilirubin 1.3 mg/dL (0.2-1.3); Total Protein 5.9 g/dL (6.3-8.2)
[2023-10-01] MEDS: DEXTROSE 50% SYRINGE 50 ML IVP ONE (07:00)
[2023-10-01] MEDS: LACTATED RINGERS 1,000 ML IV SCH (07:01)
[2023-10-01] MEDS: SODIUM CHLORIDE 0.9% 1,000 ML IV SCH (07:01)
[2023-10-01 07:07] VITALS: TEMP 98.1
[2023-10-01] MEDS ORDERED: HEPARIN SODIUM,PORCINE 5,000 UNIT/ML 1 ML VIAL ONE (07:10)
[2023-10-01] MEDS ORDERED: PROPOFOL 10 MG/ML 20 ML VIAL IV ONE (07:10)
[2023-10-01 07:18] LABS: Glucose,Whole Blood 145 mg/dL (70-110)
--- NOTE | 2023-10-01 08:02 | P.EPPROC ---
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 daily Patient was given midodrine in his recent admission Midodrine is contraindicated in patients with congestive heart failure secondary to LV systolic dysfunction I have discontinued this Midodrine is a vasoconstrictor and therefore increases preload in the ventricle that is failing Midodrine is an arteriolar constrictor and therefore increases peripheral va scular resistance As a result while the blood pressure may increase, it reduces stroke-volume cardiac beat and reduces perfusion In someone with renal failure, renal vasoconstriction and arteriolar co nstriction is detrimental Hence the drug package insert for midodrine clearly states congestive heart failure and renal failure as contraindications to its use If the patient is hypotensive persistently reduction in the dose of vasodilator medications is more appropriate
--- NOTE | 2023-10-01 08:08 | P.PRLE ---
RE: Maxx Dill Patient was given midodrine in his recent admission Midodrine is contraindicated in patients with congestive heart failure secondary to LV systolic dysfunction I have discontinued this drug Midodrine is a vasoconstrictor and therefore increases preload in the ventricle that is failing, worsening heart failure Midodrine is an arteriolar constrictor and therefore increases peripheral vascular resistance, worsening heart failure As a result while the blood pressure may increase, it reduces stroke-volume cardiac beat and reduces perfusion And elevated blood pressure to normal levels provides a very false sense of security while worsening heart failure In someone with renal failure, renal vasoconstriction and arteriolar constriction is detrimental Hence the drug package insert for midodrine clearly states congestive heart failure and renal failure as contraindications to its use If the patient is hypotensive persistently reduction in the dose of vasodilator medications is more appropriate There is data on documentation of either none benefit or harm in patients with renal failure and nephrology generals There is an abstract from [facility] demonstrating greater hospitalization frequency and higher mortality in patients with systolic congestive heart failure given midodrine
[2023-10-01 15:59] VITALS: BP 112/57; PULSE 52; RESP 16
== END 2023-10-01 09:11 | disposition home or self-care (01) ==
LOC: CATHEP 05:46
PROVIDERS: ATTEND Internal Medicine Clinical Cardiac Electrophysiology
DX: I48.91 Unspecified atrial fibrillation (principal); I11.0 Hypertensive heart disease with heart failure; I50.9 Heart failure, unspecified; I25.10 Atherosclerotic heart disease of native coronary artery without angina pectoris; I34.0 Nonrheumatic mitral (valve) insufficiency; E78.5 Hyperlipidemia, unspecified; E11.9 Type 2 diabetes mellitus without complications; Z82.49 Family history of ischemic heart disease and other diseases of the circulatory system; Z87.891 Personal history of nicotine dependence; Z79.899 Other long term (current) drug therapy; Z79.82 Long term (current) use of aspirin; Z98.890 Other specified postprocedural states
CPT/HCPCS: 92960; 80053; 84443; 85025; J1644; J2704

== ENCOUNTER 2023-12-07 13:45 | Inpatient (IN) | payer MEDICARE ==
--- NOTE | 2023-12-07 14:13 | ED ---
Weakness HPI - General Source: patient, family, RN notes reviewed Mode of arrival: wheelchair Limitations: no limitations - History of Present Illness MD Complaint: generalized weakness <Jennifer Kaplan - Last Filed: 12/07/23 14:10> - General Source: RN notes reviewed <Angelic Casas - Last Filed: 12/07/23 17:01> - General Chief complaint: Weakness Stated complaint: weakness-sent by PCP Time Seen by Provider: 12/07/23 14:10 - History of Present Illness Initial comments: Quick Note: This is a 78-year-old male who presents to the emergency department for weakness. Family states that has been dealing with UTIs and weakness for the last couple of months, however it has been getting worse. He had a follow- up appointment with Dr. Rao today, and he was advised to come to the emergency department for direct admission. Patient reportedly very hypotensive in the office today. Urine reported as appearing milky. (Jennifer Kaplan) 78-year-old male presenting to the ER with chief complaint of weakness. His daughter is present upon examination and reports that he has been dealing with UTIs for the past couple months and reports symptoms are worsening. He had an appointment with Dr. Rao today who sent him to the ER for direct admission for IV antibiotics and fluids. He does admit some mild shortness of breath but denies chest pain, abdominal pain, fevers or chills. (Angelic Casas) - Related Data Home Medications Medication Instructions Recorded Confirmed Aspirin [Adult Low Dose Aspirin EC] 81 mg PO DAILY 03/29/19 10/20/23 Atorvastatin [Lipitor] 40 mg PO HS 05/21/20 10/20/23 predniSONE 10 mg PO DAILY PRN 09/16/23 10/20/23 Previous Rx's Medication Instructions Recorded Apixaban [Eliquis] 5 mg PO BID #60 tab 05/21/20 Benzonatate [Tessalon Perles] 200 mg PO TID PRN 7 Days #21 cap 09/22/23 Tamsulosin [Flomax] 0.8 mg PO PC-BRKFST 30 Days #30 cap 09/22/23 Cyanocobalamin [Vitamin B-12] 1,000 mcg PO DAILY 90 Days #90 tab 10/22/23 Folic Acid 1 mg PO DAILY 90 Days #90 tab 10/22/23 Furosemide [Lasix] 40 mg PO DAILY tab 10/22/23 Ipratropium-Albuterol Nebulize 3 ml INHALATION RT-QID 30 Days 10/22/23 [Duoneb 0.5 mg-3 mg/3 ml Soln] #120 each Levothyroxine Sodium [Synthroid] 50 mcg PO DAILY@0630 90 Days #90 10/22/23 tab Metoprolol Succinate (ER) [Toprol 25 mg PO DAILY tab 10/22/23 XL] Midodrine [ProAmatine] 5 mg PO AC-TID 30 Days #90 tab 10/22/23 Allergies Allergy/AdvReac Type Severity Reaction Status Date / Time Calcium Channel Blocking AdvReac Severe Chest Pain Verified 12/07/23 14:03 Agent Dilt Review of Systems ROS Other: All systems not noted in ROS Statement are negative. <Jennifer Kaplan - Last Filed: 12/07/23 14:10> ROS Other: All systems not noted in ROS Statement are negative. <Angelic Casas - Last Filed: 12/07/23 17:01> ROS Statement: Those systems with pertinent positive or pertinent negative responses have been documented in the HPI. Past Medical History Past Medical History: Atrial Fibrillation, Diabetes Mellitus, Eye Disorder, Hyperlipidemia, Myocardial Infarction (MO), Osteoarthritis (OA) Additional Past Medical History / Comment(s): Macular degeneration. Hx kidney stones, chronic back pain, concussion 1969, sciatica; states hx falls D/T Rt knee giving out, uses 4-prong cane occ. NT feet. c/o throbbing pain Lt arm occ., leaky valve, occasional swelling ankles, uses O2 occasionally, not daily, still has @home from when he had Covid in 2020. 08/22 leaky valve fixed at [facility] Last Myocardial Infarction Date:: 2006 History of Any Multi-Drug Resistant Organisms: None Reported Past Surgical History: AICD, Appendectomy, Cholecystectomy, Heart Catheterization With Stent Additional Past Surgical History / Comment(s): Colonoscopy, bilat cataracts. AICD 2006. not sure how many cardiac stents Past Anesthesia/Blood Transfusion Reactions: No Reported Reaction Date of Last Stent Placement:: not sure Type of Cardiac Device: Permanent Pacemaker, AICD Device Placement Date:: 2006 [facility] LEFT CHEST Past Psychological History: No Psychological Hx Reported Smoking Status: Former smoker Past Alcohol Use History: Daily Past Drug Use History: None Reported - Past Family History Mother Family Medical History: Coronary Artery Disease (CAD), Renal Disease Father Additional Family Medical History / Comment(s): during medical testing(iodine) Sister(s) Family Medical History: Cancer Additional Family Medical History / Comment(s): pancreatic cancer <Jennifer Kaplan - Last Filed: 12/07/23 14:10> General Exam Limitations: no limitations <Jennifer Kaplan - Last Filed: 12/07/23 14:10> General appearance: alert, in no apparent distress Head exam: Present: atraumatic, normocephalic, normal inspection Eye exam: Present: normal appearance, PERRL, EOMI. Absent: scleral icterus, conjunctival injection, periorbital swelling ENT exam: Present: normal exam, mucous membranes moist Neck exam: Present: normal inspection. Absent: tenderness, meningismus, lymphadenopathy Respiratory exam: Present: normal lung sounds bilaterally. Absent: respiratory distress, wheezes, rales, rhonchi, stridor Cardiovascular Exam: Present: regular rate, normal rhythm, normal heart sounds. Absent: systolic murmur, diastolic murmur, rubs, gallop, clicks GI/Abdominal exam: Present: soft, normal bowel sounds. Absent: distended, tenderness, guarding, rebound, rigid Extremities exam: Present: normal inspection, full ROM, normal capillary refill. Absent: tenderness, pedal edema, joint swelling, calf tenderness Neurological exam: Present: alert, oriented X3 Psychiatric exam: Present: normal affect, normal mood Skin exam: Present: warm, dry, intact, normal color. Absent: rash <Angelic Casas - Last Filed: 12/07/23 17:01> - General Exam Comments Initial Comments: Visual Physical Exam Vital signs reviewed General: Well-appearing, nontoxic, no acute distress. Head: Normocephalic, atraumatic Eyes: PERRLA, EOMI ENT: Airway patent Chest: Nonlabored breathing Skin: No visual rash, normal skin tone Neuro: Alert and oriented 3 Musculoskeletal: No gross abnormalities (Jennifer Kaplan) Course Vital Signs 12/07/23 13:59 Temperature 97.7 F Pulse Rate 93 Respiratory 18 Rate Blood Pressure 110/70 O2 Sat by Pulse 100 Oximetry EKG Findings - EKG Results: EKG: interpreted by ERMD (EKG reveals right bundle branch block with occasional PACs. Ventricular rate 88 bpm, FL interval 205, QRS duration 142, QT/QTc 394/440) <Angelic Casas - Last Filed: 12/07/23 17:01> Medical Decision Making <Jennifer Kaplan - Last Filed: 12/07/23 14:10> - Lab Data Result diagrams: 12/07/23 14:06 12/07/23 14:06 <Angelic Casas - Last Filed: 12/07/23 17:01> - Medical Decision Making I performed the QuickNote portion of this chart. Signed Jennifer Kaplan PA-C. (Jennifer Kaplan) Was pt. sent in by a medical professional or institution ([facility], [employer], urgent care, hospital, or penitentiary...) When possible be specific @ -[Sent by Dr. Rao for direct admission for UTI/dehydration Did you speak to anyone other than the patient for history (EMS, parent, family, police, friend...)? What history was obtained from this source @ -Patient's daughter supplemented history Did you review nursing and triage notes (agree or disagree)? Why? @ -I reviewed and agree with nursing and triage notes Were old charts reviewed (outside hosp., previous admission, EMS record, old EKG, old radiological studies, urgent care reports/EKG's, penitentiary records)? Report findings @ -Direct admission form by Dr. Rao was reviewed Differential Diagnosis (chest pain, altered mental status, abdominal pain women, abdominal pain men, vaginal bleeding, weakness, fever, dyspnea, syncope, headac he, dizziness, GI bleed, back pain, seizure, CVA, palpatations, mental health, musculoskeletal)? @ -Differential Weakness: Hypoglycemia, shock, sepsis, hyponatremia, anemia, infection, MO, ETOH, adverse medicine reaction, overdose, stroke, this is not meant to be an all-inclusive list. EKG interpreted by me (3pts min.). @ -As above X-rays interpreted by me (1pt min.). @ -None done CT interpreted by me (1pt min.). @ -None done U/S interpreted by me (1pt. min.). @ -None done What testing was considered but not performed or refused? (CT, X-rays, U/S, labs)? Why? @ -None What meds were considered but not given or refused? Why? @ -Dextrose not given for hyperkalemia due to glucose is 440 Did you discuss the management of the patient with other professionals (professionals i.e. Dr., PA, [employer], lab, RT, psych nurse, dialysis social worker, human relations teacher, teacher, chief client officer, bilingual patient support caseworker)? Give summary @ -I spoke with Dr. Rao regarding case who accepts admission at this time for UTI, hyperkalemia, and hyponatremia with consultation to nephrology and infectious disease services Was smoking cessation discussed for >3mins.? @ -No Was critical care preformed (if so, how long)? @ -Yes, 35 minutes Were there social determinants of health that impacted care today? How? (Homelessness, low income, unemployed, alcoholism, drug addiction, transportation, low edu. Level, literacy, decrease access to med. care, care home, rehab)? @ -No Was there de-escalation of care discussed even if they declined (Discuss DNR or withdrawal of care, Hospice)? DNR status @ -No What co-morbidities impacted this encounter? (DM, HTN, Smoking, COPD, CAD, Cancer, CVA, ARF, Chemo, Hep., AIDS, mental health diagnosis, sleep apnea, morbid obesity)? @ -None Was patient admitted / discharged? Hospital course, mention meds given and route, prescriptions, significant lab abnormalities, going to OR and other pertinent info. @ -Patient was admitted. Patient was sent by Dr. Rao for direct admission for UTI and dehydration. Patient has been dealing with UTIs for the past several months. Vitals are as follows: blood pressure 110/70, heart rate 93 bpm, O2 100%, temperature 97.7, respiration rate 18. Lab work is remarkable for potassium of 6.3, sodium 122, creatinine 2.36, glucose 440. EKG reveals right bundle branch block with no ST changes. Patient was given IV fluids, calcium gluconate, insulin, and Lokelma. Dextrose not given due to glucose of 440. I spoke with Dr. Rao who accepts admission at this time for UTI, hyperkalemia, and hyponatremia with consultation to nephrology and infectious disease services. Urine pending at time of admission, however Dr. Rao is requesting IV Rocephin to be initiated due to "milky urine" in office. Case discussed with my attending Dr. Benjamin. Undiagnosed new problem with uncertain prognosis? @ -No Drug Therapy requiring intensive monitoring for toxicity (Heparin, Nitro, Insulin, Cardizem)? @ -No Were any procedures done? @ -No Diagnosis/symptom? @ -Urinary tract infection, hyperkalemia, hyponatremia Acute, or Chronic, or Acute on Chronic? @ -Acute Uncomplicated (without systemic symptoms) or Complicated (systemic symptoms)? @ -Complicated Side effects of treatment? @ -No Exacerbation, Progression, or Severe Exacerbation? @ -No Poses a threat to life or bodily function? How? (Chest pain, USA, MO, pneumonia, PE, COPD, DKA, ARF, appy, cholecystitis, CVA, Diverticulitis, Homicidal, Suicidal, threat to staff... and all critical care pts) @ -Yes (Angelic Casas) - Lab Data Lab Results 12/07/23 12/07/23 12/07/23 Range/Units 14:06 14:06 14:06 WBC 6.9 (3.8-10.6) k/uL RBC 3.66 L (4.30-5.90) m/uL Hgb 11.9 L (13.0-17.5) gm/dL Hct 34.9 L (39.0-53.0) % MCV 95.4 D (80.0-100.0) fL MCH 32.6 (25.0-35.0) pg MCHC 34.1 (31.0-37.0) g/dL RDW 13.6 (11.5-15.5) % Plt Count 187 (150-450) k/uL MPV 8.4 Neutrophils % 79 % Lymphocytes % 10 % Monocytes % 6 % Eosinophils % 1 % Basophils % 1 % Neutrophils # 5.4 (1.3-7.7) k/uL Lymphocytes # 0.7 L (1.0-4.8) k/uL Monocytes # 0.4 (0-1.0) k/uL Eosinophils # 0.1 (0-0.7) k/uL Basophils # 0.1 (0-0.2) k/uL PT 11.1 (10.0-12.5) sec INR 1.0 (<1.2) APTT 25.7 (22.0-30.0) sec Sodium 122 L (137-145) mmol/L Potassium 6.3 H* (3.5-5.1) mmol/L Chloride 91 L (98-107) mmol/L Carbon Dioxide 22 (22-30) mmol/L Anion Gap 9 mmol/L BUN 45 H (9-20) mg/dL Creatinine 2.36 H (0.66-1.25) mg/dL Est GFR (CKD-EPI)AfAm 29 (>60 ml/min/1.73 sqM) Est GFR (CKD-EPI)NonAf 25 (>60 ml/min/1.73 sqM) Glucose 440 H (74-99) mg/dL Calcium 9.4 (8.4-10.2) mg/dL Phosphorus 3.2 (2.5-4.5) mg/dL Magnesium 2.1 (1.6-2.3) mg/dL Total Bilirubin 1.4 H (0.2-1.3) mg/dL AST 32 (17-59) U/L ALT 31 (4-49) U/L Alkaline Phosphatase 109 (38-126) U/L Troponin I (0.000-0.034) ng/mL Total Protein 6.8 (6.3-8.2) g/dL Albumin 3.8 (3.5-5.0) g/dL 12/07/23 Range/Units 14:06 WBC (3.8-10.6) k/uL RBC (4.30-5.90) m/uL Hgb (13.0-17.5) gm/dL Hct (39.0-53.0) % MCV (80.0-100.0) fL MCH (25.0-35.0) pg MCHC (31.0-37.0) g/dL RDW (11.5-15.5) % Plt Count (150-450) k/uL MPV Neutrophils % % Lymphocytes % % Monocytes % % Eosinophils % % Basophils % % Neutrophils # (1.3-7.7) k/uL Lymphocytes # (1.0-4.8) k/uL Monocytes # (0-1.0) k/uL Eosinophils # (0-0.7) k/uL Basophils # (0-0.2) k/uL PT (10.0-12.5) sec INR (<1.2) APTT (22.0-30.0) sec Sodium (137-145) mmol/L Potassium (3.5-5.1) mmol/L Chloride (98-107) mmol/L Carbon Dioxide (22-30) mmol/L Anion Gap mmol/L BUN (9-20) mg/dL Creatinine (0.66-1.25) mg/dL Est GFR (CKD-EPI)AfAm (>60 ml/min/1.73 sqM) Est GFR (CKD-EPI)NonAf (>60 ml/min/1.73 sqM) Glucose (74-99) mg/dL Calcium (8.4-10.2) mg/dL Phosphorus (2.5-4.5) mg/dL Magnesium (1.6-2.3) mg/dL Total Bilirubin (0.2-1.3) mg/dL AST (17-59) U/L ALT (4-49) U/L Alkaline Phosphatase (38-126) U/L Troponin I <0.012 (0.000-0.034) ng/mL Total Protein (6.3-8.2) g/dL Albumin (3.5-5.0) g/dL Disposition <Jennifer Kaplan - Last Filed: 12/07/23 14:10> Time of Disposition: 17:01 <Angelic Casas - Last Filed: 12/07/23 17:01> Clinical Impression: Urinary tract infection, Hyperkalemia, Hyponatremia Disposition: ADMITTED IP TO THIS HOSP Referrals: Los Rao MD [Primary Care Provider] - 1-2 days
--- NOTE | 2023-12-07 14:55 | XR ---
EXAMINATION TYPE: XR chest 2V DATE OF EXAM: 12/07/2023 2:33 PM CLINICAL INDICATION:Male, 78 years old with history of Weakness; [facility] COMPARISON: Chest radiographs from 10/20/2023 TECHNIQUE: XR chest 2V Frontal and lateral views of the chest. FINDINGS: Lungs/Pleura: There is flattening of the diaphragm with increased lucency of the lungs. No evidence o f pneumothorax, pleural effusion or focal consolidation. Pulmonary vascularity: Unremarkable. Heart/mediastinum: Cardiomediastinal silhouette is unremarkable. Single-lead cardiac conduction devic e overlying the left hemithorax with lead projecting over the right ventricle. Musculoskeletal: No acute osseous pathology. IMPRESSION: 1. No acute cardiopulmonary disease process. 2. COPD changes.
[2023-12-07 15:14] LABS: Basophils # (A) 0.1 k/uL (0-0.2); Basophils % (A) 1 %; Eosinophils # (A) 0.1 k/uL (0-0.7); Eosinophils % (A) 1 %; HCT 34.9 % (39.0-53.0); HGB 11.9 gm/dL (13.0-17.5); Lymphocytes # (A) 0.7 k/uL (1.0-4.8); Lymphocytes % (A) 10 %; MCH 32.6 pg (25.0-35.0); MCHC 34.1 g/dL (31.0-37.0); Mean Platelet Volume 8.4; Monocytes # (A) 0.4 k/uL (0-1.0); Monocytes % (A) 6 %; Neutrophils # (A) 5.4 k/uL (1.3-7.7); Neutrophils % (A) 79 %; Platelet Count 187 k/uL (150-450); RBC 3.66 m/uL (4.30-5.90); RDW 13.6 % (11.5-15.5); WBC 6.9 k/uL (3.8-10.6)
[2023-12-07 15:19] LABS: MCV 95.4 fL (80.0-100.0)
[2023-12-07 15:39] LABS: ALT 31 U/L (4-49); AST 32 U/L (17-59); African American GFR (CKD) 29 (>60 ml/min/1.73 sqM); Albumin 3.8 g/dL (3.5-5.0); Alkaline Phosphatase 109 U/L (38-126); Anion Gap 9 mmol/L; Blood Urea Nitrogen 45 mg/dL (9-20); Calcium 9.4 mg/dL (8.4-10.2); Carbon Dioxide 22 mmol/L (22-30); Chloride 91 mmol/L (98-107); Glucose 440 mg/dL (74-99); Magnesium 2.1 mg/dL (1.6-2.3); Non-African American GFR(CKD) 25 (>60 ml/min/1.73 sqM); Phosphorus 3.2 mg/dL (2.5-4.5); Sodium 122 mmol/L (137-145); Total Bilirubin 1.4 mg/dL (0.2-1.3); Total Protein 6.8 g/dL (6.3-8.2)
[2023-12-07 15:53] LABS: Partial Thromboplastin Time 25.7 sec (22.0-30.0); Prothrombin Time 11.1 sec (10.0-12.5)
[2023-12-07 16:00] LABS: Potassium 6.3 mmol/L (3.5-5.1)
[2023-12-07] MEDS: SODIUM ZIRCONIUM CYCLOSILICATE 10 GM PACKET PO ONE (16:44)
[2023-12-07] MEDS: INSULIN REGULAR 100 UNIT/ML VIAL (IV) IV ONE (16:45)
[2023-12-07] MEDS: SODIUM CHLORIDE 0.9% 1,000 ML IV STA (16:46)
[2023-12-07] MEDS ORDERED: NALOXONE 0.4 MG/ML 1 ML VIAL IV PRN (16:46)
[2023-12-07] MEDS: CALCIUM GLUCONATE IN NACL 1 GM in SALINE 1 100ML.BAG IVPB ONE (16:46)
[2023-12-07] MEDS: SODIUM CHLORIDE 0.9% 1,000 ML IV SCH ×2 (18:22→19:29)
[2023-12-07] MEDS: MIDODRINE 5 MG TAB PO SCH (18:24)
[2023-12-07 18:51] LABS: Appearance,Urine Cloudy (Clear); Bacteria,Urine Many /hpf; Bilirubin,Urine Negative (Negative); Blood,Urine Small (Negative); Color,Urine Colorless; Glucose,Urine (UA) 4+ (Negative); Ketones,Urine Negative (Negative); Leukocyte Esterase,Urine Large (Negative); Mucus,Urine Rare /hpf; Nitrite,Urine Negative (Negative); PH, Urine 5.5 (5.0-8.0); Protein,Urine Trace (Negative); RBC,Urine <1 /hpf (0-5); Squamous Epithelial Cell,Urine <1 /hpf (0-4); Urobilinogen,Urine <2.0 mg/dL (<2.0); WBC,Urine >182 /hpf (0-5)
[2023-12-07 19:55] LABS: Glucose,Whole Blood 399 mg/dL (70-110)
[2023-12-07] MEDS: ATORVASTATIN 40 MG TAB PO SCH (20:11)
[2023-12-07] MEDS: APIXABAN 5 MG TAB PO SCH (20:11)
[2023-12-07] MEDS ORDERED: DEXTROSE 50% SYRINGE 50 ML IVP PRN ×2 (20:45)
[2023-12-07] MEDS: INSULIN ASPART (NovoLOG) 100 UNIT/ML VIAL SQ SCH (21:22)
[2023-12-07] MEDS: IPRATROPIUM-ALBUTEROL 3 ML NEB INHALATION SCH (21:58)
[2023-12-07 22:45] LABS: Glucose,Whole Blood 262 mg/dL (70-110)
[2023-12-08] MEDS: LEVOTHYROXINE 50 MCG TAB PO SCH (05:38)
[2023-12-08 07:34] LABS: Glucose,Whole Blood 154 mg/dL (70-110)
[2023-12-08] MEDS: TAMSULOSIN 0.4 MG CAP.ER.24H PO SCH (07:41)
[2023-12-08] MEDS: ASPIRIN 81 MG PO SCH (08:44)
[2023-12-08] MEDS: METOPROLOL SUCCINATE (ER) 25 MG TAB.ER.24H PO SCH (08:46)
[2023-12-08 08:49] LABS: Basophils # (A) 0.1 k/uL (0-0.2); Basophils % (A) 1 %; Eosinophils # (A) 0.2 k/uL (0-0.7); Eosinophils % (A) 3 %; HCT 28.7 % (39.0-53.0); HGB 10.1 gm/dL (13.0-17.5); Lymphocytes # (A) 0.6 k/uL (1.0-4.8); Lymphocytes % (A) 10 %; MCH 32.3 pg (25.0-35.0); MCHC 35.1 g/dL (31.0-37.0); Mean Platelet Volume 8.4; Monocytes # (A) 0.4 k/uL (0-1.0); Monocytes % (A) 7 %; Neutrophils # (A) 4.5 k/uL (1.3-7.7); Neutrophils % (A) 76 %; Platelet Count 159 k/uL (150-450); RBC 3.12 m/uL (4.30-5.90); RDW 14.1 % (11.5-15.5); WBC 5.9 k/uL (3.8-10.6)
[2023-12-08 09:06] LABS: ALT 26 U/L (4-49); AST 30 U/L (17-59); African American GFR (CKD) 39 (>60 ml/min/1.73 sqM); Alkaline Phosphatase 80 U/L (38-126); Anion Gap 4 mmol/L; Blood Urea Nitrogen 33 mg/dL (9-20); Calcium 8.7 mg/dL (8.4-10.2); Carbon Dioxide 21 mmol/L (22-30); Chloride 102 mmol/L (98-107); Glucose 149 mg/dL (74-99); Non-African American GFR(CKD) 34 (>60 ml/min/1.73 sqM); Sodium 127 mmol/L (137-145); Total Bilirubin 0.9 mg/dL (0.2-1.3); Total Protein 5.6 g/dL (6.3-8.2)
--- NOTE | 2023-12-08 09:48 | US ---
EXAMINATION TYPE: US abdomen complete DATE OF EXAM: 12/08/2023 COMPARISON: NONE CLINICAL INDICATION: Male, 78 years old with history of arf; pain TECHNIQUE: Multiple sonographic images of the abdomen are obtained. 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 Evidence for sonographic Hughes's sign: No CBD: wnl Spleen: wnl Right Kidney: wnl Left Kidney: Anechoic area superior measuring 6.3 x 3.9 x 4.5 cm Upper IVC: wnl Abd Aorta: Calcified mid The liver is homogenous. The intrahepatic portion of the IVC and proximal abdominal aorta are within normal limits. Wall echo shadow sign compatible with cholelithiasis. Common bile duct is unremarkab le. The visualized portions of the pancreas are homogenous. The spleen is unremarkable. Kidneys ar e symmetric and free of hydronephrosis. No renal lesions are seen. IMPRESSION: 1. No evidence for acute process. 2. Left renal cyst. 3. Cholelithiasis. 4. Hepatic steatosis.
[2023-12-08 12:10] LABS: Glucose,Whole Blood 267 mg/dL (70-110)
[2023-12-08 17:57] LABS: Glucose,Whole Blood 452 mg/dL (70-110)
[2023-12-08] MEDS: INSULIN REGULAR 100 UNIT/ML VIAL (IM/SQ) SQ ONE (18:22)
[2023-12-08 20:40] LABS: Glucose,Whole Blood 344 mg/dL (70-110)
--- NOTE | 2023-12-08 22:03 | P.CONS ---
History of Present Illness - Reason for Consult Consult date: 12/08/23 Urinary tract infection Requesting physician: Angelic Casas - Chief Complaint Burning and difficulty urination x days - History of Present Illness Patient is a 78-year-old male with a past medical history significant for diabetes mellitus hyperlipidemia [place] osteoarthritis atrial fibrillation patient presenting to the hospital for evaluation of weakness and according to the family the patient been dealing with a UTI and weakness for the last couple of months patient was noticed to have weakness generalized hypertension did have abnormal urine describing it to be milky with some burning but denies having difficulty urination deep pelvic pain suprapubic or flank pain did have some nausea but no vomiting no diarrhea and no high-grade fever did have some chills on presentation the hospital the patient was afebrile and no fever have been recorded subsequently patient was not tachycardic hypotensive or hypoxic and no need for supplemental oxygen patient did have a white count of 6.9 BUN/creatinine has been mildly elevated urine has been positive culture has been obtained which are currently pending patient has been started on ceftriaxone infectious disease was consulted for further management of antibiotic therapy did have abdominal ultrasound no evidence for acute process left renal cyst cholelithiasis and hepatic steatosis Review of Systems Positive point and negatives has been mentioned in the HPI, complete review of systems was performed and all other systems are negative Past Medical History Past Medical History: Atrial Fibrillation, Diabetes Mellitus, Eye Disorder, Hype rlipidemia, Myocardial Infarction ([place]), Osteoarthritis (OA) Additional Past Medical History / Comment(s): Macular degeneration. Hx kidney stones, chronic back pain, concussion 1969, sciatica; states hx falls D/T Rt knee giving out, uses 4-prong cane occ. NT feet. c/o throbbing pain Lt arm occ., leaky valve, occasional swelling ankles, uses O2 occasionally, not daily, still has @home from when he had Covid in 2020. 08/22 leaky valve fixed at [facility] Last Myocardial Infarction Date:: 2006 History of Any Multi-Drug Resistant Organisms: None Reported Past Surgical History: AICD, Appendectomy, Cholecystectomy, Heart Catheterization With Stent Additional Past Surgical History / Comment(s): Colonoscopy, bilat cataracts. AICD 2006. not sure how many cardiac stents Past Anesthesia/Blood Transfusion Reactions: No Reported Reaction Date of Last Stent Placement:: not sure Type of Cardiac Device: Permanent Pacemaker, AICD Device Placement Date:: 2006 [facility] LEFT CHEST Past Psychological History: No Psychological Hx Reported Smoking Status: Former smoker Past Alcohol Use History: Daily Past Drug Use History: None Reported - Past Family History Mother Family Medical History: Coronary Artery Disease (CAD), Renal Disease Father Additional Family Medical History / Comment(s): during medical testing(iodine) Sister(s) Family Medical History: Cancer Additional Family Medical History / Comment(s): pancreatic cancer Medications and Allergies Home Medications Medication Instructions Recorded Confirmed Type Apixaban [Eliquis] 5 mg PO BID #60 tab 05/21/20 12/07/23 Rx Atorvastatin [Lipitor] 40 mg PO HS 05/21/20 12/07/23 History predniSONE 10 mg PO DAILY PRN 09/16/23 12/07/23 History Tamsulosin [Flomax] 0.8 mg PO PC-BRKFST 30 Days #30 cap 09/22/23 12/07/23 Rx Ipratropium-Albuterol Nebulize 3 ml INHALATION RT-QID 30 Days 10/22/23 12/07/23 Rx [Duoneb 0.5 mg-3 mg/3 ml Soln] #120 each Levothyroxine Sodium [Synthroid] 50 mcg PO DAILY@0630 90 Days #90 10/22/23 12/07/23 Rx tab Midodrine [ProAmatine] 5 mg PO AC-TID 30 Days #90 tab 10/22/23 12/07/23 Rx cefUROXime axetiL [Ceftin] 500 mg PO BID 14 Days #28 tab 12/10/23 Rx Allergies Allergy/AdvReac Type Severity Reaction Status Date / Time Calcium Channel Blocking AdvReac Severe Chest Pain Verified 12/07/23 17:56 Agent Dilt Physical Exam Vitals: Vital Signs Temp Pulse Resp BP Pulse Ox 12/08/23 07:58 88 12/08/23 07:50 87 97 12/08/23 07:42 98.5 F 86 16 119/73 99 12/08/23 06:21 91 18 130/75 98 12/08/23 03:00 92 17 126/71 99 12/07/23 23:00 100 18 106/64 100 12/07/23 22:07 92 18 12/07/23 22:01 93 18 12/07/23 19:53 91 18 107/63 98 12/07/23 13:59 97.7 F 93 18 110/70 100 GENERAL DESCRIPTION: Elderly male lying in bed, no distress. No tachypnea or accessory muscle of respiration use. HEENT: Shows Pallor , no scleral icterus. Oral mucous membrane is dry. No pharyngeal erythema or thrush NECK: Trachea central, no thyromegaly. LUNGS: Unlabored breathing. Clear to auscultation anteriorly. No wheeze or crackle. HEART: S1, S2, regular rate and rhythm. No loud murmur ABDOMEN: Soft, no tenderness , guarding or rigidity, no organomegaly EXTREMITIES: No edema of feet. SKIN: No rash, no masses palpable. NEUROLOGICAL: The patient is awake, alert, oriented x3, mood and affect normal. Results CBC & Chem 7: 12/10/23 07:37 12/10/23 07:37 Labs: Abnormal Lab Results - Last 24 Hours (Table) 12/07/23 12/07/23 12/07/23 Range/Units 14:06 14:06 18:21 RBC 3.66 L (4.30-5.90) m/uL Hgb 11.9 L (13.0-17.5) gm/dL Hct 34.9 L (39.0-53.0) % Lymphocytes # 0.7 L (1.0-4.8) k/uL Sodium 122 L (137-145) mmol/L Potassium 6.3 H* (3.5-5.1) mmol/L Chloride 91 L (98-107) mmol/L Carbon Dioxide (22-30) mmol/L BUN 45 H (9-20) mg/dL Creatinine 2.36 H (0.66-1.25) mg/dL Glucose 440 H (74-99) mg/dL POC Glucose (mg/dL) (70-110) mg/dL Total Bilirubin 1.4 H (0.2-1.3) mg/dL Total Protein (6.3-8.2) g/dL Albumin (3.5-5.0) g/dL Urine Protein Trace H (Negative) Urine Glucose (UA) 4+ H (Negative) Urine Blood Small H (Negative) Ur Leukocyte Esterase Large H (Negative) Urine WBC >182 H (0-5) /hpf Urine WBC Clumps Many H (None) /hpf Urine Bacteria Many H (None) /hpf Urine Mucus Rare H (None) /hpf 12/07/23 12/07/23 12/07/23 Range/Units 19:52 20:27 22:43 RBC (4.30-5.90) m/uL Hgb (13.0-17.5) gm/dL Hct (39.0-53.0) % Lymphocytes # (1.0-4.8) k/uL Sodium (137-145) mmol/L Potassium 5.3 H (3.5-5.1) mmol/L Chloride (98-107) mmol/L Carbon Dioxide (22-30) mmol/L BUN (9-20) mg/dL Creatinine (0.66-1.25) mg/dL Glucose (74-99) mg/dL POC Glucose (mg/dL) 399 H 262 H (70-110) mg/dL Total Bilirubin (0.2-1.3) mg/dL Total Protein (6.3-8.2) g/dL Albumin (3.5-5.0) g/dL Urine Protein (Negative) Urine Glucose (UA) (Negative) Urine Blood (Negative) Ur Leukocyte Esterase (Negative) Urine WBC (0-5) /hpf Urine WBC Clumps (None) /hpf Urine Bacteria (None) /hpf Urine Mucus (None) /hpf 12/08/23 12/08/23 12/08/23 Range/Units 07:32 08:00 08:00 RBC 3.12 L (4.30-5.90) m/uL Hgb 10.1 L (13.0-17.5) gm/dL Hct 28.7 L (39.0-53.0) % Lymphocytes # 0.6 L (1.0-4.8) k/uL Sodium 127 L (137-145) mmol/L Potassium (3.5-5.1) mmol/L Chloride (98-107) mmol/L Carbon Dioxide 21 L (22-30) mmol/L BUN 33 H (9-20) mg/dL Creatinine 1.87 H (0.66-1.25) mg/dL Glucose 149 H (74-99) mg/dL POC Glucose (mg/dL) 154 H (70-110) mg/dL Total Bilirubin (0.2-1.3) mg/dL Total Protein 5.6 L (6.3-8.2) g/dL Albumin 3.0 L (3.5-5.0) g/dL Urine Protein (Negative) Urine Glucose (UA) (Negative) Urine Blood (Negative) Ur Leukocyte Esterase (Negative) Urine WBC (0-5) /hpf Urine WBC Clumps (None) /hpf Urine Bacteria (None) /hpf Urine Mucus (None) /hpf Assessment and Plan (1) Urinary tract infection Current Visit: Yes Status: Acute Code(s): N39.0 - URINARY TRACT INFECTION, SITE NOT SPECIFIED SNOMED Code(s): 85716702 Plan: 1patient presented to the hospital with weakness in addition to milky urine some burning concerning for symptomatic urinary tract infection mention has been dealing with this for more than a month has been treated with antibiotics with a question of possible prostatitis ultrasound of the kidneys was negative for any hydronephrosis 2-we will wait for the urine culture to finalize 3-check CT of the pelvis to make no evidence of any prostatitis or prostatic abscess 4-Rocephin 2 g daily to continue while waiting for the culture to finalize We will follow on clinical condition and cultures to further adjust medication if needed Thank you for this consultation we will follow the patient along with you Dictation was produced using [employer] dictation software. please excuse any grammatical, word or spelling errors. Time with Patient: Greater than 30
[2023-12-09 06:19] LABS: Glucose,Whole Blood 119 mg/dL (70-110)
[2023-12-09 12:02] LABS: Glucose,Whole Blood 300 mg/dL (70-110)
[2023-12-09 14:30] VITALS: BMI 24.3
--- NOTE | 2023-12-09 16:03 | CT ---
EXAMINATION TYPE: CT pelvis wo con DATE OF EXAM: 12/09/2023 COMPARISON: 09/11/2023 HISTORY: Recurrent UTI, question prostatitis/abscess CT DLP: 259.3 mGycm Automated exposure control for dose reduction was used. Contrast: None Technique: Axial images 5 mm thick sections. Reconstructed images in the coronal and sagittal planes. FINDINGS: Urinary bladder is distended. Wall appears normal. Prostate appears normal size. Multiple clips are present within the prostate. The bowel without oral contrast appear unremarkable. Small bowel loops and colon within the field-of- view are normal. Vascular calcifications within the aorta. There is flattening of the inferior vena c rusty which can be related to the patient's volume status Femoral heads articulate with the acetabulum. Osseous structures appear intact. No suspicious lytic o r sclerotic lesions evident. IMPRESSION: 1. NO SUSPICIOUS CHANGES TO SUGGEST ABSCESS WITHIN THE REGION OF THE PROSTATE.
[2023-12-09 16:56] LABS: Glucose,Whole Blood 147 mg/dL (70-110)
[2023-12-09 17:05] LABS: Basophils % (A) 0 %; Eosinophils # (A) 0.1 k/uL (0-0.7); Eosinophils % (A) 2 %; HCT 27.6 % (39.0-53.0); HGB 9.4 gm/dL (13.0-17.5); Lymphocytes # (A) 0.6 k/uL (1.0-4.8); Lymphocytes % (A) 12 %; MCH 32.5 pg (25.0-35.0); MCHC 34.1 g/dL (31.0-37.0); MCV 95.4 fL (80.0-100.0); Mean Platelet Volume 8.1; Monocytes # (A) 0.5 k/uL (0-1.0); Monocytes % (A) 8 %; Neutrophils % (A) 74 %; Platelet Count 169 k/uL (150-450); RDW 13.9 % (11.5-15.5); WBC 5.4 k/uL (3.8-10.6)
[2023-12-09 17:23] LABS: ALT 23 U/L (4-49); AST 30 U/L (17-59); African American GFR (CKD) 55 (>60 ml/min/1.73 sqM); Albumin 2.7 g/dL (3.5-5.0); Alkaline Phosphatase 68 U/L (38-126); Anion Gap 4 mmol/L; Blood Urea Nitrogen 24 mg/dL (9-20); Calcium 8.6 mg/dL (8.4-10.2); Carbon Dioxide 22 mmol/L (22-30); Chloride 103 mmol/L (98-107); Glucose 139 mg/dL (74-99); Non-African American GFR(CKD) 47 (>60 ml/min/1.73 sqM); Sodium 129 mmol/L (137-145); Total Bilirubin 0.6 mg/dL (0.2-1.3); Total Protein 5.3 g/dL (6.3-8.2)
[2023-12-09] MEDS: ACETAMINOPHEN TAB 325 MG TAB PO PRN (18:38)
[2023-12-09 20:12] LABS: Glucose,Whole Blood 258 mg/dL (70-110)
--- NOTE | 2023-12-09 20:33 | HP ---
HISTORY AND PHYSICAL HISTORY OF PRESENT ILLNESS: This is a 78-year-old white male who came to the emergency room with weakness, severe UTI, altered mental status. He was severely dehydrated with hyperkalemia and fluid boluses were given. Urine appeared milked, had over 182 white cells in his urine. Since admission, he is much better with fluids overnight on IV Rocephin. Waiting for final urine culture. HOME MEDICINES: 1. Aspirin. 2. Lipitor. 3. Prednisone. 4. DuoNeb updraft t.i.d. PAST MEDICAL HISTORY: Atrial fibrillation, diabetes mellitus, dyslipidemia, myocardial infarction, osteoarthritis. FAMILY HISTORY: Mother coronary disease, renal disease. Father during medical testing, iodine allergy. Sister, cancer pancreas. PHYSICAL EXAMINATION: VITAL SIGNS: Pulse 93, respiratory rate 16 to 18, blood pressure 110/70. GENERAL: He is alert, no acute distress. HEENT: Normocephalic, atraumatic. Pupils equal, round, and reactive. NECK: Supple. CARDIOVASCULAR: S1, S2. LUNGS: Transmitted upper sounds. HEMATOLOGY: Negative for Homans. PSYCH: Fair mood and affect. LABORATORY DATA: White count 97.7. Sodium was 132 on admission, potassium 6.3, BUN is 45, and creatinine is 2.36. ASSESSMENT: UTI, sepsis, severe dehydration, prerenal azotemia, hyperkalemia, hyponatremia secondary to dehydration, all labs are much improved. Continue current treatment with Rocephin. Wait for final urine culture. Consult Dr. Rand. SMILEY / NATHAN: [id number] /
--- NOTE | 2023-12-10 02:45 | PN ---
PROGRESS NOTE DATE OF SERVICE: 12/09/2023 SUBJECTIVE: The patient feels much better today. His last sodium was 127, today's is pending. His potassium is normal. BUN and creatinine are improving. GFR in the high 30s. OBJECTIVE: CARDIOVASCULAR: S1, S2. LUNGS: Transmitted upper sounds. HEMATOLOGY: Negative for Homans. CAT scan of his abdomen and pelvis showed no prostatic abscess. His urine is gram- negative bacilli. Waiting for final cultures, to send home on oral antibiotics. Prognosis guarded. Continue current treatments as he is greatly improved with dehydration, strength, and energy. Blood cultures are negative so far. Prognosis guarded. Wait for final culture. MMODL / IJN: [id number] /
[2023-12-10 05:57] VITALS: RESP 16
[2023-12-10 06:14] LABS: Glucose,Whole Blood 161 mg/dL (70-110)
[2023-12-10 08:37] LABS: Basophils % (A) 1 %; Eosinophils # (A) 0.2 k/uL (0-0.7); Eosinophils % (A) 3 %; HCT 26.4 % (39.0-53.0); HGB 8.8 gm/dL (13.0-17.5); Lymphocytes # (A) 0.7 k/uL (1.0-4.8); Lymphocytes % (A) 11 %; MCH 31.9 pg (25.0-35.0); MCHC 33.2 g/dL (31.0-37.0); Mean Platelet Volume 8.7; Monocytes # (A) 0.5 k/uL (0-1.0); Monocytes % (A) 9 %; Neutrophils # (A) 4.7 k/uL (1.3-7.7); Neutrophils % (A) 75 %; Platelet Count 154 k/uL (150-450); RBC 2.75 m/uL (4.30-5.90); RDW 14.2 % (11.5-15.5); WBC 6.3 k/uL (3.8-10.6)
[2023-12-10 08:48] LABS: ALT 22 U/L (4-49); AST 27 U/L (17-59); African American GFR (CKD) 57 (>60 ml/min/1.73 sqM); Albumin 2.4 g/dL (3.5-5.0); Alkaline Phosphatase 95 U/L (38-126); Anion Gap 3 mmol/L; Blood Urea Nitrogen 21 mg/dL (9-20); Calcium 8.3 mg/dL (8.4-10.2); Carbon Dioxide 22 mmol/L (22-30); Chloride 104 mmol/L (98-107); Glucose 181 mg/dL (74-99); Non-African American GFR(CKD) 49 (>60 ml/min/1.73 sqM); Potassium 4.7 mmol/L (3.5-5.1); Sodium 129 mmol/L (137-145); Total Bilirubin 0.7 mg/dL (0.2-1.3); Total Protein 4.9 g/dL (6.3-8.2)
[2023-12-10 10:58] VITALS: TEMP 98.1
[2023-12-10 11:31] LABS: Glucose,Whole Blood 253 mg/dL (70-110)
--- NOTE | 2023-12-10 14:28 | CDI ---
Documentation Clarification Form Date: 12/10/2023 From: Jil Garcia Phone: [phone] Admit Date: 12/07/2023 04:21:00 PM Patient Name: Maxx Dill Visit Number: [id number] Discharge Date: ATTENTION: The Clinical Documentation Specialists (CDI) and [facility] Coding Staff appreciate your assistance in clarifying documentation. Please respond to the clarification below the line at the bottom and electronically sign. The CDI & [facility] Coding staff will review the response and follow-up if needed. Please note: Queries are made part of the Legal Health Record. If you have any questions, please contact the author of this message via ITS. Dr. Los Rao: Sepsis is documented in the H&P 12/08 which may lack sufficient clinical evidence/support in the medical record. Additional clarification is requested. History/Risk Factors: 78-year-old male with a history of AFib, DM, [place] who presents with weakness, severe UTI and AMS Clinical Indicators: 12/06 Triage VS: 110/70, 97.7, 93, 18, 100% room air 12/06-12/09 Temperature max: 98.6 on 12/07 Heart rate max: 100 on 12/06 and 12/07 12/08 H&P, Assessment: "UTI, sepsis, severe dehydration" 12/06-12/09 WBC: 6.9, 5.9, 5.4, 6.3 12/06 Lactic Acid: 1.6 12/06 Urinalysis: Appearance: Cloudy, Protein: Trace, Blood: Small, Leukocyte Esterase: Large, WBC: >182, Bacteria: Many, Mucus Rare 12/06 Urine Culture: Klebsiella oxytoca 12/06 Blood Culture: No growth after 48 hours Treatment: Ceftriaxone 2gram IV once 12/06 then [id number] start 12/07 Normal Saline 1000cc bolus once 12/06 Please clarify if Sepsis is a valid diagnosis? [ ] No, Sepsis is ruled out [ ] Yes, Sepsis is present as evidence by (additional clinical support): [ ] Other (please specify diagnosis) [ ] Unable to determine Answered in PN 12/24- Sepsis ruled in MTDD
--- NOTE | 2023-12-10 14:38 | CDI ---
Documentation Clarification Form Date: 12/10/2023 From: Jil Garcia Phone: [phone] Admit Date: 12/07/2023 04:21:00 PM Patient Name: Maxx Dill Visit Number: [id number] Discharge Date: ATTENTION: The Clinical Documentation Specialists (CDI) and [facility] Coding Staff appreciate your assistance in clarifying documentation. Please respond to the clarification below the line at the bottom and electronically sign. The CDI & [facility] Coding staff will review the response and follow-up if needed. Please note: Queries are made part of the Legal Health Record. If you have any questions, please contact the author of this message via ITS. Dr. Los Rao: Your patient has the documented symptom of Altered Mental Status in the H&P 12/08. Additional clarification regarding the etiology/cause of this symptom is requested. History/Risk Factors: 78-year-old male with a history of AFib, DM, [place] who presents with weakness, severe UTI and AMS Clinical Indicators: 12/08 H&P, HPI: "This is a 78-year-old white male who came to the emergency room with weakness, severe UTI, altered mental status." 12/06-12/09 Sodium: 122, 127, 129, 129 BUN: 45, 33, 24, 21 Creatinine: 2.36, 1.87, 1.42, 1.37 12/06 Urinalysis: Appearance: Cloudy, Protein: Trace, Blood: Small, Leukocyte Esterase: Large, WBC: >182, Bacteria: Many, Mucus Rare 12/06 Urine Culture: Klebsiella oxytoca Treatment: Ceftriaxone 2gram IV once 12/06 then [id number] start 12/07 Normal Saline 1000cc bolus once 12/06 Please clarify the etiology of the symptom of Altered Mental Status: [ ] Metabolic Encephalopathy due to abnormal BUN, Creatinine, Sodium and UTI [ ] Other condition (please specify) [ ] Unable to determine Answered in PN 12/24- metabolic encephalopathy MTDD
--- NOTE | 2023-12-10 14:49 | CDI ---
Documentation Clarification Form Date: 12/10/2023 From: Jil Garcia Phone: [phone] Admit Date: 12/07/2023 04:21:00 PM Patient Name: Maxx Dill Visit Number: [id number] Discharge Date: ATTENTION: The Clinical Documentation Specialists (CDI) and [facility] Coding Staff appreciate your assistance in clarifying documentation. Please respond to the clarification below the line at the bottom and electronically sign. The CDI & [facility] Coding staff will review the response and follow-up if needed. Please note: Queries are made part of the Legal Health Record. If you have any questions, please contact the author of this message via ITS. Dr. Los Rao: Your patient has elevated BUN and Creatinine 12/06-12/09. Based on this information and the findings below, is there an additional diagnosis that is clinically appropriate for this patient? Patient history/risk factors: 78-year-old male with a history of AFib, DM, [place] who presents with weakness, severe UTI and AMS Clinical Indicators: 12/06-12/09 Sodium: 122, 127, 129, 129 Potassium: 6.3, 5.3, 5.0, 5.0, 4.7 BUN: 45, 33, 24, 21(BUN on 10/21-) Creatinine: 2.36, 1.87, 1.42, 1.37(Creatinine on 10/21-1.85) EGFR(non-Afr Serbian): 25, 34, 47, 49(EGFR on 10/21-34) 12/06 Urinalysis: Appearance: Cloudy, Protein: Trace, Blood: Small, Leukocyte Esterase: Large, WBC: >182, Bacteria: Many, Mucus Rare 12/06 Urine Culture: Klebsiella oxytoca Treatment: Ceftriaxone 2gram IV once 12/06 then [id number] start 12/07 Normal Saline 1000cc bolus once 12/06 Is there an additional diagnosis that is clinically appropriate for this patient? [ ] Acute Kidney Injury [ ] Acute Renal Failure [ ] Acute on Chronic Renal Failure (please stage) [ ] No additional diagnosis/Not clinically significant [ ] Unable to determine [ ] Other, please specify Reference: KDIGO WOOD Criteria An increase in serum creatinine by greater than or equal to 0.3 mg/dL within 48 hours; An increase in serum creatinine by greater than or equal to 1.5 times baseline, which is known or presumed to have occurred within the prior 7 days; A urine volume less than 0.5 ml/kg/h for 6 hours. When the baseline is unknown the lowest creatinine during admission assumed to be baseline Answered in PN 12/24- WOOD MTDD
--- NOTE | 2023-12-10 14:49 | P.PN ---
Subjective Progress Note Date: 12/09/23 Principal diagnosis: Reason for follow-up visit urinary tract infection Patient is a 78-year-old male with a past medical history significant for diabetes mellitus hyperlipidemia [place] osteoarthritis atrial fibrillation patient presenting to the hospital for evaluation of weakness and according to the family the patient been dealing with a UTI and weakness for the last couple of weeks patient has been diagnosed with UTI has been admitted to the hospital probably this consultation. On today's evaluation that is 12/09/2023,the patient remains to be afebrile, patient is on 2 L nasal cannula supplemental oxygen and denies any shortness of breath no chest pain or cough.Patient denies having any nausea or vomiting, no abdominal pain and no diarrhea has been reported still having some cloudy urine per patient. Patient white count is 5.4, creatinine is 1.42, CT of the pelvis is currently pending Objective - Vital Signs Vital signs: Vital Signs Temp 97.5 F L 12/09/23 08:00 Pulse 83 12/09/23 13:41 Resp 18 12/09/23 12:00 BP 107/56 12/09/23 12:00 Pulse Ox 99 12/09/23 12:00 FiO2 Intake & Output 12/08/23 12/09/23 12/09/23 18:59 06:59 18:59 Intake Total 450 Output Total 575 200 Balance -575 250 Weight 70.4 kg 70.4 kg Intake: Oral 450 Output: Urine 575 200 Other: Voiding Method Urinal Urinal - Exam GENERAL DESCRIPTION: An elderly male lying in bed in no distress RESPIRATORY SYSTEM: Unlabored breathing , decreased breath sounds at bases HEART: S1 S2 regular rate and rhythm , ABDOMEN: Soft , no tenderness EXTREMITIES: No edema feet - Labs CBC & Chem 7: 12/10/23 07:37 12/10/23 07:37 Labs: Abnormal Lab Results - Last 24 Hours (Table) 12/08/23 12/08/23 12/09/23 Range/Units 17:55 20:38 06:18 POC Glucose (mg/dL) 452 H 344 H 119 H (70-110) mg/dL 12/09/23 Range/Units 12:01 POC Glucose (mg/dL) 300 H (70-110) mg/dL Microbiology - Last 24 Hours (Table) 12/07/23 17:58 Urine Culture - Preliminary Urine,Clean Catch Gram Neg Bacilli 12/07/23 17:00 Blood Culture - Preliminary Blood 12/07/23 16:45 Blood Culture - Preliminary Blood Assessment and Plan (1) Urinary tract infection Current Visit: Yes Status: Acute Code(s): N39.0 - URINARY TRACT INFECTION, SITE NOT SPECIFIED SNOMED Code(s): 78524596 Plan: 1patient presented to the hospital with weakness in addition to milky urine some burning concerning for symptomatic urinary tract infection mention has been dealing with this for more than a month has been treated with antibiotics with a question of possible prostatitis ultrasound of the kidneys was negative for any hydronephrosis 2-we are currently waiting for the urine culture to finalize which is growing gram-negative 3- CT of the pelvis is currently pending 4-patient to continue with Rocephin 2 g daily while waiting for the culture to finalize Dictation was produced using [email or web address] dictation software. please excuse any grammatical, word or spelling errors. Time with Patient: Less than 30
[2023-12-10 14:51] VITALS: BP 97/58
--- NOTE | 2023-12-10 14:51 | P.PN ---
Subjective Progress Note Date: 12/10/23 Principal diagnosis: Reason for follow-up visit urinary tract infection Patient is a 78-year-old male with a past medical history significant for diabetes mellitus hyperlipidemia NM osteoarthritis atrial fibrillation patient presenting to the hospital for evaluation of weakness and according to the family the patient been dealing with a UTI and weakness for the last couple of weeks patient has been diagnosed with UTI has been admitted to the hospital probably this consultation. On today's evaluation that is 12/10/2023, the patient continues to be afebrile and mention feeling slightly better, the patient is on 2 L current oxygen and breathing comfortably, the Pt denies having any chest pain or cough, the patient denies having any abdominal pain no vomiting or any diarrhea mention urine symptom improved but not resolved. Patient white count is 6.[address] of the pelvis did not show any features of prostatitis or abscess urine has been finalized with Klebsiella that is sensitive to ceftriaxone Objective - Vital Signs Vital signs: Vital Signs Temp 98.1 F 12/10/23 08:00 Pulse 66 12/10/23 08:00 Resp 16 12/10/23 08:00 BP 116/62 12/10/23 08:00 Pulse Ox 97 12/10/23 08:44 FiO2 Intake & Output 12/09/23 12/10/23 12/10/23 18:59 06:59 18:59 Intake Total 450 118 Output Total 700 950 Balance -250 -950 118 Weight 70.4 kg 72.1 kg Intake: Oral 450 118 Output: Urine 700 950 Other: Voiding Method Urinal Urinal Urinal - Exam GENERAL DESCRIPTION: An elderly male lying in bed in no distress RESPIRATORY SYSTEM: Unlabored breathing , decreased breath sounds at bases HEART: S1 S2 regular rate and rhythm , ABDOMEN: Soft , no tenderness EXTREMITIES: No edema feet - Labs CBC & Chem 7: 12/10/23 07:37 12/10/23 07:37 Labs: Abnormal Lab Results - Last 24 Hours (Table) 12/09/23 12/09/23 12/09/23 Range/Units 12:01 16:41 16:41 RBC 2.90 L (4.30-5.90) m/uL Hgb 9.4 L (13.0-17.5) gm/dL Hct 27.6 L (39.0-53.0) % Lymphocytes # 0.6 L (1.0-4.8) k/uL Sodium 129 L (137-145) mmol/L BUN 24 H (9-20) mg/dL Creatinine 1.42 H (0.66-1.25) mg/dL Glucose 139 H (74-99) mg/dL POC Glucose (mg/dL) 300 H (70-110) mg/dL Calcium (8.4-10.2) mg/dL Total Protein 5.3 L (6.3-8.2) g/dL Albumin 2.7 L (3.5-5.0) g/dL 12/09/23 12/09/23 12/10/23 Range/Units 16:55 20:09 06:08 RBC (4.30-5.90) m/uL Hgb (13.0-17.5) gm/dL Hct (39.0-53.0) % Lymphocytes # (1.0-4.8) k/uL Sodium (137-145) mmol/L BUN (9-20) mg/dL Creatinine (0.66-1.25) mg/dL Glucose (74-99) mg/dL POC Glucose (mg/dL) 147 H 258 H 161 H (70-110) mg/dL Calcium (8.4-10.2) mg/dL Total Protein (6.3-8.2) g/dL Albumin (3.5-5.0) g/dL 12/10/23 12/10/23 Range/Units 07:37 07:37 RBC 2.75 L (4.30-5.90) m/uL Hgb 8.8 L (13.0-17.5) gm/dL Hct 26.4 L (39.0-53.0) % Lymphocytes # 0.7 L (1.0-4.8) k/uL Sodium 129 L (137-145) mmol/L BUN 21 H (9-20) mg/dL Creatinine 1.37 H (0.66-1.25) mg/dL Glucose 181 H (74-99) mg/dL POC Glucose (mg/dL) (70-110) mg/dL Calcium 8.3 L (8.4-10.2) mg/dL Total Protein 4.9 L (6.3-8.2) g/dL Albumin 2.4 L (3.5-5.0) g/dL Microbiology - Last 24 Hours (Table) 12/07/23 17:58 Urine Culture - Final Urine,Clean Catch Klebsiella oxytoca 12/07/23 17:00 Blood Culture - Preliminary Blood 12/07/23 16:45 Blood Culture - Preliminary Blood Assessment and Plan (1) Urinary tract infection Current Visit: Yes Status: Acute Code(s): N39.0 - URINARY TRACT INFECTION, SITE NOT SPECIFIED SNOMED Code(s): 24397303 Plan: 1patient presented to the hospital with weakness in addition to milky urine some burning concerning for symptomatic urinary tract infection mention has been dealing with this for more than a month has been treated with antibiotics with a question of possible prostatitis ultrasound of the kidneys was negative for any hydronephrosis 2-w urine culture have been finalized with Klebsiella that is sensitive to ceftriaxone 3- CT of the pelvis did not show any features of prostatitis or abscess 4-patient seem to have shown clinical improvement with Rocephin 2 g daily we will consider 2-week course of oral Ceftin prescription has been sent to the pharmacy cannot use Cipro as the patient is on Eliquis with a drug interaction and Bactrim is not a good choice because of his kidney function Dictation was produced using [employer] dictation software. please excuse any grammatical, word or spelling errors. Time with Patient: Greater than 30
[2023-12-10 16:19] LABS: Glucose,Whole Blood 268 mg/dL (70-110)
[2023-12-10] MEDS ORDERED: bisacodyL 5 MG TABLET.DR PO PRN (17:14)
[2023-12-10] MEDS: NA PHOS,M-B/NA PHOS,DI-BA 133 ML ENEMA RECTAL ONE (18:25)
[2023-12-10 19:11] VITALS: PULSE 65
[2023-12-11] MEDS ORDERED: methylPREDNISolone 4 MG TAB TAPER PO SCH (09:00)
--- NOTE | 2023-12-25 21:48 | PN ---
PROGRESS NOTE Sepsis ruled in. Also add hyponatremia, metabolic encephalopathy due to hyponatremia and sepsis. Also had acute kidney injury secondary to dehydration, sepsis, acute on chronic renal failure stage IIIB. MMODL / IJN: [id number] /
== END 2023-12-10 20:38 | disposition home health service (06) | DRG 871 ==
LOC: EC 13:45 → 3SCARD 16:21
PROVIDERS: ADMIT Family Medicine; ATTEND Family Medicine
DX: A41.50 Gram-negative sepsis, unspecified (principal); G93.41 Metabolic encephalopathy; N39.0 Urinary tract infection, site not specified; E87.1 Hypo-osmolality and hyponatremia; N17.9 Acute kidney failure, unspecified; E78.5 Hyperlipidemia, unspecified; E86.0 Dehydration; E87.5 Hyperkalemia; M54.30 Sciatica, unspecified side; I10 Essential (primary) hypertension; N18.32 Chronic kidney disease, stage 3b; I25.10 Atherosclerotic heart disease of native coronary artery without angina pectoris; R65.20 Severe sepsis without septic shock; I12.9 Hypertensive chronic kidney disease with stage 1 through stage 4 chronic kidney disease, or unspecified chronic kidney disease; E11.22 Type 2 diabetes mellitus with diabetic chronic kidney disease; M19.90 Unspecified osteoarthritis, unspecified site; H35.30 Unspecified macular degeneration; G89.29 Other chronic pain; I25.2 Old myocardial infarction; I45.10 Unspecified right bundle-branch block; I48.91 Unspecified atrial fibrillation; Z79.01 Long term (current) use of anticoagulants; Z79.82 Long term (current) use of aspirin; Z79.890 Hormone replacement therapy; Z79.899 Other long term (current) drug therapy; Z86.16 Personal history of COVID-19; Z87.442 Personal history of urinary calculi; Z91.81 History of falling; Z95.5 Presence of coronary angioplasty implant and graft
CPT/HCPCS: 36415; 71046; 72192; 76700; 80053; 81001; 83036; 83605; 83735; 84100; 84132; 84484; 85025; 85610; 85730; 87040; 87077; 87086; 87186; 93005; 94640; 94760; 96361; 96365; 99291